=== PATIENT | female | born 1995 | race Caucasian/White ===

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

== ENCOUNTER 2017-04-01 21:24 | Emergency (ER) | payer BC, OTHER ==
[~2017-04-01] VITALS: Ht 162.6 cm; Wt 79.3 kg
[~2017-04-01 21:24] MED LIST changes: +ATR25 PO; +CYM60 PO; +PROP10TA54 PO; -VILA1TAB2 PO
[2017-04-01 21:32] VITALS: TEMP 37.1; Ht 162.6 cm; Wt 79.3 kg
--- NOTE | 2017-04-01 22:01 | EMERGENCY ROOM VISIT NOTE ---
History Report prepared by Chetan: Axel Snell Under the Supervision of: Dr. Iglesia Andersen M.D. First contact with patient: 21:43 Chief Complaint: MENTAL HEALTH EVALUATION Stated Complaint: DEPRESSION History of Present Illness The patient is a 21 year old female who presents to the Emergency Room with complaints of constant depression beginning a few months ago. The patient states that for the past couple months, she has been sleeping more often and not leaving the house. She notes that she intentionally cut herself two days ago and called the suicide hotline following the incident. She reports that she has had suicidal ideations for the past month but does not have a current suicidal plan. The patient states that she was hospitalized in June for suicidal thoughts. She notes that she has been taking testosterone since November. Her tetanus is UTD. Source of History: patient Onset: a few months ago Position: other (global) Quality: other (depression) Timing: constant Note: She notes that she has been sleeping more often and has not been leaving the house. She also notes cutting herself and suicidal ideations without a plan. Review of Systems See HPI for pertinent positives & negatives. A total of 10 systems reviewed and were otherwise negative. Past Medical & Surgical Medical Problems: (1) ADHD, predominantly inattentive type (2) Anxiety (3) ADAMA (generalized anxiety disorder) (4) Migraine (5) Suicidal ideation Family History Patient reports no known family medical history. Social History Smoking Status: Never Smoker Alcohol Use: none Drug Use: none Marital Status: single Occupation Status: student Current/Historical Medications Scheduled Duloxetine Hcl (Cymbalta), 60 MG PO DAILY Lamotrigine (Lamictal), 200 MG PO HS Levothyroxine Sodium (Synthroid), 75 MCG PO DAILY Liothyronine Sodium (Cytomel), 5 MCG PO DAILY Testosterone Cypionate (Testosterone Cypionate), 0.45 ML INJ WK Scheduled PRN Hydroxyzine HCl (Hydroxyzine HCl), 25 MG PO HSZ PRN for Insomnia Propranolol (Inderal), 10 MG PO BID PRN for . Allergies Coded Allergies: Penicillins (Unverified Allergy, Mild, 04/01/17) Amoxicillin (Unverified Allergy, Unknown, HIVES, 04/01/17) Physical Exam Vital Signs Date Time Temp Pulse Resp B/P (MAP) Pulse Ox O2 Delivery O2 Flow Rate FiO2 04/01/17 21:32 37.1 84 16 150/99 98 Room Air Physical Exam GENERAL: Patient is in no acute distress. HEENT: No acute trauma, normocephalic atraumatic, mucous membranes moist, no nasal congestion, no scleral icterus. NECK: No stridor, no adenopathy, no meningismus, trachea is midline. LUNGS: Clear to auscultation bilaterally, no wheeze, no rhonchi, breath sounds equal. HEART: Without murmurs gallops or rubs, regular rate and rhythm. ABDOMEN: Soft, nontender, bowel sounds positive, no hernias, no peritonitis. EXTREMITIES: No cyanosis or edema, full range of motion of all the joints without pain or difficulty. Superficial lacerations to left medial distal leg, no infection, no laceration repair required. NEUROLOGIC: Oriented x 3, no acute motor or sensory deficits, no focal weakness. SKIN: No rash, no jaundice, no diaphoresis. PSYCH: Cooperative, voluntary, admits to suicidal ideations with no plan. Medical Decision & Procedures Laboratory Results 04/01/17 22:17 04/01/17 22:17 Test 04/01/17 21:50 04/01/17 22:17 Urine Color YELLOW Urine Appearance CLEAR (CLEAR) Urine pH 7.0 (4.5-7.5) Urine Specific Wallace 1.015 (1.000-1.030) Urine Protein NEG (NEG) Urine Glucose (UA) NEG (NEG) Urine Ketones NEG (NEG) Urine Occult Blood NEG (NEG) Urine Nitrite NEG (NEG) Urine Bilirubin NEG (NEG) Urine Urobilinogen NEG (NEG) Urine Leukocyte Esterase SMALL (NEG) Urine WBC (Auto) 5-10 /hpf (0-5) Urine RBC (Auto) 5-10 /hpf (0-4) Urine Hyaline Casts (Auto) 1-5 /lpf (0-5) Urine Epithelial Cells (Auto) 20-30 /lpf (0-5) Urine Bacteria (Auto) NEG (NEG) Urine Opiates Screen NEG (NEG) Urine Methadone, Qualitative NEG (NEG) Urine Barbiturates NEG (NEG) Urine Phencyclidine (PCP) Level NEG (NEG) Ur Amphetamine/Methamphetamine NEG (NEG) MDMA (Ecstasy) Screen NEG (NEG) Urine Benzodiazepines Screen NEG (NEG) Urine Cocaine Metabolite NEG (NEG) Urine Marijuana (THC) NEG (NEG) Red Blood Count 5.30 M/uL (4.2-5.4) Mean Corpuscular Volume 88.3 fL (80-100) Mean Corpuscular Hemoglobin 29.8 pg (25-34) Mean Corpuscular Hemoglobin Concent 33.8 g/dl (32-36) RDW Standard Deviation 44.3 fL (36.4-46.3) RDW Coefficient of Variation 13.6 % (11.5-14.5) Mean Platelet Volume 10.5 fL (7.4-10.4) Anion Gap 9.0 mmol/L (3-11) Est Creatinine Clear Calc Drug Dose 81.6 ml/min Estimated GFR () 81.6 Estimated GFR (Non- 70.4 BUN/Creatinine Ratio 5.9 (10-20) Calcium Level 9.2 mg/dl (8.5-10.1) Total Bilirubin 0.2 mg/dl (0.2-1) Aspartate Amino Transf (AST/SGOT) 23 U/L (15-37) Alanine Aminotransferase (ALT/SGPT) 35 U/L (12-78) Alkaline Phosphatase 155 U/L (45-117) Total Protein 7.3 gm/dl (6.4-8.2) Albumin 3.9 gm/dl (3.4-5.0) Globulin 3.4 gm/dl (2.5-4.0) Albumin/Globulin Ratio 1.2 (0.9-2) Thyroid Stimulating Hormone (TSH) 2.090 uIu/ml (0.300-4.500) Free Thyroxine 0.78 ng/dl (0.80-1.60) Human Chorionic Gonadotropin, Qual NEG (NEG) Salicylates Level < 1.7 mg/dl (2.8-20) Acetaminophen Level < 2 ug/ml (10-30) Ethyl Alcohol mg/dL < 3.0 mg/dl (0-3) Laboratory results reviewed by me. ED Course 2148: The patient was evaluated in room A6. A complete history and physical exam was performed. 6668: The patient was signed out to Dr. Pond at change of shift. She will evaluate the patient. Medical Decision Differential diagnoses include: drug and alcohol abuse, situation anxiety and depression, thyroid disfunction, suicidal ideation, and medication noncompliance. There is no leukocytosis or concerning anemia. No significant electrolyte abnormality, kidney failure or hepatitis. Thyroid testing is consistent with someone who takes thyroid medication. testing was negative. Urinalysis does not show infection. Urine tox was negative. Alcohol, Tylenol and aspirin levels were undetectable. The patient presents voluntarily. She admits to being suicidal. She has cut her leg over the last few days, suturing is not required. The patient was felt medically clear for a psychiatric evaluation. A bed search is currently underway. The care has been assumed by Dr. Pond at the change of shift. Blood Pressure Screening Patient's blood pressure: Elevated blood pressure Referred to family doctor Impression Primary Impression: Suicidal ideation Scribe Attestation The scribe's documentation has been prepared under my direction and personally reviewed by me in its entirety. I confirm that the note above accurately reflects all work, treatment, procedures, and medical decision making performed by me. Departure Information Dispostion Still a Patient Referrals Harika Gray M.D. (PCP) Patient Instructions My [facility]
[2017-04-01] MEDS ORDERED: PROP10TA7 PO (22:06)
[2017-04-01] MEDS ORDERED: DULO60CA44 PO (22:06)
[2017-04-01] MEDS ORDERED: TEST1INJ2 INJ (22:07)
[2017-04-01 22:30] LABS: HEMATOCRIT 46.8 % (37-47); MEAN CELL VOLUME 88.3 fL (80-100); MEAN CORPUSCULAR HEMOGLOBIN 29.8 pg (25-34); MEAN CORPUSCULAR HGB CONC 33.8 g/dl (32-36); MEAN PLATELET VOLUME 10.5 fL (7.4-10.4); PLATELET COUNT 323 K/uL (130-400); WHITE BLOOD COUNT 7.86 K/uL (4.8-10.8)
[2017-04-01 22:40] LABS: URINE APPEARANCE CLEAR (CLEAR); URINE BILIRUBIN NEG (NEG); URINE COLOR YELLOW; URINE EPITHELIAL CELL AUTO 20-30 /lpf (0-5); URINE NITRITE NEG (NEG); URINE SPECIFIC GRAVITY 1.015 (1.000-1.030); UROBILINOGEN NEG (NEG); ZZUR CULT IF INDIC CLEAN CATCH NO
[2017-04-01 22:48] LABS: MANUAL MICROSCOPIC REQUIRED? NO; REVIEW REQ? NO
[2017-04-01 22:52] LABS: BUN/CREATININE RATIO 5.9 (10-20); CALCIUM 9.2 mg/dl (8.5-10.1); CREATININE 1.13 mg/dl (0.60-1.20)
[2017-04-01 23:01] LABS: BENZODIAZEPINE, URINE NEG (NEG); COCAINE,URINE NEG (NEG); PHENCYCLIDINE, URINE NEG (NEG)
[2017-04-01 23:02] LABS: ACETAMINOPHEN < 2 ug/ml (10-30); PREG INTERNAL NEGATIVE QC NEG CLEAR BACKGROUND; PREG INTERNAL POSITIVE QC POS CONTROL LINE
[2017-04-01 23:03] LABS: ALB/GLOB RATIO 1.2 (0.9-2); THYROID STIMULATING HORMONE 2.09 uIu/ml (0.300-4.500)
[2017-04-01] MEDS ORDERED: DULOXETINE HCL 60 MG CAP PO STA (23:57)
[2017-04-02] MEDS ORDERED: LIOTHYRONINE SODIUM 5 MCG TAB PO STA (05:10)
[2017-04-02] MEDS ORDERED: LEVOTHYROXINE 75 MCG TAB PO STA (05:10)
--- NOTE | 2017-04-02 05:33 | EMERGENCY ROOM VISIT NOTE ---
ED Visit Note First contact with patient: 00:13 This case was signed out to me at change of shift awaiting bed placement. The patient is currently resting. He is willing to admit himself voluntarily. 0230: Staff from [facility]. explained that they are waiting to hear back from [facility] for possible bed placement. 0420: [facility] has no beds available. The mother is willing to put a referral into [facility]. 0530: Morning medications were ordered. Patient will be signed out to Dr. Browning change of shift awaiting bed placement.
[2017-04-02 11:40] VITALS: BP 153/98; PULSE 112; O2SAT 98
== END 2017-04-02 11:48 ==
LOC: C.EDB 21:24 → C.EDA 04-02 11:48
DX: R45.851 Suicidal ideations (principal); F41.9 Anxiety disorder, unspecified; F90.0 Attention-deficit hyperactivity disorder, predominantly inattentive type; Z79.899 Other long term (current) drug therapy; Z88.0 Allergy status to penicillin; Z88.1 Allergy status to other antibiotic agents

== ENCOUNTER 2018-06-27 19:41 | Inpatient (IN) ==
[2018-06-27 20:28] LABS: Appearance Urine Turbid (Clear); Bacteria Urine Automated Negative (Negative); Bilirubin Urine Negative (Negative); Color Urine Yellow; Epithelial Cell Urine Auto 20-30 /lpf (0-5); Glucose Urine UA Negative (Negative); Ketones Urine Negative (Negative); Leukocyte Esterase Urine 3+ (Negative); Nitrite Urine Negative (Negative); Protein Urine Trace (Negative); Specific Gravity Urine 1.015 (1.000-1.030); Urobilinogen Urine Negative (Negative); WBC Urine Automated >30 /hpf (0-5); pH Urine 6.5 (4.5-7.5)
[2018-06-27 20:47] LABS: Cast Urine Automated 0 /lpf (0-5)
[2018-06-27 20:47] LABS: Basophils # (auto) 0.02 K/uL (0-0.2); Basophils % (auto) 0.2 %; Eosinophils # (auto) 0.08 K/uL (0-0.5); Eosinophils % (auto) 0.7 %; Hematocrit (blood only) 53.3 % (42-52); Hemoglobin 18.7 g/dL (14.0-18.0); Immature Granulocytes # (auto) 0.03 K/uL (0.00-0.02); Immature Granulocytes % (auto) 0.3 %; Lymphocytes # (auto) 2.33 K/uL (1.2-3.4); Lymphocytes % (auto) 20.3 %; Mean Corpuscular Hgb Conc 35.1 g/dL (32-36); Mean Corpuscular Volume 91.6 fL (80-100); Mean Platelet Volume 10.9 fL (7.4-10.4); Monocytes # (auto) 0.54 K/uL (0.11-0.59); Monocytes % (auto) 4.7 %; Neutrophils # (auto) 8.49 K/uL (1.4-6.5); Neutrophils % (auto) 73.8 %; Platelet Count 236 K/uL (130-400); RDW Coefficient of Variation 13.1 % (11.5-14.5); RDW Standard Deviation 43.8 fL (36.4-46.3); Red Blood Count 5.82 M/uL (4.7-6.1); White Blood Count 11.49 K/uL (4.8-10.8)
[2018-06-27 21:07] LABS: Amphetamines+Metham, Urine Neg (Neg); Barbiturates, Urine Neg (Neg); Benzodiazepine, Urine Neg (Neg); Cocaine, Urine Neg (Neg); MDMA (Ecstacy), Urine Neg (Neg); Methadone, Urine Neg (Neg); Opiate, Urine Neg (Neg); Phencyclidine, Urine Neg (Neg)
[2018-06-27 21:08] LABS: BUN Creatinine Ratio 12.5 (10-20); Calcium 8.6 mg/dl (8.5-10.1); Creatinine Clr Calc Pharmacy 91.3 ml/min; Est GFR (African American) 119.2; Est GFR (Non-African American) 102.9
[2018-06-27 21:29] LABS: Albumin Globulin Ratio 1.1 (0.9-2); Bilirubin,Total 0.4 mg/dl (0.2-1); Globulin 3.6 gm/dl (2.5-4.0); Total Protein 7.6 gm/dl (6.4-8.2)
[2018-06-27 21:30] LABS: Acetaminophen < 2 ug/ml (10-30); Salicylate < 1.7 mg/dl (2.8-20)
[2018-06-27] MEDS: NITROFURANTOIN MONOHYDRATE 100 MG CAP PO SCH (21:50)
[2018-06-27] MEDS ORDERED: carBAMazepine 200 MG TABLET PO SCH (23:20)
[2018-06-27] MEDS ORDERED: ALUMINUM/MAGNESIUM SUSP 30 ML UDC PO PRN (23:54)
[2018-06-27] MEDS ORDERED: SODIUM CHLORIDE 0.65% NA SOLN 45 ML (OCEAN) PRN (23:54)
[2018-06-27] MEDS ORDERED: BISMUTH SUBSALICYLATE PER ML OMNICELL CHARGE PO PRN (23:54)
[2018-06-27] MEDS ORDERED: ACETAMINOPHEN 325 MG TAB PO PRN (23:54)
[2018-06-27] MEDS ORDERED: MAGNESIUM HYDROXIDE SUSP 30 ML UDC PO PRN (23:54)
[2018-06-28 00:13] LABS: T4 Free Thyroxine 0.8 ng/dl (0.8-1.6)
--- NOTE | 2018-06-28 00:57 | Emergency Department Note ---
Entered by Iglesia Francois acting as a scribe for Chase Cabrales M.D. History of Present Illness General Chief complaint: Mental Health Evaluation Stated complaint: MHID Time Seen by Provider: 06/27/18 19:48 Source: patient and family (mother) History of Present Illness Provider complaint: Mental health evaluation Onset (ago): hour(s) Location: left and right Relieved By: + none Associated symptoms: + denies other symptoms (suicidal and homicidal thoughts, and hallucinations) Treatments prior to arrival: none The patient is a 22 year old male who presents to the Emergency Room with in need of a mental health evaluation. Per the patient's mother, the patient has a history of suicidal ideations saying that he states that when he turns 23, he is buying a gun. She adds that he also has a history of suicide attempts. The patient states that he posted an ad on [employer] recently looking to purchase a gun prior to arrival. The patient currently denies any suicidal or homicidal ideations and hallucinations. The patient adds that he has a history of bipolar disorder/depression and has been seeing the same therapist since he was 16. The patient notes that the only recent change to his current daily medications is Propranolol as needed. The patient denies any other problems and states that he feels physically ok. Home Medications Home Medications Medication Instructions Recorded Confirmed Type aripiprazole [Abilify] 15 mg PO DAILY 06/27/18 06/27/18 History carbamazepine [Tegretol] 200 mg PO QAM 06/27/18 06/27/18 History carbamazepine [Tegretol] 400 mg PO QPM 06/27/18 06/27/18 History dexmethylphenidate [Focalin] 15 mg PO DAILY 06/27/18 06/27/18 History propranolol 200 mg PO DAILY PRN 06/27/18 06/27/18 History Allergies Allergy/AdvReac Type Severity Reaction Status Date / Time Penicillins Allergy Mild Unknown Unverified 04/08/18 02:14 amoxicillin Allergy Unknown HIVES Unverified 04/08/18 02:14 Past Med/Surg History Medical History Suicidal ideation (Resolved) ADHD, predominantly inattentive type Anxiety ADAMA (generalized anxiety disorder) Migraine (Resolved) Surgical History H/O mastectomy testosterone treatment Family History Other Family history of high blood pressure Social History Current Living Situation: Parent and Family Feels Safe at Home: Yes Smoking Status: Current every day smoker Hx Alcohol Use: Yes (hard lemonade, fireball whiskey) Alcohol Intake Frequency : other Beliefs That Will Affect Care: None Preferred Language: Honduran Review of Systems See HPI for pertinent positives & negatives. and A total of 10 systems reviewed and were otherwise negative Physical Exam Vital Signs Vital Signs - 24 hr 06/27/18 19:48 06/27/18 21:49 06/28/18 00:19 Temperature 36.9 C Temperature Source Oral Sepsis Recent Fever Within 48 Hours No Sepsis New/Unexplained Change in Mental Status No Sepsis Action Taken by Nursing No Action Required Pulse Rate 112 H 77 Pulse Rate [Left Finger] 81 Pulse Rhythm [Left Finger] Regular Pulse Strength [Left Finger] Normal Respiratory Rate 18 18 18 Respiratory Effort / Characteristics Non-Labored Respiratory Depth Normal Respiratory Pattern Regular Blood Pressure 168/88 H 131/65 Blood Pressure [Left Arm] 151/70 H Blood Pressure Mean 114 Blood Pressure Mean [Left Arm] 97 Blood Pressure Position [Left Arm] Lying Pulse Oximetry 98 98 95 Oxygen Delivery Method Room Air Room Air GENERAL: Awake, alert, well-appearing, in no distress PSYCH: Denies SI/HI and hallucinations. HENT: Normocephalic, atraumatic. EYES: Normal conjunctiva. Sclera non-icteric. NECK: Supple. No nuchal rigidity. RESPIRATORY: Clear to auscultation. No wheezes. Normal respiratory effort. CARDIAC: Normal rate. Normal rhythm. Extremities warm and well perfused. GI: Soft, non-distended. No tenderness to palpation. RECTAL: Deferred. MUSCULOSKELETAL: Atraumatic. Chest examination reveals no tenderness. LOWER EXTREMITIES: Calves are equal size bilaterally and non-tender. NEURO: Normal sensorium. No sensory or motor deficits noted. No facial droop. SKIN: Warm and dry. No rash or jaundice noted. Course 1950: Past medical records reviewed. The patient was evaluated in room A07, and a complete history and physical examination were performed. 2353: Patient previously reevaluated by myself and adult protective caseworker. Referrals for inpatient psych made and the patient was admitted to [address] [place] [address]. Administered Medications Carbamazepine (Tegretol) 400 mg PO QPM [facility] Stop: 07/27/18 23:19 Last Admin: 06/27/18 23:48 Dose: 400 mg Hydroxyzine HCl (Vistaril) 50 mg PO HSZ PRN PRN Reason: Insomnia Stop: 07/27/18 23:53 Last Admin: 06/28/18 00:40 Dose: 50 mg Nitrofurantoin Macrocrystals (Macrobid) 100 mg PO BID JILLIAN Stop: 07/02/18 21:44 Last Admin: 06/27/18 21:50 Dose: 100 mg Medical Decision Making Differential Diagnosis differential includes toxic ingestions, self-mutilation, suicidal ideation, suicide attempt, depression. Medical Records Attestation: I reviewed the patient's medical records. Home Medications Current Medication List: was personally reviewed by me Laboratory Data Attestation: I reviewed the patient's lab results. Result diagrams: 06/27/18 20:27 06/27/18 20:27 Lab Results 06/27/18 06/27/18 06/27/18 Range/Units 20:05 20:05 20:27 WBC 11.49 H (4.8-10.8) K/uL RBC 5.82 (4.7-6.1) M/uL Hgb 18.7 H (14.0-18.0) g/dL Hct 53.3 H (42-52) % MCV 91.6 (80-100) fL MCH 32.1 (25-34) pg MCHC 35.1 (32-36) g/dL RDW Std Deviation 43.8 (36.4-46.3) fL RDW Coeff of Vee 13.1 (11.5-14.5) % Plt Count 236 (130-400) K/uL MPV 10.9 H (7.4-10.4) fL Immature Gran % (Auto) 0.3 % Neut % (Auto) 73.8 % Lymph % (Auto) 20.3 % Snyder % (Auto) 4.7 % Eos % (Auto) 0.7 % Baso % (Auto) 0.2 % Immature Gran # (Auto) 0.03 H (0.00-0.02) K/uL Neut # (Auto) 8.49 H (1.4-6.5) K/uL Lymph # (Auto) 2.33 (1.2-3.4) K/uL Snyder # (Auto) 0.54 (0.11-0.59) K/uL Eos # (Auto) 0.08 (0-0.5) K/uL Baso # (Auto) 0.02 (0-0.2) K/uL Sodium (136-145) mmol/L Potassium (3.5-5.1) mmol/L Chloride (98-107) mmol/L Carbon Dioxide (21-32) mmol/L Anion Gap (3-11) BUN (7-18) mg/dl Creatinine (0.6-1.4) mg/dl Est Cr Clr Drug Dosing ml/min Est GFR ( Amer) Est GFR (Non-Af Amer) BUN/Creatinine Ratio (10-20) Glucose (70-99) mg/dl Calcium (8.5-10.1) mg/dl Total Bilirubin (0.2-1) mg/dl AST (15-37) U/L ALT (12-78) U/L Alkaline Phosphatase (45-117) U/L Total Protein (6.4-8.2) gm/dl Albumin (3.4-5.0) gm/dl Globulin (2.5-4.0) gm/dl Albumin/Globulin Ratio (0.9-2) TSH (0.300-4.500) uIu/ml Free T4 (0.8-1.6) ng/dl HCG, Qual Specimen Hemolysis Urine Color Yellow Urine Appearance Turbid H (Clear) Urine pH 6.5 (4.5-7.5) Ur Specific Boone 1.015 (1.000-1.030) Urine Protein Trace H (Negative) Urine Glucose (UA) Negative (Negative) Urine Ketones Negative (Negative) Urine Blood 2+ H (Negative) Urine Nitrite Negative (Negative) Urine Bilirubin Negative (Negative) Urine Urobilinogen Negative (Negative) Ur Leukocyte Esterase 3+ H (Negative) Urine WBC (Auto) >30 H (0-5) /hpf Urine RBC (Auto) 10-30 H (0-4) /hpf U Hyaline Cast (Auto) 0 (0-5) /lpf U Epithel Cells (Auto) 20-30 H (0-5) /lpf Urine Bacteria (Auto) Negative (Negative) Urine Yeast Present H (None Prsent) Salicylates (2.8-20) mg/dl Urine Opiates Screen Neg (Neg) Ur Methadone, Qual Neg (Neg) Acetaminophen (10-30) ug/ml Urine Barbiturates Neg (Neg) Ur Phencyclidine (PCP) Neg (Neg) U Amphetamin/Meth Scrn Neg (Neg) MDMA (Ecstasy) Screen Neg (Neg) U Benzodiazepines Scrn Neg (Neg) Ur Cocaine Metabolite Neg (Neg) U Marijuana (THC) Screen Pos H (Neg) Ethyl Alcohol mg/dL (0-3) mg/dl 06/27/18 06/27/18 06/27/18 Range/Units 20:27 20:27 20:27 WBC (4.8-10.8) K/uL RBC (4.7-6.1) M/uL Hgb (14.0-18.0) g/dL Hct (42-52) % MCV (80-100) fL MCH (25-34) pg MCHC (32-36) g/dL RDW Std Deviation (36.4-46.3) fL RDW Coeff of Vee (11.5-14.5) % Plt Count (130-400) K/uL MPV (7.4-10.4) fL Immature Gran % (Auto) % Neut % (Auto) % Lymph % (Auto) % Snyder % (Auto) % Eos % (Auto) % Baso % (Auto) % Immature Gran # (Auto) (0.00-0.02) K/uL Neut # (Auto) (1.4-6.5) K/uL Lymph # (Auto) (1.2-3.4) K/uL Snyder # (Auto) (0.11-0.59) K/uL Eos # (Auto) (0-0.5) K/uL Baso # (Auto) (0-0.2) K/uL Sodium 138 (136-145) mmol/L Potassium 4.0 (3.5-5.1) mmol/L Chloride 105 (98-107) mmol/L Carbon Dioxide 24 (21-32) mmol/L Anion Gap 10.0 (3-11) BUN 13 (7-18) mg/dl Creatinine 1.04 (0.6-1.4) mg/dl Est Cr Clr Drug Dosing 91.3 ml/min Est GFR ( Amer) 119.2 Est GFR (Non-Af Amer) 102.9 BUN/Creatinine Ratio 12.5 (10-20) Glucose 117 H (70-99) mg/dl Calcium 8.6 (8.5-10.1) mg/dl Total Bilirubin 0.4 (0.2-1) mg/dl AST 20 (15-37) U/L ALT 43 (12-78) U/L Alkaline Phosphatase 100 (45-117) U/L Total Protein 7.6 (6.4-8.2) gm/dl Albumin 4.0 (3.4-5.0) gm/dl Globulin 3.6 (2.5-4.0) gm/dl Albumin/Globulin Ratio 1.1 (0.9-2) TSH 5.270 H (0.300-4.500) uIu/ml Free T4 0.80 (0.8-1.6) ng/dl HCG, Qual Specimen Hemolysis Urine Color Urine Appearance (Clear) Urine pH (4.5-7.5) Ur Specific Boone (1.000-1.030) Urine Protein (Negative) Urine Glucose (UA) (Negative) Urine Ketones (Negative) Urine Blood (Negative) Urine Nitrite (Negative) Urine Bilirubin (Negative) Urine Urobilinogen (Negative) Ur Leukocyte Esterase (Negative) Urine WBC (Auto) (0-5) /hpf Urine RBC (Auto) (0-4) /hpf U Hyaline Cast (Auto) (0-5) /lpf U Epithel Cells (Auto) (0-5) /lpf Urine Bacteria (Auto) (Negative) Urine Yeast (None Prsent) Salicylates < 1.7 L (2.8-20) mg/dl Urine Opiates Screen (Neg) Ur Methadone, Qual (Neg) Acetaminophen < 2 L (10-30) ug/ml Urine Barbiturates (Neg) Ur Phencyclidine (PCP) (Neg) U Amphetamin/Meth Scrn (Neg) MDMA (Ecstasy) Screen (Neg) U Benzodiazepines Scrn (Neg) Ur Cocaine Metabolite (Neg) U Marijuana (THC) Screen (Neg) Ethyl Alcohol mg/dL < 3.0 (0-3) mg/dl 06/27/18 Range/Units 20:27 WBC (4.8-10.8) K/uL RBC (4.7-6.1) M/uL Hgb (14.0-18.0) g/dL Hct (42-52) % MCV (80-100) fL MCH (25-34) pg MCHC (32-36) g/dL RDW Std Deviation (36.4-46.3) fL RDW Coeff of Vee (11.5-14.5) % Plt Count (130-400) K/uL MPV (7.4-10.4) fL Immature Gran % (Auto) % Neut % (Auto) % Lymph % (Auto) % Snyder % (Auto) % Eos % (Auto) % Baso % (Auto) % Immature Gran # (Auto) (0.00-0.02) K/uL Neut # (Auto) (1.4-6.5) K/uL Lymph # (Auto) (1.2-3.4) K/uL Snyder # (Auto) (0.11-0.59) K/uL Eos # (Auto) (0-0.5) K/uL Baso # (Auto) (0-0.2) K/uL Sodium (136-145) mmol/L Potassium (3.5-5.1) mmol/L Chloride (98-107) mmol/L Carbon Dioxide (21-32) mmol/L Anion Gap (3-11) BUN (7-18) mg/dl Creatinine (0.6-1.4) mg/dl Est Cr Clr Drug Dosing ml/min Est GFR ( Amer) Est GFR (Non-Af Amer) BUN/Creatinine Ratio (10-20) Glucose (70-99) mg/dl Calcium (8.5-10.1) mg/dl Total Bilirubin (0.2-1) mg/dl AST (15-37) U/L ALT (12-78) U/L Alkaline Phosphatase (45-117) U/L Total Protein (6.4-8.2) gm/dl Albumin (3.4-5.0) gm/dl Globulin (2.5-4.0) gm/dl Albumin/Globulin Ratio (0.9-2) TSH (0.300-4.500) uIu/ml Free T4 (0.8-1.6) ng/dl HCG, Qual Cancelled Specimen Hemolysis Urine Color Urine Appearance (Clear) Urine pH (4.5-7.5) Ur Specific Boone (1.000-1.030) Urine Protein (Negative) Urine Glucose (UA) (Negative) Urine Ketones (Negative) Urine Blood (Negative) Urine Nitrite (Negative) Urine Bilirubin (Negative) Urine Urobilinogen (Negative) Ur Leukocyte Esterase (Negative) Urine WBC (Auto) (0-5) /hpf Urine RBC (Auto) (0-4) /hpf U Hyaline Cast (Auto) (0-5) /lpf U Epithel Cells (Auto) (0-5) /lpf Urine Bacteria (Auto) (Negative) Urine Yeast (None Prsent) Salicylates (2.8-20) mg/dl Urine Opiates Screen (Neg) Ur Methadone, Qual (Neg) Acetaminophen (10-30) ug/ml Urine Barbiturates (Neg) Ur Phencyclidine (PCP) (Neg) U Amphetamin/Meth Scrn (Neg) MDMA (Ecstasy) Screen (Neg) U Benzodiazepines Scrn (Neg) Ur Cocaine Metabolite (Neg) U Marijuana (THC) Screen (Neg) Ethyl Alcohol mg/dL (0-3) mg/dl Blood Pressure Blood Pressure Findings: Elevated blood pressure Blood Pressure Disposition: elevated BP felt to be situational MDM Narrative 22-year-old female to male transgender gentleman with a history of bipolar presenting today after posting messages on the Internet asking for gone into/ throat. Denies current SI or HI or hallucinations. Does have prior significant attempts at self-harm last in March. Currently in outpatient therapy on medication. Denies any injury or medical complaint. Medical clearance was completed without acute findings other than UTI which will receive 5 days of Macrobid; the patient is medically cleared. Please did petition a 302. Psychiatric adult protective caseworker assisted with evaluation of the patient. Believe inpatient treatment would probably benefit the patient given his significant history and the statements available for review. Patient signed a voluntary form and was admitted by the inpatient psychiatric unit on 3 S. Impression & Plan Suicidal ideation, Mood disorder Discharge Plan Visit Data *Final* Discharge Date/Time: 06/28/18 00:19 Chief Complaint: Mental Health Evaluation Stated Complaint: MHID ED Provider: Chase Cabrales Discharge Problem: Suicidal ideation, Mood disorder Patient Disposition: Admitted As Inpatient Condition: Fair Discharge Instructions Interventions: ED Discharge Assessment Last Done: 06/28/18 00:19 The vernaibe's documentation has been prepared under my direction and personally reviewed by me in its entirety. I confirm that the note above accurately reflects all work, treatment, procedures, and medical decision making performed by me.
--- NOTE | 2018-06-28 09:32 | History & Physical ---
Date of Service June 28, 2018 Impression / Recommendations Impression 22-year-old single female to male transgender patient with a history of bipolar disorder, ADHD, polysubstance abuse and multiple hospitalizations and suicide attempts who presented on a 302 warrant with police after posting ads on [employer] list to trying to buy a gun. He then signed in voluntarily, but clearly states today that he does not feel he needs to be here and is angry about hospitalization. He states that the ads were "a joke" and that he just wanted to see how people would respond, and denies that he was intending to buy a gun or to end his life. He gives some conflicting reports about his mood and recent suicidal thoughts, and we will need to get collateral information from his family regarding his mood and behavior over the past couple of months. For now we will continue his home medications, as his aripiprazole was just increased several weeks ago to target mood. Inpatient treatment is medically necessary due to his numerous risk factors and high risk for suicide if discharged prematurely. (1) Personality disorder: 06/28 - Patient has demonstrated antisocial and borderline traits ( impulsivity in potentially self damaging areas, recurrent suicidal behavior/ gestures/threats, affect of instability, anger outbursts, deceitfulness, lack of empathy for others, reckless disregard for safety, and irritability). If his explanation of the events that led to admission is to be believed, his behavior is more likely due to a personality disorder than to a primary mood disorder. However, in the past, he has clearly stated chronic suicidal thoughts with a plan to purchase a weapon when he turns 23 and use it to commit suicide. His 23st birthday is coming up next month. Present on Admission?: Yes (2) Bipolar disorder current episode depressed: 06/28 - Patient denies recent depression or hypomania. Continue home medications: Tegretol XR 200mg qam and 400mg HS and arpiprazole 10mg daily. -Suicide checks for safety/ -Attend groups and therapy, work on healthy coping skills and discharge safety plan. -Care coordinated with outpatient psychiatrist, Dr. Benavidez. -Family meeting with parents. Current episode severity: severe Psychotic features: without psychotic features Qualified Code(s): F31.4 - Bipolar disorder, current episode depressed, severe, without psychotic features Present on Admission?: Yes (3) Cannabis abuse: 06/28 -patient has not been willing to work towards sobriety, but will continue to provide psychoeducation about the risks of cannabis and other substance abuse, and engage him in motivational interviewing. He has made provocative statements about wanting to start using heroin, and was hospitalized several months ago due to a Coricidin overdose while attempting to get high. -Recovery protocol. -Has outpatient psychiatrist and therapist, but can explore the need for a higher level of substance abuse treatment if the patient is willing. -Avoid controlled substances given the high risk of abuse/misuse/negative outcomes Present on Admission?: Yes (4) ADHD, predominantly inattentive type: 06/28 -may continue home dose of Focalin XR 10mg daily, but nonformulary so will need home supply. Present on Admission?: Yes Inventory Assets Strengths: Supportive family, has housing and outpatient providers Needs: Sobriety from substances, safety plan Risk Factors Assessment : Yes Do You Have Access To A Gun?: No (But has attempted to buy one online) Health Problems: No Mental Health Diagnoses: Yes Substance Use Disorders: Yes Previous Attempt: Yes Previous Attempt; Planned: Yes Family History of Suicide: No Previous Psychiatric Hospitalization: Yes Smoker: Yes Protective Factors Assessment Taoist Beliefs: No : No Responsible for Young Children: No Employed: No Stable Relationships: No Supportive Family: Yes Psychiatric History Identifying Data MANUEL MARS is a 22-year-old transgendered female to male who currently lives in [place] with his mother and sister, has a history of polysubstance abuse, bipolar disorder, and was admitted on 06/27/18 23:55 on a 201 voluntary commitment after he attempted to buy a gun on [employer] list in order to end his life. Chief Complaint "It was stupid, I was just fucking with people". History of Present Illness Patient is well-known to us from multiple recent hospitalizations on our unit, most recently in March 2018 under similar circumstances. He was initially hospitalized 04/01/18 - 04/07/18, then re-presented to the emergency room 12 hours later after overdosing on Coricidin, which he said he was abusing in order to get high. He was admitted medically for several days for treatment of the overdose, and was then transferred to the behavioral health unit 04/10/18 - 04/14/2018. During his most recent hospitalization, he was continued on aripiprazole 5 mg daily, Focalin XR 10mg daily, and carbamazepine 200 mg every morning and 400 mg nightly. Family meetings were held with his mother and father, as his mother had concerns about him returning to live with her given his ongoing substance abuse and suicidality. She set boundaries with him regarding ability to oversee his finances, securing his medications and filling a weekly medication box, and searching his room. The patient was irritable and said he would only agree in order to be discharged from the hospital. His parents also discussed their concerns with his repeatedly expressed desire to buy a handgun, which the patient was dismissive of. He was discharged to outpatient care with case management through eri richard, Dr. Benavidez, weekly transgender groups, and therapy at the psych clinic. Per outpatient records, he last saw his psychiatrist Dr. Benavidez on 06/06/2018, at which time he reported mood was mildly depressed but improved from previous, denied any suicidal thoughts, and reported good med compliance; aripiprazole was increased to 20 mg daily. He said he had called various ketamine clinics to see if he could get treatment for depression, and was planning to go to a place in [place]. On my assessment, the patient states he "didn't mean any of it, I wasn't serious , was just making ads on [employer] List to fuck with people, it was just a joke, but it got me here." He says it was "just an experiment, to see what people say, " "I do it all the time, about aliens, I just fucked up, I'm not suicidal at all." He says he wanted to see "if anyone would agree to it, if someone actually would, I would be out, nevermind, I just thought it would be interesting." He says he started posting these ads in because he was "bored ," and someone saw it and called the police. He minimizes other people's concerns about his ads, saying "people say things they don't mean all the time. " He denies that he has had suicidal thoughts since , then says he has brief passing SI, but no plan or intent. He reports mood has been good, although he still has ups and downs, "but not serious." He has been taking propanolol as needed for anxiety, but reports rare use. He denies manic symptoms now or in the past, and says he is not sure if he really has bipolar disorder. He has started taking college classes again, 3 classes since May., and says he is doing well. Mood has been "good lately," reports adherence to medication and says things at home with his mother and sister have been going well. In attempting to clarify the discrepancies between his reports today that mood is stable and reports in the ER that he wanted to pursue ECT, he says that his therapist and doctor had suggested ECT and he was willing to consider it, but is aware it is not offered here and is not really sure if he needs it. Past Psychiatric History Previous Psych History: Diagnosed with bipolar disorder, ADHD, general identity disorder, transgender female to male, and substance abuse. Current Psychiatric Diagnosis: Bipolar disorder Outpatient Services: Psychiatrist: Dr. Benavidez at [facility] Therapist: Lillie Serna at the [facility] psych clinic cage manager: Matt Richard Previous Psych Admissions: First hospitalization at age 15 at [facility] after an overdose on Prozac. [facility] 2016 after overdose. [facility] Multiple hospitalizations at [facility], including 2 in 2016 and 2 in 03/2018, and medical admission for Coricidin overdose in 03/2018. Do You Have Access To A Gun?: No (But has attempted to buy one online) History of Previous Suicide Attempt: Yes Describe Attempts in the Past: Multiple ODs age 15, 03/2017,04/2017, 03/2018 and 05/2018 electrocution Past Medication Trials: extensive and include but are not limited to: Topamax, Viibryd, Latuda, Pristiq- taekn off inpatient Seroquel too sedated Vyvanse, Adderall, -reported to Dr. Benavidez in his July intake that Vyvanse and Adderall helped his focus but caused anxiety Focalin abilify - unclear dose or duration or reason for stopping clonazepam, Lamictal Cymbalta - discontinuation several times off that med Wellbutrin - self discontinued, not fully helpful for ADHD unclear for mood lithium - weight gain vraylar - involuntary movements Allergies Allergy/AdvReac Type Severity Reaction Status Date / Time Penicillins Allergy Mild Unknown Unverified 04/08/18 02:14 amoxicillin Allergy Unknown HIVES Unverified 04/08/18 02:14 Home Medications Home Medications Medication Instructions Recorded Confirmed Type propranolol 10 mg PO DAILY PRN 06/27/18 History aripiprazole 20 mg PO DAILY 06/28/18 06/28/18 History carbamazepine 200 mg PO DAILY 06/28/18 06/28/18 History carbamazepine 400 mg PO HS 06/28/18 06/28/18 History dexmethylphenidate 10 mg PO DAILY 06/28/18 06/28/18 History Family History Family History of: Depression and Bipolar (Sister and father's side of family) Family Mental Health History Comment: Mother and father - depression. Sibling and mother with a history of suicide attempts. Alcohol History Hx of Alcohol Use Over the Past 12 Months: Yes (1X/week) AUDIT Total Score: 5 Smoking Use Have You Smoked or Used Tobacco Products in the Last 30 Days: Yes tobacco type: cigarettes Smoking Status: Current some day smoker Substance History Hx of Prescription Med Misuse Over the Past 12 Months: No Hx of Over the Counter Med Misuse Over the Past 12 Months: Yes (bought multiple boxes of coricidin) Hx of Inhalent Misuse Over the Past 12 Months: No Hx of Organic Substance Use Over the Past 12 Months: Yes (Marijuana 1X/week) Hx of Illegal Substances/Street Drug Use Over Past 12 Months: No Problems as a Result of Past Substance Use: Other Problems as a Result of Past Substance Use Comments: Hospitalized medically for several days after Coricidin overdose in an attempt to get high Personal History Living Arrangements: Home Living Arrangements Comments: With mother and sister in [place] Highest Grade Completed: G.E.D. Highest Grade Completed Comment: Dropped out of high school in his senior year. Took classes at [employer] in the summer 2017. Marital Status: Single Beliefs That Will Affect Care: None Hx Legal Problems: No Hx Traumatic Life Events: No Psychological Trauma History Comment: No history of abuse. Patient History Medical History Suicidal ideation (Resolved) ADHD, predominantly inattentive type Anxiety ADAMA (generalized anxiety disorder) Migraine (Resolved) Surgical History H/O mastectomy testosterone treatment Family History Other Family history of high blood pressure Social History (Reviewed 06/27/18 @ 21:01 by Iglesia Albarran Current Living Situation: Parent and Family Feels Safe at Home: Yes Smoking Status: Current some day smoker Tobacco Type: cigarettes Hx Alcohol Use: Yes (hard lemonade, fireball whiskey) Alcohol Intake Frequency : other Beliefs That Will Affect Care: None Preferred Language: Irish Communication Ability: Effective Truck 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 Required: No Physical Exam Psychiatric Orientation: alert, oriented x 3 and cooperative Apperance: appropriately dressed and + disheveled hair wildly disheveled, nose pierced, facial acne Eye Contact: + poor eye contact Motor Behavior: steady gait and station and no abnormal motor movements Loud Affect: + irritable affect Thought Process: goal directed thought process Vital Signs (Past 24 Hours) Last Vital Signs Temp 36.5 C 06/28/18 06:48 Pulse 75 06/28/18 06:49 Resp 16 06/28/18 06:48 BP 118/72 06/28/18 06:49 Pulse Ox 95 06/28/18 00:19 A physical exam was performed in the ER prior to admission to the unit by Dr. Cabrales. I accept that physical as correct/medical clearance for the inpatient physical exam. Results & Data Laboratory Results Laboratory Results - last 24 hr 06/27/18 06/27/18 06/27/18 20:05 20:05 20:27 WBC 11.49 H RBC 5.82 Hgb 18.7 H Hct 53.3 H MCV 91.6 MCH 32.1 MCHC 35.1 RDW Std Deviation 43.8 RDW Coeff of Vee 13.1 Plt Count 236 MPV 10.9 H Immature Gran % (Auto) 0.3 Neut % (Auto) 73.8 Lymph % (Auto) 20.3 [place] % (Auto) 4.7 Eos % (Auto) 0.7 Baso % (Auto) 0.2 Immature Gran # (Auto) 0.03 H Neut # (Auto) 8.49 H Lymph # (Auto) 2.33 [place] # (Auto) 0.54 Eos # (Auto) 0.08 Baso # (Auto) 0.02 Sodium Potassium Chloride Carbon Dioxide Anion Gap BUN Creatinine Est Cr Clr Drug Dosing Est GFR ( Amer) Est GFR (Non-Af Amer) BUN/Creatinine Ratio Glucose Calcium Total Bilirubin AST ALT Alkaline Phosphatase Total Protein Albumin Globulin Albumin/Globulin Ratio TSH Free T4 HCG, Qual Specimen Hemolysis Urine Color Yellow Urine Appearance Turbid H Urine pH 6.5 Ur Specific [place] 1.015 Urine Protein Trace H Urine Glucose (UA) Negative Urine Ketones Negative Urine Blood 2+ H Urine Nitrite Negative Urine Bilirubin Negative Urine Urobilinogen Negative Ur Leukocyte Esterase 3+ H Urine WBC (Auto) >30 H Urine RBC (Auto) 10-30 H U Hyaline Cast (Auto) 0 U Epithel Cells (Auto) 20-30 H Urine Bacteria (Auto) Negative Urine Yeast Present H Salicylates Urine Opiates Screen Neg Ur Methadone, Qual Neg Acetaminophen Urine Barbiturates Neg Ur Phencyclidine (PCP) Neg U Amphetamin/Meth Scrn Neg MDMA (Ecstasy) Screen Neg U Benzodiazepines Scrn Neg Ur Cocaine Metabolite Neg U Marijuana (THC) Screen Pos H Ethyl Alcohol mg/dL 06/27/18 06/27/18 06/27/18 20:27 20:27 20:27 WBC RBC Hgb Hct MCV MCH MCHC RDW Std Deviation RDW Coeff of Vee Plt Count MPV Immature Gran % (Auto) Neut % (Auto) Lymph % (Auto) [place] % (Auto) Eos % (Auto) Baso % (Auto) Immature Gran # (Auto) Neut # (Auto) Lymph # (Auto) [place] # (Auto) Eos # (Auto) Baso # (Auto) Sodium 138 Potassium 4.0 Chloride 105 Carbon Dioxide 24 Anion Gap 10.0 BUN 13 Creatinine 1.04 Est Cr Clr Drug Dosing 91.3 Est GFR ( Amer) 119.2 Est GFR (Non-Af Amer) 102.9 BUN/Creatinine Ratio 12.5 Glucose 117 H Calcium 8.6 Total Bilirubin 0.4 AST 20 ALT 43 Alkaline Phosphatase 100 Total Protein 7.6 Albumin 4.0 Globulin 3.6 Albumin/Globulin Ratio 1.1 TSH 5.270 H Free T4 0.80 HCG, Qual Specimen Hemolysis Urine Color Urine Appearance Urine pH Ur Specific [place] Urine Protein Urine Glucose (UA) Urine Ketones Urine Blood Urine Nitrite Urine Bilirubin Urine Urobilinogen Ur Leukocyte Esterase Urine WBC (Auto) Urine RBC (Auto) U Hyaline Cast (Auto) U Epithel Cells (Auto) Urine Bacteria (Auto) Urine Yeast Salicylates < 1.7 L Urine Opiates Screen Ur Methadone, Qual Acetaminophen < 2 L Urine Barbiturates Ur Phencyclidine (PCP) U Amphetamin/Meth Scrn MDMA (Ecstasy) Screen U Benzodiazepines Scrn Ur Cocaine Metabolite U Marijuana (THC) Screen Ethyl Alcohol mg/dL < 3.0 06/27/18 20:27 WBC RBC Hgb Hct MCV MCH MCHC RDW Std Deviation RDW Coeff of Vee Plt Count MPV Immature Gran % (Auto) Neut % (Auto) Lymph % (Auto) [place] % (Auto) Eos % (Auto) Baso % (Auto) Immature Gran # (Auto) Neut # (Auto) Lymph # (Auto) [place] # (Auto) Eos # (Auto) Baso # (Auto) Sodium Potassium Chloride Carbon Dioxide Anion Gap BUN Creatinine Est Cr Clr Drug Dosing Est GFR ( Amer) Est GFR (Non-Af Amer) BUN/Creatinine Ratio Glucose Calcium Total Bilirubin AST ALT Alkaline Phosphatase Total Protein Albumin Globulin Albumin/Globulin Ratio TSH Free T4 HCG, Qual Cancelled Specimen Hemolysis Urine Color Urine Appearance Urine pH Ur Specific [place] Urine Protein Urine Glucose (UA) Urine Ketones Urine Blood Urine Nitrite Urine Bilirubin Urine Urobilinogen Ur Leukocyte Esterase Urine WBC (Auto) Urine RBC (Auto) U Hyaline Cast (Auto) U Epithel Cells (Auto) Urine Bacteria (Auto) Urine Yeast Salicylates Urine Opiates Screen Ur Methadone, Qual Acetaminophen Urine Barbiturates Ur Phencyclidine (PCP) U Amphetamin/Meth Scrn MDMA (Ecstasy) Screen U Benzodiazepines Scrn Ur Cocaine Metabolite U Marijuana (THC) Screen Ethyl Alcohol mg/dL Current Inpatient Medications Current Inpatient Medications: Current Inpatient Medications Acetaminophen (Tylenol) 650 mg PO Q4H PRN PRN Reason: Headache or Minor Fever Stop: 07/27/18 23:53 Al Hydrox/Mg Hydrox/Simethicone (Maalox) 30 ml PO Q4H PRN PRN Reason: GI Upset Stop: 07/27/18 23:53 Bismuth Subsalicylate (Kaopectate) 15 ml PO PRN PRN PRN Reason: Loose Stool Stop: 07/27/18 23:53 Carbamazepine (Tegretol) 400 mg PO QPM JILLIAN Stop: 07/27/18 23:19 Last Admin: 06/27/18 23:48 Dose: 400 mg Hydroxyzine HCl (Vistaril) 50 mg PO HSZ PRN PRN Reason: Insomnia Stop: 07/27/18 23:53 Last Admin: 06/28/18 00:40 Dose: 50 mg Hydroxyzine HCl (Vistaril) 25 mg PO Q4H PRN PRN Reason: Anxiety Stop: 07/27/18 23:53 Magnesium Hydroxide (Milk Of Magnesia) 30 ml PO DAILY PRN PRN Reason: Heartburn Stop: 07/27/18 23:53 Nitrofurantoin Macrocrystals (Macrobid) 100 mg PO BID JILLIAN Stop: 07/02/18 21:44 Last Admin: 06/27/18 21:50 Dose: 100 mg Sodium Chloride ([place] Nasal) 1 - 2 sprays NA PRN PRN PRN Reason: Nasal Dryness/Congestion Stop: 07/27/18 23:53 CPT Code CPT Code Initial Hospital Care: 31450
[2018-06-28] MEDS ORDERED: PROPRANOLOL HCL 10 MG TAB PO PRN (10:25)
[2018-06-28] MEDS: NITROFURANTOIN MONOHYDRATE 100 MG CAP PO SCH ×2 (10:45→21:04)
[2018-06-28] MEDS: ARIPiprazole 10 MG TAB PO SCH (12:31)
[2018-06-28] MEDS: CARBAMAZEPINE 200 MG TABCR PO SCH ×2 (12:31→21:04)
--- NOTE | 2018-06-28 15:23 | Medical Student H&P ---
Date of Service June 28, 2018 Impression / Recommendations Impression Shalom is a 22-year-old transgender male (F to M) with a history of bipolar disorder, multiple suicide attempts, generalized anxiety disorder, and ADHD who was brought to [facility] by police after making ads on [employer] looking for someone to buy a gun in order for him to kill himself. He is admitted 201 voluntary. Given his history of suicide, well defined plan, and psychiatric co- morbidities, Shalom is at high risk of suicide, despite his reassurances that this was all to "fuck with people." Even if this was truly an "experiment," this suggests serious personality pathology. He has shared elements of borderline and antisocial personality disorders including: impulsiveness, suicidal behavior, attention seeking, mood swings, history of anger outbursts, deceitfulness, reckless disregard for self, lack of remorse, and irresponsibility. In either case, he needs to establish healthy coping behaviors when he feels "bored" or when he feels truly suicidal. 1. Suicidal ideation - Q15 checks for safety - Create safety plan 2. Personality disorder NOS - His actions and attempted manipulations to have a stranger help him kill himself are disturbing. He sees that this was wrong but does not show a sense of empathy in imagining how someone would react to hearing what he says. It is all an "experiment" to him. He might benefit from counseling to foster a sense of empathy in order to decrease this type of behavior. 3. Bipolar disorder - He does appear irritable but he does not display manic symptoms. He does admit to some symptoms of depression but again insists his suicidal behaviors are not genuine. At this point it is unclear what the truth is on his suicidality. In the meantime, we should develop a safety plan for him as well as healthy activities to do when "bored." - Continue aripiprazole 20 mg - Continue carbamazepine 200 mg qAM, 400 mg qHS 4. Generalized anxiety disorder - Continue to offer propranolol 10 mg PRN 5. ADHD - Continue to offer dexmethylphenidate 10 mg Plan: This is... History & Physical Identifying Data SHALOM MARS is a 22-year-old M admitted on June 27, 2018 23:55 who currently lives in with his mother and sister. SHALOM MARS was admitted on a 201 voluntary commitment. Patient is admitted from [home] [transfer from the medical floor]. The patient was brought to the ED by the police. Chief Complaint "It's really stupid. I've been doing this thing where I make ads on [employer] to fuck with people." History of Present Illness Shalom is a 22-year-old transgender male (F to M) with a history of bipolar disorder, multiple suicide attempts, generalized anxiety disorder, and ADHD who was brought to [facility] by police after making ads on [employer] looking for someone to buy a gun in order for him to kill himself. He says, "It's really stupid... I make ads... to fuck with people." He denies that he was seriously suicidal despite his clearly stated intention and defined plan. He says that he' s made a variety of ads in the past such as "looking for aliens" or "asking for a fist fight." He says that "it's an experiment to see how people react to things." When asked about what would happen if someone would have agreed to give him the gun, he says that he would "back out of it." His motivation for creating these ads is because he's "bored" and he wants to "get attention." He says that when someone called the police about his behavior, he thought, "I understand why but it sucks." He repeatedly denies that this was based on real suicidality and that his last SI was back in March. He insists that since then he's had "passive suicidal thoughts, but no plan." He denies homicidal thoughts and hallucinations. When asked about bakari, he says he doubts he even has bipolar disorder. Shalom was hospitalized in March of 2018 after a suicide attempt where he tried putting a radio in the bathtub to electrocute himself. After being discharged, he was readmitted to the medical floor for having overdosed on Coricidin to get high, not commit suicide. After being cleared medically he was readmitted to the [facility]. He was discharged and was seen by Dr. Benavidez as an outpatient. He has been taking aripiprazole 20 mg, carbamazepine 200 mg qAM and 400 mg qHS, and dexmethylphenidate 10 mg. He was also prescribed 20 mg tablets of propranol for "anxiety and shakes" but says he doesn't take it because it's too sedating. He didn't know he could halve the tablet. Since his last hospitalization, he has felt "sort of depressed" in that he's had decreased energy, decreased ability to focus, and slowing of his thoughts, but overall has been "doing alright." Allergies Allergy/AdvReac Type Severity Reaction Status Date / Time Penicillins Allergy Mild Unknown Unverified 04/08/18 02:14 amoxicillin Allergy Unknown HIVES Unverified 04/08/18 02:14 Home Medications Home Medications Medication Instructions Recorded Confirmed Type propranolol 10 mg PO DAILY PRN 06/27/18 History aripiprazole 20 mg PO DAILY 06/28/18 06/28/18 History carbamazepine 200 mg PO DAILY 06/28/18 06/28/18 History carbamazepine 400 mg PO HS 06/28/18 06/28/18 History dexmethylphenidate 10 mg PO DAILY 06/28/18 06/28/18 History Patient History Medical History Suicidal ideation (Resolved) ADHD, predominantly inattentive type Anxiety ADAMA (generalized anxiety disorder) Migraine (Resolved) Surgical History H/O mastectomy testosterone treatment Family History Other Family history of high blood pressure Social History Current Living Situation: Parent and Family Feels Safe at Home: Yes Smoking Status: Current some day smoker Tobacco Type: cigarettes Hx Alcohol Use: Yes (hard lemonade, fireball whiskey) Alcohol Intake Frequency : other Beliefs That Will Affect Care: None Preferred Language: Italian Communication Ability: Effective Lint Cleaner Required: No Physical Exam Vital Signs (Past 24 Hours) Last Vital Signs Temp 36.5 C 06/28/18 06:48 Pulse 75 06/28/18 06:49 Resp 16 06/28/18 06:48 BP 118/72 06/28/18 06:49 Pulse Ox 95 06/28/18 00:19 Mental Examination Appearance: Unkempt Eye Contact: Avoids Eye Contact Motor Behavior: Restless Speech: Soft and Circumstantial Mood: Anxious and Irritable Affect: Anxious, Blunted and Nervous Hallucinations: None Insight: Poor Judgement: Poor Psychiatric Orientation: alert and oriented x 3 Apperance: + disheveled Eye Contact: + fair eye contact Motor Behavior: no abnormal motor movements (moving around frequently, frequently transitioning from squatting in his seat, sitting janeen-crossed, and sitting normally) Speech: normal rate/rhythm/volume of speech Affect: + irritable affect Mood: + dysphoric mood Thought Process: goal directed thought process Suicidal Thoughts: denies suicidal thoughts Homicidal Thoughts: denies homicidal thoughts Hallucinations: no auditory hallucinations and no visual hallucinations Cognition: recent memory grossly intact and remote memory grossly intact Estimated Intelligence: average estimated intelligence Insight: + limited insight Judgement: + poor judgement Results & Data Medications Administered Aripiprazole (Abilify) 20 mg PO DAILY [facility] Stop: 07/28/18 10:59 Last Admin: 06/28/18 12:31 Dose: 20 mg Carbamazepine (Tegretol Xr) 200 mg PO DAILY [facility] Stop: 07/28/18 10:59 Last Admin: 06/28/18 12:31 Dose: 200 mg Hydroxyzine HCl (Vistaril) 50 mg PO HSZ PRN PRN Reason: Insomnia Stop: 07/27/18 23:53 Last Admin: 06/28/18 00:40 Dose: 50 mg Nitrofurantoin Macrocrystals (Macrobid) 100 mg PO BID [facility] Stop: 07/02/18 21:44 Last Admin: 06/28/18 10:45 Dose: 100 mg Admin: 06/27/18 21:50 Dose: 100 mg
--- NOTE | 2018-06-29 08:30 | Psychiatric Progress Note ---
Date of Service June 29, 2018 Impression / Recommendations Impression 22-year-old single female to male transgender patient with a history of bipolar disorder, ADHD, polysubstance abuse and multiple hospitalizations and suicide attempts who presented on a 302 warrant with police after posting ads on [employer] to trying to buy a gun and sending numerous text messages that he was suicidal, wanted to shoot himself or slit his throat, and was severely depressed and unable to function. He signed in voluntarily in the ER, but is not engaged in treatment, is refusing a family meeting, and has requested to be discharged prematurely. He states that the ads were "a joke" and that he just wanted to see how people would respond, but family states he has made numerous suicidal statements over the past month and talked about buying a gun and using it to commit suicide. He gives conflicting reports about his mood and recent suicidal thoughts, and his outpatient psychiatrist is in agreement that he is very high risk and in support of involuntary commitment. We have continued his home medications, as his aripiprazole was just increased several weeks ago to target mood. Inpatient treatment is medically necessary due to his numerous risk factors and high risk for suicide if discharged prematurely, and he may require an involuntary 302 commitment. (1) Personality disorder: 06/28 - Patient has demonstrated antisocial and borderline traits ( impulsivity in potentially self damaging areas, recurrent suicidal behavior/ gestures/threats, affect of instability, anger outbursts, deceitfulness, lack of empathy for others, reckless disregard for safety, and irritability). If his explanation of the events that led to admission is to be believed, his behavior is more likely due to a personality disorder than to a primary mood disorder. However, in the past, he has clearly stated chronic suicidal thoughts with a plan to purchase a weapon when he turns 23 and use it to commit suicide. His 23st birthday is coming up next month. (2) Bipolar disorder current episode depressed: 06/28 - Patient denies recent depression or hypomania. Continue home medications: Tegretol XR 200mg qam and 400mg HS and arpiprazole 10mg daily. -Monitoring on an atypical antipsychotic: Fasting lipid profile performed 2017 and notable for elevated triglycerides of 252. Fasting glucose normal at 93. -Suicide checks for safety. -Attend groups and therapy, work on healthy coping skills and discharge safety plan. -Care coordinated with outpatient psychiatrist, Dr. Benavidez. -Family meeting with parents. 06/29 -patient has submitted a 72-hour notice requesting to leave. He remains at high risk for suicide, and recommend involuntary 302 commitment. -Patient is refusing a family meeting with his mother, whom he lives with. - (3) Cannabis abuse: 06/28 -patient has not been willing to work towards sobriety, but will continue to provide psychoeducation about the risks of cannabis and other substance abuse, and engage him in motivational interviewing. He has made provocative statements about wanting to start using heroin, and was hospitalized several months ago due to a Coricidin overdose while attempting to get high. -Recovery protocol. -Has outpatient psychiatrist and therapist, but can explore the need for a higher level of substance abuse treatment if the patient is willing. -Avoid controlled substances given the high risk of abuse/misuse/negative outcomes (4) ADHD, predominantly inattentive type: 06/28 -may continue home dose of Focalin XR 10mg daily, but nonformulary so will need home supply. (5) Xnsopy-zy-ldbd transgender person: 06/29 -staff confirmed with patient's pharmacy that he receives testosterone injections weekly on . Will order for today and continue while here. -Continue medically necessary private room due to transgender status. Present on Admission?: Yes Inventory Assets Strengths: Supportive family, has housing and outpatient providers Needs: Sobriety from substances, safety plan Risk Factors Assessment : Yes Do You Have Access To A Gun?: No (But has attempted to buy one online) Health Problems: No Mental Health Diagnoses: Yes Substance Use Disorders: Yes Previous Attempt: Yes Previous Attempt; Planned: Yes Family History of Suicide: No Previous Psychiatric Hospitalization: Yes Smoker: Yes Protective Factors Assessment Advent Beliefs: No : No Responsible for Young Children: No Employed: No Stable Relationships: No Supportive Family: Yes Interval History Identifying Information MANUEL MARS is a 22-year-old transgendered female to male who currently lives in [place] with his mother and sister, has a history of polysubstance abuse, bipolar disorder, and was admitted on 06/27/18 23:55 on a 201 voluntary commitment after he attempted to buy a gun on [employer] list in order to end his life. He submitted a 72 hour notice which expires 07/01/18. Chief Complaint "Okay". Review of Systems Sleep Information Total Hours of Sleep: 8 Sleep Comments: Patient appeared to be very restless through the night. Position changes were noted at least every half hour. Meal Information Percent Meal Consumed - Lunch: 100 Percent Meal Consumed - Dinner: 100 Subjective Subjective Patient was seen & assessed and interval progress reviewed with nursing and social work. Staff report he goes to groups but does not participate or contribute verbally, has been irritable and saying he does not need to be here, and submitted a 72 hour notice requesting to withdraw from treatment. He is refusing a family meeting, but his mother and sister visited last night. He was visibly irritated during the visit and asked them to leave early. He requested hydroxyzine for sleep. His mother told staff that the patient had requested to be discharged and was refusing a family meeting, and said she did not feel he was safe to come home, as he has continuously talked about wanting to get a gun to end his life since his last hospitalization 3 months ago, and that he has not been functioning, has not been attending his classes, and believed that he would try to harm himself if he were discharged. On my assessment, the patient continues to state he does not want to be here and it is "a waste of my time." He continues to refuse a family meeting with his mother, stating "I just don't wanna." He denies suicidal thoughts and says he was lying when he texted the individual asking to buy a gun, stating he was suicidal, hopeless, unable to function or concentrate, and did not feel he would ever get better. When reflected back to him that it is difficult for people to know when he is telling the truth, as he clearly made a very serious suicidal statements but is dismissing them as lies, he says "I can't answer that." We again reviewed treatment recommendations, including honesty in treatment, active participation in groups and therapy, involvement of his family as he lives with them and they are concerned about his safety, and working on his discharge plan. He maintains that he does not need to be here, does not want to be here, and that it will not help. Physical Exam Psychiatric Orientation: alert Partially cooperative Overweight, disheveled, dressed in the same closest yesterday, hair unkempt and sticking up from his head. Eye Contact: + poor eye contact Motor Behavior: steady gait and station and no abnormal motor movements Minimal, monotone. Affect: + depressed affect and + constricted affect; + mood not congruent with affect "Okay." Thought Process: goal directed thought process Thought Content: + preoccupation (On not wanting to be in the hospital) Suicidal Thoughts: denies suicidal thoughts (But admits that he made multiple suicidal statements and tried to buy a gun prior to admission) Homicidal Thoughts: denies homicidal thoughts Hallucinations: no auditory hallucinations Cognition: recent memory grossly intact, attention grossly intact and language grossly intact Estimated Intelligence: average estimated intelligence Insight: + impaired insight Judgement: + impaired judgement Vital Signs (Past 24 Hours) Last Vital Signs Temp 36.5 C 06/29/18 06:50 Pulse 79 06/29/18 06:51 Resp 16 06/29/18 06:50 BP 122/73 06/29/18 06:51 Pulse Ox 95 06/28/18 00:19 Results & Data Current Inpatient Medications Current Inpatient Medications: Current Inpatient Medications Acetaminophen (Tylenol) 650 mg PO Q4H PRN PRN Reason: Headache or Minor Fever Stop: 07/27/18 23:53 Al Hydrox/Mg Hydrox/Simethicone (Maalox) 30 ml PO Q4H PRN PRN Reason: GI Upset Stop: 07/27/18 23:53 Aripiprazole (Abilify) 20 mg PO DAILY JILLIAN Stop: 07/28/18 10:59 Last Admin: 06/28/18 12:31 Dose: 20 mg Bismuth Subsalicylate (Kaopectate) 15 ml PO PRN PRN PRN Reason: Loose Stool Stop: 07/27/18 23:53 Carbamazepine (Tegretol Xr) 200 mg PO DAILY JILLIAN Stop: 07/28/18 10:59 Last Admin: 06/28/18 12:31 Dose: 200 mg Carbamazepine (Tegretol Xr) 400 mg PO HS JILLIAN Stop: 07/28/18 21:59 Last Admin: 06/28/18 21:04 Dose: 400 mg Hydroxyzine HCl (Vistaril) 50 mg PO HSZ PRN PRN Reason: Insomnia Stop: 07/27/18 23:53 Last Admin: 06/28/18 21:05 Dose: 50 mg Hydroxyzine HCl (Vistaril) 25 mg PO Q4H PRN PRN Reason: Anxiety Stop: 07/27/18 23:53 Magnesium Hydroxide (Milk Of Magnesia) 30 ml PO DAILY PRN PRN Reason: Heartburn Stop: 07/27/18 23:53 Nitrofurantoin Macrocrystals (Macrobid) 100 mg PO BID J[facility]IAN Stop: 07/02/18 21:44 Last Admin: 06/28/18 21:04 Dose: 100 mg Dexmethylphenidate Er 10mg ~ Non- Formulary Patient's Own Med 1 ea PO DAILY [facility]IAN Stop: 07/29/18 08:59 Non-Formulary Medication (Patient's Own Controlled Med) 1 ea PO QAM J[facility]IAN Stop: 07/13/18 08:59 Propranolol HCl (Inderal) 10 mg PO BID PRN PRN Reason: Anxiety Stop: 07/28/18 20:59 Sodium Chloride ([place] Nasal) 1 - 2 sprays NA PRN PRN PRN Reason: Nasal Dryness/Congestion Stop: 07/27/18 23:53 Post Discharge Appointments Primary Care Physician Name Of Family Doctor: Dr. Harika Gray Psychiatrist Name of Psychiatrist: [facility] - Dr. Benavidez Psychiatrist's Date of Appointment with Psychiatrist: 07/19/18 Time of Appointment with Psychiatrist: 2:25 p.m. Psychiatric Appointment Comment: [address] [place] [address], [place] [address] Therapist Name of Therapist: [facility] - Lillie Serna (needs to be in the aftn) Therapist's Therapy Appointment Comment: [address] [address], [address], [place] [address] Director Personal Name of Director Personal: None Contact Information Discharge Discharge Address: [address] [place] [address], [place] [address] CPT Code CPT Code 04712 _ (1) Bipolar disorder current episode depressed Current episode severity: severe Psychotic features: without psychotic features Qualified Code(s): F31.4 - Bipolar disorder, current episode depressed , severe, without psychotic features
[2018-06-29] MEDS: NITROFURANTOIN MONOHYDRATE 100 MG CAP PO SCH ×2 (09:10→21:25)
[2018-06-29] MEDS: CARBAMAZEPINE 200 MG TABCR PO SCH ×2 (09:10→21:25)
[2018-06-29] MEDS: ARIPiprazole 10 MG TAB PO SCH (09:10)
[2018-06-29] MEDS: DEXMETHYLPHENIDATE 10 MG PO SCH (09:11)
[2018-06-29] MEDS: PATIENT'S OWN CONTROLLED MED PO SCH (09:11)
[2018-06-29] MEDS ORDERED: TESTOSTERONE CYPIONATE IM 200 MG/ML VIAL IM SCH (14:00)
[2018-06-30] MEDS: CARBAMAZEPINE 200 MG TABCR PO SCH ×2 (09:48→21:03)
[2018-06-30] MEDS: ARIPiprazole 10 MG TAB PO SCH (09:48)
[2018-06-30] MEDS: PATIENT'S OWN CONTROLLED MED PO SCH (09:49)
[2018-06-30] MEDS: DEXMETHYLPHENIDATE 10 MG PO SCH (09:49)
[2018-06-30] MEDS: NITROFURANTOIN MONOHYDRATE 100 MG CAP PO SCH ×2 (09:49→21:03)
[2018-06-30] MEDS ORDERED: HALOPERIDOL LACTATE 5 MG/ML 1 ML VIAL ONE (13:03)
[2018-06-30] MEDS ORDERED: LORazepam 2 MG/4 ML VIAL ONE (13:03)
--- NOTE | 2018-06-30 13:15 | Communication Note ---
Date of Service: June 30, 2018 While meeting with the patient this afternoon I advised him that given his persistent threats of purchasing a gun with which to kill himself, combined with his recent attempt to purchase a gun online with the expressed intent of killing himself with it, given the fact that he his self-reports have not been reliable, and given his unwillingness to voluntarily cooperate with treatment, we do not plan to discharge him today as he had hoped. He immediately jumped up , shouting, "You're ruining my life, and I'm going to fucking kill myself!" The patient then stormed from the office, began kicking various solid objects about the unit, began screaming at the top of his lungs, and in my professional opinion posed an immediate risk of serious harm to his own person and to other persons. I have ordered haloperidol 5 mg together with lorazepam 2 mg IM on an emergency basis to treat acute agitation and dangerous behaviors.
--- NOTE | 2018-06-30 13:31 | Psychiatric Progress Note ---
Date of Service June 30, 2018 Impression / Recommendations Impression This 22-year-old male has a well established history of making direct, credible threats of suicide, voluntarily agreeing to inpatient treatment, and then promptly submitting a notice of intent to leave, regardless of whether he is advised that leaving would be AGAINST MEDICAL ADVICE. This pattern has been consistently repeated over numerous admission and in such a manner as to demonstrate that the patient is not actually willing, and does not actually intend to cooperate with treatment. Instead, he uses voluntary agreements as a mechanism for allowing himself to feign cooperation, while acting in such as manner to demonstrate refusal to meaningfully cooperate with treatment. This is accomplished by his promptly retracting his voluntary agreements and then demanding discharge from the hospital. While it may be that there are times during which the patient does not harbor genuine suicide intent, I believe he is at imminent risk for self-harm and, in fact, during today's encounter the patient shouted several times, "I am going to fucking kill myself! I want to . I'll get a gun and do it!" While the hospital will be unable to mitigate against what I would consider to be a substantial long-term risk of serious morbidity or mortality in this case, I believe that psychiatric hospitalization is medically necessary at this time. The patient describes himself as depressed depressed, with symptoms that include anhedonia, anergia, apathy, hypersomnia, and depressed mood. He is also exhibiting extreme emotional lability and my finding is that pending further stabilization and inpatient treatment he is at present risk for causing serious harm to himself. Accordingly, I have completed the paperwork is the second physician on a 302 involuntary commitment. (1) Personality disorder: 06/28 - Patient has demonstrated antisocial and borderline traits ( impulsivity in potentially self damaging areas, recurrent suicidal behavior/ gestures/threats, affect of instability, anger outbursts, deceitfulness, lack of empathy for others, reckless disregard for safety, and irritability). If his explanation of the events that led to admission is to be believed, his behavior is more likely due to a personality disorder than to a primary mood disorder. However, in the past, he has clearly stated chronic suicidal thoughts with a plan to purchase a weapon when he turns 23 and use it to commit suicide. His 23st birthday is coming up next month. 06/30 -clearly, the patient has marked difficulty regulating his mood. The patient's level of impulsivity, which is linked to his emotional lability, combined with his tendency to equivocate or prevaricate renders him highly unreliable and at high risk. He uses primitive defense mechanisms such as projection and externalization. For example, when try to help him understand that his actions have consequences and his repeated threats to buy a gun and shoot himself, combined with his unwillingness to truly cooperate with treatment recommendations (e.g., refusing to have a meeting with his mother, with whom he lives) is the reason that we cannot allow him to remain as a voluntary patient and cannot allow him to leave the hospital, he immediately began screaming things such as "This is not fair! You are ruining my life! Why are you doing this to me?" (2) Bipolar disorder current episode depressed: 06/28 - Patient denies recent depression or hypomania. Continue home medications: Tegretol XR 200mg qam and 400mg HS and arpiprazole 10mg daily. -Monitoring on an atypical antipsychotic: Fasting lipid profile performed 2017 and notable for elevated triglycerides of 252. Fasting glucose normal at 93. -Suicide checks for safety. -Attend groups and therapy, work on healthy coping skills and discharge safety plan. -Care coordinated with outpatient psychiatrist, Dr. Benavidez. -Family meeting with parents. 06/29 -patient has submitted a 72-hour notice requesting to leave. He remains at high risk for suicide, and recommend involuntary 302 commitment. -Patient is refusing a family meeting with his mother, whom he lives with. 06/30 -the patient insisted on being discharged today, and when I advised the patient that I would not except a voluntary agreement from him because of his pattern of voluntarily agreeing to psychiatric treatment, and then retracting the agreement and seeking to leave AGAINST MEDICAL ADVICE is part of an established pattern of not actually voluntarily committing to treatment. -I have provided a second physician opinion for a 302 commitment - (3) Cannabis abuse: 06/28 -patient has not been willing to work towards sobriety, but will continue to provide psychoeducation about the risks of cannabis and other substance abuse, and engage him in motivational interviewing. He has made provocative statements about wanting to start using heroin, and was hospitalized several months ago due to a Coricidin overdose while attempting to get high. -Recovery protocol. -Has outpatient psychiatrist and therapist, but can explore the need for a higher level of substance abuse treatment if the patient is willing. -Avoid controlled substances given the high risk of abuse/misuse/negative outcomes (4) ADHD, predominantly inattentive type: 06/28 -may continue home dose of Focalin XR 10mg daily, but nonformulary so will need home supply. (5) [id number] transgender person: 06/29 -staff confirmed with patient's pharmacy that he receives testosterone injections weekly on . Will order for today and continue while here. -Continue medically necessary private room due to transgender status. Inventory Assets Strengths: Supportive family, has housing and outpatient providers Needs: Sobriety from substances, safety plan Risk Factors Assessment : Yes Do You Have Access To A Gun?: No (But has attempted to buy one online) Health Problems: No Mental Health Diagnoses: Yes Substance Use Disorders: Yes Previous Attempt: Yes Previous Attempt; Planned: Yes Family History of Suicide: No Previous Psychiatric Hospitalization: Yes Smoker: Yes Protective Factors Assessment L[employer]-Day Beliefs: No : No Responsible for Young Children: No Employed: No Stable Relationships: No Supportive Family: Yes Interval History Identifying Information MANUEL MARS is a 22-year-old transgendered female to male who currently lives in [place] with his mother and sister, has a history of polysubstance abuse, bipolar disorder, and was admitted on 06/27/18 23:55 on a 201 voluntary commitment after he attempted to buy a gun on [employer] list in order to end his life. He submitted a 72 hour notice which expires 07/01/18. Chief Complaint "I'm depressed". Review of Systems Sleep Information Total Hours of Sleep: 7.75 Sleep Comments: marilytaril at 2138. Meal Information Percent Meal Consumed - Breakfast: 110 Percent Meal Consumed - Lunch: 100 Percent Meal Consumed - Dinner: 100 Subjective Subjective Patient was seen & assessed and interval progress reviewed with Treatment Team. I met with the patient individually in order to assess his current mental status and response to treatment, and to coordinate any necessary changes in the patient's treatment regimen, and address issues that may arise. The patient tells me that his mother had secured his money because she was afraid that the patient would use the money to purchase a firearm. When I asked the patient why his mother might be afraid of that, he equivocated and said, "because I said I was going by a gun and kill myself." Subsequent to that, the patient went on the Internet and advertised on [employer] list to purchase a gun. The patient's report is that an individual responded to her advertisement, and she confirmed that she was both underage and plan to use a gun to kill himself. The patient's understanding is that the individual with whom he was communicating regarding the gun called the police. The police responded, and the patient was brought to the hospital. Although she had initially confirmed that she was buying a gun to kill herself, she has more recently offered various alternative explanations. Today, she told me that she wanted to "just see what would happen," but that she was not suicidal. Later, however, she revealed that she has tried to find a way to purchase a gun, illegally, and has not been successful in that regard. I advised the patient at this point we are not able to rely upon that which she tells us and, instead, or forced to pay attention to to her actions, such as advertising for a gun with which to commit suicide, and that the team does not feel comfortable discharging her at this time, and given the fact that she is at this point unable to reliably participate voluntarily in treatment, The patient jumped to her feet, began shouting "You are ruining my life!" and "I'm going to fucking kill myself! I want to !" She then ran from the room. Subsequently, she began kicking and punching various solid objects about the units in such a manner as to indicate imminent risk of serious physical harm to herself, and, possibly, to others. Physical Exam Psychiatric Orientation: oriented x 3 Apperance: appropriately dressed Eye Contact: + poor eye contact Motor Behavior: + psychomotor agitation Speech: + loud speech During the encounter the patient began screaming at the top of his voice and then started wailing loudly. Affect: + labile affect This patient's emotions are very poorly regulated and his affect can range from jocular to highly despondent and a matter of seconds Mood: + depressed mood Thought Process: goal directed thought process The patient's thought content is marked by projection, externalization, and rationalization. The patient reports, during the visit, that he intends to kill herself by shooting himself with a gun "as soon as [he] can get one." The patient was not available to respond to questions regarding homicidality. The patient was not available to respond to questions regarding perceptual disturbances It is difficult to assess the patient's short and long-term memory because of her tendency to prevaricate and contradict herself. Estimated Intelligence: average estimated intelligence Insight: + severely impaired insight Judgement: + severely impaired judgement Vital Signs (Past 24 Hours) Last Vital Signs Temp 36.6 C 06/30/18 06:00 Pulse 80 06/30/18 07:07 Resp 16 06/30/18 06:00 BP 118/71 06/30/18 07:07 Pulse Ox 95 06/28/18 00:19 Results & Data Current Inpatient Medications Current Inpatient Medications: Current Inpatient Medications Acetaminophen (Tylenol) 650 mg PO Q4H PRN PRN Reason: Headache or Minor Fever Stop: 07/27/18 23:53 Al Hydrox/Mg Hydrox/Simethicone (Maalox) 30 ml PO Q4H PRN PRN Reason: GI Upset Stop: 07/27/18 23:53 Aripiprazole (Abilify) 20 mg PO DAILY JILLIAN Stop: 07/28/18 10:59 Last Admin: 06/30/18 09:48 Dose: 20 mg Bismuth Subsalicylate (Kaopectate) 15 ml PO PRN PRN PRN Reason: Loose Stool Stop: 07/27/18 23:53 Carbamazepine (Tegretol Xr) 200 mg PO DAILY JILLAIN Stop: 07/28/18 10:59 Last Admin: 06/30/18 09:48 Dose: 200 mg Carbamazepine (Tegretol Xr) 400 mg PO HS JILLIAN Stop: 07/28/18 21:59 Last Admin: 06/29/18 21:25 Dose: 400 mg Hydroxyzine HCl (Vistaril) 50 mg PO HSZ PRN PRN Reason: Insomnia Stop: 07/27/18 23:53 Last Admin: 06/29/18 21:38 Dose: 50 mg Hydroxyzine HCl (Vistaril) 25 mg PO Q4H PRN PRN Reason: Anxiety Stop: 07/27/18 23:53 Magnesium Hydroxide (Milk Of Magnesia) 30 ml PO DAILY PRN PRN Reason: Heartburn Stop: 07/27/18 23:53 Nitrofurantoin Macrocrystals (Macrobid) 100 mg PO BID JILLIAN Stop: 07/02/18 21:44 Last Admin: 06/30/18 09:49 Dose: 100 mg Dexmethylphenidate Er 10mg ~ Non- Formulary Patient's Own Med 1 ea PO DAILY JILLIAN Stop: 07/29/18 08:59 Last Admin: 06/30/18 09:49 Dose: 1 tab Non-Formulary Medication (Patient's Own Controlled Med) 1 ea PO QAM JILLIAN Stop: 07/13/18 08:59 Last Admin: 06/30/18 09:49 Dose: Not Given Propranolol HCl (Inderal) 10 mg PO BID PRN PRN Reason: Anxiety Stop: 07/28/18 20:59 Sodium Chloride (Bosque Nasal) 1 - 2 sprays NA PRN PRN PRN Reason: Nasal Dryness/Congestion Stop: 07/27/18 23:53 Testosterone Cypionate (Depo-Testosterone) 200 mg IM Th@0900 JILLIAN Stop: 07/29/18 13:59 Last Admin: 06/29/18 14:37 Dose: 200 mg Post Discharge Appointments Primary Care Physician Name Of Family Doctor: Stan Gray Primary Care Provider Appointment Comment: [address], [place] [id number] Psychiatrist Name of Psychiatrist: [facility] - Dr. Benavidez Psychiatrist's Date of Appointment with Psychiatrist: 07/19/18 Time of Appointment with Psychiatrist: 2:25 p.m. Psychiatric Appointment Comment: [address] [facility], [place] [address] Therapist Name of Therapist: [facility] - Lillie Serna (needs to be in the aftn) Therapist's Therapy Appointment Comment: [address] [facility], [address], [place] [address] Timber Management Assistant Name of Timber Management Assistant: None Contact Information Discharge Discharge Address: [address] [place] [address], [place] [address] CPT Code CPT Code 18283 _ (1) Bipolar disorder current episode depressed Current episode severity: severe Psychotic features: without psychotic features Qualified Code(s): F31.4 - Bipolar disorder, current episode depressed , severe, without psychotic features
[2018-06-30] MEDS ORDERED: HALOPERIDOL LACTATE 5 MG/ML 1 ML VIAL IM STA (14:48)
[2018-06-30] MEDS ORDERED: LORazepam 2 MG/ML VIAL (IM USE) IM STA (14:50)
--- NOTE | 2018-06-30 17:32 | Communication Note ---
Date of Service: June 30, 2018 Met with patient to complete 2 physician 302. Reviewed his behavior over the course of the day with nursing staff and Dr. Swan, including his agitation and violent behavior, kicking the wall and bed, and telling repeatedly that he was going to kill himself, resulting in open seclusion and IM medication. He had a family meeting with his father today, who reported the patient attempted suicide by electrocution last month (the second time he attempted in that manner , as he had another attempt in 03/2018). Patient remains angry and poorly engaged in treatment. He says he was "tricked and lied to" by staff, because he was placed on a 302 involuntary commitment, and says he can't trust anyone here and being here won't help him. He is unable/unwilling to engage in discussion of how we can work towards stabilization and a safe discharge for him, instead repeatedly stating he doesn't need to be here and his life is ruined, and blaming hospital staff for this.
[2018-07-01] MEDS: ARIPiprazole 10 MG TAB PO SCH (10:37)
[2018-07-01] MEDS: NITROFURANTOIN MONOHYDRATE 100 MG CAP PO SCH ×2 (10:37→21:53)
[2018-07-01] MEDS: DEXMETHYLPHENIDATE 10 MG PO SCH (10:38)
[2018-07-01] MEDS: CARBAMAZEPINE 200 MG TABCR PO SCH ×2 (10:38→21:53)
[2018-07-01] MEDS: PATIENT'S OWN CONTROLLED MED PO SCH (10:38)
--- NOTE | 2018-07-01 16:04 | Psychiatric Progress Note ---
Date of Service July 01, 2018 Impression / Recommendations Impression Patient is a little more accepting of involuntary commitment status this morning however externalizes responsibility. Certainly he remains at elevated risk for self-harm if discharged making specific suicidal threats to shoot himself and expressing a desire to as recently as yesterday evening. (1) Personality disorder: 06/28 - Patient has demonstrated antisocial and borderline traits ( impulsivity in potentially self damaging areas, recurrent suicidal behavior/ gestures/threats, affect of instability, anger outbursts, deceitfulness, lack of empathy for others, reckless disregard for safety, and irritability). If his explanation of the events that led to admission is to be believed, his behavior is more likely due to a personality disorder than to a primary mood disorder. However, in the past, he has clearly stated chronic suicidal thoughts with a plan to purchase a weapon when he turns 23 and use it to commit suicide. His 23st birthday is coming up next month. 06/30 -clearly, the patient has marked difficulty regulating his mood. The patient's level of impulsivity, which is linked to his emotional lability, combined with his tendency to equivocate or prevaricate renders him highly unreliable and at high risk. He uses primitive defense mechanisms such as projection and externalization. For example, when try to help him understand that his actions have consequences and his repeated threats to buy a gun and shoot himself, combined with his unwillingness to truly cooperate with treatment recommendations (e.g., refusing to have a meeting with his mother, with whom he lives) is the reason that we cannot allow him to remain as a voluntary patient and cannot allow him to leave the hospital, he immediately began screaming things such as "This is not fair! You are ruining my life! Why are you doing this to me?" (2) Bipolar disorder current episode depressed: 06/28 - Patient denies recent depression or hypomania. Continue home medications: Tegretol XR 200mg qam and 400mg HS and arpiprazole 10mg daily. -Monitoring on an atypical antipsychotic: Fasting lipid profile performed 2017 and notable for elevated triglycerides of 252. Fasting glucose normal at 93. -Suicide checks for safety. -Attend groups and therapy, work on healthy coping skills and discharge safety plan. -Care coordinated with outpatient psychiatrist, Dr. Benavidez. -Family meeting with parents. 06/29 -patient has submitted a 72-hour notice requesting to leave. He remains at high risk for suicide, and recommend involuntary 302 commitment. -Patient is refusing a family meeting with his mother, whom he lives with. 06/30 -the patient insisted on being discharged today, and when I advised the patient that I would not except a voluntary agreement from him because of his pattern of voluntarily agreeing to psychiatric treatment, and then retracting the agreement and seeking to leave AGAINST MEDICAL ADVICE is part of an established pattern of not actually voluntarily committing to treatment. -I have provided a second physician opinion for a 302 commitment - (3) Cannabis abuse: 06/28 -patient has not been willing to work towards sobriety, but will continue to provide psychoeducation about the risks of cannabis and other substance abuse, and engage him in motivational interviewing. He has made provocative statements about wanting to start using heroin, and was hospitalized several months ago due to a Coricidin overdose while attempting to get high. -Recovery protocol. -Has outpatient psychiatrist and therapist, but can explore the need for a higher level of substance abuse treatment if the patient is willing. -Avoid controlled substances given the high risk of abuse/misuse/negative outcomes (4) ADHD, predominantly inattentive type: 06/28 -may continue home dose of Focalin XR 10mg daily, but nonformulary so will need home supply. (5) [id number] transgender person: 06/29 -staff confirmed with patient's pharmacy that he receives testosterone injections weekly on . Will order for today and continue while here. -Continue medically necessary private room due to transgender status. (6) Hypothyroidism: 07/01 - pt appears to have possible subclinical hypothyroidism reporting a history of borderline thyroid values and brief supplementation in the past. Will explore history as able. Considering restarting Synthroid as hypothyroidism may negatively impact mood. He will require repeat thyroid testing in 6 weeks (7) UTI (urinary tract infection): 07/01 - complete 5 day course of nitrofurantoin Inventory Assets Strengths: Supportive family, has housing and outpatient providers Needs: Sobriety from substances, safety plan Risk Factors Assessment : Yes Do You Have Access To A Gun?: No (But has attempted to buy one online) Health Problems: No Mental Health Diagnoses: Yes Substance Use Disorders: Yes Previous Attempt: Yes Previous Attempt; Planned: Yes Family History of Suicide: No Previous Psychiatric Hospitalization: Yes Smoker: Yes Protective Factors Assessment Adventist Beliefs: No : No Responsible for Young Children: No Employed: No Stable Relationships: No Supportive Family: Yes Interval History Identifying Information MANUEL MARS is a 22-year-old transgendered female to male who currently lives in [place] with his mother and sister, has a history of polysubstance abuse, bipolar disorder, and was admitted on 06/27/18 23:55 on a 201 voluntary commitment after he attempted to buy a gun on [employer]'s list in order to end his life. He submitted a 72 hour notice which expires 07/01/18. Chief Complaint "How am I supposed to work with my providers if people feel like they cannot believe anything that I say?" Review of Systems Sleep Information Total Hours of Sleep: 8 Sleep Comments: pt given vistaril per rn. pt on q-15 minute checks Meal Information Percent Meal Consumed - Breakfast: 0 Percent Meal Consumed - Lunch: 100 Percent Meal Consumed - Dinner: 100 Nutrition Comment: Hasn't eaten yet Subjective Subjective Patient was seen & assessed and interval progress reviewed with treatment team. Patient committed on 2 physician 302 yesterday precipitating significant agitation but was accepting of prn and open door seclusion room. He reports feeling a little less angry about this today as he believes that he will be able to have the commitment expunged. He describes feeling like his future prospects for employment or over associated with a 302 yesterday. I attempted to process this with him and requested that he consider the rationale behind the involuntary commitment. He turns this around and states that, from his perspective, there is no point in talking to mental health providers if they are not going to believe him. He acknowledges his behavioral history and chronic suicidality as problems requiring ongoing intervention and treatment. I reviewed his admission information which indicated 5-day treatment on nitrofurantoin for UTI. He denies symptoms of bladder infection presently. Tolerating antibiotic without difficulty. Additionally reviewed elevated TSH and low normal free T4 and he reports a history of borderline thyroid and believes he was supplemented with low-dose Synthroid for a period of time within the past few years but it was discontinued when his results normalized. Physical Exam Psychiatric Orientation: alert, oriented x 3 and cooperative Apperance: + disheveled Eye Contact: good eye contact Motor Behavior: no abnormal motor movements Speech: normal rate/rhythm/volume of speech Affect: mood congruent with affect; no labile affect Mood: + depressed mood and + irritable mood Thought Process: goal directed thought process Thought Content: + cognitive distortions Suicidal Thoughts: + reports suicidal thoughts Cognition: recent memory grossly intact Insight: + impaired insight Judgement: + impaired judgement Vital Signs (Past 24 Hours) Last Vital Signs Temp 36.6 C 06/30/18 06:00 Pulse 80 06/30/18 07:07 Resp 16 06/30/18 06:00 BP 118/71 06/30/18 07:07 Pulse Ox 95 06/28/18 00:19 Results & Data Current Inpatient Medications Current Inpatient Medications: Current Inpatient Medications Acetaminophen (Tylenol) 650 mg PO Q4H PRN PRN Reason: Headache or Minor Fever Stop: 07/27/18 23:53 Last Admin: 06/30/18 13:53 Dose: 650 mg Al Hydrox/Mg Hydrox/Simethicone (Maalox) 30 ml PO Q4H PRN PRN Reason: GI Upset Stop: 07/27/18 23:53 Aripiprazole (Abilify) 20 mg PO DAILY JILLIAN Stop: 07/28/18 10:59 Last Admin: 07/01/18 10:37 Dose: 20 mg Bismuth Subsalicylate (Kaopectate) 15 ml PO PRN PRN PRN Reason: Loose Stool Stop: 07/27/18 23:53 Carbamazepine (Tegretol Xr) 200 mg PO DAILY JILLIAN Stop: 07/28/18 10:59 Last Admin: 07/01/18 10:38 Dose: 200 mg Carbamazepine (Tegretol Xr) 400 mg PO HS JILLIAN Stop: 07/28/18 21:59 Last Admin: 06/30/18 21:03 Dose: 400 mg Hydroxyzine HCl (Vistaril) 50 mg PO HSZ PRN PRN Reason: Insomnia Stop: 07/27/18 23:53 Last Admin: 06/30/18 21:04 Dose: 50 mg Hydroxyzine HCl (Vistaril) 25 mg PO Q4H PRN PRN Reason: Anxiety Stop: 07/27/18 23:53 Magnesium Hydroxide (Milk Of Magnesia) 30 ml PO DAILY PRN PRN Reason: Heartburn Stop: 07/27/18 23:53 Nitrofurantoin Macrocrystals (Macrobid) 100 mg PO BID JILLIAN Stop: 07/02/18 21:44 Last Admin: 07/01/18 10:37 Dose: 100 mg Dexmethylphenidate Er 10mg ~ Non- Formulary Patient's Own Med 1 ea PO DAILY JILLIAN Stop: 07/29/18 08:59 Last Admin: 07/01/18 10:38 Dose: 1 tab Non-Formulary Medication (Patient's Own Controlled Med) 1 ea PO QAM JILLIAN Stop: 07/13/18 08:59 Last Admin: 07/01/18 10:38 Dose: Not Given Propranolol HCl (Inderal) 10 mg PO BID PRN PRN Reason: Anxiety Stop: 07/28/18 20:59 Sodium Chloride ([place] Nasal) 1 - 2 sprays NA PRN PRN PRN Reason: Nasal Dryness/Congestion Stop: 07/27/18 23:53 Testosterone Cypionate (Depo-Testosterone) 200 mg IM Th@0900 JILLIAN Stop: 07/29/18 13:59 Last Admin: 06/29/18 14:37 Dose: 200 mg Post Discharge Appointments Primary Care Physician Name Of Family Doctor: Stan Gray Primary Care Provider Appointment Comment: [address], [place] [id number] Psychiat[facility] Curt Benavidez Psychiatrist's Date of Appointment with Psychiatrist: 07/19/18 Time of Appointment with Psychiatrist: 2:25 p.m. Psychiatric Appointment Comment: [address] [facility], [place] [address] Therapist Name of Therapist: [facility] - Lillie Serna (needs to be in the aftn) Therapist's Time of Therapist Appointment: *call closer to d/c Therapy Appointment Comment: [address] [facility], [address], [place] [address] Joss House Keeper Name of Joss House Keeper: None Contact Information Discharge Discharge Address: [address] [place] [address], [place] [address] CPT Code CPT Code 02367 _ (1) Bipolar disorder current episode depressed Current episode severity: severe Psychotic features: without psychotic features Qualified Code(s): F31.4 - Bipolar disorder, current episode depressed , severe, without psychotic features
[2018-07-02] MEDS: CARBAMAZEPINE 200 MG TABCR PO SCH ×2 (10:42→21:28)
[2018-07-02] MEDS: DEXMETHYLPHENIDATE 10 MG PO SCH (10:42)
[2018-07-02] MEDS: NITROFURANTOIN MONOHYDRATE 100 MG CAP PO SCH ×2 (10:42→21:28)
[2018-07-02] MEDS: ARIPiprazole 10 MG TAB PO SCH (10:42)
[2018-07-02] MEDS: PATIENT'S OWN CONTROLLED MED PO SCH (10:43)
--- NOTE | 2018-07-02 11:03 | Psychiatric Progress Note ---
Date of Service July 02, 2018 Impression / Recommendations Impression Behaviorally stable and re-engaging somewhat in unit programming. (1) Personality disorder: 06/28 - Patient has demonstrated antisocial and borderline traits ( impulsivity in potentially self damaging areas, recurrent suicidal behavior/ gestures/threats, affect of instability, anger outbursts, deceitfulness, lack of empathy for others, reckless disregard for safety, and irritability). If his explanation of the events that led to admission is to be believed, his behavior is more likely due to a personality disorder than to a primary mood disorder. However, in the past, he has clearly stated chronic suicidal thoughts with a plan to purchase a weapon when he turns 23 and use it to commit suicide. His 23st birthday is coming up next month. 06/30 -clearly, the patient has marked difficulty regulating his mood. The patient's level of impulsivity, which is linked to his emotional lability, combined with his tendency to equivocate or prevaricate renders him highly unreliable and at high risk. He uses primitive defense mechanisms such as projection and externalization. For example, when try to help him understand that his actions have consequences and his repeated threats to buy a gun and shoot himself, combined with his unwillingness to truly cooperate with treatment recommendations (e.g., refusing to have a meeting with his mother, with whom he lives) is the reason that we cannot allow him to remain as a voluntary patient and cannot allow him to leave the hospital, he immediately began screaming things such as "This is not fair! You are ruining my life! Why are you doing this to me?" 07/02 -patient appears to be re-engaging and less acutely catastrophic in thinking -For complaint of right great toe pain injured during time of agitation and behavioral dyscontrol associated with 302, we will provide cold pack prn for swelling. He is able to ambulate with only mild discomfort and suspicion for fracture low. (2) Bipolar disorder current episode depressed: 06/28 - Patient denies recent depression or hypomania. Continue home medications: Tegretol XR 200mg qam and 400mg HS and arpiprazole 10mg daily. -Monitoring on an atypical antipsychotic: Fasting lipid profile performed 2017 and notable for elevated triglycerides of 252. Fasting glucose normal at 93. -Suicide checks for safety. -Attend groups and therapy, work on healthy coping skills and discharge safety plan. -Care coordinated with outpatient psychiatrist, Dr. Benavidez. -Family meeting with parents. 06/29 -patient has submitted a 72-hour notice requesting to leave. He remains at high risk for suicide, and recommend involuntary 302 commitment. -Patient is refusing a family meeting with his mother, whom he lives with. 06/30 -the patient insisted on being discharged today, and when I advised the patient that I would not except a voluntary agreement from him because of his pattern of voluntarily agreeing to psychiatric treatment, and then retracting the agreement and seeking to leave AGAINST MEDICAL ADVICE is part of an established pattern of not actually voluntarily committing to treatment. -I have provided a second physician opinion for a 302 commitment - (3) Cannabis abuse: 06/28 -patient has not been willing to work towards sobriety, but will continue to provide psychoeducation about the risks of cannabis and other substance abuse, and engage him in motivational interviewing. He has made provocative statements about wanting to start using heroin, and was hospitalized several months ago due to a Coricidin overdose while attempting to get high. -Recovery protocol. -Has outpatient psychiatrist and therapist, but can explore the need for a higher level of substance abuse treatment if the patient is willing. -Avoid controlled substances given the high risk of abuse/misuse/negative outcomes (4) ADHD, predominantly inattentive type: 06/28 -may continue home dose of Focalin XR 10mg daily, but nonformulary so will need home supply. (5) Nbyvel-eo-[id number] transgender person: 06/29 -staff confirmed with patient's pharmacy that he receives testosterone injections weekly on . Will order for today and continue while here. -Continue medically necessary private room due to transgender status. (6) Hypothyroidism: 07/01 - pt appears to have possible subclinical hypothyroidism reporting a history of borderline thyroid values and brief supplementation in the past. Will explore history as able. Considering restarting Synthroid as hypothyroidism may negatively impact mood. He will require repeat thyroid testing in 6 weeks (7) UTI (urinary tract infection): 07/01 - complete 5 day course of nitrofurantoin Inventory Assets Strengths: Supportive family, has housing and outpatient providers Needs: Sobriety from substances, safety plan Risk Factors Assessment : Yes Do You Have Access To A Gun?: No (But has attempted to buy one online) Health Problems: No Mental Health Diagnoses: Yes Substance Use Disorders: Yes Previous Attempt: Yes Previous Attempt; Planned: Yes Family History of Suicide: No Previous Psychiatric Hospitalization: Yes Smoker: Yes Protective Factors Assessment Anglican Beliefs: No : No Responsible for Young Children: No Employed: No Stable Relationships: No Supportive Family: Yes Interval History Identifying Information MANUEL MARS is a 22-year-old transgendered female to male who currently lives in [place] with his mother and sister, has a history of polysubstance abuse, bipolar disorder, and was admitted on 06/27/18 23:55 on a 201 voluntary commitment after he attempted to buy a gun on [employer] list in order to end his life. He submitted a 72 hour notice which expires 07/01/18. Chief Complaint "Pretty neutral". Review of Systems Notes Right great toe pain. Denies other musculoskeletal pain Sleep Information Total Hours of Sleep: 7.5 Meal Information Percent Meal Consumed - Breakfast: 0 Percent Meal Consumed - Lunch: 100 Percent Meal Consumed - Dinner: 100 Subjective Subjective Patient was seen & assessed and interval progress reviewed with treatment team. Patient remained in good behavioral control yesterday. Did not attend groups in the daytime but participated in the evening. Compliant with medications. He describes feeling "pretty steady, pretty neutral" today. Acknowledges some feelings of sadness yesterday as he had anticipated potential discharge. "I had plans and I do not want to be here." He denies active suicidal ideation this morning. Complains of right great toe pain and there is some bruising and edema likely associated with his agitation when he was kicking the wall around time of 302. He is able to flex and extend the toe however painful to palpation. No gross deformity. Denies other physical complaints. Physical Exam Psychiatric Orientation: cooperative Drowsy Apperance: + disheveled Eye Contact: + fair eye contact Motor Behavior: no psychomotor agitation Speech: normal rate/rhythm/volume of speech Affect: + blunted affect "Neutral" Thought Process: goal directed thought process Thought Content: + cognitive distortions Suicidal Thoughts: denies suicidal thoughts Cognition: recent memory grossly intact Insight: + limited insight Judgement: + impaired judgement Vital Signs (Past 24 Hours) Last Vital Signs Temp 36.6 C 06/30/18 06:00 Pulse 80 06/30/18 07:07 Resp 16 06/30/18 06:00 BP 118/71 06/30/18 07:07 Pulse Ox 95 06/28/18 00:19 Skin + ecchymosis (R great toe proximal interphalangeal and metatarsophalangeal joints) Results & Data Current Inpatient Medications Current Inpatient Medications: Current Inpatient Medications Acetaminophen (Tylenol) 650 mg PO Q4H PRN PRN Reason: Headache or Minor Fever Stop: 07/27/18 23:53 Last Admin: 06/30/18 13:53 Dose: 650 mg Al Hydrox/Mg Hydrox/Simethicone (Maalox) 30 ml PO Q4H PRN PRN Reason: GI Upset Stop: 07/27/18 23:53 Aripiprazole (Abilify) 20 mg PO DAILY JILLIAN Stop: 07/28/18 10:59 Last Admin: 07/02/18 10:42 Dose: 20 mg Bismuth Subsalicylate (Kaopectate) 15 ml PO PRN PRN PRN Reason: Loose Stool Stop: 07/27/18 23:53 Carbamazepine (Tegretol Xr) 200 mg PO DAILY JILLIAN Stop: 07/28/18 10:59 Last Admin: 07/02/18 10:42 Dose: 200 mg Carbamazepine (Tegretol Xr) 400 mg PO HS JILLIAN Stop: 07/28/18 21:59 Last Admin: 07/01/18 21:53 Dose: 400 mg Hydroxyzine HCl (Vistaril) 50 mg PO HSZ PRN PRN Reason: Insomnia Stop: 07/27/18 23:53 Last Admin: 07/01/18 21:54 Dose: 50 mg Hydroxyzine HCl (Vistaril) 25 mg PO Q4H PRN PRN Reason: Anxiety Stop: 07/27/18 23:53 Magnesium Hydroxide (Milk Of Magnesia) 30 ml PO DAILY PRN PRN Reason: Heartburn Stop: 07/27/18 23:53 Nitrofurantoin Macrocrystals (Macrobid) 100 mg PO BID JILLIAN Stop: 07/02/18 21:44 Last Admin: 07/02/18 10:42 Dose: 100 mg Dexmethylphenidate Er 10mg ~ Non- Formulary Patient's Own Med 1 ea PO DAILY JILLIAN Stop: 07/29/18 08:59 Last Admin: 07/02/18 10:42 Dose: 1 tab Non-Formulary Medication (Patient's Own Controlled Med) 1 ea PO QAM JILLIAN Stop: 07/13/18 08:59 Last Admin: 07/02/18 10:43 Dose: Not Given Propranolol HCl (Inderal) 10 mg PO BID PRN PRN Reason: Anxiety Stop: 07/28/18 20:59 Sodium Chloride ([place] Nasal) 1 - 2 sprays NA PRN PRN PRN Reason: Nasal Dryness/Congestion Stop: 07/27/18 23:53 Testosterone Cypionate (Depo-Testosterone) 200 mg IM Th@0900 JILLIAN Stop: 07/29/18 13:59 Last Admin: 06/29/18 14:37 Dose: 200 mg Post Discharge Appointments Primary Care Physician Name Of Family Doctor: Stan Gray Primary Care Provider Appointment Comment: [address], [place] [id number] Psychiatrist Name of Psychiatrist: [facility] - Dr. Benavidez Psychiatrist's Date of Appointment with Psychiatrist: 07/19/18 Time of Appointment with Psychiatrist: 2:25 p.m. Psychiatric Appointment Comment: [address] [facility], [place] [address] Therapist Name of Therapist: [facility] - Lillie Serna (needs to be in the aftn) Therapist's Time of Therapist Appointment: *call closer to d/c Therapy Appointment Comment: [address] [facility], [address], [place] [address] Carbon Grinder Name of Carbon Grinder: None Contact Information Discharge Discharge Address: [address] [place] [address], [place] [address] CPT Code CPT Code 68458 _ (1) Bipolar disorder current episode depressed Current episode severity: severe Psychotic features: without psychotic features Qualified Code(s): F31.4 - Bipolar disorder, current episode depressed , severe, without psychotic features
[2018-07-03] MEDS: LEVOTHYROXINE SODIUM 25 MCG TABLET PO SCH (08:38)
[2018-07-03] MEDS: ARIPiprazole 10 MG TAB PO SCH (08:58)
[2018-07-03] MEDS: DEXMETHYLPHENIDATE 10 MG PO SCH (09:01)
[2018-07-03] MEDS: CARBAMAZEPINE 200 MG TABCR PO SCH ×2 (09:02→21:01)
[2018-07-03] MEDS: PATIENT'S OWN CONTROLLED MED PO SCH (09:06)
--- NOTE | 2018-07-03 10:15 | Psychiatric Progress Note ---
Date of Service July 03, 2018 Impression / Recommendations Impression Remains on a 302 which will on 07/05. Despite the patient saying that he feels he is ready to go, his affect remains flat/depressed, and he has not engaged in any significant treatment that would help to mitigate his risk factors. We will recommend a meeting with his parents since he will be returning to their home, even if the patient does not chose to attend as there is value in understanding all that they have done to reduce the risk for suicide moving forward. We do have an NIMISHA for parents. Continue current meds. (1) Personality disorder: 06/28 - Patient has demonstrated antisocial and borderline traits ( impulsivity in potentially self damaging areas, recurrent suicidal behavior/ gestures/threats, affect of instability, anger outbursts, deceitfulness, lack of empathy for others, reckless disregard for safety, and irritability). If his explanation of the events that led to admission is to be believed, his behavior is more likely due to a personality disorder than to a primary mood disorder. However, in the past, he has clearly stated chronic suicidal thoughts with a plan to purchase a weapon when he turns 23 and use it to commit suicide. His 23st birthday is coming up next month. 06/30 -clearly, the patient has marked difficulty regulating his mood. The patient's level of impulsivity, which is linked to his emotional lability, combined with his tendency to equivocate or prevaricate renders him highly unreliable and at high risk. He uses primitive defense mechanisms such as projection and externalization. For example, when try to help him understand that his actions have consequences and his repeated threats to buy a gun and shoot himself, combined with his unwillingness to truly cooperate with treatment recommendations (e.g., refusing to have a meeting with his mother, with whom he lives) is the reason that we cannot allow him to remain as a voluntary patient and cannot allow him to leave the hospital, he immediately began screaming things such as "This is not fair! You are ruining my life! Why are you doing this to me?" 07/02 -patient appears to be re-engaging and less acutely catastrophic in thinking -For complaint of right great toe pain injured during time of agitation and behavioral dyscontrol associated with 302, we will provide cold pack prn for swelling. He is able to ambulate with only mild discomfort and suspicion for fracture low. 07/03 - Continue current meds - Continue inpatient on a 302 - Arrange meeting with parents (2) Bipolar disorder current episode depressed: 06/28 - Patient denies recent depression or hypomania. Continue home medications: Tegretol XR 200mg qam and 400mg HS and arpiprazole 10mg daily. -Monitoring on an atypical antipsychotic: Fasting lipid profile performed 2017 and notable for elevated triglycerides of 252. Fasting glucose normal at 93. -Suicide checks for safety. -Attend groups and therapy, work on healthy coping skills and discharge safety plan. -Care coordinated with outpatient psychiatrist, Dr. Benavidez. -Family meeting with parents. 06/29 -patient has submitted a 72-hour notice requesting to leave. He remains at high risk for suicide, and recommend involuntary 302 commitment. -Patient is refusing a family meeting with his mother, whom he lives with. 06/30 -the patient insisted on being discharged today, and when I advised the patient that I would not except a voluntary agreement from him because of his pattern of voluntarily agreeing to psychiatric treatment, and then retracting the agreement and seeking to leave AGAINST MEDICAL ADVICE is part of an established pattern of not actually voluntarily committing to treatment. -I have provided a second physician opinion for a 302 commitment - (3) Cannabis abuse: 06/28 -patient has not been willing to work towards sobriety, but will continue to provide psychoeducation about the risks of cannabis and other substance abuse, and engage him in motivational interviewing. He has made provocative statements about wanting to start using heroin, and was hospitalized several months ago due to a Coricidin overdose while attempting to get high. -Recovery protocol. -Has outpatient psychiatrist and therapist, but can explore the need for a higher level of substance abuse treatment if the patient is willing. -Avoid controlled substances given the high risk of abuse/misuse/negative outcomes (4) ADHD, predominantly inattentive type: 06/28 -may continue home dose of Focalin XR 10mg daily, but nonformulary so will need home supply. (5) [id number]-[id number] transgender person: 06/29 -staff confirmed with patient's pharmacy that he receives testosterone injections weekly on . Will order for today and continue while here. -Continue medically necessary private room due to transgender status. (6) Hypothyroidism: 07/01 - pt appears to have possible subclinical hypothyroidism reporting a history of borderline thyroid values and brief supplementation in the past. Will explore history as able. Considering restarting Synthroid as hypothyroidism may negatively impact mood. He will require repeat thyroid testing in 6 weeks 07/03 - Continue meds - Follow up with PCP, Dr. Gray (7) UTI (urinary tract infection): 07/01 - complete 5 day course of nitrofurantoin Inventory Assets Strengths: Supportive family, has housing and outpatient providers Needs: Sobriety from substances, safety plan Risk Factors Assessment : Yes Do You Have Access To A Gun?: No (But has attempted to buy one online) Health Problems: No Mental Health Diagnoses: Yes Substance Use Disorders: Yes Previous Attempt: Yes Previous Attempt; Planned: Yes Family History of Suicide: No Previous Psychiatric Hospitalization: Yes Smoker: Yes Protective Factors Assessment Restoration Beliefs: No : No Responsible for Young Children: No Employed: No Stable Relationships: No Supportive Family: Yes Interval History Identifying Information MANUEL MARS is a 22-year-old transgendered female to male who currently lives in [place] with his mother and sister, has a history of polysubstance abuse, bipolar disorder, and was admitted on 06/27/18 23:55 on a 201 voluntary commitment after he attempted to buy a gun on [employer]'s list in order to end his life. He submitted a 72 hour notice which expires 07/01/18. Chief Complaint "OK". Review of Systems Sleep Information Total Hours of Sleep: 6.5 Sleep Comments: pt given vistaril per rn. pt on q-15 minute checks Meal Information Percent Meal Consumed - Breakfast: 100 Percent Meal Consumed - Lunch: 80 Percent Meal Consumed - Dinner: 100 Nutrition Comment: Hasn't eaten yet Subjective Subjective Patient was seen & assessed and interval progress reviewed with Treatment Team. The patient says that he feels like he is ready to go and asks why we are keeping him until Wed. I explain our concerns that he is at high risk for self harm given that he has continued in his attempts to obtain a gun to commit suicide. When asked what he thinks is behind his chronic suicidality, he says that he thinks he is just a person who is genetically predisposed to depression , denying any acute reasons to be depressed. He says that his relationship with his parents is OK, that he is in a great relationship right now, but admits that school has been stressful and he plans to withdraw from this semester with plans to return in the fall. He reiterates several times that he thinks he should be allowed to go home today. Staff report that he had been staying in bed until noon since admission, but yesterday agreed to get out of bed earlier, which he was able to accomplish today. Physical Exam Psychiatric Orientation: alert Apperance: appropriately dressed and appropriately groomed Eye Contact: + fair eye contact Motor Behavior: steady gait and station and no abnormal motor movements Speech: normal rate/rhythm/volume of speech Affect: + depressed affect and + flat affect Mood: + depressed mood Thought Process: goal directed thought process Thought Content: reality based without delusions Suicidal Thoughts: denies suicidal thoughts Homicidal Thoughts: denies homicidal thoughts Hallucinations: no auditory hallucinations and no visual hallucinations Cognition: recent memory grossly intact, remote memory grossly intact, attention grossly intact and language grossly intact Estimated Intelligence: consistent with education level Insight: + impaired insight Judgement: + impaired judgement Vital Signs (Past 24 Hours) Last Vital Signs Temp 36.6 C 06/30/18 06:00 Pulse 80 06/30/18 07:07 Resp 16 06/30/18 06:00 BP 118/71 06/30/18 07:07 Pulse Ox 95 06/28/18 00:19 Results & Data Current Inpatient Medications Current Inpatient Medications: Current Inpatient Medications Acetaminophen (Tylenol) 650 mg PO Q4H PRN PRN Reason: Headache or Minor Fever Stop: 07/27/18 23:53 Last Admin: 06/30/18 13:53 Dose: 650 mg Al Hydrox/Mg Hydrox/Simethicone (Maalox) 30 ml PO Q4H PRN PRN Reason: GI Upset Stop: 07/27/18 23:53 Aripiprazole (Abilify) 20 mg PO DAILY JILLIAN Stop: 07/28/18 10:59 Last Admin: 07/03/18 08:58 Dose: 20 mg Bismuth Subsalicylate (Kaopectate) 15 ml PO PRN PRN PRN Reason: Loose Stool Stop: 07/27/18 23:53 Carbamazepine (Tegretol Xr) 200 mg PO DAILY JILLIAN Stop: 07/28/18 10:59 Last Admin: 07/03/18 09:02 Dose: 200 mg Carbamazepine (Tegretol Xr) 400 mg PO HS JILLIAN Stop: 07/28/18 21:59 Last Admin: 07/02/18 21:28 Dose: 400 mg Hydroxyzine HCl (Vistaril) 50 mg PO HSZ PRN PRN Reason: Insomnia Stop: 07/27/18 23:53 Last Admin: 07/02/18 21:37 Dose: 50 mg Hydroxyzine HCl (Vistaril) 25 mg PO Q4H PRN PRN Reason: Anxiety Stop: 07/27/18 23:53 Levothyroxine Sodium (Synthroid) 25 mcg PO DAILYBB JILLIAN Stop: 08/02/18 07:59 Last Admin: 07/03/18 08:38 Dose: 25 mcg Magnesium Hydroxide (Milk Of Magnesia) 30 ml PO DAILY PRN PRN Reason: Heartburn Stop: 07/27/18 23:53 Dexmethylphenidate Er 10mg ~ Non- Formulary Patient's Own Med 1 ea PO DAILY JILLIAN Stop: 07/29/18 08:59 Last Admin: 07/03/18 09:01 Dose: 1 tab Non-Formulary Medication (Patient's Own Controlled Med) 1 ea PO QAM JILLIAN Stop: 07/13/18 08:59 Last Admin: 07/03/18 09:06 Dose: Not Given Propranolol HCl (Inderal) 10 mg PO BID PRN PRN Reason: Anxiety Stop: 07/28/18 20:59 Sodium Chloride (Hailey Nasal) 1 - 2 sprays NA PRN PRN PRN Reason: Nasal Dryness/Congestion Stop: 07/27/18 23:53 Testosterone Cypionate (Depo-Testosterone) 200 mg IM Th@0900 JILLIAN Stop: 07/29/18 13:59 Last Admin: 06/29/18 14:37 Dose: 200 mg Post Discharge Appointments Primary Care Physician Name Of Family Doctor: Stan Gray Primary Care Provider Appointment Comment: [address] [place] [address] Psychiatrist Name of Psychiatrist: Olga Benavidez Psychiatrist's Date of Appointment with Psychiatrist: 07/19/18 Time of Appointment with Psychiatrist: 2:25 p.m. Psychiatric Appointment Comment: [address] [place] [address] Therapist Name of Therapist: [facility] - Lillie Serna (needs to be in the aftn) Therapist's Time of Therapist Appointment: *call closer to d/c Therapy Appointment Comment: [address] [facility], [address], [place] [address] Food Demonstrator Name of Food Demonstrator: [employer]ena Phone Number for Food Demonstrator: [phone] Date of Appointment with Food Demonstrator: 07/06/18 Time of Appointment with Food Demonstrator: 1:00 p.m. Case Management Appointment Comment: [address] [facility] Contact Information Discharge Discharge Address: [address] [place] [address], [place] [address] CPT Code CPT Code 69005 _ (1) Bipolar disorder current episode depressed Current episode severity: severe Psychotic features: without psychotic features Qualified Code(s): F31.4 - Bipolar disorder, current episode depressed , severe, without psychotic features
--- NOTE | 2018-07-03 12:21 | Medical Student Progress Note ---
Date of Service July 03, 2018 Assessment & Plan (1) Personality disorder: 06/28 - Patient has demonstrated antisocial and borderline traits ( impulsivity in potentially self damaging areas, recurrent suicidal behavior/ gestures/threats, affect of instability, anger outbursts, deceitfulness, lack of empathy for others, reckless disregard for safety, and irritability). If his explanation of the events that led to admission is to be believed, his behavior is more likely due to a personality disorder than to a primary mood disorder. However, in the past, he has clearly stated chronic suicidal thoughts with a plan to purchase a weapon when he turns 23 and use it to commit suicide. His 23st birthday is coming up next month. 06/30 -clearly, the patient has marked difficulty regulating his mood. The patient's level of impulsivity, which is linked to his emotional lability, combined with his tendency to equivocate or prevaricate renders him highly unreliable and at high risk. He uses primitive defense mechanisms such as projection and externalization. For example, when try to help him understand that his actions have consequences and his repeated threats to buy a gun and shoot himself, combined with his unwillingness to truly cooperate with treatment recommendations (e.g., refusing to have a meeting with his mother, with whom he lives) is the reason that we cannot allow him to remain as a voluntary patient and cannot allow him to leave the hospital, he immediately began screaming things such as "This is not fair! You are ruining my life! Why are you doing this to me?" 07/02 -patient appears to be re-engaging and less acutely catastrophic in thinking -For complaint of right great toe pain injured during time of agitation and behavioral dyscontrol associated with 302, we will provide cold pack prn for swelling. He is able to ambulate with only mild discomfort and suspicion for fracture low. 07/03 - Continue current meds - Continue inpatient on a 302 - Arrange meeting with parents (2) Bipolar disorder current episode depressed: 06/28 - Patient denies recent depression or hypomania. Continue home medications: Tegretol XR 200mg qam and 400mg HS and arpiprazole 10mg daily. -Monitoring on an atypical antipsychotic: Fasting lipid profile performed 2017 and notable for elevated triglycerides of 252. Fasting glucose normal at 93. -Suicide checks for safety. -Attend groups and therapy, work on healthy coping skills and discharge safety plan. -Care coordinated with outpatient psychiatrist, Dr. Benavidez. -Family meeting with parents. 06/29 -patient has submitted a 72-hour notice requesting to leave. He remains at high risk for suicide, and recommend involuntary 302 commitment. -Patient is refusing a family meeting with his mother, whom he lives with. 06/30 -the patient insisted on being discharged today, and when I advised the patient that I would not except a voluntary agreement from him because of his pattern of voluntarily agreeing to psychiatric treatment, and then retracting the agreement and seeking to leave AGAINST MEDICAL ADVICE is part of an established pattern of not actually voluntarily committing to treatment. -I have provided a second physician opinion for a 302 commitment - Current episode severity: severe Psychotic features: without psychotic features Qualified Code(s): F31.4 - Bipolar disorder, current episode depressed, severe, without psychotic features (3) Cannabis abuse: 06/28 -patient has not been willing to work towards sobriety, but will continue to provide psychoeducation about the risks of cannabis and other substance abuse, and engage him in motivational interviewing. He has made provocative statements about wanting to start using heroin, and was hospitalized several months ago due to a Coricidin overdose while attempting to get high. -Recovery protocol. -Has outpatient psychiatrist and therapist, but can explore the need for a higher level of substance abuse treatment if the patient is willing. -Avoid controlled substances given the high risk of abuse/misuse/negative outcomes (4) ADHD, predominantly inattentive type: 06/28 -may continue home dose of Focalin XR 10mg daily, but nonformulary so will need home supply. (5) Qcqguq-wq-zstc transgender person: 06/29 -staff confirmed with patient's pharmacy that he receives testosterone injections weekly on . Will order for today and continue while here. -Continue medically necessary private room due to transgender status. (6) Hypothyroidism: 07/01 - pt appears to have possible subclinical hypothyroidism reporting a history of borderline thyroid values and brief supplementation in the past. Will explore history as able. Considering restarting Synthroid as hypothyroidism may negatively impact mood. He will require repeat thyroid testing in 6 weeks 07/03 - Continue meds - Follow up with PCP, Dr. Gray (7) UTI (urinary tract infection): 07/01 - complete 5 day course of nitrofurantoin Physical Exam 2 Vital Signs (Past 24 Hours): Last Vital Signs Temp 36.6 C 06/30/18 06:00 Pulse 80 06/30/18 07:07 Resp 16 06/30/18 06:00 BP 118/71 06/30/18 07:07 Pulse Ox 95 06/28/18 00:19 Results & Data Medications Administered Acetaminophen (Tylenol) 650 mg PO Q4H PRN PRN Reason: Headache or Minor Fever Stop: 07/27/18 23:53 Last Admin: 06/30/18 13:53 Dose: 650 mg Aripiprazole (Abilify) 20 mg PO DAILY JILLIAN Stop: 07/28/18 10:59 Last Admin: 07/03/18 08:58 Dose: 20 mg Admin: 07/02/18 10:42 Dose: 20 mg Admin: 07/01/18 10:37 Dose: 20 mg Admin: 06/30/18 09:48 Dose: 20 mg Admin: 06/29/18 09:10 Dose: 20 mg Admin: 06/28/18 12:31 Dose: 20 mg Carbamazepine (Tegretol Xr) 200 mg PO DAILY JILLIAN Stop: 07/28/18 10:59 Last Admin: 07/03/18 09:02 Dose: 200 mg Admin: 07/02/18 10:42 Dose: 200 mg Admin: 07/01/18 10:38 Dose: 200 mg Admin: 06/30/18 09:48 Dose: 200 mg Admin: 06/29/18 09:10 Dose: 200 mg Admin: 06/28/18 12:31 Dose: 200 mg Carbamazepine (Tegretol Xr) 400 mg PO HS JILLIAN Stop: 07/28/18 21:59 Last Admin: 07/02/18 21:28 Dose: 400 mg Admin: 07/01/18 21:53 Dose: 400 mg Admin: 06/30/18 21:03 Dose: 400 mg Admin: 06/29/18 21:25 Dose: 400 mg Admin: 06/28/18 21:04 Dose: 400 mg Hydroxyzine HCl (Vistaril) 50 mg PO HSZ PRN PRN Reason: Insomnia Stop: 07/27/18 23:53 Last Admin: 07/02/18 21:37 Dose: 50 mg Admin: 07/01/18 21:54 Dose: 50 mg Admin: 06/30/18 21:04 Dose: 50 mg Admin: 06/29/18 21:38 Dose: 50 mg Admin: 06/28/18 21:05 Dose: 50 mg Admin: 06/28/18 00:40 Dose: 50 mg Levothyroxine Sodium (Synthroid) 25 mcg PO DAILYBB [facility] Stop: 08/02/18 07:59 Last Admin: 07/03/18 08:38 Dose: 25 mcg Dexmethylphenidate Er 10mg ~ Non- Formulary Patient's Own Med 1 ea PO DAILY [facility] Stop: 07/29/18 08:59 Last Admin: 07/03/18 09:01 Dose: 1 tab Admin: 07/02/18 10:42 Dose: 1 tab Admin: 07/01/18 10:38 Dose: 1 tab Admin: 06/30/18 09:49 Dose: 1 tab Admin: 06/29/18 09:11 Dose: 1 tab Non-Formulary Medication (Patient's Own Controlled Med) 1 ea PO QAM [facility] Stop: 07/13/18 08:59 Last Admin: 07/03/18 09:06 Dose: Not Given Admin: 07/02/18 10:43 Dose: Not Given Admin: 07/01/18 10:38 Dose: Not Given Admin: 06/30/18 09:49 Dose: Not Given Admin: 06/29/18 09:11 Dose: Not Given Testosterone Cypionate (Depo-Testosterone) 200 mg IM Th@0900 [facility] Stop: 07/29/18 13:59 Last Admin: 06/29/18 14:37 Dose: 200 mg
--- NOTE | 2018-07-03 12:29 | Medical Student Progress Note ---
Date of Service July 03, 2018 Assessment & Plan (1) Personality disorder: Shalom is a 22-year-old transgender male (F to M) with a history of bipolar disorder, multiple suicide attempts, generalized anxiety disorder, and ADHD who was brought to [facility] by police after making ads on [employer] looking for someone to buy a gun in order for him to kill himself. He is admitted 201 voluntary. Given his history of suicide, well defined plan, and psychiatric co- morbidities, Shalom is at high risk of suicide, despite his reassurances that this was all to "fuck with people." Even if this was truly an "experiment," this suggests serious personality pathology. He has shared elements of borderline and antisocial personality disorders including: impulsiveness, suicidal behavior, attention seeking, mood swings, history of anger outbursts, deceitfulness, reckless disregard for self, lack of remorse, and irresponsibility. In either case, he needs to establish healthy coping behaviors when he feels "bored" or when he feels truly suicidal. 1. Suicidal ideation - Continues to deny true SI, yet has long history of real SI with outlined plan - Q15 checks for safety - Create safety plan 2. Personality disorder NOS - His actions and attempted manipulations to have a stranger help him kill himself are disturbing. He sees that this was wrong but does not show a sense of empathy in imagining how someone would react to hearing what he says. It is all an "experiment" to him. He might benefit from counseling to foster a sense of empathy in order to decrease this type of behavior. 3. Bipolar disorder - He is less irritable. - Continue aripiprazole 20 mg. Investigate if insurance will cover DALEY form. - Continue carbamazepine 200 mg qAM, 400 mg qHS 4. Generalized anxiety disorder - Continue to offer propranolol 10 mg PRN 5. 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 7. Hypothyroidism - TSH 5.270 on 06/27/18. - Continue 25 mcg of levothyroxine 8. Disposition - Patient is admitted under 302. - Continue hospitalization for safety planning and therapy. - Coordinate outpatient care and plan with family/support system. Subjective Shalom is a 22-year-old transgender male (F to M) with a history of bipolar disorder, multiple suicide attempts, generalized anxiety disorder, and ADHD who was brought to [facility] by police after making ads on [employer] looking for someone to buy a gun in order for him to kill himself. Today he says he's doing "alright" with a more "balanced" mood. He says that he's been more social by going and participating in group activities and is becoming more patient with others. His sleep and appetite are good. He denies SI, HI, and hallucinations. He is happy that his partner came to visit him in the hospital. Upon discharge, he says he plans to live with a friend named Ashli. He inquires about the possibility of switching to DALEY form of Abilify. Physical Exam 2 Vital Signs (Past 24 Hours): Last Vital Signs Temp 36.6 C 06/30/18 06:00 Pulse 80 06/30/18 07:07 Resp 16 06/30/18 06:00 BP 118/71 06/30/18 07:07 Pulse Ox 95 06/28/18 00:19 Psychiatric: A+Ox3, euthymic affect Apperance: + disheveled Eye Contact : good eye contact Motor Behavior: no abnormal motor movements Speech: normal rate/rhythm/volume of speech Affect: + blunted affect Thought Process: linear/logical thought process Thought Content: no delusions Suicidal Thoughts: denies suicidal thoughts Homicidal Thoughts: denies homicidal thoughts Hallucinations: no auditory hallucinations and no visual hallucinations Cognition: recent memory grossly intact and remote memory grossly intact Estimated Intelligence: average estimated intelligence Insight: + limited insight Judgement: + limited judgement Results & Data Medications Administered Acetaminophen (Tylenol) 650 mg PO Q4H PRN PRN Reason: Headache or Minor Fever Stop: 07/27/18 23:53 Last Admin: 06/30/18 13:53 Dose: 650 mg Aripiprazole (Abilify) 20 mg PO DAILY JILLIAN Stop: 07/28/18 10:59 Last Admin: 07/03/18 08:58 Dose: 20 mg Admin: 07/02/18 10:42 Dose: 20 mg Admin: 07/01/18 10:37 Dose: 20 mg Admin: 06/30/18 09:48 Dose: 20 mg Admin: 06/29/18 09:10 Dose: 20 mg Admin: 06/28/18 12:31 Dose: 20 mg Carbamazepine (Tegretol Xr) 200 mg PO DAILY JILLIAN Stop: 07/28/18 10:59 Last Admin: 07/03/18 09:02 Dose: 200 mg Admin: 07/02/18 10:42 Dose: 200 mg Admin: 07/01/18 10:38 Dose: 200 mg Admin: 06/30/18 09:48 Dose: 200 mg Admin: 06/29/18 09:10 Dose: 200 mg Admin: 06/28/18 12:31 Dose: 200 mg Carbamazepine (Tegretol Xr) 400 mg PO HS JILLIAN Stop: 07/28/18 21:59 Last Admin: 07/02/18 21:28 Dose: 400 mg Admin: 07/01/18 21:53 Dose: 400 mg Admin: 06/30/18 21:03 Dose: 400 mg Admin: 06/29/18 21:25 Dose: 400 mg Admin: 06/28/18 21:04 Dose: 400 mg Hydroxyzine HCl (Vistaril) 50 mg PO HSZ PRN PRN Reason: Insomnia Stop: 07/27/18 23:53 Last Admin: 07/02/18 21:37 Dose: 50 mg Admin: 07/01/18 21:54 Dose: 50 mg Admin: 06/30/18 21:04 Dose: 50 mg Admin: 06/29/18 21:38 Dose: 50 mg Admin: 06/28/18 21:05 Dose: 50 mg Admin: 06/28/18 00:40 Dose: 50 mg Levothyroxine Sodium (Synthroid) 25 mcg PO DAILYBB JILLIAN Stop: 08/02/18 07:59 Last Admin: 07/03/18 08:38 Dose: 25 mcg Dexmethylphenidate Er 10mg ~ Non- Formulary Patient's Own Med 1 ea PO DAILY JILLIAN Stop: 07/29/18 08:59 Last Admin: 07/03/18 09:01 Dose: 1 tab Admin: 07/02/18 10:42 Dose: 1 tab Admin: 07/01/18 10:38 Dose: 1 tab Admin: 06/30/18 09:49 Dose: 1 tab Admin: 06/29/18 09:11 Dose: 1 tab Non-Formulary Medication (Patient's Own Controlled Med) 1 ea PO QAM JILLIAN Stop: 07/13/18 08:59 Last Admin: 07/03/18 09:06 Dose: Not Given Admin: 07/02/18 10:43 Dose: Not Given Admin: 07/01/18 10:38 Dose: Not Given Admin: 06/30/18 09:49 Dose: Not Given Admin: 06/29/18 09:11 Dose: Not Given Testosterone Cypionate (Depo-Testosterone) 200 mg IM Th@0900 [facility] Stop: 07/29/18 13:59 Last Admin: 06/29/18 14:37 Dose: 200 mg
[2018-07-04] MEDS: LEVOTHYROXINE SODIUM 25 MCG TABLET PO SCH (09:36)
[2018-07-04] MEDS: ARIPiprazole 10 MG TAB PO SCH (10:24)
[2018-07-04] MEDS: DEXMETHYLPHENIDATE 10 MG PO SCH (10:25)
[2018-07-04] MEDS: PATIENT'S OWN CONTROLLED MED PO SCH (10:25)
[2018-07-04] MEDS: CARBAMAZEPINE 200 MG TABCR PO SCH ×2 (10:26→21:19)
--- NOTE | 2018-07-04 12:29 | Psychiatric Progress Note ---
Date of Service July 04, 2018 Impression / Recommendations Impression Meeting with the person with whom he will live went well, and so will proceed to firm up aftercare plans for anticipated discharge tomorrow. He has expressed interest in proceeding to [facility], but nursing explored the cost and 3 months worth would be more than $1000, which is likely not affordable. (1) Personality disorder: 1. Suicidal ideation - Continues to deny true SI, yet has long history of real SI with outlined plan - Q15 checks for safety - Create safety plan 2. Personality disorder NOS - His actions and attempted manipulations to have a stranger help him kill himself are disturbing. He sees that this was wrong but does not show a sense of empathy in imagining how someone would react to hearing what he says. It is all an "experiment" to him. He might benefit from counseling to foster a sense of empathy in order to decrease this type of behavior. 3. Bipolar disorder - He is less irritable. - Continue aripiprazole 20 mg. Investigate if insurance will cover DALEY form. - Continue carbamazepine 200 mg qAM, 400 mg qHS 07/04 - Continue current meds as [facility] not affordable - Complete aftercare plans in anticipation of discharge tomorrow 4. Generalized anxiety disorder - Continue to offer propranolol 10 mg PRN 5. 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 7. Hypothyroidism - TSH 5.270 on 06/27/18. - Continue 25 mcg of levothyroxine 8. Disposition - Patient is admitted under 302. - Continue hospitalization for safety planning and therapy. - Coordinate outpatient care and plan with family/support system. Inventory Assets Strengths: Supportive family, has housing and outpatient providers Needs: Sobriety from substances, safety plan Risk Factors Assessment : Yes Do You Have Access To A Gun?: No (But has attempted to buy one online) Health Problems: No Mental Health Diagnoses: Yes Substance Use Disorders: Yes Previous Attempt: Yes Previous Attempt; Planned: Yes Family History of Suicide: No Previous Psychiatric Hospitalization: Yes Smoker: Yes Protective Factors Assessment Worship Beliefs: No : No Responsible for Young Children: No Employed: No Stable Relationships: No Supportive Family: Yes Interval History Identifying Information MANUEL MARS is a 22-year-old transgendered female to male who currently lives in [place] with his mother and sister, has a history of polysubstance abuse, bipolar disorder, and was admitted on 06/27/18 23:55 on a 201 voluntary commitment after he attempted to buy a gun on [employer] list in order to end his life. He submitted a 72 hour notice, and was placed on a 302 commitment on . Chief Complaint "I went OK (family meeting).". Review of Systems Sleep Information Total Hours of Sleep: 7.75 Sleep Comments: pt given vistaril per rn. pt on q-15 minute checks Meal Information Percent Meal Consumed - Breakfast: 100 Percent Meal Consumed - Lunch: 100 Percent Meal Consumed - Dinner: 100 Nutrition Comment: Hasn't eaten yet Subjective Subjective Patient was seen & assessed and interval progress reviewed with Treatment Team. The patient had a meeting with his friend Ashli, with whom he plans to live after discharge. He believes it went "pretty well", having talked about attending therapy, safety plans and communication. he says that his parents know he will be living there. He denies any further SI and denies HI, aud/vis hallucinations. He believes that he is doing everything he can to overcome his depression. Nursing reports that he has been attending groups. He also maintains that he plans to drop out of school and possibly consider trade school , rather than [employer]. Physical Exam Psychiatric Orientation: alert and cooperative Apperance: appropriately dressed and + disheveled Eye Contact: good eye contact Motor Behavior: steady gait and station and no abnormal motor movements Speech: normal rate/rhythm/volume of speech Affect: + flat affect Mood: + depressed mood Thought Process: goal directed thought process Thought Content: reality based without delusions Suicidal Thoughts: denies suicidal thoughts Homicidal Thoughts: denies homicidal thoughts Hallucinations: no auditory hallucinations and no visual hallucinations Cognition: recent memory grossly intact, remote memory grossly intact and attention grossly intact Estimated Intelligence: average estimated intelligence Insight: + limited insight Judgement: + limited judgement Vital Signs (Past 24 Hours) Last Vital Signs Temp 36.6 C 06/30/18 06:00 Pulse 80 06/30/18 07:07 Resp 16 06/30/18 06:00 BP 118/71 06/30/18 07:07 Pulse Ox 95 06/28/18 00:19 Results & Data Current Inpatient Medications Current Inpatient Medications: Current Inpatient Medications Acetaminophen (Tylenol) 650 mg PO Q4H PRN PRN Reason: Headache or Minor Fever Stop: 07/27/18 23:53 Last Admin: 06/30/18 13:53 Dose: 650 mg Al Hydrox/Mg Hydrox/Simethicone (Maalox) 30 ml PO Q4H PRN PRN Reason: GI Upset Stop: 07/27/18 23:53 Aripiprazole (Abilify) 20 mg PO DAILY JILLIAN Stop: 07/28/18 10:59 Last Admin: 07/04/18 10:24 Dose: 20 mg Bismuth Subsalicylate (Kaopectate) 15 ml PO PRN PRN PRN Reason: Loose Stool Stop: 07/27/18 23:53 Carbamazepine (Tegretol Xr) 200 mg PO DAILY JILLIAN Stop: 07/28/18 10:59 Last Admin: 07/04/18 10:26 Dose: 200 mg Carbamazepine (Tegretol Xr) 400 mg PO HS JILLIAN Stop: 07/28/18 21:59 Last Admin: 07/03/18 21:01 Dose: 400 mg Hydroxyzine HCl (Vistaril) 50 mg PO HSZ PRN PRN Reason: Insomnia Stop: 07/27/18 23:53 Last Admin: 07/03/18 21:02 Dose: 50 mg Hydroxyzine HCl (Vistaril) 25 mg PO Q4H PRN PRN Reason: Anxiety Stop: 07/27/18 23:53 Levothyroxine Sodium (Synthroid) 25 mcg PO DAILYBB JILLIAN Stop: 08/02/18 07:59 Last Admin: 07/04/18 09:36 Dose: 25 mcg Magnesium Hydroxide (Milk Of Magnesia) 30 ml PO DAILY PRN PRN Reason: Heartburn Stop: 07/27/18 23:53 Dexmethylphenidate Er 10mg ~ Non- Formulary Patient's Own Med 1 ea PO DAILY JILLIAN Stop: 07/29/18 08:59 Last Admin: 07/04/18 10:25 Dose: 1 tab Non-Formulary Medication (Patient's Own Controlled Med) 1 ea PO QAM JILLIAN Stop: 07/13/18 08:59 Last Admin: 07/04/18 10:25 Dose: Not Given Propranolol HCl (Inderal) 10 mg PO BID PRN PRN Reason: Anxiety Stop: 07/28/18 20:59 Sodium Chloride (Trego Nasal) 1 - 2 sprays NA PRN PRN PRN Reason: Nasal Dryness/Congestion Stop: 07/27/18 23:53 Testosterone Cypionate (Depo-Testosterone) 200 mg IM Th@0900 JILLIAN Stop: 07/29/18 13:59 Last Admin: 06/29/18 14:37 Dose: 200 mg Post Discharge Appointments Primary Care Physician Name Of Family Doctor: [facility] - Dr. Chacorta Sena MD Primary Care Date of Appointment with PCP: 07/10/18 Time of Appointment with PCP: 9:45 a.m. Provider Appointment Comment: [address], [place] [address] Psychiatrist Name of Psychiatrist: [facility] - Dr. Benavidez Psychiatrist's Date of Appointment with Psychiatrist: 07/19/18 Time of Appointment with Psychiatrist: 2:25 p.m. Psychiatric Appointment Comment: [address] [place] [address] Therapist Name of Therapist: [facility] - Lillie Weinberg Therapist's Time of Therapist Appointment: *call closer to d/c Therapy Appointment Comment: [address], [place] [address] Diesel Locomotive Firer Name of Diesel Locomotive Firer: [facility] Curt Walters Phone Number for Diesel Locomotive Firer: [phone] Date of Appointment with Diesel Locomotive Firer: 07/06/18 Time of Appointment with Diesel Locomotive Firer: 1:00 p.m. Case Management Appointment Comment: [address] [facility] Building Contact Information Discharge Discharge Address: [address] [place] [address], [place] [address] CPT Code CPT Code 22670
[2018-07-05] MEDS: LEVOTHYROXINE SODIUM 25 MCG TABLET PO SCH (08:08)
[2018-07-05] MEDS: PATIENT'S OWN CONTROLLED MED PO SCH (09:00)
[2018-07-05] MEDS: DEXMETHYLPHENIDATE 10 MG PO SCH (09:01)
[2018-07-05] MEDS: ARIPiprazole 10 MG TAB PO SCH (09:01)
[2018-07-05] MEDS: CARBAMAZEPINE 200 MG TABCR PO SCH (09:01)
--- NOTE | 2018-07-05 09:09 | Discharge Summary ---
Date of Service July 05, 2018 History of Present Illness Patient is well-known to us from multiple recent hospitalizations on our unit, most recently in March 2018 under similar circumstances. He was initially hospitalized 04/01/18 - 04/07/18, then re-presented to the emergency room 12 hours later after overdosing on Coricidin, which he said he was abusing in order to get high. He was admitted medically for several days for treatment of the overdose, and was then transferred to the behavioral health unit 04/10/18 - 04/14/2018. During his most recent hospitalization, he was continued on aripiprazole 5 mg daily, Focalin XR 10mg daily, and carbamazepine 200 mg every morning and 400 mg nightly. Family meetings were held with his mother and father, as his mother had concerns about him returning to live with her given his ongoing substance abuse and suicidality. She set boundaries with him regarding ability to oversee his finances, securing his medications and filling a weekly medication box, and searching his room. The patient was irritable and said he would only agree in order to be discharged from the hospital. His parents also discussed their concerns with his repeatedly expressed desire to buy a handgun, which the patient was dismissive of. He was discharged to outpatient care with case management through Dr. Pramod orozco, weekly transgender groups, and therapy at the psych clinic. Per outpatient records, he last saw his psychiatrist Dr. Benavidez on 06/06/2018, at which time he reported mood was mildly depressed but improved from previous, denied any suicidal thoughts, and reported good med compliance; aripiprazole was increased to 20 mg daily. He said he had called various ketamine clinics to see if he could get treatment for depression, and was planning to go to a place in [place]. On my assessment, the patient states he "didn't mean any of it, I wasn't serious , was just making ads on [employer] to fuck with people, it was just a joke, but it got me here." He says it was "just an experiment, to see what people say, " "I do it all the time, about aliens, I just fucked up, I'm not suicidal at all." He says he wanted to see "if anyone would agree to it, if someone actually would, I would be out, nevermind, I just thought it would be interesting." He says he started posting these ads in because he was "bored ," and someone saw it and called the police. He minimizes other people's concerns about his ads, saying "people say things they don't mean all the time. " He denies that he has had suicidal thoughts since Mar., then says he has brief passing SI, but no plan or intent. He reports mood has been good, although he still has ups and downs, "but not serious." He has been taking propanolol as needed for anxiety, but reports rare use. He denies manic symptoms now or in the past, and says he is not sure if he really has bipolar disorder. He has started taking college classes again, 3 classes since , and says he is doing well. Mood has been "good lately," reports adherence to medication and says things at home with his mother and sister have been going well. In attempting to clarify the discrepancies between his reports today that mood is stable and reports in the ER that he wanted to pursue ECT, he says that his therapist and doctor had suggested ECT and he was willing to consider it, but is aware it is not offered here and is not really sure if he needs it. Physical Exam Vital Signs (Past 24 Hours) Last Vital Signs Temp 36.6 C 06/30/18 06:00 Pulse 80 06/30/18 07:07 Resp 16 06/30/18 06:00 BP 118/71 06/30/18 07:07 Pulse Ox 95 06/28/18 00:19 Psychiatric Data Advance Directives Advance Directives Information Provided: Yes Advance Directives: No Mental Health Advance Directive: No Advance Directives on File: No Living Will: No Power of [place] Hand: No Advance Directives Reason:: Declines as Mental Health Visit. Risk Factors Assessment : Yes Do You Have Access To A Gun?: No (But has attempted to buy one online) Health Problems: No Mental Health Diagnoses: Yes Substance Use Disorders: Yes Previous Attempt: Yes Previous Attempt; Planned: Yes Family History of Suicide: No Previous Psychiatric Hospitalization: Yes Smoker: Yes Protective Factors Assessment Rastafari Beliefs: No : No Responsible for Young Children: No Employed: No Stable Relationships: No Supportive Family: Yes Discharge Data Consultations 06/27/18 23:52 ED Decision to Admit Stat Lab Results 06/27/18 06/27/18 06/27/18 20:05 20:05 20:05 WBC RBC Hgb Hct MCV MCH MCHC RDW Std Deviation RDW Coeff of Vee Plt Count MPV Immature Gran % (Auto) Neut % (Auto) Lymph % (Auto) [place] % (Auto) Eos % (Auto) Baso % (Auto) Immature Gran # (Auto) Neut # (Auto) Lymph # (Auto) [place] # (Auto) Eos # (Auto) Baso # (Auto) Sodium Potassium Chloride Carbon Dioxide Anion Gap BUN Creatinine Est Cr Clr Drug Dosing Est GFR ( Amer) Est GFR (Non-Af Amer) BUN/Creatinine Ratio Glucose Calcium Total Bilirubin AST ALT Alkaline Phosphatase Total Protein Albumin Globulin Albumin/Globulin Ratio TSH Free T4 HCG, Qual Specimen Hemolysis Urine Color Yellow Urine Appearance Turbid H Urine pH 6.5 Ur Specific [place] 1.015 Urine Protein Trace H Urine Glucose (UA) Negative Urine Ketones Negative Urine Blood 2+ H Urine Nitrite Negative Urine Bilirubin Negative Urine Urobilinogen Negative Ur Leukocyte Esterase 3+ H Urine WBC (Auto) >30 H Urine RBC (Auto) 10-30 H U Hyaline Cast (Auto) 0 U Epithel Cells (Auto) 20-30 H Urine Bacteria (Auto) Negative Urine Yeast Present H Salicylates Urine Opiates Screen Neg Ur Methadone, Qual Neg Acetaminophen Urine Barbiturates Neg Ur Phencyclidine (PCP) Neg U Amphetamin/Meth Scrn Neg MDMA (Ecstasy) Screen Neg U Benzodiazepines Scrn Neg Ur Cocaine Metabolite Neg U Marijuana (THC) Screen Pos H U Marijuana THC Carboxy 68 A Ethyl Alcohol mg/dL 06/27/18 06/27/18 06/27/18 20:27 20:27 20:27 WBC 11.49 H RBC 5.82 Hgb 18.7 H Hct 53.3 H MCV 91.6 MCH 32.1 MCHC 35.1 RDW Std Deviation 43.8 RDW Coeff of Vee 13.1 Plt Count 236 MPV 10.9 H Immature Gran % (Auto) 0.3 Neut % (Auto) 73.8 Lymph % (Auto) 20.3 [place] % (Auto) 4.7 Eos % (Auto) 0.7 Baso % (Auto) 0.2 Immature Gran # (Auto) 0.03 H Neut # (Auto) 8.49 H Lymph # (Auto) 2.33 [place] # (Auto) 0.54 Eos # (Auto) 0.08 Baso # (Auto) 0.02 Sodium 138 Potassium 4.0 Chloride 105 Carbon Dioxide 24 Anion Gap 10.0 BUN 13 Creatinine 1.04 Est Cr Clr Drug Dosing 91.3 Est GFR ( Amer) 119.2 Est GFR (Non-Af Amer) 102.9 BUN/Creatinine Ratio 12.5 Glucose 117 H Calcium 8.6 Total Bilirubin 0.4 AST 20 ALT 43 Alkaline Phosphatase 100 Total Protein 7.6 Albumin 4.0 Globulin 3.6 Albumin/Globulin Ratio 1.1 TSH 5.270 H Free T4 0.80 HCG, Qual Specimen Hemolysis Urine Color Urine Appearance Urine pH Ur Specific [place] Urine Protein Urine Glucose (UA) Urine Ketones Urine Blood Urine Nitrite Urine Bilirubin Urine Urobilinogen Ur Leukocyte Esterase Urine WBC (Auto) Urine RBC (Auto) U Hyaline Cast (Auto) U Epithel Cells (Auto) Urine Bacteria (Auto) Urine Yeast Salicylates < 1.7 L Urine Opiates Screen Ur Methadone, Qual Acetaminophen < 2 L Urine Barbiturates Ur Phencyclidine (PCP) U Amphetamin/Meth Scrn MDMA (Ecstasy) Screen U Benzodiazepines Scrn Ur Cocaine Metabolite U Marijuana (THC) Screen U Marijuana THC Carboxy Ethyl Alcohol mg/dL 06/27/18 06/27/18 20:27 20:27 WBC RBC Hgb Hct MCV MCH MCHC RDW Std Deviation RDW Coeff of Vee Plt Count MPV Immature Gran % (Auto) Neut % (Auto) Lymph % (Auto) [place] % (Auto) Eos % (Auto) Baso % (Auto) Immature Gran # (Auto) Neut # (Auto) Lymph # (Auto) [place] # (Auto) Eos # (Auto) Baso # (Auto) Sodium Potassium Chloride Carbon Dioxide Anion Gap BUN Creatinine Est Cr Clr Drug Dosing Est GFR ( Amer) Est GFR (Non-Af Amer) BUN/Creatinine Ratio Glucose Calcium Total Bilirubin AST ALT Alkaline Phosphatase Total Protein Albumin Globulin Albumin/Globulin Ratio TSH Free T4 HCG, Qual Cancelled Specimen Hemolysis Urine Color Urine Appearance Urine pH Ur Specific [place] Urine Protein Urine Glucose (UA) Urine Ketones Urine Blood Urine Nitrite Urine Bilirubin Urine Urobilinogen Ur Leukocyte Esterase Urine WBC (Auto) Urine RBC (Auto) U Hyaline Cast (Auto) U Epithel Cells (Auto) Urine Bacteria (Auto) Urine Yeast Salicylates Urine Opiates Screen Ur Methadone, Qual Acetaminophen Urine Barbiturates Ur Phencyclidine (PCP) U Amphetamin/Meth Scrn MDMA (Ecstasy) Screen U Benzodiazepines Scrn Ur Cocaine Metabolite U Marijuana (THC) Screen U Marijuana THC Carboxy Ethyl Alcohol mg/dL < 3.0 Hospital Course (1) Personality disorder: 1. Suicidal ideation - Continues to deny true SI, yet has long history of real SI with outlined plan - Q15 checks for safety - Create safety plan 2. Personality disorder NOS - His actions and attempted manipulations to have a stranger help him kill himself are disturbing. He sees that this was wrong but does not show a sense of empathy in imagining how someone would react to hearing what he says. It is all an "experiment" to him. He might benefit from counseling to foster a sense of empathy in order to decrease this type of behavior. 3. Bipolar disorder - He is less irritable. - Continue aripiprazole 20 mg. Investigate if insurance will cover DALEY form. - Continue carbamazepine 200 mg qAM, 400 mg qHS 07/04 - Continue current meds as Maintenna not affordable - Complete aftercare plans in anticipation of discharge tomorrow 4. Generalized anxiety disorder - Continue to offer propranolol 10 mg PRN 5. 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 7. Hypothyroidism - TSH 5.270 on 06/27/18. - Continue 25 mcg of levothyroxine 8. Disposition - Patient is admitted under 302. - Continue hospitalization for safety planning and therapy. - Coordinate outpatient care and plan with family/support system. Post Discharge Appointments Primary Care Physician Name Of Family Doctor: [facility] - Dr. Chacorta Sena MD Primary Care Date of Appointment with PCP: 07/10/18 Time of Appointment with PCP: 9:45 a.m. Provider Appointment Comment: [address], [place] [address] Psychiatrist Name of Psychiatrist: [facility] - Dr. Benavidez Psychiatrist's Date of Appointment with Psychiatrist: 07/19/18 Time of Appointment with Psychiatrist: 2:25 p.m. Psychiatric Appointment Comment: [address] [place] [address] Therapist Name of Therapist: [facility] - Lillie RawlsMargot Therapist's Time of Therapist Appointment: *call closer to d/c Therapy Appointment Comment: [address] [facility], [address], [place] [address] Die Maker Electronic Name of Die Maker Electronic: [facility] - Selena Phone Number for Die Maker Electronic: [phone] Date of Appointment with Die Maker Electronic: 07/06/18 Time of Appointment with Die Maker Electronic: 1:00 p.m. Case Management Appointment Comment: [address] [facility] Contact Information Discharge Discharge Address: [address] [place] [address], [place] [address] Discharge Plan Discharge Items Reason For Visit: BIPOLAR DEPRESSION Condition: Fair Prescriptions: No Action propranolol 10 mg Tablet 10 mg PO DAILY PRN (Reason: Anxiety) RF: 0 aripiprazole 20 mg tablet 20 mg PO DAILY RF: 0 dexmethylphenidate 10 mg capsule,ER biphasic 50-50 10 mg PO DAILY RF: 0 carbamazepine 200 mg tablet extended release 12 hr 200 mg PO DAILY RF: 0 carbamazepine 200 mg tablet extended release 12 hr 400 mg PO HS RF: 0 testosterone cypionate 200 mg/mL Oil 200 mg IM WK RF: 0 Admission Data Admit Date/Time: 06/27/18 23:55 Attending Provider: Andressa Sanders Admit Provider: Gemma Pearce Primary Care Provider: Harika Gray Other Providers: Gemma Pearce Service: Psychiatry Other Interventions: PSY Interdisciplinary Discharge Planning Last Done: 07/04/18 13:47
--- NOTE | 2018-07-05 09:28 | Discharge Summary ---
Date of Service July 05, 2018 History of Present Illness Patient is well-known to us from multiple recent hospitalizations on our unit, most recently in March 2018 under similar circumstances. He was initially hospitalized 04/01/18 - 04/07/18, then re-presented to the emergency room 12 hours later after overdosing on Coricidin, which he said he was abusing in order to get high. He was admitted medically for several days for treatment of the overdose, and was then transferred to the behavioral health unit 04/10/18 - 04/14/2018. During his most recent hospitalization, he was continued on aripiprazole 5 mg daily, Focalin XR 10mg daily, and carbamazepine 200 mg every morning and 400 mg nightly. Family meetings were held with his mother and father, as his mother had concerns about him returning to live with her given his ongoing substance abuse and suicidality. She set boundaries with him regarding ability to oversee his finances, securing his medications and filling a weekly medication box, and searching his room. The patient was irritable and said he would only agree in order to be discharged from the hospital. His parents also discussed their concerns with his repeatedly expressed desire to buy a handgun, which the patient was dismissive of. He was discharged to outpatient care with case management through Dr. Pramod orozco, weekly transgender groups, and therapy at the psych clinic. Per outpatient records, he last saw his psychiatrist Dr. Benavidez on 06/06/2018, at which time he reported mood was mildly depressed but improved from previous, denied any suicidal thoughts, and reported good med compliance; aripiprazole was increased to 20 mg daily. He said he had called various ketamine clinics to see if he could get treatment for depression, and was planning to go to a place in [place]. On my assessment, the patient states he "didn't mean any of it, I wasn't serious , was just making ads on [employer] to fuck with people, it was just a joke, but it got me here." He says it was "just an experiment, to see what people say, " "I do it all the time, about aliens, I just fucked up, I'm not suicidal at all." He says he wanted to see "if anyone would agree to it, if someone actually would, I would be out, nevermind, I just thought it would be interesting." He says he started posting these ads in Apr. because he was "bored ," and someone saw it and called the police. He minimizes other people's concerns about his ads, saying "people say things they don't mean all the time. " He denies that he has had suicidal thoughts since Mar., then says he has brief passing SI, but no plan or intent. He reports mood has been good, although he still has ups and downs, "but not serious." He has been taking propanolol as needed for anxiety, but reports rare use. He denies manic symptoms now or in the past, and says he is not sure if he really has bipolar disorder. He has started taking college classes again, 3 classes since , and says he is doing well. Mood has been "good lately," reports adherence to medication and says things at home with his mother and sister have been going well. In attempting to clarify the discrepancies between his reports today that mood is stable and reports in the ER that he wanted to pursue ECT, he says that his therapist and doctor had suggested ECT and he was willing to consider it, but is aware it is not offered here and is not really sure if he needs it. Physical Exam Psychiatric Orientation: alert and cooperative Apperance: appropriately dressed and + disheveled Eye Contact: good eye contact Motor Behavior: steady gait and station and no abnormal motor movements Speech: normal rate/rhythm/volume of speech Affect: + blunted affect Mood: no depressed mood and no anxious mood Thought Process: goal directed thought process Thought Content: reality based without delusions Suicidal Thoughts: denies suicidal thoughts Homicidal Thoughts: denies homicidal thoughts Hallucinations: no auditory hallucinations and no visual hallucinations Cognition: recent memory grossly intact, remote memory grossly intact, attention grossly intact and language grossly intact Estimated Intelligence: average estimated intelligence Insight: + limited insight Judgement: + fair judgement Vital Signs (Past 24 Hours) Last Vital Signs Temp 36.6 C 06/30/18 06:00 Pulse 80 06/30/18 07:07 Resp 16 06/30/18 06:00 BP 118/71 06/30/18 07:07 Pulse Ox 95 06/28/18 00:19 Principal Diagnosis Bipolar disorder, depressed Personality disorder Psychiatric Data The patient has been on our unit for 8 days. He was initially admitted voluntarily after posting messages on line about wanting to buy a gun to commit suicide. He then submitted a 72 hr notice and so a 302 was completed due to concerns for his ongoing safety. For complete admission information I refer you to the attached H&P. During his stay he decided to withdraw from [facility] , saying that it was too much for him at this time, and gave consideration to going to a trade school in the fall. Contact was made with the Office of Student Care and ADvocacy. He declined to have a meeting with his parents, and decided that at discharge he would live with a friend, Ashli, rather than return home. A meeting was held with Ashli to discuss safety concerns, communication, and ongoing treatment. He denies SI for most of his stay, saying that he was forward thinking and trying to do the best he could to get better. he was maintained on a MNPR due his transgendered status. Mother informed us that she plans to continue to control his money post discharge in an effort not to allow him access to funds to buy firearms. Risk factors were further mitigated through the use of group and individual counseling, safety planning, aftercare planning, meetings and communications with family and friends, collaboration with OP providers. the patient's 302 expires today and he is improved enough to be discharged. Day of Discharge Assessment Today the patient is requesting discharge. He is forward thinking, and will be living with his freind Ashli. He continues to deny SI/HI, aud/vis hallucinations. today he is casually dressed, and somewhat disheveled with hair in complete disarray. Gait and station are WNL. Eye contact is good. Affect is restricted. Speech is of normal rate volume and tone. Thoughts are organized and goal directed and without evidence of thought disorder, Recent/ remote memory is intact per conversation. Intelligence is estimated to be average. Insight and judgment are improved over admission. Transition of Care Transition Of Care Record: was reviewed with the patient Advance Directives Advance Directives Information Provided: Yes Advance Directives: No Mental Health Advance Directive: No Advance Directives on File: No Living Will: No Power of Coupon Collection Clerk: No Advance Directives Reason:: Declines as Mental Health Visit. Risk Factors Assessment : Yes Do You Have Access To A Gun?: No (But has attempted to buy one online) Health Problems: No Mental Health Diagnoses: Yes Substance Use Disorders: Yes Previous Attempt: Yes Previous Attempt; Planned: Yes Family History of Suicide: No Previous Psychiatric Hospitalization: Yes Smoker: Yes Protective Factors Assessment Zoroastrian Beliefs: No : No Responsible for Young Children: No Employed: No Stable Relationships: No Supportive Family: Yes Tobacco Cessation at Discharge Tobacco Cessation Medication Prescribed at Discharge: Not Applicable/Non-Smoker Total Time Total Time Spent: Greater Than 30 Minutes Total Time Includes: Examination of the patient, Discharge Planning, Medication Reconciliation and Communication with other providers Discharge Data Consultations 06/27/18 23:52 ED Decision to Admit Stat Lab Results 06/27/18 06/27/18 06/27/18 20:05 20:05 20:05 WBC RBC Hgb Hct MCV MCH MCHC RDW Std Deviation RDW Coeff of Vee Plt Count MPV Immature Gran % (Auto) Neut % (Auto) Lymph % (Auto) [place] % (Auto) Eos % (Auto) Baso % (Auto) Immature Gran # (Auto) Neut # (Auto) Lymph # (Auto) [place] # (Auto) Eos # (Auto) Baso # (Auto) Sodium Potassium Chloride Carbon Dioxide Anion Gap BUN Creatinine Est Cr Clr Drug Dosing Est GFR ( Amer) Est GFR (Non-Af Amer) BUN/Creatinine Ratio Glucose Calcium Total Bilirubin AST ALT Alkaline Phosphatase Total Protein Albumin Globulin Albumin/Globulin Ratio TSH Free T4 HCG, Qual Specimen Hemolysis Urine Color Yellow Urine Appearance Turbid H Urine pH 6.5 Ur Specific [place] 1.015 Urine Protein Trace H Urine Glucose (UA) Negative Urine Ketones Negative Urine Blood 2+ H Urine Nitrite Negative Urine Bilirubin Negative Urine Urobilinogen Negative Ur Leukocyte Esterase 3+ H Urine WBC (Auto) >30 H Urine RBC (Auto) 10-30 H U Hyaline Cast (Auto) 0 U Epithel Cells (Auto) 20-30 H Urine Bacteria (Auto) Negative Urine Yeast Present H Salicylates Urine Opiates Screen Neg Ur Methadone, Qual Neg Acetaminophen Urine Barbiturates Neg Ur Phencyclidine (PCP) Neg U Amphetamin/Meth Scrn Neg MDMA (Ecstasy) Screen Neg U Benzodiazepines Scrn Neg Ur Cocaine Metabolite Neg U Marijuana (THC) Screen Pos H U Marijuana THC Carboxy 68 A Ethyl Alcohol mg/dL 06/27/18 06/27/18 06/27/18 20:27 20:27 20:27 WBC 11.49 H RBC 5.82 Hgb 18.7 H Hct 53.3 H MCV 91.6 MCH 32.1 MCHC 35.1 RDW Std Deviation 43.8 RDW Coeff of Vee 13.1 Plt Count 236 MPV 10.9 H Immature Gran % (Auto) 0.3 Neut % (Auto) 73.8 Lymph % (Auto) 20.3 [place] % (Auto) 4.7 Eos % (Auto) 0.7 Baso % (Auto) 0.2 Immature Gran # (Auto) 0.03 H Neut # (Auto) 8.49 H Lymph # (Auto) 2.33 [place] # (Auto) 0.54 Eos # (Auto) 0.08 Baso # (Auto) 0.02 Sodium 138 Potassium 4.0 Chloride 105 Carbon Dioxide 24 Anion Gap 10.0 BUN 13 Creatinine 1.04 Est Cr Clr Drug Dosing 91.3 Est GFR ( Amer) 119.2 Est GFR (Non-Af Amer) 102.9 BUN/Creatinine Ratio 12.5 Glucose 117 H Calcium 8.6 Total Bilirubin 0.4 AST 20 ALT 43 Alkaline Phosphatase 100 Total Protein 7.6 Albumin 4.0 Globulin 3.6 Albumin/Globulin Ratio 1.1 TSH 5.270 H Free T4 0.80 HCG, Qual Specimen Hemolysis Urine Color Urine Appearance Urine pH Ur Specific [place] Urine Protein Urine Glucose (UA) Urine Ketones Urine Blood Urine Nitrite Urine Bilirubin Urine Urobilinogen Ur Leukocyte Esterase Urine WBC (Auto) Urine RBC (Auto) U Hyaline Cast (Auto) U Epithel Cells (Auto) Urine Bacteria (Auto) Urine Yeast Salicylates < 1.7 L Urine Opiates Screen Ur Methadone, Qual Acetaminophen < 2 L Urine Barbiturates Ur Phencyclidine (PCP) U Amphetamin/Meth Scrn MDMA (Ecstasy) Screen U Benzodiazepines Scrn Ur Cocaine Metabolite U Marijuana (THC) Screen U Marijuana THC Carboxy Ethyl Alcohol mg/dL 06/27/18 06/27/18 20:27 20:27 WBC RBC Hgb Hct MCV MCH MCHC RDW Std Deviation RDW Coeff of Vee Plt Count MPV Immature Gran % (Auto) Neut % (Auto) Lymph % (Auto) [place] % (Auto) Eos % (Auto) Baso % (Auto) Immature Gran # (Auto) Neut # (Auto) Lymph # (Auto) [place] # (Auto) Eos # (Auto) Baso # (Auto) Sodium Potassium Chloride Carbon Dioxide Anion Gap BUN Creatinine Est Cr Clr Drug Dosing Est GFR ( Amer) Est GFR (Non-Af Amer) BUN/Creatinine Ratio Glucose Calcium Total Bilirubin AST ALT Alkaline Phosphatase Total Protein Albumin Globulin Albumin/Globulin Ratio TSH Free T4 HCG, Qual Cancelled Specimen Hemolysis Urine Color Urine Appearance Urine pH Ur Specific [place] Urine Protein Urine Glucose (UA) Urine Ketones Urine Blood Urine Nitrite Urine Bilirubin Urine Urobilinogen Ur Leukocyte Esterase Urine WBC (Auto) Urine RBC (Auto) U Hyaline Cast (Auto) U Epithel Cells (Auto) Urine Bacteria (Auto) Urine Yeast Salicylates Urine Opiates Screen Ur Methadone, Qual Acetaminophen Urine Barbiturates Ur Phencyclidine (PCP) U Amphetamin/Meth Scrn MDMA (Ecstasy) Screen U Benzodiazepines Scrn Ur Cocaine Metabolite U Marijuana (THC) Screen U Marijuana THC Carboxy Ethyl Alcohol mg/dL < 3.0 Post Discharge Appointments Primary Care Physician Name Of Family Doctor: Stan Sena MD Primary Care Date of Appointment with PCP: 07/10/18 Time of Appointment with PCP: 9:45 a.m. Provider Appointment Comment: [address] [place] [address] Psychiatrist Name of Psychiatrist: [facility] - Dr. Benavidez Psychiatrist's Date of Appointment with Psychiatrist: 07/19/18 Time of Appointment with Psychiatrist: 2:25 p.m. Psychiatric Appointment Comment: [address] [place] [address] Therapist Name of Therapist: [facility] - Lillie Stanley Therapist's Time of Therapist Appointment: *call closer to d/c Therapy Appointment Comment: [address] [facility], [place] [address] Relations Liaison Name of Relations Liaison: [facility] Curt Walters Phone Number for Relations Liaison: [phone] Date of Appointment with Relations Liaison: 07/06/18 Time of Appointment with Relations Liaison: 1:00 p.m. Case Management Appointment Comment: [address] [facility] Smoking Cessation Counseling Tobacco Cessation Medication Prescribed at Discharge: Not Applicable/Non-Smoker Contact Information Discharge Discharge Address: [address] [place] [id number] Discharge Plan Discharge Items Reason For Visit: BIPOLAR DEPRESSION Discharge Diagnosis: Bipolar disorder Condition: Fair Discharge Goals: Decrease discomfort, Improve disease control and Improve function Activity: Resume your previous activity Non-emergency contact: Primary Care Provider, Psychiatrist and Therapist Call non-emergency contact if: you have any medication questions and your symptoms worsen Diet: Regular Addtl Provider Instructions: SPECIAL CARE INSTRUCTIONS: 1. Follow through with your scheduled aftercare appointments. If unable to keep an appointment, please call to reschedule. 2. Take your medication only as prescribed. Medication should not be changed or stopped without the approval of your doctor. In the event of worsening symptoms or concerns about side effects, contact your doctor immediately. 3. Utilize new healthy coping skills, anger management skills, and stress management skills learned during your hospitalization. Journal feelings and process them with a support person. Identify stressors or situations that may result in relapse, deterioration or inappropriate behaviors and develop a plan to deal with those issues. 4. If your coping skills are ineffective and you are in crisis, contact your outpatient providers for direction. If unable to reach your providers, please call the CAN HELP LINE AT or go to the closest Emergency Room. 5. Avoid alcohol and un-prescribed drugs. 6. You have been provided with the Mental Health Advance Directives Pamphlet for your review. AFTERCARE APPOINTMENTS: * Please call your insurance company prior to your scheduled appointment to confirm your aftercare providers are covered. Take your insurance information to your appointments. WHO TO CALL AND WHEN: � Medical Emergencies:� For questions or emergencies related to your hospital stay, please contact the Inpatient Behavioral Health Unit at [phone]. � A alley cleaner is on-call 06/12 for the Behavioral Health Unit for emergencies � At any time you feel your situation is an emergency, you may also call [phone] immediately. Your Doctors Instructions noted above were prepared by provider STEPHANIE Cartagena. Prescriptions: New levothyroxine [Synthroid] 25 mcg Tablet 25 mcg PO DAILYBB Qty: 30 RF: 0 Continue propranolol 10 mg Tablet 10 mg PO DAILY PRN (Reason: Anxiety) RF: 0 aripiprazole 20 mg tablet 20 mg PO DAILY RF: 0 dexmethylphenidate 10 mg capsule,ER biphasic 50-50 10 mg PO DAILY RF: 0 carbamazepine 200 mg tablet extended release 12 hr 200 mg PO DAILY RF: 0 carbamazepine 200 mg tablet extended release 12 hr 400 mg PO HS RF: 0 testosterone cypionate 200 mg/mL Oil 200 mg IM WK RF: 0 Stand-Alone Forms: My [facility] Admission Data Admit Date/Time: 06/27/18 23:55 Attending Provider: Andressa Sanders Admit Provider: Gemma Pearce Primary Care Provider: Harika Gray Other Providers: Gemma Pearce Service: Psychiatry Other Interventions: PSY Interdisciplinary Discharge Planning Last Done: 07/04/18 13:47 Pending Studies at Discharge: No
== END 2018-07-05 11:05 | disposition home or self-care (01) | DRG 885 ==
LOC: EDSEX → ED 19:41 → 3S 23:55

== ENCOUNTER 2018-08-14 14:15 | Inpatient (IN) ==
[2018-08-14 14:59] LABS: Appearance Urine Clear (Clear); Bacteria Urine Automated Negative (Negative); Bilirubin Urine Negative (Negative); Blood Urine Negative (Negative); Cast Urine Automated 0 /lpf (0-5); Color Urine Yellow; Glucose Urine UA Negative (Negative); Ketones Urine Negative (Negative); Leukocyte Esterase Urine 1+ (Negative); Nitrite Urine Negative (Negative); Protein Urine Negative (Negative); RBC Urine Automated 0-4 /hpf (0-4); Specific Gravity Urine 1.017 (1.000-1.030); Urobilinogen Urine Negative (Negative)
[2018-08-14 15:20] LABS: Amphetamines+Metham, Urine Neg (Neg); Barbiturates, Urine Neg (Neg); Benzodiazepine, Urine Neg (Neg); Cocaine, Urine Neg (Neg); MDMA (Ecstacy), Urine Neg (Neg); Methadone, Urine Neg (Neg); Opiate, Urine Neg (Neg); Phencyclidine, Urine Neg (Neg)
[2018-08-14 15:32] LABS: Basophils # (auto) 0.01 K/uL (0-0.2); Basophils % (auto) 0.1 %; Eosinophils # (auto) 0.12 K/uL (0-0.5); Eosinophils % (auto) 1.6 %; Hematocrit (blood only) 53.3 % (42-52); Hemoglobin 18.6 g/dL (14.0-18.0); Immature Granulocytes # (auto) 0.01 K/uL (0.00-0.02); Immature Granulocytes % (auto) 0.1 %; Lymphocytes # (auto) 1.84 K/uL (1.2-3.4); Mean Corpuscular Hgb Conc 34.9 g/dL (32-36); Mean Corpuscular Volume 91.4 fL (80-100); Mean Platelet Volume 10.5 fL (7.4-10.4); Monocytes # (auto) 0.38 K/uL (0.11-0.59); Neutrophils # (auto) 5.31 K/uL (1.4-6.5); Neutrophils % (auto) 69.2 %; Platelet Count 224 K/uL (130-400); RDW Standard Deviation 43.8 fL (36.4-46.3); Red Blood Count 5.83 M/uL (4.7-6.1); White Blood Count 7.67 K/uL (4.8-10.8)
[2018-08-14 15:45] LABS: BUN Creatinine Ratio 11.8 (10-20); Calcium 8.7 mg/dl (8.5-10.1); Creatinine Clr Calc Pharmacy 94.7 ml/min; Est GFR (African American) 107.1; Est GFR (Non-African American) 92.4; Potassium 4.3 mmol/L (3.5-5.1)
[2018-08-14 15:53] LABS: Acetaminophen < 2 ug/ml (10-30); Carbamazepine Tegretol 9.7 mcg/ml (4-12); Salicylate < 1.7 mg/dl (2.8-20)
[2018-08-14 15:55] LABS: Albumin Globulin Ratio 1.2 (0.9-2); Bilirubin,Total 0.3 mg/dl (0.2-1); Globulin 3.3 gm/dl (2.5-4.0); Total Protein 7.3 gm/dl (6.4-8.2)
[2018-08-14 16:10] LABS: Pregnancy Test, Urine Negative
--- NOTE | 2018-08-14 19:21 | Emergency Department Note ---
Entered by Jhonny Dsouza acting as a scribe for Chase Cabrales M.D. History of Present Illness General Chief complaint: Mental Health Evaluation Source: patient and other (patient's director case management) History of Present Illness Onset (ago): hour(s) (today) Location: neck and lower extremity Quality: + other (cut himself with razor blade) Exacerbated By: + other (recent stress) Associated symptoms: + other (denies SI, HI, any current pain, trouble speaking, or difficulty swallowing) The patient is a 23 year old male who presents to the Emergency Room after intentionally cutting his own neck and leg today with a razor blade. The patient reports that he has felt stressed over the past couple of days, and he states that he was not trying to injure himself that bad. He was found today by his director case management after forgetting his weekly appointment with her, and she called the police. He states that he has been dog-sitting alone over the past couple of days, and the director case management states that the dogs appeared well after seeing them today. The patient denies any current pain, trouble speaking, or difficulty swallowing. He is unsure when he had his last tetanus shot. He reports that he missed his regular medications over the past few days, but he believes he took his medicine today. He denies trying to overdose or taking any non-prescribed pills. The patient denies suicidal ideation, homicidal ideation, or hallucinations. Home Medications Home Medications Medication Instructions Recorded Confirmed Type aripiprazole 20 mg PO DAILY 06/28/18 08/14/18 History carbamazepine 200 mg PO DAILY 06/28/18 08/14/18 History carbamazepine 400 mg PO HS 06/28/18 08/14/18 History dexmethylphenidate 10 mg PO DAILY 06/28/18 08/14/18 History testosterone cypionate 200 mg IM WK 06/29/18 08/14/18 History atenolol 25 mg PO DAILY 08/14/18 08/14/18 History cariprazine [Vraylar] 1.5 cap DAILY 08/14/18 08/14/18 History Allergies Allergy/AdvReac Type Severity Reaction Status Date / Time Penicillins Allergy Mild Unknown Unverified 04/08/18 02:14 amoxicillin Allergy Unknown HIVES Unverified 11/24/18 02:14 Past Med/Surg History Medical History Suicidal ideation (Resolved) ADHD, predominantly inattentive type Anxiety ADAMA (generalized anxiety disorder) Migraine (Resolved) Surgical History H/O mastectomy testosterone treatment Family History Other Family history of high blood pressure Social History Preferred Language: Kazakh Beliefs That Will Affect Care: None Current Living Situation: Parent and Family Feels Safe at Home: Yes Smoking Status: Current some day smoker Hx Alcohol Use: Yes (hard lemonade, fireball whiskey) Review of Systems See HPI for pertinent positives & negatives. and A total of 10 systems reviewed and were otherwise negative Physical Exam Vital Signs Vital Signs - 24 hr 08/14/18 14:28 08/14/18 16:28 Temperature 37.0 C Temperature Source Oral Sepsis Recent Fever Within 48 Hours No Sepsis Action Taken by Nursing No Action Required Pulse Rate 92 H Pulse Rate [Left Finger] 77 Respiratory Rate 20 16 Respiratory Effort / Characteristics Non-Labored Respiratory Depth Normal Blood Pressure 128/69 Blood Pressure [Left Arm] 112/77 Blood Pressure Mean 88 Blood Pressure Mean [Left Arm] 88 Blood Pressure Position Sitting Pulse Oximetry 98 99 Oxygen Delivery Method Room Air GENERAL: Awake, alert, in no distress HENT: Multiple superficial lacerations on the neck without current bleeding. EYES: Normal conjunctiva. Sclera non-icteric. NECK: Supple. No nuchal rigidity. RESPIRATORY: Normal respiratory effort. CTAB CARDIAC: Normal rate. Normal rhythm. Extremities warm and well perfused. MUSCULOSKELETAL: Atraumatic. Chest examination reveals no tenderness. There is no CVA tenderness to palpation. LOWER EXTREMITIES: 2 small lacerations on the left inner thigh. NEURO: Normal sensorium. No sensory or motor deficits noted. No facial droop. SKIN: Warm and dry. No jaundice noted. PSYCH: Denies SI, HI, or hallucinations. States he is under a lot of stress and "knows he messed up." Course 1435: The patient was evaluated in room A7, and a complete history and physical examination were performed. 1914: A 302 was filed for the patient. 2026: The patient has been accepted to [address] [place] [address]. Medical Decision Making Differential Diagnosis Differential diagnosis: Etiologies such as mood disorder, infection, hypoglycemia, electrolyte abnormalities, cardiac sources, intracerebral event, toxicologic, neurologic, as well as others were entertained. Medical Records Attestation: I reviewed the patient's medical records. Home Medications Current Medication List: was personally reviewed by me Laboratory Data Attestation: I reviewed the patient's lab results. Result diagrams: 08/14/18 15:11 08/14/18 15:11 Lab Results 08/14/18 08/14/18 08/14/18 Range/Units 14:15 14:15 14:15 WBC (4.8-10.8) K/uL RBC (4.7-6.1) M/uL Hgb (14.0-18.0) g/dL Hct (42-52) % MCV (80-100) fL MCH (25-34) pg MCHC (32-36) g/dL RDW Std Deviation (36.4-46.3) fL RDW Coeff of Vee (11.5-14.5) % Plt Count (130-400) K/uL MPV (7.4-10.4) fL Immature Gran % (Auto) % Neut % (Auto) % Lymph % (Auto) % [place] % (Auto) % Eos % (Auto) % Baso % (Auto) % Immature Gran # (Auto) (0.00-0.02) K/uL Neut # (Auto) (1.4-6.5) K/uL Lymph # (Auto) (1.2-3.4) K/uL [place] # (Auto) (0.11-0.59) K/uL Eos # (Auto) (0-0.5) K/uL Baso # (Auto) (0-0.2) K/uL Sodium (136-145) mmol/L Potassium (3.5-5.1) mmol/L Chloride (98-107) mmol/L Carbon Dioxide (21-32) mmol/L Anion Gap (3-11) BUN (7-18) mg/dl Creatinine (0.6-1.4) mg/dl Est Cr Clr Drug Dosing ml/min Est GFR ( Amer) Est GFR (Non-Af Amer) BUN/Creatinine Ratio (10-20) Glucose (70-99) mg/dl Calcium (8.5-10.1) mg/dl Total Bilirubin (0.2-1) mg/dl AST (15-37) U/L ALT (12-78) U/L Alkaline Phosphatase (45-117) U/L Total Protein (6.4-8.2) gm/dl Albumin (3.4-5.0) gm/dl Globulin (2.5-4.0) gm/dl Albumin/Globulin Ratio (0.9-2) TSH (0.300-4.500) uIu/ml Urine Color Yellow Urine Appearance Clear (Clear) Urine pH 7.0 (4.5-7.5) Ur Specific [place] 1.017 (1.000-1.030) Urine Protein Negative (Negative) Urine Glucose (UA) Negative (Negative) Urine Ketones Negative (Negative) Urine Blood Negative (Negative) Urine Nitrite Negative (Negative) Urine Bilirubin Negative (Negative) Urine Urobilinogen Negative (Negative) Ur Leukocyte Esterase 1+ H (Negative) Urine WBC (Auto) 1-5 (0-5) /hpf Urine RBC (Auto) 0-4 (0-4) /hpf U Hyaline Cast (Auto) 0 (0-5) /lpf U Epithel Cells (Auto) 5-10 H (0-5) /lpf Urine Bacteria (Auto) Negative (Negative) Urine Test Negative Salicylates (2.8-20) mg/dl Urine Opiates Screen Neg (Neg) Ur Methadone, Qual Neg (Neg) Acetaminophen (10-30) ug/ml Urine Barbiturates Neg (Neg) Carbamazepine (4-12) mcg/ml Ur Phencyclidine (PCP) Neg (Neg) U Amphetamin/Meth Scrn Neg (Neg) MDMA (Ecstasy) Screen Neg (Neg) U Benzodiazepines Scrn Neg (Neg) Ur Cocaine Metabolite Neg (Neg) U Marijuana (THC) Screen Neg (Neg) Ethyl Alcohol mg/dL (0-3) mg/dl 08/14/18 08/14/18 08/14/18 Range/Units 15:11 15:11 15:11 WBC 7.67 (4.8-10.8) K/uL RBC 5.83 (4.7-6.1) M/uL Hgb 18.6 H (14.0-18.0) g/dL Hct 53.3 H (42-52) % MCV 91.4 (80-100) fL MCH 31.9 (25-34) pg MCHC 34.9 (32-36) g/dL RDW Std Deviation 43.8 (36.4-46.3) fL RDW Coeff of Vee 13.0 (11.5-14.5) % Plt Count 224 (130-400) K/uL MPV 10.5 H (7.4-10.4) fL Immature Gran % (Auto) 0.1 % Neut % (Auto) 69.2 % Lymph % (Auto) 24.0 % [place] % (Auto) 5.0 % Eos % (Auto) 1.6 % Baso % (Auto) 0.1 % Immature Gran # (Auto) 0.01 (0.00-0.02) K/uL Neut # (Auto) 5.31 (1.4-6.5) K/uL Lymph # (Auto) 1.84 (1.2-3.4) K/uL [place] # (Auto) 0.38 (0.11-0.59) K/uL Eos # (Auto) 0.12 (0-0.5) K/uL Baso # (Auto) 0.01 (0-0.2) K/uL Sodium 142 (136-145) mmol/L Potassium 4.3 (3.5-5.1) mmol/L Chloride 107 (98-107) mmol/L Carbon Dioxide 33 H (21-32) mmol/L Anion Gap 2.0 L (3-11) BUN 13 (7-18) mg/dl Creatinine 1.13 (0.6-1.4) mg/dl Est Cr Clr Drug Dosing 94.7 ml/min Est GFR ( Amer) 107.1 Est GFR (Non-Af Amer) 92.4 BUN/Creatinine Ratio 11.8 (10-20) Glucose 82 (70-99) mg/dl Calcium 8.7 (8.5-10.1) mg/dl Total Bilirubin 0.3 (0.2-1) mg/dl AST 16 (15-37) U/L ALT 34 (12-78) U/L Alkaline Phosphatase 85 (45-117) U/L Total Protein 7.3 (6.4-8.2) gm/dl Albumin 4.0 (3.4-5.0) gm/dl Globulin 3.3 (2.5-4.0) gm/dl Albumin/Globulin Ratio 1.2 (0.9-2) TSH 1.590 (0.300-4.500) uIu/ml Urine Color Urine Appearance (Clear) Urine pH (4.5-7.5) Ur Specific [place] (1.000-1.030) Urine Protein (Negative) Urine Glucose (UA) (Negative) Urine Ketones (Negative) Urine Blood (Negative) Urine Nitrite (Negative) Urine Bilirubin (Negative) Urine Urobilinogen (Negative) Ur Leukocyte Esterase (Negative) Urine WBC (Auto) (0-5) /hpf Urine RBC (Auto) (0-4) /hpf U Hyaline Cast (Auto) (0-5) /lpf U Epithel Cells (Auto) (0-5) /lpf Urine Bacteria (Auto) (Negative) Urine Test Salicylates < 1.7 L (2.8-20) mg/dl Urine Opiates Screen (Neg) Ur Methadone, Qual (Neg) Acetaminophen < 2 L (10-30) ug/ml Urine Barbiturates (Neg) Carbamazepine 9.7 (4-12) mcg/ml Ur Phencyclidine (PCP) (Neg) U Amphetamin/Meth Scrn (Neg) MDMA (Ecstasy) Screen (Neg) U Benzodiazepines Scrn (Neg) Ur Cocaine Metabolite (Neg) U Marijuana (THC) Screen (Neg) Ethyl Alcohol mg/dL (0-3) mg/dl 08/14/18 Range/Units 15:11 WBC (4.8-10.8) K/uL RBC (4.7-6.1) M/uL Hgb (14.0-18.0) g/dL Hct (42-52) % MCV (80-100) fL MCH (25-34) pg MCHC (32-36) g/dL RDW Std Deviation (36.4-46.3) fL RDW Coeff of Vee (11.5-14.5) % Plt Count (130-400) K/uL MPV (7.4-10.4) fL Immature Gran % (Auto) % Neut % (Auto) % Lymph % (Auto) % [place] % (Auto) % Eos % (Auto) % Baso % (Auto) % Immature Gran # (Auto) (0.00-0.02) K/uL Neut # (Auto) (1.4-6.5) K/uL Lymph # (Auto) (1.2-3.4) K/uL [place] # (Auto) (0.11-0.59) K/uL Eos # (Auto) (0-0.5) K/uL Baso # (Auto) (0-0.2) K/uL Sodium (136-145) mmol/L Potassium (3.5-5.1) mmol/L Chloride (98-107) mmol/L Carbon Dioxide (21-32) mmol/L Anion Gap (3-11) BUN (7-18) mg/dl Creatinine (0.6-1.4) mg/dl Est Cr Clr Drug Dosing ml/min Est GFR ( Amer) Est GFR (Non-Af Amer) BUN/Creatinine Ratio (10-20) Glucose (70-99) mg/dl Calcium (8.5-10.1) mg/dl Total Bilirubin (0.2-1) mg/dl AST (15-37) U/L ALT (12-78) U/L Alkaline Phosphatase (45-117) U/L Total Protein (6.4-8.2) gm/dl Albumin (3.4-5.0) gm/dl Globulin (2.5-4.0) gm/dl Albumin/Globulin Ratio (0.9-2) TSH (0.300-4.500) uIu/ml Urine Color Urine Appearance (Clear) Urine pH (4.5-7.5) Ur Specific [place] (1.000-1.030) Urine Protein (Negative) Urine Glucose (UA) (Negative) Urine Ketones (Negative) Urine Blood (Negative) Urine Nitrite (Negative) Urine Bilirubin (Negative) Urine Urobilinogen (Negative) Ur Leukocyte Esterase (Negative) Urine WBC (Auto) (0-5) /hpf Urine RBC (Auto) (0-4) /hpf U Hyaline Cast (Auto) (0-5) /lpf U Epithel Cells (Auto) (0-5) /lpf Urine Bacteria (Auto) (Negative) Urine Test Salicylates (2.8-20) mg/dl Urine Opiates Screen (Neg) Ur Methadone, Qual (Neg) Acetaminophen (10-30) ug/ml Urine Barbiturates (Neg) Carbamazepine (4-12) mcg/ml Ur Phencyclidine (PCP) (Neg) U Amphetamin/Meth Scrn (Neg) MDMA (Ecstasy) Screen (Neg) U Benzodiazepines Scrn (Neg) Ur Cocaine Metabolite (Neg) U Marijuana (THC) Screen (Neg) Ethyl Alcohol mg/dL < 3.0 (0-3) mg/dl Blood Pressure Blood Pressure Findings: Normal blood pressure Blood Pressure Disposition: did not require urgent referral MDM Narrative 23-year-old male presenting to for mental health evaluation brought in by his director case management. She checked on days he missed an appointment and he used a razor for superficial lacerations to the neck and his left thigh. Bleeding controlled at this time. States he believes his tetanus update denies wanting one at this point. Denies any other ingestion or attempt to harm himself. States he is dog sitting right now and under a lot of stress right now. States he may have missed several days of his medications but think he took it today. His director case management presents with petition statement. Medical clearance was completed in director case management assisted with evaluation. Do have concerns given the impulsiveness and the multiple superficial wounds of the neck the patient could try to harm himself again. While you are doing well and present only history we did have can help come and evaluate the patient for 302. He does not want a voluntary admission. Can help arrived and are up holding the involuntary commitment. I believe this is very reasonable and signed the 302. Bed search initiated. Accepted by [facility] and admitted to that unit for further inpatient psychiatric care. Impression & Plan Mood disorder, Self-inflicted injury Discharge Plan Visit Data Chief Complaint: Mental Health Evaluation ED Provider: Chase Cabrales Discharge Problem: Mood disorder, Self-inflicted injury Patient Disposition: Transfer Behavioral Health Fac The vernaibe's documentation has been prepared under my direction and personally reviewed by me in its entirety. I confirm that the note above accurately reflects all work, treatment, procedures, and medical decision making performed by me.
[2018-08-14] MEDS ORDERED: ACETAMINOPHEN 325 MG TAB PO PRN (20:15)
[2018-08-14] MEDS ORDERED: ALUMINUM/MAGNESIUM SUSP 30 ML UDC PO PRN (20:15)
[2018-08-14] MEDS ORDERED: SODIUM CHLORIDE 0.65% NA SOLN 45 ML (OCEAN) PRN (20:15)
[2018-08-14] MEDS ORDERED: BISMUTH SUBSALICYLATE PER ML OMNICELL CHARGE PO PRN (20:15)
[2018-08-14] MEDS ORDERED: MAGNESIUM HYDROXIDE SUSP 30 ML UDC PO PRN (20:15)
[2018-08-14] MEDS: CARBAMAZEPINE 200 MG TABCR PO SCH (21:23)
--- NOTE | 2018-08-15 08:54 | History & Physical ---
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 mg PO DAILY [facility] Stop: 09/14/18 08:59 Atenolol (Tenormin) 25 mg PO DAILY [facility] Stop: 09/14/18 08:59 Bismuth Subsalicylate (Kaopectate) 15 ml PO PRN PRN PRN Reason: Loose Stool Stop: 09/13/18 20:14 Carbamazepine (Tegretol Xr) 200 mg PO DAILY [facility] Stop: 09/14/18 08:59 Carbamazepine (Tegretol Xr) 400 mg PO HS [facility] Stop: 09/13/18 20:59 Last Admin: 08/14/18 21:23 Dose: 400 mg Documented by: Hydroxyzine HCl (Vistaril) 25 mg PO Q4H PRN PRN Reason: Anxiety Stop: 09/13/18 20:14 Hydroxyzine HCl (Vistaril) 50 mg PO HSZ PRN PRN Reason: Insomnia Stop: 09/13/18 20:14 Last Admin: 08/14/18 21:25 Dose: 50 mg Documented by: Magnesium Hydroxide (Milk Of Magnesia) 30 ml PO DAILY PRN PRN Reason: Heartburn Stop: 09/13/18 20:14 Vraylar (Cariprazine ) 1.5 Mg~Non- Formulary Patient's Own Med 1 ea PO QAM [facility] Stop: 09/14/18 08:59 Sodium Chloride (Amo Nasal) 1 - 2 sprays NA PRN PRN PRN Reason: Nasal Dryness/Congestion Stop: 09/13/18 20:14 Testosterone Cypionate (Depo-Testosterone) 200 mg IM Q7D [facility] Stop: 09/16/18 08:59 CPT Code CPT Code Initial Hospital Care: [id number]
[2018-08-15] MEDS ORDERED: ATENOLOL 25 MG TABLET PO SCH (09:00)
[2018-08-15] MEDS ORDERED: ARIPiprazole 10 MG TAB PO SCH (09:00)
[2018-08-15] MEDS ORDERED: ATENOLOL 25 MG TABLET PO PRN (09:06)
[2018-08-15] MEDS: VRAYLAR 1.5 MG PO SCH (10:17)
[2018-08-15] MEDS: CARBAMAZEPINE 200 MG TABCR PO SCH ×2 (10:18→21:21)
[2018-08-16] MEDS ORDERED: BACITRACIN OINT 0.9 GM PKT EXT PRN (08:34)
--- NOTE | 2018-08-16 08:56 | Psychiatric Progress Note ---
Date of Service August 16, 2018 Impression / Recommendations Impression Pt has a tendency to isolate early in his stay, then become gradually more interactive, but not necessarily more cooperative with treatment. Pt will remain on a 302 involuntary commitment which is due to 08/19/18. Given history of noncomplaince and difficulty expressing needs, it is difficult to believe that medication changes would be more beneficial. Stability has been documented with Vraylar, and will therefore recommend he continue current medications for the time being. Pt would benefit from a focus on development of healthy and effective coping strategies. He remains only minimally invested in treatment, both inpatient and outpatient. Prognosis remains poor, and he is high risk for suicide. Inpatient treatment is medically necessary and the least restrictive option at this time. (1) Bipolar disorder current episode depressed: 08/15 -continue inpatient treatment on an involuntary 302 commitment. Suicide checks for safety. -patient has a history of bipolar disorder, but has been difficult to tease apart primary mood disorder from personality disorder symptoms. For now, we will continue his home doses of Tegretol-XR 200 mg every morning and 400 mg at bedtime, aripiprazole 20 mg daily, and Vraylar 1.5 mg daily. He reports recent noncompliance with medications, which likely contributed to worsening of mood, as well as psychosocial stress. -Fasting labs for monitoring on an atypical antipsychotic reviewed from 04/04/2018: Triglycerides elevated 252, remainder of lipid panel within normal limits, glucose 93. -Coordinate care with his outpatient psychiatrist, Dr. Benavidez, therapist, and manager case. Explore need for higher level of care given his frequent hospitalizations, inability to function, self injury, and suicidality. -Family meeting with parents is recommended. -Encourage the patient to be out of his bed, attending and participating in groups and therapy, and working on healthy coping skills and safety plan. 4/3 - Continue current medication regimen - unclear if patient will be willing to increase Vraylar beyond current dosage as recommended by outpatient prescriber - Due to uncertainty of primary mood disorder vs. personality disorder it is not clear that medication adjustments will provide profound benefit to his presentation at this time, can continue to explore options. - Will encouraged family meeting with manager case, as patient is unwilling to involve parents in his care at this time (2) Personality disorder: /2 -antisocial and borderline traits noted during recent hospitalizations. Coordinate care with outpatient therapist. Provide appropriate boundaries, reviewed expectations for respectful behavior towards staff and peers. 4/3 - Pt is more open and forthcoming today about discussing needs; however, continues to put up barriers to effective treatment and place blame on others for his condition - Continue to encourage patient to express needs while enforcing boundaries and expectations above (3) Self-inflicted injury: 4/2 -monitor neck lacerations, keep clean and dry, use of bacitracin as needed. -Work on healthy coping skills to use in place of self-injurious behavior. 4/3 - Neck lacerations inspected today, pt to shower and then is agreeable to utilize bacitracin ordered (4) Drug abuse, hallucinogens: 4/2 -patient continues to abuse various psychoactive substances, including alcohol, cannabis at the time of his last hospitalization, Coricidin during hospitalization several months ago, and LSD. We will continue to provide psychoeducation regarding the risks of substance abuse, including worsening of mood and anxiety symptoms, disinhibition, increased risk of harming himself, psychotic symptoms, and negative impact to functioning and psychosocial stressors. -Recommend outpatient substance abuse treatment. 08/16 - We were informed that patient's outpatient psychiatrist is no longer willing to prescribe Focalin given patient's chronic substance abuse. We discussed this pattern of behavior, and patient is aware that his continued use of the prescription has been threatened in the past by substance abuse - did NOT inform patient at this time that refills will no longer be provided, he has already been off the medication for a period of time. (5) [id number] transgender person: 08/15 - Medically necessary private room. Coordinate care with PCP, Dr. Restrepo, who is prescribing hormones. Per outpatient records, patient had requested clearance for gender reassignment surgery, but clearly is not psychiatrically stable at this time, given his repeated hospitalizations (at least 5 in the past 6 months), multiple suicide attempts and self-injurious behavior, and ongoing substance abuse. (6) Hypothyroidism: 4/3 - TSH elevated on previous admission 06/27/18, with Free T4 wnl - TSH on this admission wnl (7) ADHD, predominantly inattentive type: 08/16 - Informed by patient's outpatient prescriber that Focalin will no longer be provided due to patient not being forthcoming about substance use and this risks associated these behaviors - Can explore if other non-controlled treatment options are appropriate on an outpatient basis (8) ADAMA (generalized anxiety disorder): Inventory Assets Strengths: Has outpatient providers Needs: Compliance with medications and appointments, abstinence from substances, engagement in treatment Risk Factors Assessment Male: Yes (Female to male transgender) : Yes Do You Have Access To A Gun?: No (Has attempted to buy a gun online) Health Problems: No Mental Health Diagnoses: Yes Substance Use Disorders: Yes Previous Attempt: Yes Previous Attempt; Highly Lethal: Yes Previous Attempt; Planned: Yes Family History of Suicide: No Previous Psychiatric Hospitalization: Yes Hopelessness: Yes Smoker: No Protective Factors Assessment [facility] Beliefs: No : No Responsible for Young Children: No Employed: Yes Stable Relationships: No Supportive Family: Yes Interval History Identifying Information MANUEL MARS is a 23-year-old transgendered female to male who currently lives in [place] with his mother and sister, has a history of bipolar disorder, polysubstance abuse, ADHD, and personality disorder, and was admitted on 08/14/18 20:16 on a 302 involuntary commitment for suicidality and self- inflicted lacerations to his neck. Pronouns in this progress note will reflect patient's preferred male gender identity. Chief Complaint "Just fin tired. I'm so done with this, it doesn't help. Guess I'll just wait it out." Review of Systems Notes Constitutional: reports fatigue and difficulty concentrating Cardiovascular: denied Respiratory: denied Gastrointestinal: denied Neurological: denied Psychiatric: denies symptoms other than stated above Total of at least 10 systems reviewed, pertinent positives as above and in HPI. Sleep Information Total Hours of Sleep: 10 Sleep Comments: sleep hours total between 07/24 and 03/22 shifts. Meal Information Percent Meal Consumed - Breakfast: 0 Percent Meal Consumed - Lunch: 100 Percent Meal Consumed - Dinner: 100 Subjective Subjective Patient was seen & assessed and interval progress reviewed with Treatment Team. Staff reports the patient has been isolative in his room since admission, which is not unusual during his stays. Pt was seen today to assess progress since admission. Pt states he is frustrated, as he does not feel his inpatient admissions offer his benefit. When asked what circumstances have offered improvement in the past, he states "staying on my medicine." Pt states he is rather consistent with medications, but voices disagreement with his specific regimen. Pt states, "I'm not going up on the Vraylar, it makes me shake." He does admit; however, that he has responded decently to the medication. When asked of previous medications generating a positive response, pt states, "I did really good on Lamictal, but then it stopped working." Pt was asked what the biggest concern is that leads to his frequent admissions - he reports "I'm depressed, and I can't focus." Pt states he previously gain toy from his ability to watch movies and read books - knowing a lot of information about the subject. He states he has trouble concentrating when doing these activities, and can't illicit the same toy from the activities, further precipitating depression. He shares openly with this provider that "I asked if my Focalin could be increased, and I know they've threatened to take it away because I abuse drugs, but never amphetamines." We discussed that this pattern of drug abuse behavior is the larger concern, not his history with particular substances. Pt reports a goal to shower today, and continue to read his book. He verbalizes that he is not invested in furthering his treatment, stating - "I guess I'll just run my time out." He denies suicidality today, but not conv incingly. Physical Exam Psychiatric Orientation: alert, oriented x 3 and + guarded (superficially cooperative) Apperance: appropriately dressed (female to male transgender individual, dressed in t-shirt and pajama pants) and + disheveled (unruly, long curly hair); + inappropriately groomed Eye Contact: + poor eye contact (staring at the ground for duration of conversation) Motor Behavior: steady gait and station and + tremor (mild, ~2 beats per second, observed in hands while eating/writing) Speech: normal rate/rhythm/volume of speech (monotone) Affect: + depressed affect and + flat affect Mood: + depressed mood ("I'm deprssed" and "tired") and + irritable mood Thought Process: goal directed thought process and clear/coherent thought process Thought Content: + preoccupation (with medication regimen (side effects, dose changes, etc)) and reality based without delusions Suicidal Thoughts: denies suicidal thoughts; + reports suicidal plan (had superficially cut neck prior to admission) Homicidal Thoughts: denies homicidal thoughts Hallucinations: no auditory hallucinations and no visual hallucinations Cognition: recent memory grossly intact, remote memory grossly intact, attention grossly intact and language grossly intact Insight: + impaired insight Judgement: + impaired judgement Vital Signs (Past 24 Hours) Last Vital Signs Temp 36.6 C 08/15/18 06:47 Pulse 84 08/15/18 06:48 Resp 16 08/15/18 06:47 BP 106/54 L 08/15/18 06:48 Pulse Ox 99 08/14/18 21:48 Skin about 4-5 superficial lateral lacerations to neck, ranging from ~6cm to ~15cm, erythema observed, no sign of hemorrhage or drainage Trauma: + laceration Results & Data Current Inpatient Medications Current Inpatient Medications: Current Inpatient Medications Acetaminophen (Tylenol) 650 mg PO Q4H PRN PRN Reason: Headache or Minor Fever Stop: 09/13/18 20:14 Al Hydrox/Mg Hydrox/Simethicone (Maalox) 30 ml PO Q4H PRN PRN Reason: GI Upset Stop: 09/13/18 20:14 Atenolol (Tenormin) 25 mg PO DAILY PRN PRN Reason: Anxiety Stop: 09/14/18 08:59 Bacitracin (Bacitracin) 1 appln EXT BID PRN PRN Reason: lacerations Stop: 09/15/18 08:33 Bismuth Subsalicylate (Kaopectate) 15 ml PO PRN PRN PRN Reason: Loose Stool Stop: 09/13/18 20:14 Carbamazepine (Tegretol Xr) 200 mg PO DAILY [facility] Stop: 09/14/18 08:59 Last Admin: 08/15/18 10:18 Dose: 200 mg Documented by: Carbamazepine (Tegretol Xr) 400 mg PO HS [facility] Stop: 09/13/18 20:59 Last Admin: 08/15/18 21:21 Dose: 400 mg Documented by: Hydroxyzine HCl (Vistaril) 25 mg PO Q4H PRN PRN Reason: Anxiety Stop: 09/13/18 20:14 Last Admin: 08/15/18 21:22 Dose: 25 mg Documented by: Hydroxyzine HCl (Vistaril) 50 mg PO HSZ PRN PRN Reason: Insomnia Stop: 09/13/18 20:14 Last Admin: 08/14/18 21:25 Dose: 50 mg Documented by: Magnesium Hydroxide (Milk Of Magnesia) 30 ml PO DAILY PRN PRN Reason: Heartburn Stop: 09/13/18 20:14 Vraylar (Cariprazine ) 1.5 Mg~Non- Formulary Patient's Own Med 1 ea PO QAM [facility] Stop: 09/14/18 08:59 Last Admin: 08/15/18 10:17 Dose: 1 ea Documented by: Sodium Chloride (Oblong Nasal) 1 - 2 sprays NA PRN PRN PRN Reason: Nasal Dryness/Congestion Stop: 09/13/18 20:14 Testosterone Cypionate (Depo-Testosterone) 200 mg IM Q7D [facility] Stop: 09/16/18 08:59 Post Discharge Appointments Primary Care Physician Name Of Family Doctor: Dr. Tavarez Psychiatrist [facility] Psychiatrist's Psychiatric Appointment Comment: [address] [facility] [address] [place] [id number], [place] [address] Therapist Name of Therapist: [facility] - Lillie Stanley Therapist's Therapy Appointment Comment: [address] [place] [address] Customer Account Representative Name of Customer Account Representative: Chidi Agosto Phone Number for Customer Account Representative: [phone] Case Management Appointment Comment: [id number], [place] [address] Contact Information Discharge Discharge Address: [address] [place] [id number] CPT Code CPT Code 36006 (1) Bipolar disorder current episode depressed Current episode severity: severe Psychotic features: without psychotic features Qualified Code(s): F31.4 - Bipolar disorder, current episode depressed, severe, without psychotic features
[2018-08-16] MEDS: CARBAMAZEPINE 200 MG TABCR PO SCH ×2 (08:57→21:11)
[2018-08-16] MEDS: VRAYLAR 1.5 MG PO SCH (08:57)
[2018-08-17] MEDS ORDERED: TESTOSTERONE CYPIONATE IM 200 MG/ML VIAL IM SCH (09:00)
[2018-08-17] MEDS: VRAYLAR 1.5 MG PO SCH (09:05)
[2018-08-17] MEDS: CARBAMAZEPINE 200 MG TABCR PO SCH ×2 (09:05→21:27)
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
[2018-08-18] MEDS: VRAYLAR 1.5 MG PO SCH (09:33)
[2018-08-18] MEDS: CARBAMAZEPINE 200 MG TABCR PO SCH ×2 (09:33→21:07)
--- NOTE | 2018-08-18 12:11 | Psychiatric Progress Note ---
Date of Service August 18, 2018 Impression / Recommendations Impression This patient's presentation continues to be consistent with market immaturity, primitive defense mechanisms, ongoing difficulty regulating his mood, impulsivity, and a tendency to immediately externalize responsibility for his own behaviors and the consequences of those behaviors. Unfortunately, the patient's severely maladaptive characterologic features are unlikely to be mitigated through further long-term psychiatric hospitalization. He will remain at chronic risk for intentional self-injurious behaviors and other acting out behaviors, depending on various uncontrollable circumstances that may arise. Currently, the patient is reporting that his mood is "neutral." He denies that he is having any further thoughts of suicide or other thoughts of intentional self injury. Efforts to help the patient become serious about looking at his own role in his difficulties and in his recovery have been consistently resisted, and, today, he went so far as to tell me that the problem of his frequent psychiatric hospitalizationssomething that he says that he hatesis our problem, and not his. Currently, the patient is future oriented. We have been looking at the possibility of a residential treatment placement, and his showcase maker is reportedly exploring those options at this time. The plan will be to discharge the patient tomorrow, assuming continued absence of suicidality or the emergence of other indications for continued hospitalization. (1) Bipolar disorder current episode depressed: 4/2 -continue inpatient treatment on an involuntary 302 commitment. Suicide checks for safety. -patient has a history of bipolar disorder, but has been difficult to tease apart primary mood disorder from personality disorder symptoms. For now, we will continue his home doses of Tegretol-XR 200 mg every morning and 400 mg at bedtime, aripiprazole 20 mg daily, and Vraylar 1.5 mg daily. He reports recent noncompliance with medications, which likely contributed to worsening of mood, as well as psychosocial stress. -Fasting labs for monitoring on an atypical antipsychotic reviewed from 04/04/2018: Triglycerides elevated 252, remainder of lipid panel within normal limits, glucose 93. -Coordinate care with his outpatient psychiatrist, Dr. Benavidez, therapist, and showcase maker. Explore need for higher level of care given his frequent hospitalizations, inability to function, self injury, and suicidality. -Family meeting with parents is recommended. -Encourage the patient to be out of his bed, attending and participating in groups and therapy, and working on healthy coping skills and safety plan. 4/3 - Continue current medication regimen - unclear if patient will be willing to increase Vraylar beyond current dosage as recommended by outpatient prescriber - Due to uncertainty of primary mood disorder vs. personality disorder it is not clear that medication adjustments will provide profound benefit to his presentation at this time, can continue to explore options. - Will encouraged family meeting with showcase maker, as patient is unwilling to involve parents in his care at this time /4 - Continue current medication regimen - Meeting scheduled with showcase maker tomorrow 45 -The meeting with the patient's showcase maker went well. She is aware of the current plan to discharge the patient tomorrow, assuming continued stability. -It appears that most of the patient's mood alterations are reactive and a function of difficulty regulating mood, rather than independent mood cycling such as is most commonly seen in bipolar disorder. Present on Admission?: Yes (2) Personality disorder: 4/2 -antisocial and borderline traits noted during recent hospitalizations. Coordinate care with outpatient therapist. Provide appropriate boundaries, reviewed expectations for respectful behavior towards staff and peers. 4/3 - Pt is more open and forthcoming today about discussing needs; however, continues to put up barriers to effective treatment and place blame on others for his condition - Continue to encourage patient to express needs while enforcing boundaries and expectations above. 4/5 -The patient clearly meets criteria for borderline personality disorder, and also demonstrates certain antisocial traits. -I attempted to engage the patient to examine his own role in the negative outcomes that he complains of, such as psychiatric hospitalization. As has consistently been the case in the past, the patient quickly externalizes responsibility to others and steadfastly refuses to engage in an alliance that would cooperatively help the patient develop improved coping strategies. I am told that the patient's family is encouraging the patient to consider residential treatment, and the patient does say that he is willing to consider this. However, given his demonstrated history of refusing to cooperate with rules and limits, this may only be a short lived intervention. Present on Admission?: Yes (3) Self-inflicted injury: 4/2 -monitor neck lacerations, keep clean and dry, use of bacitracin as needed. -Work on healthy coping skills to use in place of self-injurious behavior. 4/3 - Neck lacerations inspected today, pt to shower and then is agreeable to utilize bacitracin ordered 4/5 -Healing superficial wounds. Present on Admission?: Yes (4) Drug abuse, hallucinogens: /2 -patient continues to abuse various psychoactive substances, including alcohol, cannabis at the time of his last hospitalization, Coricidin during hospitalization several months ago, and LSD. We will continue to provide psychoeducation regarding the risks of substance abuse, including worsening of mood and anxiety symptoms, disinhibition, increased risk of harming himself, psychotic symptoms, and negative impact to functioning and psychosocial stressors. -Recommend outpatient substance abuse treatment. 08/16 - We were informed that patient's outpatient psychiatrist is no longer willing to prescribe Focalin given patient's chronic substance abuse. We discussed this pattern of behavior, and patient is aware that his continued use of the prescription has been threatened in the past by substance abuse - did NOT inform patient at this time that refills will no longer be provided, he has already been off the medication for a period of time. 08/17 - Pt continues to minimize substance abuse, unwilling/unable to process how his substance abuse behaviors have an effect on providers' willingness to offer medications with abuse potential - Pt requesting start of stimulants while on the unit - was informed this would not be happening 5 -As with other problems and issues, the patient tends to attribute responsibility to other people. In this case, her assertion is that healthcare providers have in someway overreacted or exaggerated her substance use behaviors. -A problem with treating the patient's drug abuse is combination of denial and a lack of accurate self reporting. Present on Admission?: Yes (5) [id number] transgender person: 08/15 - Medically necessary private room. Coordinate care with PCP, Dr. Restrepo, who is prescribing hormones. Per outpatient records, patient had requested clearance for gender reassignment surgery, but clearly is not psychiatrically stable at this time, given his repeated hospitalizations (at least 5 in the past 6 months), multiple suicide attempts and self-injurious behavior, and ongoing substance abuse. Present on Admission?: Yes (6) Hypothyroidism: /3 - TSH elevated on previous admission 06/27/18, with Free T4 wnl - TSH on this admission wnl (7) ADHD, predominantly inattentive type: 08/16 - Informed by patient's outpatient prescriber that Focalin will no longer be provided due to patient not being forthcoming about substance use and this risks associated these behaviors - Can explore if other non-controlled treatment options are appropriate on an outpatient basis /5 -The patient continues to report ADHD symptoms and she reportedly was treated for ADHD with stimulant medications (Focalin) on an outpatient basis. My concern in this case would be the patient's impulsivity, as well as her history of chemical substance misuse. Present on Admission?: Yes (8) ADAMA (generalized anxiety disorder): Inventory Assets Strengths: Has outpatient providers. Concerned and supportive family. Willing to help a friend who was having suicidal thoughts. Needs: Compliance with medications and appointments, abstinence from substances, engagement in treatment Risk Factors Assessment Male: Yes (Female to male transgender) : Yes Do You Have Access To A Gun?: No (Has attempted to buy a gun online) Health Problems: No Mental Health Diagnoses: Yes Substance Use Disorders: Yes Previous Attempt: Yes Previous Attempt; Highly Lethal: Yes Previous Attempt; Planned: Yes Family History of Suicide: No Previous Psychiatric Hospitalization: Yes Hopelessness: Yes Smoker: No Protective Factors Assessment Restorationist Beliefs: No : No Responsible for Young Children: No Employed: Yes Stable Relationships: No Supportive Family: Yes Good Rapport with Provider: No Absence of Any Risk Factors Above: No Interval History Identifying Information MANUEL MARS is a 23-year-old transgendered female to male who currently lives in [place] with his mother and sister, has a history of bipolar disorder, polysubstance abuse, ADHD, and personality disorder, and was admitted on 08/14/18 20:16 on a 302 involuntary commitment for suicidality and self- inflicted lacerations to his neck. Pronouns in this progress note will reflect patient's preferred male gender identity. Chief Complaint "I just want to go home." Review of Systems Sleep Information Total Hours of Sleep: 7.75 Sleep Comments: pt on q-15 minute checks Meal Information Percent Meal Consumed - Breakfast: 100 Percent Meal Consumed - Lunch: 100 Percent Meal Consumed - Dinner: 100 Subjective Subjective Patient was seen & assessed and interval progress reviewed with Treatment Team. I met with the patient individually in order to assess her current mental status, evaluate her response to treatment, coordinate any necessary changes in her treatment plan with the patient, and address issues and concerns that may arise. The patient was only marginally cooperative with today's evaluation. He turned his head to 90 degree angle and stared intently at the wall, largely without looking at me, for the entire encounter. I asked the patient if he was feeling angry towards me because I had participated in an involuntary commitment that has occurred during his most recent previous psychiatric hospitalization, and he told me that he was not, but that it had not been necessary. The patient was willing to review the circumstances that had led to the admission. 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 He tells me that his sister had previously attempted to provide services to the same household, and had been overwhelmed and unable to do it. Similarly, the patient found the task of caring for 2 dogs, 2 cats, and a rat to be overwhelming. He also reports that he felt isolated in the home, and felt strange to him, and he describes feeling lonely and somewhat depersonalized. Within this context, he deliberately cut his neck and thigh with a razor blade. The patient notes that he had thought about "cutting deeper," but decided not to. I also advised the patient that his HIV test, acquired during his most recent previous psychiatric hospitalization had been negative for HIV, and the patient thanked me and said, "I figured." The patient reiterated his safety plan, including an agreement that he has made with a non-binary friend to call each other to intervene if actively suicidal. He indicates that he did not call the friend because "it was not to that point." Patient talked about his plan to change psychiatrists in about a month. He explains that he has not been s atisfied with his current psychiatrist because he experiences the psychiatrist to be "condescending." When I pointed out to the patient that this is his fourth hospitalization at [facility] in a relatively brief period of time and that while he strongly protests that he hates being in the hospital, he keeps repeating the very behaviors that lead to hospitalization, and when I invited him to think of ways of breaking this cycle, he replied, apparently without any sense of irony, "That's not MY problem." Physical Exam Psychiatric Orientation: oriented x 3 Apperance: + disheveled Eye Contact: + poor eye contact Motor Behavior: steady gait and station Speech: normal rate/rhythm/volume of speech Affect: + blunted affect "Neutral. Not depressed. Just ready to go home." Thought Process: goal directed thought process Thought Content: reality based without delusions Suicidal Thoughts: + reports suicidal thoughts Homicidal Thoughts: + reports homicidal thoughts Hallucinations: no auditory hallucinations Cognition: recent memory grossly intact, remote memory grossly intact, attention grossly intact and language grossly intact Estimated Intelligence: + below average estimated intelligence Insight: + poor insight Judgement: + limited judgement Vital Signs (Past 24 Hours) Last Vital Signs Temp 36.6 C 08/17/18 06:59 Pulse 79 08/17/18 06:59 Resp 16 08/17/18 06:59 BP 122/75 08/17/18 06:59 Pulse Ox 99 08/14/18 21:48 Results & Data Current Inpatient Medications Current Inpatient Medications: Current Inpatient Medications Acetaminophen (Tylenol) 650 mg PO Q4H PRN PRN Reason: Headache or Minor Fever Stop: 09/13/18 20:14 Al Hydrox/Mg Hydrox/Simethicone (Maalox) 30 ml PO Q4H PRN PRN Reason: GI Upset Stop: 09/13/18 20:14 Atenolol (Tenormin) 25 mg PO DAILY PRN PRN Reason: Anxiety Stop: 09/14/18 08:59 Bacitracin (Bacitracin) 1 appln EXT BID PRN PRN Reason: lacerations Stop: 09/15/18 08:33 Bismuth Subsalicylate (Kaopectate) 15 ml PO PRN PRN PRN Reason: Loose Stool Stop: 09/13/18 20:14 Carbamazepine (Tegretol Xr) 200 mg PO DAILY JILLIAN Stop: 09/14/18 08:59 Last Admin: 08/18/18 09:33 Dose: 200 mg Documented by: Carbamazepine (Tegretol Xr) 400 mg PO HS JILLIAN Stop: 09/13/18 20:59 Last Admin: 08/17/18 21:27 Dose: 400 mg Documented by: Hydroxyzine HCl (Vistaril) 25 mg PO Q4H PRN PRN Reason: Anxiety Stop: 09/13/18 20:14 Last Admin: 08/17/18 21:26 Dose: 25 mg Documented by: Hydroxyzine HCl (Vistaril) 50 mg PO HSZ PRN PRN Reason: Insomnia Stop: 09/13/18 20:14 Last Admin: 08/16/18 21:11 Dose: 50 mg Documented by: Magnesium Hydroxide (Milk Of Magnesia) 30 ml PO DAILY PRN PRN Reason: Heartburn Stop: 09/13/18 20:14 Vraylar (Cariprazine ) 1.5 Mg~Non- Formulary Patient's Own Med 1 ea PO QAM JILLIAN Stop: 09/14/18 08:59 Last Admin: 08/18/18 09:33 Dose: 1 ea Documented by: Sodium Chloride ([place] Nasal) 1 - 2 sprays NA PRN PRN PRN Reason: Nasal Dryness/Congestion Stop: 09/13/18 20:14 Testosterone Cypionate (Depo-Testosterone) 200 mg IM Q7D JILLIAN Stop: 09/16/18 08:59 Last Admin: 08/17/18 12:51 Dose: 200 mg Documented by: Post Discharge Appointments Primary Care Physician Name Of Family Doctor: Dr. Gray - follow up as needed Primary Care Provider Appointment Comment: [facility] [place] [address] [place] [address] Psychiatrist Name of Psychiatrist: [facility][note 3] - Dr. Benavidez Psychiatrist's Date of Appointment with Psychiatrist: 08/23/18 Time of Appointment with Psychiatrist: 4:05 p.m. Psychiatric Appointment Comment: Psych Clinic notified of pt's request for psychiatry there Therapist Name of Therapist: [facility] Psych Clinic - Dr. Lillie Stanley Therapist's Date of Therapist Appointment: 08/22/18 Time of Therapist Appointment: 11:30 a.m. Therapy Appointment Comment: [address] [place] [address] Tray Line Supervisor Name of Tray Line Supervisor: Chidi Agosto Phone Number for Tray Line Supervisor: [phone] Case Management Appointment Comment: [id number], [place] [address] Contact Information Discharge Discharge [address]: [address] [place] [id number] CPT Code CPT Code 60562 (1) Bipolar disorder current episode depressed Current episode severity: severe Psychotic features: without psychotic features Qualified Code(s): F31.4 - Bipolar disorder, current episode depressed, severe, without psychotic features
[2018-08-19] MEDS: VRAYLAR 1.5 MG PO SCH (08:54)
[2018-08-19] MEDS: CARBAMAZEPINE 200 MG TABCR PO SCH (08:55)
--- NOTE | 2018-08-19 09:26 | Discharge Summary ---
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 Directives Pamphlet for your review. AFTERCARE APPOINTMENTS: * Please call your insurance company prior to your scheduled appointment to confirm your aftercare providers are covered. Take your insurance information to your appointments. WHO TO CALL AND WHEN: Medical Emergencies: For questions or emergencies related to your hospital stay, please contact the Inpatient Behavioral Health Unit at [phone]. A personal lines sales executive is on-call 06/12 for the Behavioral Health Unit for emergencies At any time you feel your situation is an emergency, you may also call 911 immediately. Your Doctors Instructions noted above were prepared by provider Jazlyn Middleton MD. Prescriptions: New Vraylar 1.5 mg capsule 1.5 mg PO DAILY Qty: 30 RF: 0 Continued carbamazepine 200 mg tablet extended release 12 hr 200 mg PO DAILY RF: 0 carbamazepine 200 mg tablet extended release 12 hr 400 mg PO HS RF: 0 testosterone cypionate 200 mg/mL Oil 200 mg IM WK RF: 0 atenolol 25 mg Tablet 25 mg PO DAILY PRN (Reason: Anxiety) RF: 0 Discontinued dexmethylphenidate 10 mg capsule,ER biphasic 50-50 10 mg PO DAILY RF: 0 Vraylar 1.5 mg Capsule 1.5 cap DAILY RF: 0 Stand-Alone Forms: [facility] Discharge Orders: Discharge Order (Routine); Ordered 08/19/18 Ordered By: Jazlyn Middleton Admission Data Admit Date/Time: 08/14/18 20:16 Attending Provider: Andressa Sanders Admit Provider: Andressa Sanders Primary Care Provider: PCP,NO Other Providers: Andressa Sanders Service: Psychiatry Other Interventions: PSY Interdisciplinary Discharge Planning Last Done: 08/18/18 12:59 Pending Studies at Discharge: No
== END 2018-08-19 11:30 | disposition home or self-care (01) | DRG 885 ==
LOC: ED 14:15 → 3S 20:16

== ENCOUNTER 2018-10-06 13:54 | Inpatient (IN) ==
--- OUTSIDE RECORDS SUMMARY | 2018-10-06 13:57 | External Medical Summary | Continuity of Care Document ---
:1995 Author Name Anthony Matthews, Provider Address Unavailable Unavailable , Care Team Providers Name Role Phone Deniz Matthews, Yoni Unavailable [email or web address] SABI TELLEZ Unavailable Unavailable Problems Active medical history not documented Allergies and Adverse Reactions Allergy history not documented Medications Medications not documented Procedures Procedures not documented Immunizations Immunizations not documented Plan of Treatment Planned Observations Planned Goals not documented Results No Known Results Results not documented
[2018-10-06] MEDS ORDERED: ALBUT/IPRATROP 3MG/0.5MG NEB 3 ML VIAL NEB STA (14:18)
--- NOTE | 2018-10-06 14:49 | XRay Report ---
XR chest 1V portable CLINICAL HISTORY: 23 years-old Male presenting with Dyspnea. TECHNIQUE: Portable upright AP view of the chest was obtained. COMPARISON: 07/12/2011. FINDINGS: Cardiomediastinal silhouette normal. Right mid to lower lung opacity. No pleural effusion. Left lung and pleural space clear. Osseous structures normal. Upper abdomen normal. IMPRESSION: 1. Right mid to lower lung pneumonia. Electronically signed by: Chacorta Up M.D. 10/06/2018 2:48 PM
[2018-10-06 14:55] LABS: Basophils # (auto) 0.01 K/uL (0-0.2); Basophils % (auto) 0.1 %; Eosinophils # (auto) 0.02 K/uL (0-0.5); Eosinophils % (auto) 0.1 %; Hematocrit (blood only) 49.1 % (42-52); Hemoglobin 17.8 g/dL (14.0-18.0); Immature Granulocytes # (auto) 0.04 K/uL (0.00-0.02); Immature Granulocytes % (auto) 0.2 %; Lymphocytes # (auto) 1.04 K/uL (1.2-3.4); Lymphocytes % (auto) 5.3 %; Mean Corpuscular Hgb Conc 36.3 g/dL (32-36); Mean Platelet Volume 10.5 fL (7.4-10.4); Monocytes # (auto) 0.67 K/uL (0.11-0.59); Monocytes % (auto) 3.4 %; Neutrophils # (auto) 17.81 K/uL (1.4-6.5); Neutrophils % (auto) 90.9 %; Platelet Count 295 K/uL (130-400); RDW Coefficient of Variation 12.7 % (11.5-14.5); RDW Standard Deviation 40.9 fL (36.4-46.3); Red Blood Count 5.58 M/uL (4.7-6.1); White Blood Count 19.59 K/uL (4.8-10.8)
[2018-10-06] MEDS ORDERED: ACETAMINOPHEN 500 MG TAB PO STA (14:57)
[2018-10-06] MEDS ORDERED: SODIUM CHLORIDE 0.9% 1000ML 1,000 ML IV ONE ×2 (14:57→16:36)
[2018-10-06 15:14] LABS: INR 1.1 (0.9-1.1); Partial Thromboplastin Time 27.5 Seconds (21.0-31.0); Prothrombin Time 11.2 Seconds (9.0-12.0)
[2018-10-06 15:15] LABS: BUN Creatinine Ratio 11.1 (10-20); Calcium 9.9 mg/dl (8.5-10.1); Creatinine Clr Calc Pharmacy 88.9 ml/min; Est GFR (African American) 110.6; Est GFR (Non-African American) 95.5; Magnesium 1.9 mg/dl (1.8-2.4); Potassium 4.3 mmol/L (3.5-5.1)
[2018-10-06 15:18] LABS: D Dimer 990 ug/L FEU (0-500)
[2018-10-06 15:30] LABS: Albumin Globulin Ratio 1.2 (0.9-2); Bilirubin,Total 0.6 mg/dl (0.2-1); Creatine Kinase MB 1.6 ng/ml (0.5-3.6); Globulin 3.4 gm/dl (2.5-4.0); Total Protein 7.4 gm/dl (6.4-8.2); Troponin I 0.032 ng/ml (0-0.045)
[2018-10-06] MEDS ORDERED: cefTRIAXone SODIUM 1,000 MG/50 ML BAG IV STA (16:13)
[2018-10-06] MEDS ORDERED: OPTIRAY 320 125ml IV PRN (16:14)
--- NOTE | 2018-10-06 16:23 | CT Scan Report ---
CT angio chest PE protocol CT DOSE: 217.03 mGy.cm HISTORY: Chest pain. Dyspnea. PE TECHNIQUE: Multiaxial CT images of the chest were performed following the intravenous administration of contrast to evaluate the pulmonary arteries. Maximal intensity projection images were also obtaine d. A dose lowering technique was utilized adhering to the principles of ALARA. COMPARISON STUDY: None. FINDINGS: The thoracic aorta is normal in course and caliber. Left lung demonstrates a small pancreatic infiltrates. Segment left lower lobe and to a lesser extent left upper lobe. There is diffuse parenchymal infiltrative the right mid and lower lung. Evaluation of pulmonary arterial structures show a small filling defects of the cervical vessels of t he right as well as left lower lobe. There is no evidence for a central or main pulmonary embolus. Th e pulmonary apices demonstrate minimal biapical infiltrative change. IMPRESSION: 1. Diffuse parenchymal infiltrate of the right and to a lesser extent left hemithorax. 2. Small filling defects of the third or vessels and lung bases consistent with small peripheral pulm onary emboli. 4. No evidence for major or central pulmonary embolus. 5. Mild hepatosplenomegaly. The above report was generated using voice recognition software. It may contain grammatical, syntax or spelling errors. Electronically signed by: Yoni Berkowitz M.D. 10/06/2018 4:22 PM
--- NOTE | 2018-10-06 16:51 | Emergency Department Note ---
Entered by Milly Kebede acting as a scribe for Anselmo Langford DO History of Present Illness General Chief complaint: Cough Stated complaint: HAD ECT COUGHING UP BLOOD SINCE Time Seen by Provider: 10/06/18 14:09 Source: patient History of Present Illness Onset (ago): hour(s) (a few hours ago) Location: chest Pain Consistency: + other (sudden) Maximum Pain Intensity: 6 Quality: + other (cough) Associated symptoms: + denies other symptoms (leg swelling) and + other (leg pain); no fever/chills (fever) The patient is a 23 year old male who presents to the ED with complaints of a sudden cough starting a few hours ago. The patient states that he has been receiving ECT treatments in [place] for Depression for the last month. He states that it has been working. He states that this morning he had his 7th round. He reports that after he got home, he started coughing up blood. He states that each time he coughs, he coughs up a quarter size amount. The patient complains of leg pain starting at the same time as the hemoptysis. The patient notes that he did have a double mastectomy since he is transgender and is on 0.5 of Testosterone. He notes that he also did travel to [place] over last weekend. The patient denies this ever happening before, a history of blood clots, leg swelling, fever, recent illness, and the chance of TB. Home Medications Home Medications Medication Instructions Recorded Confirmed Type carbamazepine 200 mg PO DAILY 06/28/18 10/06/18 History carbamazepine 400 mg PO HS 06/28/18 10/06/18 History testosterone cypionate 200 mg IM WK 06/29/18 10/06/18 History atenolol 25 mg PO DAILY PRN 08/14/18 10/06/18 History cariprazine [Vraylar] 1.5 mg PO DAILY #30 cap 08/19/18 10/06/18 Rx atomoxetine 80 mg PO DAILY 10/06/18 10/06/18 History Allergies Allergy/AdvReac Type Severity Reaction Status Date / Time Penicillins Allergy Mild Unknown Unverified 10/06/18 15:26 amoxicillin Allergy Unknown HIVES Unverified 10/06/18 15:26 Past Med/Surg History Medical History Suicidal ideation (Resolved) ADHD, predominantly inattentive type Anxiety ADAMA (generalized anxiety disorder) Migraine (Resolved) Status post gender reassignment surgery Alcohol abuse Cannabis abuse Lysergic acid diethylamide (LSD) abuse Surgical History H/O mastectomy testosterone treatment Family History Other Family history of high blood pressure Social History Preferred Language: Nepali Communication Ability: Effective Visual Impairment: Partially Limited Hearing Ability: Normal Ic Designer Standard Cells Required: No Beliefs That Will Affect Care: None marital status: Single Current Living Situation: Parent current occupational status: unemployed Other Information That Helps Us Care for You: No Feels Safe at Home: Yes Safety Concerns: Feels Safe At This Time Smoking Status: Never smoker Tobacco Type: cigarettes Do You Dip or Chew Tobacco: No Second Hand Exposure: No Tobacco Cessation Education Requested by Patient: No Hx Alcohol Use: Yes Alcohol type: beer Hx Substance Use: No Review of Systems See HPI for pertinent positives & negatives. and A total of 10 systems reviewed and were otherwise negative Physical Exam Vital Signs Vital Signs - 24 hr 10/06/18 14:05 10/06/18 14:26 10/06/18 17:05 Temperature 36.8 C Temperature Source Oral Sepsis Recent Fever Within 48 Hours No Sepsis New/Unexplained Change in Mental Status No Sepsis Action Taken by Nursing No Action Required Pulse Rate 96 H 135 H Pulse Rate [Left Finger] 127 H Pulse Rate from SpO2 Sensor 135 H Respiratory Rate 16 22 27 H Respiratory Effort / Characteristics Spontaneous Blood Pressure 108/71 124/77 Blood Pressure Mean 83 92 Pulse Oximetry 100 91 Oxygen Delivery Method Room Air Room Air 10/06/18 17:08 10/06/18 17:30 10/06/18 18:00 Temperature Temperature Source Sepsis Recent Fever Within 48 Hours Sepsis New/Unexplained Change in Mental Status Sepsis Action Taken by Nursing Pulse Rate 130 H 130 H 107 H Pulse Rate [Left Finger] Pulse Rate from SpO2 Sensor 131 H 131 H 107 H Respiratory Rate 28 H 29 H 21 Respiratory Effort / Characteristics Blood Pressure Blood Pressure Mean Pulse Oximetry 92 94 Oxygen Delivery Method 10/06/18 18:30 Temperature Temperature Source Sepsis Recent Fever Within 48 Hours Sepsis New/Unexplained Change in Mental Status Sepsis Action Taken by Nursing Pulse Rate 100 H Pulse Rate [Left Finger] Pulse Rate from SpO2 Sensor 100 H Respiratory Rate 10 L Respiratory Effort / Characteristics Blood Pressure Blood Pressure Mean Pulse Oximetry 95 Oxygen Delivery Method GENERAL: Patient is awake, alert, and mildly anxious. EYES: The conjunctivae are clear. The pupils are round and reactive. EARS, NOSE, MOUTH AND THROAT: The nose is without any evidence of any deformity. Mucous membranes are moist.Tongue is midline NECK: The neck is nontender and supple. RESPIRATORY: Diminished breath sounds in the right lung field. Rales noted at the right base. CARDIOVASCULAR: Tachycardic rate and regular rhythm noted. There no murmurs rubs or gallops normal S1 normal S2 GASTROINTESTINAL: The abdomen is soft. Bowel sounds are present in all quadrants. Abdomen is nontender. MUSCULOSKELETAL/EXTREMITIES: There is no evidence of gross deformity. Full range of motion is noted in the hips and shoulders. SKIN: There is no obvious evidence of any rash. There are no petechiae, pallor or cyanosis noted. NEUROLOGIC: Patient is awake alert and oriented x3. Strength is symmetric. Patellar reflexes are 2+ bilaterally. Course 1416: The patient was evaluated in room B3B. A complete history and physical exam was performed. 1638: I reevaluated the patient and updated him on his test results. I discussed the treatment plan with him. He verbally agrees and understands. 1644: I discussed the patient's case with EFRAIN Bradshaw. She will evaluate the patient for further management. Consultations Consultation #1: I discussed the patient's case with EFRAIN Bradshaw. She will evaluate the patient for further management. Time: 16:44 Administered Medications Ioversol (Optiray 320 125ml) 77 ml IV ONCE PRN PRN Reason: Interaction Checking Stop: 10/10/18 16:13 Last Admin: 10/06/18 16:14 Dose: 77 ml Documented by: [id number] Levalbuterol HCl (Xopenex 0.63 Mg/3 Ml Neb) 0.63 mg NEB Q6R JILLIAN Stop: 11/05/18 19:07 Last Admin: 10/06/18 19:43 Dose: Not Given Documented by: [id number] Admin: 10/06/18 19:43 Dose: 0.63 mg Documented by: [id number] Discontinued Medications Acetaminophen (Tylenol) 1,000 mg PO NOW STA Stop: 10/06/18 14:58 Last Admin: 10/06/18 15:50 Dose: 1,000 mg Documented by: [id number] Albuterol (Duoneb) 3 ml NEB NOW STA Stop: 10/06/18 14:19 Last Admin: 10/06/18 14:26 Dose: 3 ml Documented by: [id number] Heparin Sodium (Porcine) (Heparin Iv Bolus) Confirm Administered Dose 10,000 units .ROUTE .STK-MED ONE Stop: 10/06/18 17:10 Last Admin: 10/06/18 17:16 Dose: 5,000 units Documented by: [id number] Cosigned by: [id number] Heparin Sodium/Dextrose () 1 ea IV NOW ; Protocol Stop: 10/06/18 16:36 Last Admin: 10/06/18 17:16 Dose: 1 ea Documented by: [id number] Heparin Sodium/Dextrose (Heparin Sodium/Dextrose) Confirm Administered Dose 25,000 units IV .STK-MED ONE Stop: 10/06/18 17:10 Last Admin: 10/06/18 17:12 Dose: 23 ml Documented by: [id number] Cosigned by: [id number] Sodium Chloride (Nss 1000ml) 1,000 mls @ 999 mls/hr IV .Q1H1M ONE Stop: 10/06/18 15:57 Last Infusion: 10/06/18 17:34 Dose: 0 mls/hr Documented by: [id number] Admin: 10/06/18 15:50 Dose: 999 mls/hr Documented by: [id number] Ceftriaxone Sodium (Rocephin) 1,000 mg in 50 mls @ 100 mls/hr IV NOW STA Stop: 10/06/18 16:42 Last Infusion: 10/06/18 17:34 Dose: 0 mls/hr Documented by: [id number] Admin: 10/06/18 16:22 Dose: 100 mls/hr Documented by: [id number] Sodium Chloride (Nss 1000ml) 1,000 mls @ 999 mls/hr IV .Q1H1M ONE Stop: 10/06/18 17:36 Last Admin: 10/06/18 18:25 Dose: 999 mls/hr Documented by: [id number] Medical Decision Making Differential Diagnosis Differential diagnosis: Etiologies such as infections, reactive airway disease, COPD, pneumonia, pleural effusion, pulmonary edema, ARDS, pneumothorax, CHF, cardiac ischemia, cardiac tamponade, dysrhythmia, anemia, pulmonary embolism, musculoskeletal, gastrointestinal process, as well as others were entertained. Medical Records Attestation: I reviewed the patient's medical records. Home Medications Current Medication List: was personally reviewed by me Laboratory Data Attestation: I reviewed the patient's lab results. Result diagrams: 10/06/18 14:42 10/06/18 14:42 Lab Results 10/06/18 10/06/18 10/06/18 Range/Units 14:42 14:42 14:42 WBC 19.59 H (4.8-10.8) K/uL RBC 5.58 (4.7-6.1) M/uL Hgb 17.8 (14.0-18.0) g/dL Hct 49.1 (42-52) % MCV 88.0 (80-100) fL MCH 31.9 (25-34) pg MCHC 36.3 H (32-36) g/dL RDW Std Deviation 40.9 (36.4-46.3) fL RDW Coeff of Vee 12.7 (11.5-14.5) % Plt Count 295 (130-400) K/uL MPV 10.5 H (7.4-10.4) fL Immature Gran % (Auto) 0.2 % Neut % (Auto) 90.9 % Lymph % (Auto) 5.3 % Trinity % (Auto) 3.4 % Eos % (Auto) 0.1 % Baso % (Auto) 0.1 % Immature Gran # (Auto) 0.04 H (0.00-0.02) K/uL Neut # (Auto) 17.81 H (1.4-6.5) K/uL Lymph # (Auto) 1.04 L (1.2-3.4) K/uL Trinity # (Auto) 0.67 H (0.11-0.59) K/uL Eos # (Auto) 0.02 (0-0.5) K/uL Baso # (Auto) 0.01 (0-0.2) K/uL PT 11.2 (9.0-12.0) Seconds INR 1.1 (0.9-1.1) APTT 27.5 (21.0-31.0) Seconds PTT Ratio 1.0 D-Dimer 990 H* (0-500) ug/L FEU Sodium 140 (136-145) mmol/L Potassium 4.3 (3.5-5.1) mmol/L Chloride 109 H (98-107) mmol/L Carbon Dioxide 25 (21-32) mmol/L Anion Gap 7.0 (3-11) BUN 12 (7-18) mg/dl Creatinine 1.10 (0.6-1.4) mg/dl Est Cr Clr Drug Dosing 88.9 ml/min Est GFR ( Amer) 110.6 Est GFR (Non-Af Amer) 95.5 BUN/Creatinine Ratio 11.1 (10-20) Glucose 119 H (70-99) mg/dl Calcium 9.9 (8.5-10.1) mg/dl Magnesium 1.9 (1.8-2.4) mg/dl Total Bilirubin 0.6 (0.2-1) mg/dl AST 125 H (15-37) U/L ALT 87 H (12-78) U/L Alkaline Phosphatase 98 (45-117) U/L Total Creatine Kinase 3266 H (39-308) U/L CK-MB (CK-2) 1.6 (0.5-3.6) ng/ml CK/CKMB % Calc 0.0 (0-3.0) Troponin I 0.032 (0-0.045) ng/ml Total Protein 7.4 (6.4-8.2) gm/dl Albumin 4.0 (3.4-5.0) gm/dl Globulin 3.4 (2.5-4.0) gm/dl Albumin/Globulin Ratio 1.2 (0.9-2) Imaging Data Radiologist's Impression: Radiology results as stated below per my review and the radiologist's interpretation: XR chest 1V portable CLINICAL HISTORY: 23 years-old Male presenting with Dyspnea. TECHNIQUE: Portable upright AP view of the chest was obtained. COMPARISON: 07/12/2011. FINDINGS: Cardiomediastinal silhouette normal. Right mid to lower lung opacity. No pleural effusion. Left lung and pleural space clear. Osseous structures normal. Upper abdomen normal. IMPRESSION: 1. Right mid to lower lung pneumonia. Electronically signed by: Chacorta Up M.D. 10/06/2018 2:[address] angio chest PE protocol CT DOSE: 217.03 mGy.cm HISTORY: Chest pain. Dyspnea. PE TECHNIQUE: Multiaxial CT images of the chest were performed following the intravenous administration of contrast to evaluate the pulmonary arteries. Maximal intensity projection images were also obtained. A dose lowering technique was utilized adhering to the principles of ALARA. COMPARISON STUDY: None. FINDINGS: The thoracic aorta is normal in course and caliber. Left lung demonstrates a small pancreatic infiltrates. Segment left lower lobe and to a lesser extent left upper lobe. There is diffuse parenchymal infiltrative the right mid and lower lung. Evaluation of pulmonary arterial structures show a small filling defects of the cervical vessels of the right as well as left lower lobe. There is no evidence for a central or main pulmonary embolus. The pulmonary apices demonstrate minimal biapical infiltrative change. IMPRESSION: 1. Diffuse parenchymal infiltrate of the right and to a lesser extent left hemithorax. 2. Small filling defects of the third or vessels and lung bases consistent with small peripheral pulmonary emboli. 4. No evidence for major or central pulmonary embolus. 5. Mild hepatosplenomegaly. The above report was generated using voice recognition software. It may contain grammatical, syntax or spelling errors. Electronically signed by: Yoni Berkowitz M.D. 10/06/2018 4:22 PM ECG Data Attestation: I personally reviewed and interpreted this ECG as follows: Indication: other (hemoptysis) Rate (beats per minute): 135 Rhythm: sinus tachycardia Findings: + RBBB (incomplete); no PAC, no PVC and no ectopy Comparison ECG Date: from (04/08/2018) Change: no significant change Blood Pressure Blood Pressure Findings: Normal blood pressure Blood Pressure Disposition: did not require urgent referral MDM Narrative The patient is a 23-year-old male who presented to the emergency department for an evaluation of cough and shortness of breath. The patient was experience hemoptysis. The patient had abnormal lung sounds as well as tachycardia. The patient recently had ECT therapy. The patient also experienced lower extremity muscle pain. The patient was found to have signs of pneumonia on chest x-ray. Blood cultures were obtained and the patient was treated with IV fluids as well as IV antibiotics. The patient was also noted to have pulmonary emboli on chest CT. IV heparin was started. I discussed the patient's laboratory and radiographic studies with him and his family members. I also discussed his case with the on-call [facility] hospitalist group. They have agreed to evaluate the patient in the emergency department for further management and disposition. Impression & Plan Bilateral pneumonia, Rhabdomyolysis, Bilateral pulmonary embolism, Sinus tachycardia Critical Care Time I have personally spent 45 minutes of critical care time in the direct management of this patient. This includes bedside care, interpretation of diagnostic studies, and testing, discussion with consultants, patient, and family members, and other required patient management activities. This 45 minutes is in excess of all separately billable procedures. Critical Care Time: Yes Total Critical Care Time: 45 Discharge Plan Visit Data *Final* Discharge Date/Time: 10/06/18 18:31 Chief Complaint: Cough Stated Complaint: HAD ECT COUGHING UP BLOOD SINCE ED Provider: Anselmo Langford Discharge Problem: Bilateral pneumonia, Rhabdomyolysis, Bilateral pulmonary embolism, Sinus tachycardia Patient Disposition: Home - Self-Care Discharge Instructions Interventions: ED Discharge Assessment Last Done: 10/06/18 18:31 Discharge Problem: Bilateral pneumonia Qualifiers: Pneumonia type: due to unspecified organism Lung location: unspecified part of lung Qualified Code(s): J18.9 - Pneumonia, unspecified organism Rhabdomyolysis Qualifiers: Rhabdomyolysis type: traumatic Encounter type: initial encounter Qualified Code (s): T79.6XXA - Traumatic ischemia of muscle, initial encounter The scribe's documentation has been prepared under my direction and personally reviewed by me in its entirety. I confirm that the note above accurately reflects all work, treatment, procedures, and medical decision making performed by me.
[2018-10-06] MEDS ORDERED: HEPARIN 25000 UNIT/500 ML D5W IV ONE (17:09)
[2018-10-06] MEDS: HEPARIN SOD (PORCINE) 1000 UNIT/ML 10 ML VIAL ONE ×2 (17:12→17:16)
--- NOTE | 2018-10-06 18:26 | History & Physical Report ---
Date of Service October 06, 2018 Assessment & Plan (1) Bilateral pneumonia: possible Health Care Associated, vs Aspiration component has been admitted to recently for depression, undergoing ECT weekly ff up blood, sputum cultures check nasal MRSA swab cover with Zosyn + Levaquin Nebs q6h HEMOPTYSIS consulted Dr. Pineda, discussed case with him BILATERAL PULMONARY EMBOLISM unprovoked CT chest: Small filling defects of the third or vessels and lung bases consistent with small peripheral pulmonary emboli. discussed case with Dr. Pineda, recommend to check Doppler US of the Legs, if negative, hold off on anticoagulation at this time in light of hemoptysis + significant pneumonia partial hypercoag work up ordered ELEVATED CPK from ECT? CPK 3000 IV fluids ordered HISTORY OF DEPRESSION, BIPOLAR DISORDER stable at this time undergoes ECT weekly Disposition pending case discussed with patient and his mother October at bedside they are agreeable, comforatble with plan of care History of Present Illness 23 year old male with history of depression, bipolar disorder, transitioning transgender presenting with hemoptysis, shortness of breath. Seen with DEXTER Perea at the bedside Patient at his usual state of health until 1pm when he started to have hemoptysis- 2-3 episodes of half a tspn, afterwards the blood in the sputum lightened to blood tinged. This was associated with SOB, chest congestion. Denies fever/chills, nausea. Has been having bilateral thigh pain. At the ER, CT chest showed BL pneumonia, small distal segment PEs. On exam, patient seen resting in bed, not in distress. States cough is improving, still has some chest congestion Denies other symptoms. Primary Care Provider: Harika Gray MD Allergies Allergy/AdvReac Type Severity Reaction Status Date / Time Penicillins Allergy Mild Unknown Unverified 10/06/18 15:26 amoxicillin Allergy Unknown HIVES Unverified 10/06/18 15:26 Home Medications Home Medications Medication Instructions Recorded Confirmed Type carbamazepine 200 mg PO DAILY 06/28/18 10/06/18 History carbamazepine 400 mg PO HS 06/28/18 10/06/18 History testosterone cypionate 200 mg IM WK 06/29/18 10/06/18 History atenolol 25 mg PO DAILY PRN 08/14/18 10/06/18 History cariprazine [Vraylar] 1.5 mg PO DAILY #30 cap 08/19/18 10/06/18 Rx atomoxetine 80 mg PO DAILY 10/06/18 10/06/18 History Past Med/Surg History Medical History Suicidal ideation (Resolved) ADHD, predominantly inattentive type Anxiety ADAMA (generalized anxiety disorder) Migraine (Resolved) Status post gender reassignment surgery Alcohol abuse Cannabis abuse Lysergic acid diethylamide (LSD) abuse Surgical History H/O mastectomy testosterone treatment Family History Other Family history of high blood pressure Social History Preferred Language: [place] Communication Ability: Effective Visual Impairment: Partially Limited Hearing Ability: Normal Beliefs That Will Affect Care: None marital status: Single Current Living Situation: Parent and Family current occupational status: unemployed Feels Safe at Home: Yes Smoking Status: Never smoker Tobacco Type: cigarettes Hx Alcohol Use: Yes (hard lemonade, fireball whiskey) Review of Systems Review of Systems: All systems reviewed & are unremarkable except as noted in HPI & below Physical Exam Physical Exam: General- oriented x 3, not in distress, speaks in sentences with no effort or accessory muscle use Head- atraumatic Eyes- PERRL, EOMI, anicteric ENT- oropharynx clear Neck- supple, no JVD, no adenopathy, no thyromegaly; carotids +2/2, no bruits appreciated Lungs- (+) rhonchi R side no wheezing Heart- tachycardic rate, regular rhythm; no murmur, no gallop, no rub appreciated Abdomen- normal bowel sounds, nondistended, soft, nontender, no masses or hepatosplenomegaly Extremities- no pretibial edema, no calf tenderness; peripheral pulses intact Neuro- alert, oriented x 3; CN 2-12 grossly intact; motor 5/5 bilaterally;se nsation 100% on all extremities; no other gross focal neurologic deficits Skin- warm & dry Results & Data Vital Signs (Past 12 Hours) Vital Signs Temp Pulse Pulse Resp BP Pulse Ox 10/06/18 14:26 127 H 22 91 10/06/18 14:05 36.8 C 96 H 16 108/71 100 Laboratory Results Laboratory Results - last 24 hr 10/06/18 10/06/18 10/06/18 14:42 14:42 14:42 WBC 19.59 H RBC 5.58 Hgb 17.8 Hct 49.1 MCV 88.0 MCH 31.9 MCHC 36.3 H RDW Std Deviation 40.9 RDW Coeff of Vee 12.7 Plt Count 295 MPV 10.5 H Immature Gran % (Auto) 0.2 Neut % (Auto) 90.9 Lymph % (Auto) 5.3 [place] % (Auto) 3.4 Eos % (Auto) 0.1 Baso % (Auto) 0.1 Immature Gran # (Auto) 0.04 H Neut # (Auto) 17.81 H Lymph # (Auto) 1.04 L [place] # (Auto) 0.67 H Eos # (Auto) 0.02 Baso # (Auto) 0.01 PT 11.2 INR 1.1 APTT 27.5 PTT Ratio 1.0 D-Dimer 990 H* Sodium 140 Potassium 4.3 Chloride 109 H Carbon Dioxide 25 Anion Gap 7.0 BUN 12 Creatinine 1.10 Est Cr Clr Drug Dosing 88.9 Est GFR ( Amer) 110.6 Est GFR (Non-Af Amer) 95.5 BUN/Creatinine Ratio 11.1 Glucose 119 H Calcium 9.9 Magnesium 1.9 Total Bilirubin 0.6 AST 125 H ALT 87 H Alkaline Phosphatase 98 Total Creatine Kinase 3266 H CK-MB (CK-2) 1.6 CK/CKMB % Calc 0.0 Troponin I 0.032 Total Protein 7.4 Albumin 4.0 Globulin 3.4 Albumin/Globulin Ratio 1.2 Code Status & VTE Plan Code Status FULL CODE (1) Bilateral pneumonia Lung location: unspecified part of lung Pneumonia type: due to unspecified organism Qualified Code(s): J18.9 - Pneumonia, unspecified organism
[2018-10-06] MEDS ORDERED: ACETAMINOPHEN 325 MG TAB PO PRN (19:08)
[2018-10-06] MEDS ORDERED: CONSULT PHARMACY STA (19:08)
[2018-10-06] MEDS ORDERED: PIPERACILL/TAZOBAC CONSULT ACTIVE PRN (19:39)
[2018-10-06] MEDS ORDERED: LEVOFLOXACIN CONSULT ACTIVE PRN (19:39)
[2018-10-06] MEDS: LEVALBUTEROL HCL 0.63 MG/3 ML NEB NEB SCH ×2 (19:43)
[2018-10-06] MEDS ORDERED: AZTREONAM CONSULT ACTIVE PRN (19:56)
[2018-10-06] MEDS: LEVOFLOXACIN/D5W 750 MG/150 ML BAG IV SCH (20:36)
[2018-10-06] MEDS: AZTREONAM 2,000 MG in DEXTROSE 5% 100 ML IV SCH (20:49)
[2018-10-06] MEDS: CLINDAMYCIN 600 MG in DEXTROSE 5% 50 ML IV SCH (20:57)
--- NOTE | 2018-10-06 21:25 | Ultrasound Report ---
BILATERAL LOWER EXTREMITY VENOUS DOPPLER HISTORY: Shortness of breath. Assess for DVT. r.o dvt COMPARISON STUDY: None. FINDINGS: There is normal compressibility, flow, and augmentation within the bilateral lower extremit y deep venous systems. IMPRESSION: No DVT within the right or left lower extremity. Electronically signed by: Ben Alberto M.D. 10/06/2018 9:23 PM
[2018-10-06 22:03] LABS: Appearance Urine Clear (Clear); Bilirubin Urine Negative (Negative); Blood Urine Negative (Negative); Color Urine Yellow; Glucose Urine UA Negative (Negative); Ketones Urine Negative (Negative); Leukocyte Esterase Urine Negative (Negative); Nitrite Urine Negative (Negative); Protein Urine Negative (Negative); Specific Gravity Urine 1.022 (1.000-1.030); Urobilinogen Urine Negative (Negative)
[2018-10-07] MEDS: LEVALBUTEROL HCL 0.63 MG/3 ML NEB NEB SCH ×4 (01:49→19:20)
[2018-10-07] MEDS: SODIUM CHLORIDE 0.9% 1000ML 1,000 ML IV SCH ×4 (02:09→16:28)
[2018-10-07] MEDS: AZTREONAM 2,000 MG in DEXTROSE 5% 100 ML IV SCH ×3 (03:31→19:24)
[2018-10-07] MEDS: CLINDAMYCIN 600 MG in DEXTROSE 5% 50 ML IV SCH ×3 (04:51→21:58)
[2018-10-07 06:15] LABS: Basophils # (auto) 0.01 K/uL (0-0.2); Basophils % (auto) 0.1 %; Eosinophils % (auto) 0.8 %; Hematocrit (blood only) 43.1 % (42-52); Hemoglobin 14.7 g/dL (14.0-18.0); Immature Granulocytes # (auto) 0.02 K/uL (0.00-0.02); Immature Granulocytes % (auto) 0.2 %; Lymphocytes # (auto) 1.95 K/uL (1.2-3.4); Lymphocytes % (auto) 16.1 %; Mean Corpuscular Hgb Conc 34.1 g/dL (32-36); Mean Corpuscular Volume 88.7 fL (80-100); Mean Platelet Volume 10.7 fL (7.4-10.4); Monocytes # (auto) 0.62 K/uL (0.11-0.59); Monocytes % (auto) 5.1 %; Neutrophils # (auto) 9.44 K/uL (1.4-6.5); Neutrophils % (auto) 77.7 %; Platelet Count 234 K/uL (130-400); RDW Coefficient of Variation 12.7 % (11.5-14.5); RDW Standard Deviation 40.6 fL (36.4-46.3); Red Blood Count 4.86 M/uL (4.7-6.1); White Blood Count 12.14 K/uL (4.8-10.8)
[2018-10-07 06:33] LABS: BUN Creatinine Ratio 12.1 (10-20); Calcium 8.9 mg/dl (8.5-10.1); Creatinine Clr Calc Pharmacy 117.9 ml/min; Est GFR (African American) 145.8; Est GFR (Non-African American) 125.8; Potassium 3.9 mmol/L (3.5-5.1)
--- NOTE | 2018-10-07 08:59 | Hospitalist Progress Note ---
Date of Service October 07, 2018 Assessment & Plan (1) Bilateral pneumonia: possible Health Care Associated, vs Aspiration component has been admitted to recently for depression, undergoing ECT weekly afebrile, leukocytosis improving ff up blood, sputum cultures check nasal MRSA swab cover with Levaquin + Aztreonam+ Clinda (allergic to Penicillin) Nebs q6h NPO for now, may need Bronch as per Dr. Pineda HEMOPTYSIS consulted Dr. Pineda, discussed case with him BILATERAL PULMONARY EMBOLISM unprovoked CT chest: Small filling defects of the third or vessels and lung bases consistent with small peripheral pulmonary emboli. discussed case with Dr. Pineda, recommend to check Doppler US of the Legs, if negative, hold off on anticoagulation at this time in light of hemoptysis + significant pneumonia Doppler US of the legs: negative HOLD off on heparin partial hypercoag work up ordered ELEVATED CPK from ECT? CPK 3000 IV fluids ordered improving to 1970 continue IV fluids HISTORY OF DEPRESSION, BIPOLAR DISORDER stable at this time undergoes ECT weekly Disposition pending case discussed with patient he is agreeable, comfortable with plan of care Subjective ff up for pneumonia seen with DEXTER Marquis at bedside through whole encounter seen resting in bed, not in distress states he feels improved today compared to yesterday coughing less- no sputum, no hemoptysis chest congestion resolved still has some muscle pain on the legs no other symptoms Review of Systems Review of Systems: All systems reviewed & are unremarkable except as noted in HPI & below Physical Exam Physical Exam: General- oriented x 3, not in distress, speaks in sentences with no effort or accessory muscle use Eyes- anicteric Neck- no JVD Lungs- mild rhonchi b/l no wheezes Heart- normal rate, regular rhythm; no murmurs Abdomen- normal bowel sounds, nondistended, soft, nontender Extremities- no pretibial edema, no calf tenderness Neuro- alert, oriented x 3; no gross focal neurologic deficits Skin- warm & dry Results & Data Vital Signs (Past 12 Hours) Vital Signs Temp Pulse Pulse Resp BP Pulse Ox 10/07/18 06:58 37.1 C 81 18 103/70 99 10/07/18 06:53 100 H 18 95 10/07/18 03:42 37.0 C 103 H 16 113/73 95 10/07/18 01:49 80 18 97 10/07/18 00:36 108 H 10/06/18 23:36 36.9 C 105 H 16 126/78 91 Laboratory Results Laboratory Results - last 24 hr 10/06/18 10/06/18 10/06/18 14:42 14:42 14:42 WBC 19.59 H RBC 5.58 Hgb 17.8 Hct 49.1 MCV 88.0 MCH 31.9 MCHC 36.3 H RDW Std Deviation 40.9 RDW Coeff of Vee 12.7 Plt Count 295 MPV 10.5 H Immature Gran % (Auto) 0.2 Neut % (Auto) 90.9 Lymph % (Auto) 5.3 [place] % (Auto) 3.4 Eos % (Auto) 0.1 Baso % (Auto) 0.1 Immature Gran # (Auto) 0.04 H Neut # (Auto) 17.81 H Lymph # (Auto) 1.04 L [place] # (Auto) 0.67 H Eos # (Auto) 0.02 Baso # (Auto) 0.01 PT 11.2 INR 1.1 APTT 27.5 PTT Ratio 1.0 D-Dimer 990 H* Factor V Leiden Mutat Factor V Leiden Interp Sodium 140 Potassium 4.3 Chloride 109 H Carbon Dioxide 25 Anion Gap 7.0 BUN 12 Creatinine 1.10 Est Cr Clr Drug Dosing 88.9 Est GFR ( Amer) 110.6 Est GFR (Non-Af Amer) 95.5 BUN/Creatinine Ratio 11.1 Glucose 119 H Lactate Calcium 9.9 Magnesium 1.9 Total Bilirubin 0.6 AST 125 H ALT 87 H Alkaline Phosphatase 98 Total Creatine Kinase 3266 H CK-MB (CK-2) 1.6 CK/CKMB % Calc 0.0 Troponin I 0.032 Total Protein 7.4 Albumin 4.0 Globulin 3.4 Albumin/Globulin Ratio 1.2 Homocysteine Urine Color Urine Appearance Urine pH Ur Specific [place] Urine Protein Urine Glucose (UA) Urine Ketones Urine Blood Urine Nitrite Urine Bilirubin Urine Urobilinogen Ur Leukocyte Esterase Beta-2-GPI IgG Ab Beta-2-GPI IgA Ab Beta-2-GPI IgM Ab Anti-Cardiolipin IgG Ab Anti-Cardiolipin IgA Ab Anti-Cardiolipin IgM Ab Prothrombin Gene Mutate Prothromb Gene Comment 10/06/18 10/06/18 10/06/18 19:27 19:27 19:58 WBC RBC Hgb Hct MCV MCH MCHC RDW Std Deviation RDW Coeff of Vee Plt Count MPV Immature Gran % (Auto) Neut % (Auto) Lymph % (Auto) [place] % (Auto) Eos % (Auto) Baso % (Auto) Immature Gran # (Auto) Neut # (Auto) Lymph # (Auto) [place] # (Auto) Eos # (Auto) Baso # (Auto) PT INR APTT PTT Ratio D-Dimer Factor V Leiden Mutat Pending Factor V Leiden Interp Pending Sodium Potassium Chloride Carbon Dioxide Anion Gap BUN Creatinine Est Cr Clr Drug Dosing Est GFR ( Amer) Est GFR (Non-Af Amer) BUN/Creatinine Ratio Glucose Lactate 1.1 Calcium Magnesium Total Bilirubin AST ALT Alkaline Phosphatase Total Creatine Kinase CK-MB (CK-2) CK/CKMB % Calc Troponin I Total Protein Albumin Globulin Albumin/Globulin Ratio Homocysteine Pending Urine Color Urine Appearance Urine pH Ur Specific [place] Urine Protein Urine Glucose (UA) Urine Ketones Urine Blood Urine Nitrite Urine Bilirubin Urine Urobilinogen Ur Leukocyte Esterase Beta-2-GPI IgG Ab Pending Beta-2-GPI IgA Ab Pending Beta-2-GPI IgM Ab Pending Anti-Cardiolipin IgG Ab Pending Anti-Cardiolipin IgA Ab Pending Anti-Cardiolipin IgM Ab Pending Prothrombin Gene Mutate Pending Prothromb Gene Comment Pending 10/06/18 10/07/18 10/07/18 21:42 04:08 05:29 WBC 12.14 H RBC 4.86 Hgb 14.7 D Hct 43.1 MCV 88.7 MCH 30.2 MCHC 34.1 RDW Std Deviation 40.6 RDW Coeff of Vee 12.7 Plt Count 234 MPV 10.7 H Immature Gran % (Auto) 0.2 Neut % (Auto) 77.7 Lymph % (Auto) 16.1 [place] % (Auto) 5.1 Eos % (Auto) 0.8 Baso % (Auto) 0.1 Immature Gran # (Auto) 0.02 Neut # (Auto) 9.44 H Lymph # (Auto) 1.95 [place] # (Auto) 0.62 H Eos # (Auto) 0.10 Baso # (Auto) 0.01 PT INR APTT PTT Ratio D-Dimer Factor V Leiden Mutat Factor V Leiden Interp Sodium Potassium Chloride Carbon Dioxide Anion Gap BUN Creatinine Est Cr Clr Drug Dosing Est GFR ( Amer) Est GFR (Non-Af Amer) BUN/Creatinine Ratio Glucose Lactate Calcium Magnesium Total Bilirubin AST ALT Alkaline Phosphatase Total Creatine Kinase 1970 H CK-MB (CK-2) CK/CKMB % Calc Troponin I Total Protein Albumin Globulin Albumin/Globulin Ratio Homocysteine Urine Color Yellow Urine Appearance Clear Urine pH 7.0 Ur Specific [place] 1.022 Urine Protein Negative Urine Glucose (UA) Negative Urine Ketones Negative Urine Blood Negative Urine Nitrite Negative Urine Bilirubin Negative Urine Urobilinogen Negative Ur Leukocyte Esterase Negative Beta-2-GPI IgG Ab Beta-2-GPI IgA Ab Beta-2-GPI IgM Ab Anti-Cardiolipin IgG Ab Anti-Cardiolipin IgA Ab Anti-Cardiolipin IgM Ab Prothrombin Gene Mutate Prothromb Gene Comment 10/07/18 05:29 WBC RBC Hgb Hct MCV MCH MCHC RDW Std Deviation RDW Coeff of Vee Plt Count MPV Immature Gran % (Auto) Neut % (Auto) Lymph % (Auto) [place] % (Auto) Eos % (Auto) Baso % (Auto) Immature Gran # (Auto) Neut # (Auto) Lymph # (Auto) [place] # (Auto) Eos # (Auto) Baso # (Auto) PT INR APTT PTT Ratio D-Dimer Factor V Leiden Mutat Factor V Leiden Interp Sodium 139 Potassium 3.9 Chloride 109 H Carbon Dioxide 23 Anion Gap 7.0 BUN 10 Creatinine 0.83 Est Cr Clr Drug Dosing 117.9 Est GFR ( Amer) 145.8 Est GFR (Non-Af Amer) 125.8 BUN/Creatinine Ratio 12.1 Glucose 98 Lactate Calcium 8.9 Magnesium Total Bilirubin AST ALT Alkaline Phosphatase Total Creatine Kinase CK-MB (CK-2) CK/CKMB % Calc Troponin I Total Protein Albumin Globulin Albumin/Globulin Ratio Homocysteine Urine Color Urine Appearance Urine pH Ur Specific [place] Urine Protein Urine Glucose (UA) Urine Ketones Urine Blood Urine Nitrite Urine Bilirubin Urine Urobilinogen Ur Leukocyte Esterase Beta-2-GPI IgG Ab Beta-2-GPI IgA Ab Beta-2-GPI IgM Ab Anti-Cardiolipin IgG Ab Anti-Cardiolipin IgA Ab Anti-Cardiolipin IgM Ab Prothrombin Gene Mutate Prothromb Gene Comment (1) Bilateral pneumonia Lung location: unspecified part of lung Pneumonia type: due to unspecified organism Qualified Code(s): J18.9 - Pneumonia, unspecified organism
--- NOTE | 2018-10-07 12:00 | Consultation Report ---
DATE OF CONSULTATION: 10/07/2018 PULMONARY MEDICINE CONSULTATION REASON FOR CONSULTATION: Bronchopneumonia/pulmonary emboli/hemoptysis. HISTORY OF PRESENT ILLNESS: A 23-year-old white male who resides in [place], who was seen in the Emergency Room yesterday at 1409. The patient gets weekly electroconvulsive therapy at [facility] for severe depression and apparently the morning of his admission, he received ECT therapy. He was n.p.o. midnight the night before as he is usually accustomed. He was not aware of any acute aspiration event or anything concerning the ECT treatment that was unusual. He did not go into the procedure coughing, febrile, or exhibiting any hemoptysis. He came home and promptly had severe paroxysms of coughing with bleeding that amounted to several teaspoons of bright red blood. He had some midsternal chest discomfort with the coughing and became alarmed. He was somewhat dyspneic as well and he came into the Emergency Room. He is transgender and underwent double mastectomy in the remote past uneventfully and has been on weekly injections of testosterone, although that was changed to every 10 days when his hemoglobin and hematocrit became elevated. He did go to [place] over the past weekend, but has not had any significant travel history. He denies any significant smoking history, either cigarettes or marijuana. He has had some smoking in the past that he states never exceeded a half a pack of cigarettes a week. Denies illicit drug use. He has had severe depression associated and suicidal ideation in the past as well as ADHD, predominantly inattentive type as well as anxiety disorder and migraine headaches. He has also a history of alcohol and cannabis abuse, but he denied that to me, as well as LSD utilization. He has undergone bilateral mastectomy and received IM testosterone injection under the care of Dr. Tripp and his primary care physician is Dr. Harika Gray. After several bouts of hemoptysis, he has not had any recurrence since his admission. He did undergo a CTA of the chest yesterday at [address] Kaden Thomas spoke to me about the findings. Clearly evident was a diffuse parenchymal infiltrate involving the right mid and lower lung field as well as a segment of left lower lobe and left upper lobe. There was some small filling defects involving the right as well as left lower lobe by CTA consistent with small peripheral pulmonary emboli, but certainly no saddle embolus and nothing that obviously resembled a pulmonary infarction. Venous Doppler study was negative involving the deep venous system of both the right and left lower extremities and patient has not complained of any joint pain or calf or leg swelling in the remote past. He has had no previous bout of pneumonia. He was admitted on to Dr. Thomas's service. The question of a healthcare associated pneumonia versus aspiration, nasal MRSA swab was negative. He was started on IV Zosyn and Levaquin with nebulizer treatments every 6 hours. We discussed the possibility of anticoagulant therapy but with the level of hemoptysis noted and overwhelming appearance of pneumonitis/multifocal and multilobar that I thought that he was not fully anticoagulated. For details of past medical history, medications, family and social history, I refer you to current and past record. ALLERGIES: PENICILLIN. PHYSICAL EXAMINATION: GENERAL: This is a well-developed, well-nourished white female transitioning/transgender who has facial hirsutism. NECK: Neck veins are not distended at 45 degrees. No adenopathy in the supra or infraclavicular areas. LUNGS: Coarse rhonchi with some wheezes involving the right posterior and left base. CARDIAC: Regular rate and rhythm. I do not appreciate a gallop. ABDOMEN: Soft, scaphoid. No evidence of hepatosplenomegaly. BREASTS: Bilateral mastectomy noted. EXTREMITIES: No pedal edema, clubbing or cyanosis. Negative Homans sign. NEUROLOGICAL: Intact. No lateralizing signs. DIAGNOSTIC DATA: CT scan as noted. Other laboratory data, sputum culture pending. Blood cultures have been negative. White count 19,000 on admission, H and H 17.8 and 49. His H and H reached zenith on 06/27/2018 of 18.7 and 53.3 before the testosterone injections were made every 10 days instead of every 7 day treatments. A preponderance of polymorphonuclear leukocytes had been noted in the differential with a leftward shift. Total CPK 1970. Hypercoagulable workup pending. ASSESSMENT AND PLAN: A 23-year-old transgender individual status post bilateral mastectomy on weekly and every 10 day IM testosterone injections and history of severe depression with weekly ECT therapy, may very well have aspirated and was seeing multilobar evidence of this. The hemoptysis is no doubt secondary to the former, but there were small peripheral filling defects seen on CTA compatible w pulmonary thromboembolic disease. There is no sign or suggestion of pulmonary infarction. In the absence of DVT that is readily discernible involving the deep venous system of either lower extremity, I do not believe there is an imperative to anticoagulate patient or use a vena cava filter at this point in time. I would hold off on full anticoagulation and continue current therapy. Patient has tolerated the Zosyn initially but switched with a penicillin allergy to Clindamycin/Aztreonam (good coverage for probable aspiration especially in a Healthcare setting) along with aerosolized bronchodilator and pulmonary toilet. We will follow along with you and would also like to obtain a transthoracic echocardiogram for the outside possibility we are dealing with septic emboli from endocarditis and I am not certain about the patient's past drug history. It would be much less likely that we are dealing with the latter and we would continue to treat for either healthcare-associated pneumonia or aspiration pneumonia.Will hold off on bronchoscopy at this point.Would consider anticoagulation in 24-48 hrs w clinical improvement and no further hemoptysis. MTDD
[2018-10-07] MEDS: LEVOFLOXACIN/D5W 750 MG/150 ML BAG IV SCH (20:27)
[2018-10-08] MEDS: SODIUM CHLORIDE 0.9% 1000ML 1,000 ML IV SCH ×4 (02:09→23:15)
[2018-10-08] MEDS: LEVALBUTEROL HCL 0.63 MG/3 ML NEB NEB SCH (02:38)
[2018-10-08] MEDS: AZTREONAM 2,000 MG in DEXTROSE 5% 100 ML IV SCH (04:04)
[2018-10-08] MEDS: CLINDAMYCIN 600 MG in DEXTROSE 5% 50 ML IV SCH ×3 (05:06→22:35)
[2018-10-08 05:49] LABS: Basophils # (auto) 0.01 K/uL (0-0.2); Basophils % (auto) 0.1 %; Eosinophils # (auto) 0.24 K/uL (0-0.5); Eosinophils % (auto) 2.6 %; Hematocrit (blood only) 42.8 % (42-52); Hemoglobin 14.9 g/dL (14.0-18.0); Immature Granulocytes # (auto) 0.02 K/uL (0.00-0.02); Immature Granulocytes % (auto) 0.2 %; Lymphocytes # (auto) 2.57 K/uL (1.2-3.4); Lymphocytes % (auto) 28.1 %; Mean Corpuscular Hgb Conc 34.8 g/dL (32-36); Mean Corpuscular Volume 88.6 fL (80-100); Mean Platelet Volume 10.4 fL (7.4-10.4); Monocytes # (auto) 0.53 K/uL (0.11-0.59); Monocytes % (auto) 5.8 %; Neutrophils # (auto) 5.76 K/uL (1.4-6.5); Neutrophils % (auto) 63.2 %; Platelet Count 229 K/uL (130-400); RDW Coefficient of Variation 12.7 % (11.5-14.5); RDW Standard Deviation 40.8 fL (36.4-46.3); Red Blood Count 4.83 M/uL (4.7-6.1); White Blood Count 9.13 K/uL (4.8-10.8)
[2018-10-08 06:27] LABS: BUN Creatinine Ratio 16.8 (10-20); Calcium 8.5 mg/dl (8.5-10.1); Creatinine Clr Calc Pharmacy 115.1 ml/min; Est GFR (African American) 144.4; Est GFR (Non-African American) 124.6; Potassium 4.1 mmol/L (3.5-5.1)
[2018-10-08] MEDS: LEVALBUTEROL TARTRATE 15 GM HFA.AER.AD INH SCH ×4 (08:33→20:11)
--- NOTE | 2018-10-08 08:53 | XRay Report ---
XR chest 2V routine HISTORY: asp pneumonia COMPARISON: Chest 10/06/2018. FINDINGS: The right lower lobe airspace opacity has significantly improved. No new focal lung consoli dations. No pneumothorax. No pleural effusions. The heart is normal in size. IMPRESSION: Significant improvement in the right lower lobe airspace opacity consistent with a resolving pneumoni a. Electronically signed by: Ben Alberto M.D. 10/08/2018 8:51 AM
--- NOTE | 2018-10-08 09:22 | Progress Note ---
DATE: 10/08/2018 PULMONARY MEDICINE PROGRESS NOTE Chart reviewed and the patient examined. SUBJECTIVE: The patient was sleeping when I walked into the room. He is resting comfortably and denies feeling dyspneic, occasionally bringing up phlegm, but no further hemoptysis, no pleuritic pain. OBJECTIVE: VITAL SIGNS: Blood pressure 108/68, pulse 94 and regular, respiratory rate 20, temperature 36.7, O2 sat 96% on room air. SKIN: Without lesion. HEENT: Atraumatic, normocephalic. PERRLA. LUNGS: Scattered wheeze and rales at the right base, but clear. CARDIAC: Regular rate and rhythm. I do not appreciate a gallop. ABDOMEN: Soft, scaphoid. No evidence of hepatosplenomegaly. EXTREMITIES: No pedal edema, clubbing or cyanosis. NEUROLOGIC: Intact. LABORATORY DATA: White count has come down to 9100, H and H 14.9 and 42.8. Sputum grew out normal tessie. Blood cultures were negative. Venous Doppler study showed no evidence for DVT. CTA already commented and EKG on admission showed a sinus tachycardia. The patient is much less tachycardic now. Hypercoagulable workup pending. HIV serology negative. The patient is currently receiving pulmonary toilet as well as was placed on IV aztreonam and clindamycin which he is tolerating. He is continued on IV levofloxacin. OVERALL ASSESSMENT: A 23-year-old transgender individual recently underwent ECT with a probable resultant significant aspiration pneumonia and a degree of rhabdomyolysis, no doubt from the ECT therapy with also small peripheral subsegmental emboli (involving 3rd order interlobar pulmonary arteries), who has also been on testosterone therapy as part of his transitioning. He is clinically improving with the absence of fever and white count along with clinical improvement as well as his clinical appearance. We will obtain a chest x-ray today. I believe we can safely start anticoagulant therapy and will discuss this with Dr. Kaden Thomas. [facility]
[2018-10-08] MEDS ORDERED: RIVAROXABAN 15 MG TAB PO SCH (13:55)
[2018-10-08] MEDS: RIVAROXABAN 15 MG TAB PO SCH ×2 (14:42→20:59)
--- NOTE | 2018-10-08 17:30 | Hospitalist Progress Note ---
Date of Service October 08, 2018 Assessment & Plan (1) Bilateral pneumonia: Likely Aspiration has been admitted to recently for depression, undergoing ECT weekly afebrile, leukocytosis resolved ff up blood, sputum cultures nasal MRSA swab: negative cover with Levaquin + Clinda (allergic to Penicillin) Nebs q6h CXR pneumonia improving -- continue IV Abx for now monitor HEMOPTYSIS consulted Dr. Pineda, discussed case with him -- likely from PNA Bronchoscopy not indicated at this time BILATERAL PULMONARY EMBOLISM unprovoked CT chest: Small filling defects of the third or vessels and lung bases consistent with small peripheral pulmonary emboli. discussed case with Dr. Pineda, recommend to check Doppler US of the Legs, if negative, hold off on anticoagulation at this time in light of hemoptysis + significant pneumonia Doppler US of the legs: negative -- discussed with Dr. Pineda recommend starting Xarelto 15mg BID today ELEVATED CPK from ECT? CPK 3000 IV fluids ordered trending down, now 1,100s continue IV fluids monitor CPK HISTORY OF DEPRESSION, BIPOLAR DISORDER undergoes ECT weekly denies depression, suicidal ideations at present 302 signed by patient's mother 10/03 as patient was expressing suicidal ideations, left the house, the next day, patient returned home and was denying suicidal ideations already 302 papers sent it by Police today Psych Liaison consulted, does not recommend 1:1, suicide precautions at this time recommend to consult Psych MD tomorrow for formal eval Disposition pending case discussed with patient he is agreeable, comfortable with plan of care Subjective ff up for pneumonia seen resting in bed, comfortable seen with DEXTER Domínguez at bedside throughout whole encounter states he feels improved again today no dyspnea, less cough no chest congestion denies leg pain now states his mood is ok, denies depression/suicidal ideations no other symptoms Review of Systems Review of Systems: All systems reviewed & are unremarkable except as noted in HPI & below Physical Exam Physical Exam: General- oriented x 3, not in distress, speaks in sentences with no effort or accessory muscle use Eyes- anicteric Neck- no JVD Lungs- mild rhonchi right base no wheezing Heart- normal rate, regular rhythm; no murmurs Abdomen- normal bowel sounds, nondistended, soft, nontender Extremities- no pretibial edema, no calf tenderness Neuro- alert, oriented x 3; no gross focal neurologic deficits Skin- warm & dry Results & Data Vital Signs (Past 12 Hours) Vital Signs Temp Pulse Pulse Pulse Resp BP Pulse Ox 10/08/18 15:37 36.7 C 79 20 112/77 98 10/08/18 15:16 88 10/08/18 10:54 36.8 C 93 H 14 107/70 98 10/08/18 08:00 54 L 10/08/18 06:40 36.7 C 94 H 20 108/68 96 (1) Bilateral pneumonia Lung location: unspecified part of lung Pneumonia type: due to unspecified organism Qualified Code(s): J18.9 - Pneumonia, unspecified organism
[2018-10-08] MEDS: LEVOFLOXACIN/D5W 750 MG/150 ML BAG IV SCH (20:10)
[2018-10-09] MEDS: CLINDAMYCIN 600 MG in DEXTROSE 5% 50 ML IV SCH ×3 (03:59→21:09)
[2018-10-09] MEDS: SODIUM CHLORIDE 0.9% 1000ML 1,000 ML IV SCH ×3 (05:58→13:04)
[2018-10-09 06:16] LABS: Basophils # (auto) 0.01 K/uL (0-0.2); Basophils % (auto) 0.1 %; Eosinophils # (auto) 0.26 K/uL (0-0.5); Eosinophils % (auto) 3.1 %; Hematocrit (blood only) 43.7 % (42-52); Hemoglobin 15.3 g/dL (14.0-18.0); Immature Granulocytes # (auto) 0.04 K/uL (0.00-0.02); Immature Granulocytes % (auto) 0.5 %; Lymphocytes # (auto) 2.89 K/uL (1.2-3.4); Lymphocytes % (auto) 34.7 %; Mean Corpuscular Volume 87.9 fL (80-100); Mean Platelet Volume 10.4 fL (7.4-10.4); Monocytes # (auto) 0.52 K/uL (0.11-0.59); Monocytes % (auto) 6.3 %; Neutrophils % (auto) 55.3 %; Platelet Count 245 K/uL (130-400); RDW Coefficient of Variation 12.7 % (11.5-14.5); RDW Standard Deviation 40.6 fL (36.4-46.3); Red Blood Count 4.97 M/uL (4.7-6.1); White Blood Count 8.32 K/uL (4.8-10.8)
[2018-10-09 07:04] LABS: BUN Creatinine Ratio 12.9 (10-20); Calcium 9.2 mg/dl (8.5-10.1); Creatinine Clr Calc Pharmacy 125.4 ml/min; Est GFR (African American) 149.6; Potassium 4.1 mmol/L (3.5-5.1)
[2018-10-09] MEDS: LEVALBUTEROL TARTRATE 15 GM HFA.AER.AD INH SCH ×4 (07:43→20:37)
[2018-10-09] MEDS: RIVAROXABAN 15 MG TAB PO SCH ×2 (08:14→20:37)
--- NOTE | 2018-10-09 17:35 | Hospitalist Progress Note ---
Date of Service October 09, 2018 Assessment & Plan (1) Bilateral pneumonia: Likely Aspiration has been admitted to recently for depression, undergoing ECT weekly afebrile, leukocytosis resolved ff up blood, sputum cultures nasal MRSA swab: negative cover with Levaquin + Clinda (allergic to Penicillin) Nebs q6h as needed CXR pneumonia improving -- continue IV Abx for now monitor --Improving overall HEMOPTYSIS consulted Dr. Pineda, discussed case with him -- likely from PNA Bronchoscopy not indicated at this time --No recurrence since admission BILATERAL PULMONARY EMBOLISM unprovoked CT chest: Small filling defects of the third or vessels and lung bases consistent with small peripheral pulmonary emboli. discussed case with Dr. Pineda, recommend to check Doppler US of the Legs, if negative, hold off on anticoagulation at this time in light of hemoptysis + significant pneumonia Doppler US of the legs: negative -- discussed with Dr. Pineda Started with Xarelto 15 mg p.o. twice daily for 21 days , then 20 mg p.o. daily ELEVATED CPK from ECT? CPK 3000 IV fluids ordered trending down, now 800 continue IV fluids monitor CPK HISTORY OF DEPRESSION, BIPOLAR DISORDER undergoes ECT weekly denies depression, suicidal ideations at present 302 signed by patient's mother 10/03 as patient was expressing suicidal ideations, left the house, the next day, patient returned home and was denying suicidal ideations already 302 papers sent it by Police today Psych Liaison consulted, does not recommend 1:1, suicide precautions at this time recommend to consult Psych MD tomorrow for formal eval --Awaiting psych evaluation and recommendations Disposition Anticipate discharge to home when medically stable tomorrow case discussed with patient he is agreeable, comfortable with plan of care Subjective ff up for pneumonia seen resting in bed, DEXTER Domínguez bedside throughout whole encounter States he continues to feels better overall No shortness of breath, no chest congestion, very little cough Denies bleeding No other symptoms Review of Systems Review of Systems: All systems reviewed & are unremarkable except as noted in HPI & below Physical Exam Physical Exam: General- oriented x 3, not in distress, speaks in sentences with no effort or accessory muscle use Eyes- anicteric Neck- no JVD Lungs-mild rhonchi right base, no wheezing, clear breath sounds left side Heart- normal rate, regular rhythm; no murmurs Abdomen- normal bowel sounds, nondistended, soft, nontender Extremities- no pretibial edema, no calf tenderness Neuro- alert, oriented x 3; no gross focal neurologic deficits Skin- warm & dry Results & Data Vital Signs (Past 12 Hours) Vital Signs Temp Pulse Pulse Pulse Resp BP Pulse Ox 10/09/18 15:28 88 10/09/18 15:03 36.8 C 62 18 108/70 99 10/09/18 11:32 36.9 C 91 H 16 113/74 96 10/09/18 08:00 89 10/09/18 07:11 36.7 C 76 16 119/80 97 (1) Bilateral pneumonia Lung location: unspecified part of lung Pneumonia type: due to unspecified organism Qualified Code(s): J18.9 - Pneumonia, unspecified organism
--- NOTE | 2018-10-09 17:36 | Pulmonology Progress Note ---
Date of Service October 09, 2018 Assessment & Plan (1) Bilateral pneumonia: Likely aspiration. Levofloxacin and clindamycin are adequate coverage and the patient is responding. Would complete a 5-7 day course Lung location: unspecified part of lung Pneumonia type: due to unspecified organism Qualified Code(s): J18.9 - Pneumonia, unspecified organism Present on Admission?: Yes (2) Bilateral pulmonary embolism: Testosterone is known to cause polycythemia which predisposes people to thrombi based on sluggish blood flow/ The patient did have Hb 17-18 in the past 2 months Testosterone supplements on their own are not associated with thrombotic disorders like estrogens with smoking Agree with anticoagulation FU hypercoagulable studies. Infections can precipitate acute antiphospholipid at times. Subjective Seen at the bedside and is on room air in no apparent distress. reports cough and sputum production that is clear at times. Asked whether vomiting on tuesday could have given him the pneumonia and I answered it is very likely given the location of the pneumonia. Hypercoagulable blood tests are sent. I added antiphospholipid WBC trended down from 15 to 8; afebrile Review of Systems Review of Systems: All systems reviewed & are unremarkable except as noted in HPI & below Results & Data Vital Signs (Past 12 Hours) Vital Signs Temp Pulse Pulse Pulse Resp BP Pulse Ox 10/09/18 15:28 88 10/09/18 15:03 36.8 C 62 18 108/70 99 10/09/18 11:32 36.9 C 91 H 16 113/74 96 10/09/18 08:00 89 10/09/18 07:11 36.7 C 76 16 119/80 97
--- NOTE | 2018-10-09 18:32 | Psychiatric Consultation ---
Date of Consultation October 09, 2018 Impression / Recommendations Impression 23-year-old female to male transgendered individual with a history of bipolar disorder, ADHD, antisocial and borderline personality disorder, generalized anxiety disorder, and polysubstance abuse (cannabis, alcohol, LSD, Coricidin, and diphenhydramine) who has chronic and intermittant suicidality whom were were asked to see during medical admission for outstanding warrant 302 issued 10/03/18 that was never dispositioned. Reveiwed record, status while medically admitted from staff reports of mental stsatus, and interviewed the patient. The patient remains at chronic high risk, but no elevated acute safety risk at this time given past suicidality and chronic intermittant SI, with SIB, and substance use. He is off medications at present but engaged with ECT treatment and continuing to see his therapist. He is future oriented and not showing s/sx of distress at this time. Will disposition the 302 as not needing acute psychiatric care at this time. Outpatient psychiatric f/u is most appropriate and least restrictive care at this time. Affirmed ongoing ECT, and my understanding is that his current medical concerns are not a contraindication for ongoing ECT. I agree with internal medicine staff having doc-to doc conversation with DR Schafer given his extensive clinical history delivering ECT as planned. Please call us if there are any other questions or concerns with this patient. Code 04261 Psych History Identifying Data 23-year-old female to male transgendered individual with a history of bipolar disorder, ADHD, antisocial and borderline personality disorder, generalized anxiety disorder, and polysubstance abuse (cannabis, alcohol, LSD, Coricidin, and diphenhydramine) who has chronic and intermittant suicidality. THis patient was admitted to the [facility] medical service on 10/06/18 for treatment of pneumonia found to have pulmonary embolism. Psychiatry was consulted due to police delivering a 302 Warrant that was issued on 10/03/18 Chief Complaint " I feel fine I was not suicidal then and I am not suicidal now". History of Present Illness The [facility] well [facility]. Please see most recnet admission from 08/15/18 to 08/19/18 for full history. Presently the patient is admitted medically for pneumonia on 10/06/18. ON 10/08/18 a 302 warrant from police was delivered, the warrant had been inssued on 10/03/18 and the aptient could not be located until this time by police. 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 When the package arrived they confiscated it and the pateint threatened to go to purchase a similar related OTC version and made suicidal threatening statements. (See 302 warrant with parents petitioning statement.) THe patient left the home and was not reachable, even later once he identified the friend he would stay with he remained unreachable. The parents filed a petition with police on 10/03/18 out of concern for Shalom's Safety. Per Shalom on interview today he states "I was never suicidal when arguing with my parents." He was told by his mother that she had completed a petition, the patient states that called [facility] [employer] and was told there was not a warrant. THe patient missed ECT on 10/04 because "[place] never called me with a time" (this was after missing his 09/29 and Monday 10/02 treatment [place]). He returned home on Tue evening and denies doing any drugs. His father took him to [facility] for ECT on Friday 10/06, and then he began having hemoptysis and was brought to the [facility] ER for medical care and ultimately admis sed. The patient denies current SI, planning or intent. He denies having SI on 10/03/18 and states "I don't remember saying those things" when referencing the petitioning statement. He reports he is off all his psychotropic medications "because I don't feel they help, I don't like my psychiatrist and don't think I will take any further medications until I see the psychiatrist at the [facility], I am on a waiting list since July." He is receiving ECT about [address] Schafer in [place], "I think it is helping" he has mild memory concerns but o/w feels he is tolerating the treatments well with benefit. THe patient is awaiting medical clearance and Dr Addison will speak with Dr Schafer to discuss any conflict with ECT and patient's treatment The patinet states his mood is 5/10 and anxiety is low. 'I feel decent" intact sleep at this time, minimal interest while ill inpatient but watching TV texting friends appreciating family visits. Denies safety concerns now. The patient feels the disupte with his parents is resolved and they have visited him in the hospital and there is no outstanding disagreement or tension at this time. Patient is future oriented at this time to [facility], [facility], and awaiting psychiatric appointment declining to see his prior psychiatrist Dr Benaviedz, and declining medications, states intention to continue ECT unless it is contraindicated. For remainder of history please see thorough report on 08/15/18 Psychiatric H&P and 08/19/18 discharge summary. Allergies Allergy/AdvReac Type Severity Reaction Status Date / Time Penicillins Allergy Mild Unknown Unverified 10/06/18 15:26 amoxicillin Allergy Unknown HIVES Unverified 10/06/18 15:26 Home Medications Home Medications Medication Instructions Recorded Confirmed Type carbamazepine 200 mg PO DAILY 06/28/18 10/06/18 History carbamazepine 400 mg PO HS 06/28/18 10/06/18 History testosterone cypionate 200 mg IM WK 06/29/18 10/06/18 History atenolol 25 mg PO DAILY PRN 08/14/18 10/06/18 History cariprazine [Vraylar] 1.5 mg PO DAILY #30 cap 08/19/18 10/06/18 Rx atomoxetine 80 mg PO DAILY 10/06/18 10/06/18 History Personal History Beliefs That Will Affect Care: None Patient History Medical History Suicidal ideation (Resolved) ADHD, predominantly inattentive type Anxiety ADAMA (generalized anxiety disorder) Migraine (Resolved) Status post gender reassignment surgery Alcohol abuse Cannabis abuse Lysergic acid diethylamide (LSD) abuse Surgical History H/O mastectomy testosterone treatment Family History Other Family history of high blood pressure Social History Preferred Language: Cymraes Communication Ability: Effective Visual Impairment: Partially Limited Hearing Ability: Normal Drier Required: No Beliefs That Will Affect Care: None marital status: Single Current Living Situation: Parent current occupational status: unemployed Other Information That Helps Us Care for You: No Feels Safe at Home: Yes Safety Concerns: Feels Safe At This Time Smoking Status: Never smoker Tobacco Type: cigarettes Do You Dip or Chew Tobacco: No Second Hand Exposure: No Tobacco Cessation Education Requested by Patient: No Hx Alcohol Use: Yes Alcohol type: beer Hx Substance Use: No Physical Exam Psychiatric: Orientation: alert and oriented x 3 Apperance: + disheveled (bushy curly hair, unshaven, acne, clean, in bed in shorts and t-shirt) Eye Contact: good eye contact Motor Behavior: no abnormal motor movements Speech: normal rate/rhythm/volume of speech Affect: euthymic affect Mood: no depressed mood (states "I feel okay") and no anxious mood Thought Process: goal directed thought process, linear/logical thought process and clear/coherent thought process minimizes statements noted in petition but current denial of suicidal thoughts and denial of distress or mood concerns is consistent with demeanor noted by this provider and the medical staff Suicidal Thoughts: denies suicidal thoughts, denies suicidal plan and denies suicidal intent Homicidal Thoughts: denies homicidal thoughts Hallucinations: no auditory hallucinations and no visual hallucinations Cognition: recent memory grossly intact Estimated Intelligence: average estimated intelligence Insight: + fair insight Judgement: + fair judgement Vital Signs (Past 24 Hours): Last Vital Signs Temp 36.8 C 10/09/18 15:03 Pulse 88 10/09/18 15:28 Resp 18 10/09/18 15:03 BP 108/70 10/09/18 15:03 Pulse Ox 99 10/09/18 15:03 Review of Systems All systems reviewed & are unremarkable except as noted in HPI & below (minimal cough at this time, no pain, denies other physical concerns at this time) Results & Data Medications Administered Sodium Chloride (Nss 1000ml) 1,000 mls @ 80 mls/hr IV .[id number] [facility] Stop: 11/05/18 19:07 Last Admin: 10/09/18 13:04 Dose: 150 mls/hr Documented by: [id number] Infusion: 10/09/18 13:04 Dose: 150 mls/hr Documented by: [id number] Admin: 10/09/18 07:42 Dose: 150 mls/hr Documented by: [id number] Infusion: 10/09/18 07:42 Dose: 150 mls/hr Documented by: [id number] Admin: 10/09/18 05:58 Dose: 150 mls/hr Documented by: [id number] Infusion: 10/09/18 05:56 Dose: 150 mls/hr Documented by: [id number] Admin: 10/08/18 23:15 Dose: 150 mls/hr Documented by: [id number] Infusion: 10/08/18 20:27 Dose: 150 mls/hr Documented by: [id number] Admin: 10/08/18 13:46 Dose: 150 mls/hr Documented by: [id number] Infusion: 10/08/18 13:46 Dose: 150 mls/hr Documented by: [id number] Admin: 10/08/18 08:32 Dose: 150 mls/hr Documented by: [id number] Infusion: 10/08/18 08:32 Dose: 150 mls/hr Documented by: [id number] Admin: 10/08/18 02:09 Dose: 150 mls/hr Documented by: [id number] Infusion: 10/07/18 23:09 Dose: 150 mls/hr Documented by: [id number] Admin: 10/07/18 16:28 Dose: 150 mls/hr Documented by: [id number] Infusion: 10/07/18 16:25 Dose: 150 mls/hr Documented by: [id number] Admin: 10/07/18 10:02 Dose: Not Given Documented by: [id number] Admin: 10/07/18 09:44 Dose: 150 mls/hr Documented by: [id number] Infusion: 10/07/18 08:50 Dose: 150 mls/hr Documented by: [id number] Admin: 10/07/18 02:09 Dose: 150 mls/hr Documented by: [id number] Levofloxacin/Dextrose (Levaquin/D5w) 750 mg in 150 mls @ 100 mls/hr IV Q24H [facility] Stop: 10/13/18 19:59 Last Infusion: 10/08/18 21:51 Dose: 0 mls/hr Documented by: [id number] Admin: 10/08/18 20:10 Dose: 100 mls/hr Documented by: [id number] Infusion: 10/07/18 21:57 Dose: 0 mls/hr Documented by: [id number] Admin: 10/07/18 20:27 Dose: 100 mls/hr Documented by: [id number] Infusion: 10/06/18 23:30 Dose: 0 mls/hr Documented by: [id number] Admin: 10/06/18 20:36 Dose: 100 mls/hr Documented by: [id number] Clindamycin Phosphate 600 mg/ (Dextrose) 54 mls @ 108 mls/hr IV Q8H [facility] Stop: 10/13/18 20:59 Last Infusion: 10/09/18 12:49 Dose: 0 mls/hr Documented by: [id number] Admin: 10/09/18 12:08 Dose: 108 mls/hr Documented by: [id number] Infusion: 10/09/18 04:37 Dose: 0 mls/hr Documented by: [id number] Admin: 10/09/18 03:59 Dose: 108 mls/hr Documented by: [id number] Infusion: 10/08/18 23:15 Dose: 0 mls/hr Documented by: [id number] Admin: 10/08/18 22:35 Dose: 108 mls/hr Documented by: [id number] Infusion: 10/08/18 14:50 Dose: 0 mls/hr Documented by: [id number] Admin: 10/08/18 13:45 Dose: 108 mls/hr Documented by: [id number] Infusion: 10/08/18 05:41 Dose: 0 mls/hr Documented by: [id number] Admin: 10/08/18 05:06 Dose: 108 mls/hr Documented by: [id number] Infusion: 10/07/18 22:39 Dose: 0 mls/hr Documented by: [id number] Admin: 10/07/18 21:58 Dose: 108 mls/hr Documented by: [id number] Infusion: 10/07/18 13:19 Dose: 0 mls/hr Documented by: [id number] Admin: 10/07/18 12:49 Dose: 108 mls/hr Documented by: [id number] Infusion: 10/07/18 05:25 Dose: 0 mls/hr Documented by: [id number] Admin: 10/07/18 04:51 Dose: 108 mls/hr Documented by: [id number] Infusion: 10/06/18 23:30 Dose: 0 mls/hr Documented by: [id number] Admin: 10/06/18 20:57 Dose: 108 mls/hr Documented by: [id number] Ioversol (Optiray 320 125ml) 77 ml IV ONCE PRN PRN Reason: Interaction Checking Stop: 10/10/18 16:13 Last Admin: 10/06/18 16:14 Dose: 77 ml Documented by: [id number] Levalbuterol HCl (Xopenex Hfa) 2 puffs INH QID [facility] Stop: 11/07/18 08:59 Last Admin: 10/09/18 16:43 Dose: 2 puffs Documented by: [id number] Admin: 10/09/18 13:03 Dose: 2 puffs Documented by: [id number] Admin: 10/09/18 07:43 Dose: 2 puffs Documented by: [id number] Admin: 10/08/18 20:11 Dose: 2 puffs Documented by: [id number] Admin: 10/08/18 16:53 Dose: 2 puffs Documented by: [id number] Admin: 10/08/18 13:47 Dose: 2 puffs Documented by: [id number] Admin: 10/08/18 08:33 Dose: 2 puffs Documented by: [id number] Rivaroxaban (Xarelto) 15 mg PO BID@0900,2100 [facility] Stop: 10/28/18 21:01 Last Admin: 10/09/18 08:14 Dose: 15 mg Documented by: [id number] Admin: 10/08/18 20:59 Dose: 15 mg Documented by: [id number] Admin: 10/08/18 14:42 Dose: 15 mg Documented by: [id number]
[2018-10-09] MEDS: LEVOFLOXACIN/D5W 750 MG/150 ML BAG IV SCH (19:34)
[2018-10-10] MEDS: SODIUM CHLORIDE 0.9% 1000ML 1,000 ML IV SCH (01:35)
[2018-10-10] MEDS: CLINDAMYCIN 600 MG in DEXTROSE 5% 50 ML IV SCH (04:15)
[2018-10-10 07:09] LABS: Basophils # (auto) 0.02 K/uL (0-0.2); Basophils % (auto) 0.2 %; Eosinophils % (auto) 2.4 %; Hematocrit (blood only) 44.1 % (42-52); Hemoglobin 15.9 g/dL (14.0-18.0); Immature Granulocytes # (auto) 0.03 K/uL (0.00-0.02); Immature Granulocytes % (auto) 0.4 %; Lymphocytes # (auto) 2.65 K/uL (1.2-3.4); Mean Corpuscular Hgb Conc 36.1 g/dL (32-36); Mean Corpuscular Volume 86.8 fL (80-100); Mean Platelet Volume 10.3 fL (7.4-10.4); Monocytes # (auto) 0.35 K/uL (0.11-0.59); Monocytes % (auto) 4.2 %; Neutrophils # (auto) 5.02 K/uL (1.4-6.5); Neutrophils % (auto) 60.8 %; Platelet Count 266 K/uL (130-400); RDW Coefficient of Variation 12.7 % (11.5-14.5); RDW Standard Deviation 40.5 fL (36.4-46.3); Red Blood Count 5.08 M/uL (4.7-6.1); White Blood Count 8.27 K/uL (4.8-10.8)
[2018-10-10 07:47] LABS: BUN Creatinine Ratio 12.3 (10-20); Calcium 9.3 mg/dl (8.5-10.1); Creatinine Clr Calc Pharmacy 117.9 ml/min; Est GFR (African American) 145.8; Est GFR (Non-African American) 125.8; Potassium 4.1 mmol/L (3.5-5.1)
[2018-10-10] MEDS: LEVALBUTEROL TARTRATE 15 GM HFA.AER.AD INH SCH ×2 (10:41→13:18)
[2018-10-10] MEDS: RIVAROXABAN 15 MG TAB PO SCH (10:41)
--- NOTE | 2018-10-10 13:27 | Hospitalist Progress Note ---
Date of Service October 10, 2018 Assessment & Plan (1) Bilateral pneumonia: Likely Aspiration has been admitted to recently for depression, undergoing ECT weekly afebrile, leukocytosis resolved blood culture: gram negative bacilli seen on 1 out of 2 bottles nasal MRSA swab: negative covered with Levaquin + Clinda (allergic to Penicillin) Nebs q6h as needed repeat CXR pneumonia improving -- Pulmonary consulted- Dr. Pineda recommend to continue antibiotics, to complete 10 day course Levaquin 750 mg daily x 5 days Clindamycin 600mg TID x 5 days -- need to ff up final blood cultures to determine antibiotic regimen and duration HEMOPTYSIS consulted Dr. Pineda, discussed case with him -- likely from PNA Bronchoscopy not indicated at this time --No recurrence since admission BILATERAL PULMONARY EMBOLISM unprovoked CT chest: Small filling defects of the third or vessels and lung bases consistent with small peripheral pulmonary emboli. discussed case with Dr. Pineda, recommend to check Doppler US of the Legs, if negative, hold off on anticoagulation at this time in light of hemoptysis + significant pneumonia Doppler US of the legs: negative -- discussed with Dr. Pineda Started with Xarelto 15 mg p.o. twice daily for 21 days , then 20 mg p.o. daily -- partial work up for hypercoagulable state ordered- please follow up please refer to [facility] ELEVATED CPK from ECT? CPK 3000 IV fluids ordered trended down to 300s HISTORY OF DEPRESSION, BIPOLAR DISORDER undergoes ECT weekly denies depression, suicidal ideations at present 302 signed by patient's mother 10/03 as patient was expressing suicidal id eations, left the house, the next day, patient returned home and was denying suicidal ideations already Psych consulted- does not recommend inpatient Psych treatment continue to ff up with Psychiatrist will discuss with patient's Psychiatrist Dr. Castañeda Disposition d/c home today case discussed with patient he is agreeable, comfortable with plan of care Subjective ff up for pneumonia seen resting in bed, comfortable seen with DEXTER Domínguez at bedside states he feels better overall no dyspnea, cough almost resolved- non productive, no hemoptysis denies chest pain, congestion denies bleeding states his mood is fine, denies depression/suicidal ideations states he is ready and would like to be discharged today Review of Systems Review of Systems: All systems reviewed & are unremarkable except as noted in HPI & below Physical Exam Physical Exam: General- oriented x 3, not in distress, speaks in sentences with no effort or accessory muscle use Eyes- anicteric Neck- no JVD Lungs- clear breath sounds bilaterally, no rhonchi, no wheezing Heart- normal rate, regular rhythm; no murmurs Abdomen- normal bowel sounds, nondistended, soft, nontender Extremities- no pretibial edema, no calf tenderness Neuro- alert, oriented x 3; no gross focal neurologic deficits Skin- warm & dry Results & Data Vital Signs (Past 12 Hours) Vital Signs Temp Pulse Pulse Resp BP Pulse Ox 10/10/18 12:22 138/94 10/10/18 11:42 36.8 C 85 20 164/97 H 98 10/10/18 08:00 65 10/10/18 07:37 36.3 C L 90 16 95/63 L 96 10/10/18 03:59 37.1 C 70 16 107/71 96 (1) Bilateral pneumonia Lung location: unspecified part of lung Pneumonia type: due to unspecified organism Qualified Code(s): J18.9 - Pneumonia, unspecified organism
[2018-10-12 17:55] LABS: Anti Cardiolipin Ab IgG <14 GPL (< = 14); Anti Cardiolipin Ab IgM <12 MPL (< = 12); B2 Glycoprotein IgA <9 SAU (<=20); B2 Glycoprotein IgG <9 SGU (<=20); B2 Glycoprotein IgM <9 SMU (<=20)
[2018-10-13 05:25] LABS: B2 Glycoprotein IgA <9 SAU (<=20); B2 Glycoprotein IgG <9 SGU (<=20); B2 Glycoprotein IgM <9 SMU (<=20); Phosphatidylserine IgG <10 U/mL (<10); Phosphatidylserine IgM <25 U/mL (<25)
--- NOTE | 2018-10-13 09:27 | Discharge Summary ---
Date of Service October 13, 2018 Admission HPI Per Admitting Provider The patient is well known to the [facility]. Please see most recnet admission from 08/15/18 to 08/19/18 for full history. Presently the patient is admitted medically for pneumonia on 10/06/18. ON 10/08/18 a 302 warrant from police was delivered, the warrant had been inssued on 10/03/18 and the aptient could not be located until this time by police. 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 When the package arrived they confiscated it and the pateint threatened to go to purchase a similar related OTC version and made suicidal threatening statements. (See 302 warrant with parents petitioning statement.) THe patient left the home and was not reachable, even later once he identified the friend he would stay with he remained unreachable. The parents filed a petition with police on 10/03/18 out of concern for Ramona's Safety. Per Shalom on interview today he states "I was never suicidal when arguing with my parents." He was told by his mother that she had completed a petition, the patient states that called [employer] and was told there was not a warrant. THe patient missed ECT on 10/04 because "Barb never called me with a time" (this was after missing his 09/29 and Monday 10/02 treatment [place] He returned home on Tue evening and denies doing any drugs. His father took him to [facility] for ECT on Friday 10/06, and then he began having hemoptysis and was brought to the [facility] ER for medical care and ultimately admissed. The patient denies current SI, planning or intent. He denies having SI on 10/03/18 and states "I don't remember saying those things" when referencing the petitioning statement. He reports he is off all his psychotropic medications "because I don't feel they help, I don't like my psychiatrist and don't think I will take any further medications until I see the psychiatrist at the [facility], I am on a waiting list since July." He is receiving ECT about [address] Schafer in [place], "I think it is helping" he has mild memory concerns but o/w feels he is tolerating the treatments well with benefit. THe patient is awaiting medical clearance and Dr Addison will speak with Dr Schafer to discuss any conflict with ECT and patient's treatment The patinet states his mood is 5/10 and anxiety is low. 'I feel decent" intact sleep at this time, minimal interest while ill inpatient but watching TV texting friends appreciating family visits. Denies safety concerns now. The patient feels the disupte with his parents is resolved and they have visited him in the hospital and there is no outstanding disagreement or tension at this time. Patient is future oriented at this time to see his therapist every Thursd ay at the [facility], Citlaly Stanley, and awaiting psychiatric appointment declining to see his prior psychiatrist Dr Benavidez, and declining medications, states intention to continue ECT unless it is contraindicated. For remainder of history please see thorough report on 08/15/18 Psychiatric H&P and 08/19/18 discharge summary. Admission Exam Per Admitting Provider General- oriented x 3, not in distress, speaks in sentences with no effort or accessory muscle use Head- atraumatic Eyes- PERRL, EOMI, anicteric ENT- oropharynx clear Neck- supple, no JVD, no adenopathy, no thyromegaly; carotids +2/2, no bruits appreciated Lungs- (+) rhonchi R side no wheezing Heart- tachycardic rate, regular rhythm; no murmur, no gallop, no rub appreciated Abdomen- normal bowel sounds, nondistended, soft, nontender, no masses or hepatosplenomegaly Extremities- no pretibial edema, no calf tenderness; peripheral pulses intact Neuro- alert, oriented x 3; CN 2-12 grossly intact; motor 5/5 bilaterally;sensation 100% on all extremities; no other gross focal neurologic deficits Skin- warm & dry Principal Diagnosis BILATERAL PNEUMONIA, PULMONARY EMBOLISM Discharge Exam General- oriented x 3, not in distress, speaks in sentences with no effort or accessory muscle use Eyes- anicteric Neck- no JVD Lungs- clear breath sounds bilaterally, no rhonchi, no wheezing Heart- normal rate, regular rhythm; no murmurs Abdomen- normal bowel sounds, nondistended, soft, nontender Extremities- no pretibial edema, no calf tenderness Neuro- alert, oriented x 3; no gross focal neurologic deficits Skin- warm & dry Discharge Data Allergies Allergy/AdvReac Type Severity Reaction Status Date / Time Penicillins Allergy Mild Unknown Unverified 10/06/18 15:26 amoxicillin Allergy Unknown HIVES Unverified 10/06/18 15:26 Consultations 10/06/18 16:45 ED Decision to Admit Stat 10/06/18 19:08 Consult Pulmonology Routine 10/09/18 08:00 Consult Psychiatry Routine Ordered Studies 10/06/18 15:20 CT angio chest PE protocol Stat CT angio chest PE protocol CT DOSE: 217.03 mGy.cm HISTORY: Chest pain. Dyspnea. PE TECHNIQUE: Multiaxial CT images of the chest were performed following the intravenous administration of contrast to evaluate the pulmonary arteries. Maximal intensity projection images were also obtained. A dose lowering technique was utilized adhering to the principles of ALARA. COMPARISON STUDY: None. FINDINGS: The thoracic aorta is normal in course and caliber. Left lung demonstrates a small pancreatic infiltrates. Segment left lower lobe and to a lesser extent left upper lobe. There is diffuse parenchymal infiltrative the right mid and lower lung. Evaluation of pulmonary arterial structures show a small filling defects of the cervical vessels of the right as well as left lower lobe. There is no evidence for a central or main pulmonary embolus. The pulmonary apices demonstrate minimal biapical infiltrative change. IMPRESSION: 1. Diffuse parenchymal infiltrate of the right and to a lesser extent left hemithorax. 2. Small filling defects of the third or vessels and lung bases consistent with small peripheral pulmonary emboli. 4. No evidence for major or central pulmonary embolus. 5. Mild hepatosplenomegaly. 10/06/18 17:59 US venous doppler LE BI Stat BILATERAL LOWER EXTREMITY VENOUS DOPPLER HISTORY: Shortness of breath. Assess for DVT. r.o dvt COMPARISON STUDY: None. FINDINGS: There is normal compressibility, flow, and augmentation within the bilateral lower extremity deep venous systems. IMPRESSION: No DVT within the right or left lower extremity. Hospital Course (1) Bilateral pneumonia: Likely Aspiration has been admitted to recently for depression, undergoing ECT weekly blood culture: gram negative bacilli seen on 1 out of 2 bottles- no growth after 5 days nasal MRSA swab: negative covered with Levaquin + Clinda (allergic to Penicillin) Nebs q6h repeat CXR pneumonia improving afebrile, leukocytosis resolved patient clinically improved -- [facility] consulted- Dr. Pineda , bronchscopy not recommended recommend to continue antibiotics, to complete 10 day course Levaquin 750 mg daily x 5 days Clindamycin 600mg TID x 5 days -- need to ff up final blood cultures to determine antibiotic regimen and duration HEMOPTYSIS consulted Dr. Pineda, discussed case with him -- likely from PNA Bronchoscopy not indicated at this time --No recurrence since admission BILATERAL PULMONARY EMBOLISM unprovoked question on whether testosterone therapy can be a risk factor? CT chest: Small filling defects of the third or vessels and lung bases consistent with small peripheral pulmonary emboli. discussed case with Dr. Pineda, recommend to check Doppler US of the Legs, if negative, hold off on anticoagulation at this time in light of hemoptysis + significant pneumonia Doppler US of the legs: negative -- discussed with Dr. Pineda Started with Xarelto 15 mg p.o. twice daily for 21 days , then 20 mg p.o. daily -- partial work up for hypercoagulable state ordered- please follow up please refer to [employer] ELEVATED CPK from ECT? CPK 3000 IV fluids ordered trended down to 300s HISTORY OF DEPRESSION, BIPOLAR DISORDER undergoes ECT weekly denies depression, suicidal ideations at present 302 signed by patient's mother 10/03 as patient was expressing suicidal ideations, left the house, the next day, patient returned home and was denying suicidal ideations already Psych consulted- does not recommend inpatient Psych treatment continue to ff up with Psychiatrist discussed with patient's Psychiatrist Dr. Schafer-- recommend to hold off on ECT until ff up with him Disposition d/c home today case discussed with patient he is agreeable, comfortable with plan of care Total Time Total Time Spent Total Time Spent (In Minutes): > 30 mins Discharge Plan Discharge Items Patient Disposition: Home - Self-Care Reason For Visit: PNEUMONIA, PE Discharge Diagnosis: PNEUMONIA, PULMONARY EMBOLISM (BLOOD CLOT IN THE LUNGS) Discharge Goals: Diagnostic testing and Therapeutic intervention Activity: As commented below Activity Comment: NO HEAVY EXERTION UNTIL RE-EVALUATED BY PRIMARY CARE PHYSICIAN Lifting: Wait until after follow-up appointment Exercise/Sports: Wait until after follow-up appointment Driving/Machine Use Comment: NO DRIVING UNTIL RE-EVALUATED BY PRIMARY CARE PHYSICIAN Non-emergency contact: Primary Care Provider Call non-emergency contact if: you have any medication questions, your symptoms worsen and you have a fever Follow-up/Referrals: Harika Gray MD [Primary Care Provider] - Diet: Regular Addtl Provider Instructions: FOLLOW UP WITH DR. FERRARA ON Tuesday10/12/18 AT 10:45AM. FOLLOW UP WITH THERAPIST AND DR. SCHAFER SCHEDULED. PLEASE REVIEW YOUR NEW MEDICATION LIST AND FOLLOW INSTRUCTIONS CAREFULLY. TAKE XARELTO 15MG BY MOUTH TWICE A DAY UNTIL OCTOBER 28, 2018. STARTING OCTOBER 29, 2018, TAKE XARELTO 20MG BY MOUTH ONCE A DAY ONLY. CALL PRIMARY CARE PHYSICIAN OR RETURN TO THE ER IMMEDIATELY IF WITH RECURRENCE/WORSENING OF SYMPTOMS, SIGNS OF BLEEDING. IF YOU HAVE ANY HEAD TRAUMA, PROCEED TO THE ER IMMEDIATELY. STAY WELL HYDRATED. INCLUDE YOGURT AND PROBIOTIC IN YOUR DAILY DIET. Prescriptions: New levalbuterol tartrate [Xopenex HFA] 45 mcg/actuation Hfa Aerosol Inhaler 2 puff inhalation Q4H PRN (Reason: Shortness Of Breath Or Wheezing) 7 Days Qty: 1 RF: 1 Xarelto 15 mg Tablet 15 mg PO BID@0900,2100 19 Days Qty: 38 RF: 0 Xarelto 20 mg tablet 20 mg PO DAILY 30 Days Qty: 30 RF: 1 levofloxacin [Levaquin] 750 mg tablet 750 mg PO DAILY 5 Days Qty: 5 RF: 0 clindamycin HCl 300 mg capsule 600 mg PO TID 5 Days Qty: 30 RF: 0 Discontinued carbamazepine 200 mg tablet extended release 12 hr 200 mg PO DAILY RF: 0 carbamazepine 200 mg tablet extended release 12 hr 400 mg PO HS RF: 0 testosterone cypionate 200 mg/mL Oil 200 mg IM WK RF: 0 atomoxetine 80 mg capsule 80 mg PO DAILY RF: 0 atenolol 25 mg Tablet 25 mg PO DAILY PRN (Reason: Anxiety) RF: 0 Vraylar 1.5 mg capsule 1.5 mg PO DAILY Qty: 30 RF: 0 Stand-Alone Forms: My [employer]/Other Patient Handouts: Rivaroxaban Oral tablet Rivaroxaban Oral tablet, Clindamycin Hydrochloride Oral capsule, Levofloxacin Oral tablet, Levalbuterol Tartrate Pressurized inhalation suspension, Embolism Pulmonary Discharge Orders: Discharge Order (Routine); Ordered 10/10/18 Ordered By: Kaden Thomas Admission Data Admit Date/Time: 10/06/18 18:45 Attending Provider: Kaden Thomas Admit Provider: Kaden Thomas Primary Care Provider: Harika Gray Other Providers: Kaden Thomas ; Anselmo Pineda ; Jamey Rawls ; Halima Enrique ; Iglesia Alberts ; Alethea Black ; Miki Lopez ; Laura Ayon ; Kristy Hernandes ; Benjamin Bell ; Prabhu Luna ; Abdelrahman Hernandez ; Karson Sainz ; Isaak Bentley ; Gemma Pearce Service: Telemetry Other Interventions: Discharge Summary Assessment (RN) Last Done: 10/10/18 13:35 DC Date/Time DO NOT enter until pt leaves facility: 10/10/18 14:38
== END 2018-10-10 14:38 | disposition home or self-care (01) | DRG 177 ==
LOC: ED 13:54 → 2S 18:31
DX: M62.82 Rhabdomyolysis; I26.99 Other pulmonary embolism without acute cor pulmonale; J69.0 Pneumonitis due to inhalation of food and vomit; Z79.890 Hormone replacement therapy; F90.9 Attention-deficit hyperactivity disorder, unspecified type; F60.3 Borderline personality disorder; Z88.1 Allergy status to other antibiotic agents; Z88.0 Allergy status to penicillin; F12.90 Cannabis use, unspecified, uncomplicated; F41.1 Generalized anxiety disorder; F64.0 Transsexualism

== ENCOUNTER 2018-10-15 02:48 | Inpatient (IN) ==
[2018-10-15] MEDS ORDERED: MoRPHine SULFATE 4 MG/ML 1 ML CARP\\VIAL IV STA (03:14)
[2018-10-15] MEDS ORDERED: ONDANSETRON INJ 2 MG/ML 2 ML VIAL IV STA (03:14)
--- NOTE | 2018-10-15 03:51 | Emergency Department Note ---
History of Present Illness General Chief complaint: Leg Injury/Pain Stated complaint: LEG PAIN History of Present Illness Maximum Pain Intensity: 8 This 23-year-old presents to the ER complaining of left lower groin and hip pain Location: Left groin hip Quality: Aching Severity: Moderate Duration: Tonight Timing: Tonight Context: Pain persisted and patient came in Modifying factors: better with palpation; worse with activity Patient is a female transitioning to male. he still has female anatomy. he is on hormone replacement and is on Xarelto for history of PE. he is still on Levaquin for her pneumonia. Patient denies injury to the area, chest pain, dyspnea, back pain, pelvic pain, fever, chills. Home Medications Home Medications Medication Instructions Recorded Confirmed Type levalbuterol tartrate [Xopenex HFA] 2 puff INHALATION Q4H PRN 7 Days 10/10/18 10/15/18 Rx #1 inhaler rivaroxaban [Xarelto] 15 mg PO BID@0900,2100 19 Days #38 10/10/18 10/15/18 Rx tab rivaroxaban [Xarelto] 20 mg PO DAILY 30 Days #30 tab 10/10/18 10/15/18 Rx Allergies Allergy/AdvReac Type Severity Reaction Status Date / Time Penicillins Allergy Mild Unknown Unverified 10/15/18 03:02 amoxicillin Allergy Unknown HIVES Unverified 10/15/18 03:02 Past Med/Surg History Medical History ADHD, predominantly inattentive type Alcohol abuse Anxiety Cannabis abuse ADAMA (generalized anxiety disorder) Lysergic acid diethylamide (LSD) abuse Migraine Status post gender reassignment surgery Suicidal ideation Surgical History H/O mastectomy testosterone treatment Family History Other Family history of high blood pressure Social History Preferred Language: French Communication Ability: Effective Visual Impairment: Partially Limited Hearing Ability: Normal Beliefs That Will Affect Care: None marital status: Single Current Living Situation: Parent current occupational status: unemployed Feels Safe at Home: Yes Smoking Status: Never smoker Tobacco Type: cigarettes Second Hand Exposure: No Hx Alcohol Use: Yes Alcohol type: beer Hx Substance Use: No Review of Systems All systems reviewed & are unremarkable except as noted in HPI & below Physical Exam Vital Signs Vital Signs - 24 hr 10/15/18 02:51 10/15/18 03:32 10/15/18 05:06 Temperature 36.6 C Temperature Source Oral Sepsis Recent Fever Within 48 Hours No Sepsis Action Taken by Nursing No Action Required Pulse Rate 95 H Pulse Rate [Finger] 90 Respiratory Rate 18 18 Respiratory Effort / Characteristics Non-Labored Spontaneous Non-Labored Spontaneous Respiratory Depth Normal Normal Blood Pressure 107/73 Blood Pressure [Right Arm] 117/72 Blood Pressure Mean 84 Blood Pressure Mean [Right Arm] 87 Blood Pressure Position Sitting Pulse Oximetry 97 98 96 Oxygen Delivery Method Room Air Room Air Room Air VITALS: Vitals are noted on the nurse's note and reviewed by myself. Vital signs stable. GENERAL: Pleasant patient, in no acute distress, nondiaphoretic, well-developed well-nourished. SKIN: The skin was without rashes, erythema, edema, or bruising. There is no tenting of the skin. Capillary reflex less than 2 seconds. HEAD: Normocephalic atraumatic. EARS: External auditory canals clear, tympanic membranes pearly mary without erythema or effusion bilaterally. EYES: Pupils equal round and reactive to light and accommodation. Conjunctivae without injection, sclerae without icterus. Extraocular movements intact. NOSE: Patent, turbinates without inflammation or discharge. MOUTH: Mucous membranes moist. Pharynx without erythema or exudate. Uvula midline. Airway patent. Tongue does not deviate. NECK: Supple without nuchal rigidity. No lymphadenopathy. No thyromegaly. Cervical spine is nontender. No JVD. HEART: Regular rate and rhythm without murmurs gallops or rubs. LUNGS: Clear to auscultation bilaterally without wheezes, rales or rhonchi. No retractions or accessory muscle use. ABDOMEN: Positive bowel sounds x 4. Normal tympanic percussion. Soft, tender to palpation left lower groin area, without masses or organomegaly. Frazier sign negative. No guarding or rebound tenderness. No CVA tenderness MUSCULOSKELETAL: No muscle atrophy, erythema, or edema noted. Pelvis stable, tender to palpation left groin, increased pain with range of motion of the hip. No signs of infection to the hip. Left femur knee and bhandari nontender to palpation. NEURO: Patient was alert and oriented to person place and time. Normal sens ation to light and sharp touch. No focal neurological deficits. Course Administered Medications Ioversol (Optiray 320 100ml) 94 ml IV ONCE PRN PRN Reason: Interaction Checking Stop: 10/19/18 04:46 Last Admin: 10/15/18 04:48 Dose: 1 ml Documented by: [id number] Discontinued Medications Morphine Sulfate (Morphine Sulfate) 4 mg IV NOW STA Stop: 10/15/18 03:15 Last Admin: 10/15/18 03:33 Dose: 4 mg Documented by: [id number] Ondansetron HCl (Zofran) 4 mg IV NOW STA Stop: 10/15/18 03:15 Last Admin: 10/15/18 03:33 Dose: 4 mg Documented by: [id number] Medical Decision Making Medical Records Attestation: I reviewed the patient's medical records. Home Medications Current Medication List: was personally reviewed by me Laboratory Data Attestation: I reviewed the patient's lab results. Result diagrams: 10/15/18 03:27 10/15/18 03:27 Lab Results 10/15/18 10/15/18 10/15/18 Range/Units 03:27 03:27 05:00 WBC 14.50 H (4.8-10.8) K/uL RBC 4.92 (4.7-6.1) M/uL Hgb 15.0 (14.0-18.0) g/dL Hct 43.1 (42-52) % MCV 87.6 (80-100) fL MCH 30.5 (25-34) pg MCHC 34.8 (32-36) g/dL RDW Std Deviation 40.3 (36.4-46.3) fL RDW Coeff of Vee 12.5 (11.5-14.5) % Plt Count 319 (130-400) K/uL MPV 10.3 (7.4-10.4) fL Immature Gran % (Auto) 0.4 % Neut % (Auto) 77.4 % Lymph % (Auto) 16.8 % [place] % (Auto) 4.6 % Eos % (Auto) 0.7 % Baso % (Auto) 0.1 % Immature Gran # (Auto) 0.06 H (0.00-0.02) K/uL Neut # (Auto) 11.22 H (1.4-6.5) K/uL Lymph # (Auto) 2.44 (1.2-3.4) K/uL [place] # (Auto) 0.66 H (0.11-0.59) K/uL Eos # (Auto) 0.10 (0-0.5) K/uL Baso # (Auto) 0.02 (0-0.2) K/uL Sodium 136 (136-145) mmol/L Potassium 3.6 (3.5-5.1) mmol/L Chloride 102 (98-107) mmol/L Carbon Dioxide 28 (21-32) mmol/L Anion Gap 6.0 (3-11) BUN 17 (7-18) mg/dl Creatinine 1.16 (0.6-1.4) mg/dl Est Cr Clr Drug Dosing 84.3 ml/min Est GFR ( Amer) 103.8 Est GFR (Non-Af Amer) 89.5 BUN/Creatinine Ratio 15.0 (10-20) Glucose 88 (70-99) mg/dl Calcium 9.4 (8.5-10.1) mg/dl Total Bilirubin 0.7 (0.2-1) mg/dl AST 19 (15-37) U/L ALT 37 (12-78) U/L Alkaline Phosphatase 88 (45-117) U/L Total Protein 7.9 (6.4-8.2) gm/dl Albumin 4.2 (3.4-5.0) gm/dl Globulin 3.7 (2.5-4.0) gm/dl Albumin/Globulin Ratio 1.1 (0.9-2) Urine Color Yellow Urine Appearance Clear (Clear) Urine pH 6.0 (4.5-7.5) Ur Specific [place] 1.026 (1.000-1.030) Urine Protein Negative (Negative) Urine Glucose (UA) Negative (Negative) Urine Ketones Negative (Negative) Urine Blood Negative (Negative) Urine Nitrite Negative (Negative) Urine Bilirubin Negative (Negative) Urine Urobilinogen Negative (Negative) Ur Leukocyte Esterase Negative (Negative) Urine Opiates Screen (Neg) Ur Methadone, Qual (Neg) Urine Barbiturates (Neg) Ur Phencyclidine (PCP) (Neg) U Amphetamin/Meth Scrn (Neg) MDMA (Ecstasy) Screen (Neg) U Benzodiazepines Scrn (Neg) Ur Cocaine Metabolite (Neg) U Marijuana (THC) Screen (Neg) 10/15/18 Range/Units 05:00 WBC (4.8-10.8) K/uL RBC (4.7-6.1) M/uL Hgb (14.0-18.0) g/dL Hct (42-52) % MCV (80-100) fL MCH (25-34) pg MCHC (32-36) g/dL RDW Std Deviation (36.4-46.3) fL RDW Coeff of Vee (11.5-14.5) % Plt Count (130-400) K/uL MPV (7.4-10.4) fL Immature Gran % (Auto) % Neut % (Auto) % Lymph % (Auto) % [place] % (Auto) % Eos % (Auto) % Baso % (Auto) % Immature Gran # (Auto) (0.00-0.02) K/uL Neut # (Auto) (1.4-6.5) K/uL Lymph # (Auto) (1.2-3.4) K/uL [place] # (Auto) (0.11-0.59) K/uL Eos # (Auto) (0-0.5) K/uL Baso # (Auto) (0-0.2) K/uL Sodium (136-145) mmol/L Potassium (3.5-5.1) mmol/L Chloride (98-107) mmol/L Carbon Dioxide (21-32) mmol/L Anion Gap (3-11) BUN (7-18) mg/dl Creatinine (0.6-1.4) mg/dl Est Cr Clr Drug Dosing ml/min Est GFR ( Amer) Est GFR (Non-Af Amer) BUN/Creatinine Ratio (10-20) Glucose (70-99) mg/dl Calcium (8.5-10.1) mg/dl Total Bilirubin (0.2-1) mg/dl AST (15-37) U/L ALT (12-78) U/L Alkaline Phosphatase (45-117) U/L Total Protein (6.4-8.2) gm/dl Albumin (3.4-5.0) gm/dl Globulin (2.5-4.0) gm/dl Albumin/Globulin Ratio (0.9-2) Urine Color Urine Appearance (Clear) Urine pH (4.5-7.5) Ur Specific [place] (1.000-1.030) Urine Protein (Negative) Urine Glucose (UA) (Negative) Urine Ketones (Negative) Urine Blood (Negative) Urine Nitrite (Negative) Urine Bilirubin (Negative) Urine Urobilinogen (Negative) Ur Leukocyte Esterase (Negative) Urine Opiates Screen Pos H (Neg) Ur Methadone, Qual Neg (Neg) Urine Barbiturates Neg (Neg) Ur Phencyclidine (PCP) Neg (Neg) U Amphetamin/Meth Scrn Neg (Neg) MDMA (Ecstasy) Screen Neg (Neg) U Benzodiazepines Scrn Neg (Neg) Ur Cocaine Metabolite Neg (Neg) U Marijuana (THC) Screen Neg (Neg) Imaging Data Attestation: I personally reviewed and interpreted this imaging study as follows: MDM Narrative Prior records/ancillary studies reviewed. Triage Nursing notes reviewed. Additional history obtained from family. The patient's history was concerning for hip and abdominal pain. Differential diagnosis: Etiologies such as muscle skeletal, ovarian, appendicitis, diverticulitis, PUD, biliary pathology, UTI, pancreatitis, obstruction, mesenteric ischemia, aortic pathology, infections, inflammatory bowel disease, renal colic, as well as ot hers were entertained. Physical examination findings: As above. ER treatment provided: Morphine, Zofran IV On reassessment the patient felt better. Diagnostics interpreted by me: The labs revealed leukocytosis. Stable H&H. Blood cultures pending Imaging studies: CT ABDOMEN & PELVIS With Contrast: There is extraperitoneal/retroperitoneal fat stranding noted adjacent to and immediately superior to the left iliopsoas muscle. In addition, the left iliacus muscle is slightly more prominent in size and somewhat heterogeneous, compared to the contralateral muscle. Differential co nsideration includes intramuscular hematoma with minimal associated retroperitoneal hemorrhagic prod ucts versus developing inflammation/infection of the muscle. Please correlate clinically. No well-defined fluid collection to suggest an intramuscular abscess is clearly identified. The regional left colon demonstrates no evidence for mucosal thickening or diverticula. No bowel obstruction. No free intraperitoneal fluid or pneumoperitoneum. The kidneys demonstrate normal enhancement without calcifications or hydronephrosis. The liver, gallbladder, pancreas, spleen and adrenal glands are unremarkable. The uterus and adnexa demonstrate no significant abnormality. The bladder is distended without wall abnormalities or calcifications. No acute osseous or significant overlying soft tissue abnormality. Radiologist: Jhonny Peralta MD Consultation: A consultation was placed with the hospitalist, Dr. Kellogg. The case was discussed and diagnostics were reviewed. The patient was evaluated in the ER for further treatment. Exam and history seem consistent with left hip infection versus hematoma. Medicine was consulted. Patient started on antibiotics. He is currently on Levaquin and Xarelto for PEs. Inflammatory markers and lactic were added. Patient is agreeable to treatment plan of admission. Stable H&H. Leukocytosis. By the evaluation outlined above emergent etiologies such as appendicitis, diverticulitis, PUD, biliary pathology, UTI, pancreatitis, obstruction, mesente rosa ischemia, aortic pathology, inflammatory bowel disease, renal colic, as well as others were deemed relatively unlikely. The pt informed about the findings as listed above. All questions were answered and pleased with the treatment. Case reviewed with my attending The chart was completed utilizing [id number] Speech voice recognition software. Grammatical errors, random word insertions, pronoun errors, and incomplete sentences are an occassional consequence of this system due to software limitations, ambient noise, and hardware issues. Any formal questions or concerns about the content, text, or information contained within the body of this dictation should be directly addressed to the physician minister assistant for clarification. Impression & Plan Hematoma of left hip, Hip problem Discharge Plan Visit Data Chief Complaint: Leg Injury/Pain Stated Complaint: LEG PAIN ED Provider: Hugo Mueller ED Midlevel Provider: Erin Kee Discharge Problem: Hematoma of left hip, Hip problem Patient Disposition: Being Evaluated by Hospitalist Condition: Good Forms Stand Alone Forms: [facility] LoggedIn Prescriptions Prescriptions: No Action levalbuterol tartrate [Xopenex HFA] 45 mcg/actuation Hfa Aerosol Inhaler 2 puff inhalation Q4H PRN (Reason: Shortness Of Breath Or Wheezing) 7 Days Qty: 1 RF: 1 Xarelto 15 mg Tablet 15 mg PO BID@0900,2100 19 Days Qty: 38 RF: 0 Xarelto 20 mg tablet 20 mg PO DAILY 30 Days Qty: 30 RF: 1 Referrals Referrals: Harika Gray MD [Primary Care Provider] - Discharge Problem: Hematoma of left hip Qualifiers: Encounter type: initial encounter Qualified Code(s): S70.02XA - Contusion of left hip, initial encounter
[2018-10-15 04:07] LABS: Basophils # (auto) 0.02 K/uL (0-0.2); Basophils % (auto) 0.1 %; Eosinophils % (auto) 0.7 %; Hematocrit (blood only) 43.1 % (42-52); Immature Granulocytes # (auto) 0.06 K/uL (0.00-0.02); Immature Granulocytes % (auto) 0.4 %; Lymphocytes # (auto) 2.44 K/uL (1.2-3.4); Lymphocytes % (auto) 16.8 %; Mean Corpuscular Hgb Conc 34.8 g/dL (32-36); Mean Corpuscular Volume 87.6 fL (80-100); Mean Platelet Volume 10.3 fL (7.4-10.4); Monocytes # (auto) 0.66 K/uL (0.11-0.59); Monocytes % (auto) 4.6 %; Neutrophils # (auto) 11.22 K/uL (1.4-6.5); Neutrophils % (auto) 77.4 %; Platelet Count 319 K/uL (130-400); RDW Coefficient of Variation 12.5 % (11.5-14.5); RDW Standard Deviation 40.3 fL (36.4-46.3); Red Blood Count 4.92 M/uL (4.7-6.1)
[2018-10-15 04:25] LABS: Albumin Level 4.2 gm/dl (3.4-5.0); Calcium 9.4 mg/dl (8.5-10.1); Creatinine Clr Calc Pharmacy 84.3 ml/min; Est GFR (African American) 103.8; Est GFR (Non-African American) 89.5; Potassium 3.6 mmol/L (3.5-5.1)
[2018-10-15 04:28] LABS: Albumin Globulin Ratio 1.1 (0.9-2); Bilirubin,Total 0.7 mg/dl (0.2-1); Globulin 3.7 gm/dl (2.5-4.0); Total Protein 7.9 gm/dl (6.4-8.2)
[2018-10-15] MEDS ORDERED: IOVERSOL 100ml IV PRN (04:47)
[2018-10-15 05:15] LABS: Appearance Urine Clear (Clear); Bilirubin Urine Negative (Negative); Blood Urine Negative (Negative); Color Urine Yellow; Glucose Urine UA Negative (Negative); Ketones Urine Negative (Negative); Leukocyte Esterase Urine Negative (Negative); Nitrite Urine Negative (Negative); Protein Urine Negative (Negative); Specific Gravity Urine 1.026 (1.000-1.030); Urobilinogen Urine Negative (Negative)
[2018-10-15 05:34] LABS: Amphetamines+Metham, Urine Neg (Neg); Barbiturates, Urine Neg (Neg); Benzodiazepine, Urine Neg (Neg); Cocaine, Urine Neg (Neg); MDMA (Ecstacy), Urine Neg (Neg); Methadone, Urine Neg (Neg); Opiate, Urine Pos (Neg); Phencyclidine, Urine Neg (Neg)
[2018-10-15] MEDS ORDERED: VANCOMYCIN CONSULT ACTIVE PRN (05:34)
[2018-10-15] MEDS ORDERED: VANCOMYCIN HCL 1,500 MG in SODIUM CHLORIDE 0.9% 500 ML IV ONE (05:34)
[2018-10-15 05:58] LABS: C Reactive Protein 0.69 mg/dl (0-0.29)
--- NOTE | 2018-10-15 07:04 | CT Scan Report ---
CT SCAN OF THE ABDOMEN AND PELVIS WITH IV CONTRAST CLINICAL HISTORY: Left lower quadrant abdominal pain. COMPARISON STUDY: Pelvic ultrasound dated 04/26/2012. TECHNIQUE: Following the IV administration of 94 cc of Optiray 320, CT scan of the abdomen and pelvi s is performed from the lung bases to the proximal femora. Images are reviewed in the axial, sagittal , and coronal planes. IV contrast was administered without complication. A dose lowering technique wa s utilized adhering to the principles of ALARA. CT DOSE: 329.59 mGy.cm FINDINGS: Lung bases: The heart is normal in size and without pericardial effusion. There is a 6 mm right middl e lobe pulmonary nodule seen on axial image #46, which is of doubtful significance in this age group. There is patchy tree-in-bud nodularity identified at the right lung base. No pleural effusion is see n. There is dependent atelectasis. Liver: The contrast-enhanced liver is normal in size, contour, and attenuation. There is no intrahepa tic biliary ductal dilatation. The hepatic veins and portal veins are patent. Gallbladder: Unremarkable. Spleen: Normal in size and attenuation. Pancreas: Unremarkable. Adrenal glands: Unremarkable. Kidneys: The contrast enhanced kidneys are normal in size and without hydronephrosis. The kidneys enh ance symmetrically. There are numerous small bilateral nonobstructing renal calculi. Abdominal vasculature: The abdominal aorta is normal in course and caliber. Bowel: There is no bowel obstruction. The appendix is well-visualized and normal. Peritoneum: There is no intraperitoneal free air or abdominal ascites. Trace hemorrhage is seen withi n the left paracolic gutter. Lymphadenopathy: None. Pelvic viscera: The bladder, uterus, and adnexa are normal as imaged. There are small ovarian follicl es. There is mild expansion, heterogeneity, and increased density identified within the distal left i liopsoas muscle, iliacus, and quadratus muscles which extends into the left groin. There is surroundi ng stranding and trace hemorrhage, this is consistent with intramuscular hematoma. Skeletal structures: No lytic or blastic lesions are seen. IMPRESSION: 1. There is mild expansion, heterogeneity, and increased density identified involving the distal left iliopsoas, iliacus, and quadratus muscles.. The appearance is most consistent with a small intramusc ular hemorrhage. Infection is considered less likely and clinical correlation will be required. There is mild stranding and trace hemorrhage around the involved musculature. 2. Trace blood is seen in the left paracolic gutter. 3. There is mild patchy tree-in-bud nodularity identified right lung base. Correlate clinically for e vidence of a mild infectious/inflammatory pneumonitis. Electronically signed by: Iglesia Luis M.D. 10/15/2018 7:02 AM
[2018-10-15] MEDS ORDERED: MoRPHine SULFATE 4 MG/ML 1 ML CARP\\VIAL ONE (07:43)
[2018-10-15] MEDS ORDERED: MoRPHine SULFATE 4 MG/ML 1 ML CARP\\VIAL IV PRN (08:06)
[2018-10-15] MEDS ORDERED: ONDANSETRON INJ 2 MG/ML 2 ML VIAL IV PRN (08:06)
[2018-10-15] MEDS ORDERED: LEVALBUTEROL TARTRATE 15 GM HFA.AER.AD INH PRN (08:06)
[2018-10-15] MEDS: SODIUM CHLORIDE 0.9% 1000ML 1,000 ML IV SCH ×2 (09:19→22:03)
[2018-10-15] MEDS: CLINDAMYCIN HCL 150 MG CAP PO SCH ×3 (09:22→20:38)
--- NOTE | 2018-10-15 10:01 | Surgery Consultation ---
Date of Consultation October 15, 2018 Assessment & Plan (1) Hematoma of left hip: CT scan with likely hematoma although denies trauma On Xarelto for DVT Unlikely infectious but agree with Abx Would treat conservatively and pain should resolve If febrile, increasing WBC, or pain worsens then repeat CT scan; if abscess develops then recommend CT guided drainage History of Present Illness Attending Physician: Kezia Calixto MD History of Present Illness This is a 23-year-old presents to the ER complaining of left lower groin and hip pain since last evening. He was seen in ED with the left groin/hip pain which was described as constant and aching. The pain is better with palpation and worse with activity and movement. The patient is a female transitioning to male but still has some female anatomy but s/p mastecomies. He is on hormone replacement and is on Xarelto for history of PE. He is being treated for pneumonia with Levaquin. He denies any injury to the area, chest pain, dyspnea, back pain, pelvic pain, fever, chills. Allergies Allergy/AdvReac Type Severity Reaction Status Date / Time Penicillins Allergy Mild Unknown Verified 10/15/18 08:11 amoxicillin Allergy Unknown HIVES Verified 10/15/18 08:11 Home Medications Home Medications Medication Instructions Recorded Confirmed Type levalbuterol tartrate [Xopenex HFA] 2 puff INHALATION Q4H PRN 7 Days 10/10/18 10/15/18 Rx #1 inhaler rivaroxaban [Xarelto] 15 mg PO BID@0900,2100 19 Days #38 10/10/18 10/15/18 Rx tab rivaroxaban [Xarelto] 20 mg PO DAILY 30 Days #30 tab 10/10/18 10/15/18 Rx Patient History Medical History ADHD, predominantly inattentive type Alcohol abuse Anxiety Cannabis abuse ADAMA (generalized anxiety disorder) Lysergic acid diethylamide (LSD) abuse Migraine Status post gender reassignment surgery Suicidal ideation Surgical History H/O mastectomy testosterone treatment Family History Other Family history of high blood pressure Social History Preferred Language: Upper Sorbian Communication Ability: Effective Visual Impairment: Partially Limited Hearing Ability: Normal Beliefs That Will Affect Care: None marital status: Single Current Living Situation: Parent current occupational status: unemployed Other Information That Helps Us Care for You: No Feels Safe at Home: Yes Safety Concerns: Feels Safe At This Time Smoking Status: Never smoker Tobacco Type: cigarettes Second Hand Exposure: No Hx Alcohol Use: Yes Alcohol type: beer Hx Substance Use: No Review of Systems Constitutional: no fever and no chills Eyes: + tunnel vision; no problem reported Ear, Nose, Mouth, Throat: no problem reported Respiratory: + chest congestion; no cough and no dyspnea Cardiovascular: no chest pain, no chest pain at rest and no dyspnea Gastrointestinal: no abdominal pain, no nausea, no vomiting, no pain with swallowing, no change in bowel habits and no melena Genitourinary: no problem reported Musculoskeletal: + joint pain (left hip), + limited range of motion and + myalgia; no back pain, no neck pain and no swelling Integumentary: no problem reported Neurologic: no problem reported Psychiatric: + depression and + anxiety Endocrine: no problem reported Hematologic / Lymphatic: + easy bleeding and + coagulopathy Allergy / Immunological: no problem reported Physical Exam Constitutional: WD/WN, vitals as above Eyes: PERRL, conjunctivae normal, anicteric sclerae ENMT: external ear and nose normal, oropharynx normal Neck: trachea midline, no thyromegaly Respiratory: normal respiratory effort; no respiratory distress Cardiovascular: RRR, no murmur, no edema Gastrointestinal (Abdomen): normal bowel sounds, soft, nontender, no hepatosplenomegaly Musculoskeletal: Head/Neck/Chest: neck supple Extremities: extremities normal to inspection (tenderness in left groin area) Skin: no rashes, warm and dry Neurologic: no focal motor deficits Psychiatric: Orientation: alert and oriented x 3 Insight: good insight Lymphatic: no lymphadenopathy Results & Data Vital Signs (Past 12 Hours) Vital Signs Temp Pulse Pulse Resp BP BP Pulse Ox 10/15/18 06:18 94 H 18 111/67 96 10/15/18 05:06 90 18 117/72 96 10/15/18 03:32 98 10/15/18 02:51 36.6 C 95 H 18 107/[address] SCAN OF THE ABDOMEN AND PELVIS WITH IV CONTRAST CLINICAL HISTORY: Left lower quadrant abdominal pain. COMPARISON STUDY: Pelvic ultrasound dated 04/26/2012. TECHNIQUE: Following the IV administration of 94 cc of Optiray 320, CT scan of the abdomen and pelvis is performed from the lung bases to the proximal femora. Images are reviewed in the axial, sagittal, and coronal planes. IV contrast was administered without complication. A dose lowering technique was utilized adhering to the principles of ALARA. CT DOSE: 329.59 mGy.cm FINDINGS: Lung bases: The heart is normal in size and without pericardial effusion. There is a 6 mm right middle lobe pulmonary nodule seen on axial image #46, which is of doubtful significance in this age group. There is patchy tree-in-bud nodularity identified at the right lung base. No pleural effusion is seen. There is dependent atelectasis. Liver: The contrast-enhanced liver is normal in size, contour, and attenuation. There is no intrahepatic biliary ductal dilatation. The hepatic veins and portal veins are patent. Gallbladder: Unremarkable. Spleen: Normal in size and attenuation. Pancreas: Unremarkable. Adrenal glands: Unremarkable. Kidneys: The contrast enhanced kidneys are normal in size and without hydronephrosis. The kidneys enhance symmetrically. There are numerous small bilateral nonobstructing renal calculi. Abdominal vasculature: The abdominal aorta is normal in course and caliber. Bowel: There is no bowel obstruction. The appendix is well-visualized and normal. Peritoneum: There is no intraperitoneal free air or abdominal ascites. Trace hemorrhage is seen within the left paracolic gutter. Lymphadenopathy: None. Pelvic viscera: The bladder, uterus, and adnexa are normal as imaged. There are small ovarian follicles. There is mild expansion, heterogeneity, and increased density identified within the distal left iliopsoas muscle, iliacus, and quadratus muscles which extends into the left groin. There is surrounding stranding and trace hemorrhage, this is consistent with intramuscular hematoma. Skeletal structures: No lytic or blastic lesions are seen. IMPRESSION: 1. There is mild expansion, heterogeneity, and increased density identified involving the distal left iliopsoas, iliacus, and quadratus muscles.. The appearance is most consistent with a small intramuscular hemorrhage. Infection is considered less likely and clinical correlation will be required. There is mild stranding and trace hemorrhage around the involved musculature. 2. Trace blood is seen in the left paracolic gutter. 3. There is mild patchy tree-in-bud nodularity identified right lung base. Correlate clinically for evidence of a mild infectious/inflammatory pneumonitis. (1) Hematoma of left hip Encounter type: initial encounter Qualified Code(s): S70.02XA - Contusion of left hip, initial encounter
[2018-10-15] MEDS: RIVAROXABAN 15 MG TAB PO SCH ×2 (10:21→20:38)
[2018-10-15] MEDS: levoFLOXacin 750 MG TAB PO SCH (10:21)
--- NOTE | 2018-10-15 10:35 | History and Physical Report ---
DATE OF ADMISSION: 10/15/2018 CHIEF COMPLAINT: Left hip pain. HISTORY OF PRESENT ILLNESS: This is a 23-year-old male with past medical history significant for depression, bipolar disorder, transferring to transgender, was recently in the hospital for suicidal ideation and also hemoptysis, shortness of breath, found to have bilateral pneumonia and also possible aspiration pneumonia and also unprovoked bilateral pulmonary emboli, with small defects to the third vessels consistent with small peripheral pulmonary emboli and initially there was no plan for anticoagulation, but later he was discharged on Xarelto and recommended to follow with head tennis coach and he also prescribed a total of 10 days of oral Levaquin and clindamycin as one of the blood culture was positive with gram-negative bacilli, no growth after 5 days. MRSA swab was negative. Lives with his parents. Comes back because last night at 9 p.m., he noticed pain in the left hip region, about 6/10 in severity and came to the hospital and found to have a CAT scan showing possible left iliopsoas muscle hematoma versus inflammatory or infectious process. No obvious abscess noted. His white count was elevated at 14,000. Afebrile. Point of care lactic acid was unremarkable, hemodynamically stable. Currently resting comfortably and hemodynamically stable. Denies any headache, no blurred vision, no sore throat, no difficulty swallowing. Appetite is okay. No chest pain, no shortness of breath, no cough, no fever, no chills, no nausea, no abdominal pain. Normal bowel and bladder movements. No blood in the stools, no black stools, no hematuria. No swelling of the legs. No rash seen. Ambulating okay ALLERGIES: PENICILLIN AND AMOXICILLIN. PAST MEDICAL HISTORY: As mentioned above. PAST SURGICAL HISTORY: History of mastectomy with testosterone treatment. Past medical history is also significant for ADHD, anxiety, migraines, status post gender reassignment surgery, alcohol abuse, cannabis abuse, LSD abuse. FAMILY HISTORY: Significant for high blood pressure. SOCIAL HISTORY: Lives with his parents. No smoke history. Alcohol use, hard lemonade fireball whiskey as per records. REVIEW OF SYSTEMS: As per HPI. Rest of review of systems is negative. PHYSICAL EXAMINATION: GENERAL: The patient is of moderate build, not in acute distress. VITAL SIGNS: Temperature 36.6, respiratory rate 18, pulse 90, blood pressure 117/72, oxygen 96% room air. HEENT: No pallor, no icterus. Pupils equal, round, reactive to light. NECK: No neck masses, supple. CARDIOVASCULAR: S1, S2 heard, regular rate and rhythm, no murmur, no gallop. RESPIRATORY SYSTEM: Normal AP diameter. No accessory muscle use. No wheezing, no crackles. ABDOMEN: Soft, bowel sounds present. Nontender. No distention. CENTRAL NERVOUS SYSTEM: Nonfocal. EXTREMITIES: Right hip region, no obvious swelling or erythema seen. No edema seen. LABORATORY DATA: WBC 14.5, hemoglobin 15, hematocrit 43.1, platelets 319. Sodium 126, potassium 3.6, chloride 102, bicarb 28, BUN 17, creatinine 1.1, serum glucose 88. Point of care lactic acid 0.5, calcium 9.4, total bilirubin 0.7, AST is 19, ALT 37, alkaline phosphatase 88, total creatinine kinase 132. Urinalysis negative. Urine opiates positive. Rest of the urine drug screen is negative. CT of the abdomen and pelvis, unofficial report, left iliopsoas muscle, possible intramuscular hematoma versus inflammation or infection of the muscle. ASSESSMENT AND PLAN: This is a 23-year-old male who presents with left hip pain. 1. Left hip pain. The patient was recently started on Xarelto for PE. CAT scan showing possible left iliopsoas intramuscular hematoma versus infection process, no obvious abscess seen. The patient is on clindamycin and Levaquin for his pneumonia to complete 10-day course. The patient received IV vancomycin in the ER, but we will continue p.o. antibiotic for now and await official report of the CAT scan and consult surgery for opinion. Pain control. Monitor in the med/surg tele. 2. History of pulmonary embolism recently, noted on third vessels peripherally, pulmonary wanted not to treat initially, but then discharged on Xarelto, which we will continue for now. Needs to follow up outpatient for hypercoagulable workup, and for recommendation for duration of the anticoagulation. 3. History of bilateral pneumonia, diagnosed last admission, to complete a 10-day course of Levaquin and clindamycin which we will continue for now. 4. History of depression, bipolar disorder, not on any medications at this time, undergoes ECT weekly at [facility].But says he is waiting his antibiotics to be completed to go to [facility]. 5. Disposition: Admit to med/surg tele. Level 1 full code. MTDD
[2018-10-15] MEDS: ACETAMINOPHEN 325 MG TAB PO PRN ×2 (13:53→19:30)
--- NOTE | 2018-10-15 14:11 | XRay Report ---
LEFT HIP 2 VIEWS CLINICAL HISTORY: Left hip pain. FINDINGS: AP and frog-leg views of the left hip are obtained. No prior studies are available for forrest patrick at the time of dictation. The skeletal structures are well mineralized. No fracture is seen in volving the left hip or the imaged left hemipelvis. The joint space of the left hip is preserved. The overlying soft tissues are normal in appearance. IMPRESSION: No acute bony abnormality is identified. Electronically signed by: Iglesia Luis M.D. 10/15/2018 2:09 PM
[2018-10-15 17:13] LABS: Basophils # (auto) 0.01 K/uL (0-0.2); Basophils % (auto) 0.1 %; Eosinophils # (auto) 0.12 K/uL (0-0.5); Eosinophils % (auto) 1.7 %; Hematocrit (blood only) 37.3 % (42-52); Hemoglobin 12.7 g/dL (14.0-18.0); Immature Granulocytes # (auto) 0.03 K/uL (0.00-0.02); Immature Granulocytes % (auto) 0.4 %; Lymphocytes # (auto) 1.23 K/uL (1.2-3.4); Lymphocytes % (auto) 16.9 %; Mean Corpuscular Volume 88.4 fL (80-100); Mean Platelet Volume 10.3 fL (7.4-10.4); Monocytes # (auto) 0.63 K/uL (0.11-0.59); Monocytes % (auto) 8.7 %; Neutrophils # (auto) 5.24 K/uL (1.4-6.5); Neutrophils % (auto) 72.2 %; Platelet Count 237 K/uL (130-400); RDW Coefficient of Variation 12.7 % (11.5-14.5); RDW Standard Deviation 40.9 fL (36.4-46.3); Red Blood Count 4.22 M/uL (4.7-6.1); White Blood Count 7.26 K/uL (4.8-10.8)
[2018-10-15] MEDS: LACTOBACILLUS ACIDOPHILUS (FLORANEX) TAB PO SCH (21:18)
[2018-10-16 05:35] LABS: Basophils # (auto) 0.02 K/uL (0-0.2); Basophils % (auto) 0.2 %; Eosinophils # (auto) 0.16 K/uL (0-0.5); Eosinophils % (auto) 1.9 %; Hematocrit (blood only) 36.9 % (42-52); Hemoglobin 12.6 g/dL (14.0-18.0); Immature Granulocytes # (auto) 0.02 K/uL (0.00-0.02); Immature Granulocytes % (auto) 0.2 %; Lymphocytes # (auto) 2.21 K/uL (1.2-3.4); Lymphocytes % (auto) 26.7 %; Mean Corpuscular Hgb Conc 34.1 g/dL (32-36); Mean Corpuscular Volume 88.7 fL (80-100); Mean Platelet Volume 9.9 fL (7.4-10.4); Monocytes # (auto) 0.68 K/uL (0.11-0.59); Monocytes % (auto) 8.2 %; Neutrophils # (auto) 5.19 K/uL (1.4-6.5); Neutrophils % (auto) 62.8 %; Platelet Count 248 K/uL (130-400); RDW Coefficient of Variation 12.7 % (11.5-14.5); RDW Standard Deviation 40.8 fL (36.4-46.3); Red Blood Count 4.16 M/uL (4.7-6.1); White Blood Count 8.28 K/uL (4.8-10.8)
[2018-10-16 06:05] LABS: BUN Creatinine Ratio 10.3 (10-20); Calcium 8.3 mg/dl (8.5-10.1); Creatinine Clr Calc Pharmacy 116.5 ml/min; Est GFR (African American) 145.1; Est GFR (Non-African American) 125.2; Magnesium 2.1 mg/dl (1.8-2.4); Potassium 3.8 mmol/L (3.5-5.1)
[2018-10-16] MEDS: CLINDAMYCIN HCL 150 MG CAP PO SCH ×3 (10:00→20:25)
[2018-10-16] MEDS: RIVAROXABAN 15 MG TAB PO SCH ×2 (10:00→20:26)
[2018-10-16] MEDS: LACTOBACILLUS ACIDOPHILUS (FLORANEX) TAB PO SCH ×2 (10:00→20:26)
[2018-10-16] MEDS: DICLOFENAC SOD 1% GEL 100 GM TUBE EXT SCH ×2 (11:19→20:27)
[2018-10-16] MEDS: levoFLOXacin 750 MG TAB PO SCH (11:21)
--- NOTE | 2018-10-16 11:36 | Hospitalist Progress Note ---
Date of Service This is a 23-year-old male with past medical history significant for depression, bipolar disorder, transferring to transgender, was recently in the hospital for suicidal ideation and also hemoptysis, shortness of breath, found to have bilateral pneumonia and also possible aspiration pneumonia and also unprovoked bilateral pulmonary emboli, with small defects to the third vessels consistent with small peripheral pulmonary emboli and initially there was no plan for anticoagulation, but later he was discharged on Xarelto and recommended to follow with speed belt sander tender and he also prescribed a total of 10 days of oral Levaquin and clindamycin as one of the blood culture was positive with gram-negative bacilli, no growth after 5 days. MRSA swab was negative. Lives with his parents. Came back because at 9 p.m. before the day of admission, he noticed pain in the left hip region, about 6/10 in severity and came to the hospital and found to have a CAT scan showing possible left iliopsoas muscle hematoma versus inflammatory or infectious process. October 16, 2018 Assessment & Plan (1) Hip problem: He was admitted with left hip pain involving the upper inguinal area Noted to have questionable hematoma involving the hip He has significant tenderness around anterior superior iliac spine Likely has tendinitis involving that area He has a history of knee tendinitis Diclofenac cream was advised (2) Hematoma of left hip: CT scan showed an density involving the distal left iliopsoas, iliacus, and quadratus muscles Could be small intramuscular hemorrhage and/or inflammation No palpable mass noted in that area His hemoglobin remained stable as of yesterday He has been ambulating well without any difficulty Wants to go home this afternoon (3) Bilateral pulmonary embolism: Xarelto has been continued No hemoptysis and/or no increasing hematoma and no decreasing hemoglobin (4) Bilateral pneumonia: Will finish the course of antibiotic Other significant medical problems remained stable We will continue current medications Plan to send him home this afternoon Subjective 10/16 The patient was seen yesterday, seen and examined today He complains some pain at the left anterior superior high leg spinal area without any lump His pain has been improving and he has been ambulating without much difficulty He denies any chest pain, shortness of breath, palpitation, any abdominal pain nausea and/or vomiting Review of Systems Review of Systems: All systems reviewed and are unremarkable except as noted below Constitutional: + problem reported (Some pain involving adjoining area of the left anterior superior iliac spine with some numbness involving the anterior thigh) Physical Exam Physical Exam: No apparent distress at rest Constitutional: well developed and well nourished; no acute distress Eyes: PERRL, conjunctivae normal, anicteric sclerae ENMT: external ear and nose normal, oropharynx normal Neck: trachea midline, no thyromegaly Respiratory: normal respiratory effort Auscultation: lungs clear to auscultation bilaterally Cardiovascular: Rate/Rhythm: regular rate and regular rhythm Heart Sounds: no murmur Gastrointestinal (Abdomen): Inspection/Auscultation: abdomen normal to inspection and normal bowel sounds Percussion/Palpation: abdomen soft; abdomen nontender Musculoskeletal: Tender inferior area of the left anterior superior iliac spine. No hematoma and a lump noted. No pain with movement of the left hip joint Lymphatic: no cervical or axillary lymphadenopathy Results & Data Vital Signs (Past 12 Hours) Vital Signs Temp Pulse Resp BP Pulse Ox 10/16/18 07:37 36.8 C 82 18 116/71 98 10/16/18 03:52 36.8 C 64 16 98/63 L 99 10/15/18 23:47 36.8 C 79 16 100/64 97 Laboratory Results Short CBC 10/15/18 10/16/18 Range/Units 17:01 05:23 WBC 7.26 8.28 (4.8-10.8) K/uL Hgb 12.7 L 12.6 L (14.0-18.0) g/dL Hct 37.3 L 36.9 L (42-52) % Plt Count 237 248 (130-400) K/uL BMP 10/16/18 05:23 Sodium 138 Potassium 3.8 Chloride 107 Carbon Dioxide 28 BUN 9 D Creatinine 0.84 D Glucose 89 Calcium 8.3 L Medications Administered Current Inpatient Medications Acetaminophen (Tylenol) 650 mg PO Q4H PRN PRN Reason: Pain or Fever Stop: 11/14/18 08:05 Last Admin: 10/15/18 19:30 Dose: 650 mg Documented by: Clindamycin HCl (Cleocin) 600 mg PO TID [facility] Stop: 10/22/18 08:59 Last Admin: 10/16/18 10:00 Dose: 600 mg Documented by: Diclofenac Sodium (Voltaren 1% Top) 1 appln EXT BID [facility] Stop: 11/15/18 09:29 Lactobacillus Acidophilus (Floranex) 2 tab PO BID [facility] Stop: 11/14/18 20:59 Last Admin: 10/16/18 10:00 Dose: 2 tab Documented by: Levalbuterol HCl (Xopenex Hfa) 2 puffs INH Q4H PRN PRN Reason: Shortness Of Breath Or Wheezin Stop: 11/14/18 08:05 Levofloxacin (Levaquin) 750 mg PO DAILY@1100 [facility] Stop: 10/22/18 10:59 Last Admin: 10/15/18 10:21 Dose: 750 mg Documented by: Morphine Sulfate (Morphine Sulfate) 3 mg IV Q3H PRN PRN Reason: Pain Stop: 10/29/18 08:05 Ondansetron HCl (Zofran) 4 mg IV Q6H PRN PRN Reason: Nausea Stop: 11/14/18 08:05 Rivaroxaban (Xarelto) 15 mg PO BID@0900,2100 [facility] Stop: 10/30/18 23:59 Last Admin: 10/16/18 10:00 Dose: 15 mg Documented by: Rivaroxaban (Xarelto) 20 mg PO QDD [facility] Stop: 11/30/18 16:29 (1) Bilateral pneumonia Lung location: unspecified part of lung Pneumonia type: due to unspecified organism Qualified Code(s): J18.9 - Pneumonia, unspecified organism (2) Hematoma of left hip Encounter type: initial encounter Qualified Code(s): S70.02XA - Contusion of left hip, initial encounter
--- NOTE | 2018-10-16 12:40 | Surgery Progress Note ---
Date of Service October 16, 2018 Assessment & Plan (1) Hematoma of left hip: CT scan with likely hematoma of the distal left iliopsoas, iliacus, and quadratus muscles. On Xarelto for DVT Unlikely infectious given no fever and leukocytosis resolved Hemoglobin stable Had some left upper thigh numbness today Plan: Would treat conservatively , no surgical indication If febrile, increasing WBC, or pain worsens then repeat CT scan; if abscess develops then recommend CT guided drainage Advised to let providers know of increased numbness of left leg, may need further eval given new onset of numbness with Ortho? or could just be secondary to hematoma and surrounding inflammation. Dr. Loving has seen and examined patient, please see addendum for further recommendations/plan. Supervising Physician Co-Signing Physician Notes I have seen and evaluated the patient and reviewed the medical record. I agree with the documentation as provided in this note by Alethea Alfonso PA-C. Subjective still having pain in the left groin/hip region, "doctor believes I may have tendinitis" tolerating diet states he is having "numbness" down anterior left leg to just below the knee. Does not have complete numbness but has pricks and needles sensation. no back pain ambulating hallway Physical Exam Constitutional: WD/WN, vitals as above no acute distress and not ill appearing Respiratory: normal respiratory effort; no respiratory distress Musculoskeletal: Left Hip: point tenderness of the iliac muscle about 2 finger breaths below the ASIS. No palpable bulge. Skin: no rashes, warm and dry Psychiatric: A+Ox3, euthymic affect Results & Data Vital Signs (Past 12 Hours) Vital Signs Temp Pulse Pulse Resp BP Pulse Ox 10/16/18 11:26 36.8 C 62 18 93/56 L 98 10/16/18 08:00 62 10/16/18 07:37 36.8 C 82 18 116/71 98 10/16/18 03:52 36.8 C 64 16 98/63 L 99 Laboratory Results 10/16/18 10/16/18 10/15/18 Range/Units 05:23 05:23 17:01 WBC 8.28 7.26 (4.8-10.8) K/uL RBC 4.16 L 4.22 L (4.7-6.1) M/uL Hgb 12.6 L 12.7 L (14.0-18.0) g/dL Hct 36.9 L 37.3 L (42-52) % MCV 88.7 88.4 (80-100) fL MCH 30.3 30.1 (25-34) pg MCHC 34.1 34.0 (32-36) g/dL RDW Std Deviation 40.8 40.9 (36.4-46.3) fL RDW Coeff of Vee 12.7 12.7 (11.5-14.5) % Plt Count 248 237 (130-400) K/uL MPV 9.9 10.3 (7.4-10.4) fL Immature Gran % (Auto) 0.2 0.4 % Neut % (Auto) 62.8 72.2 % Lymph % (Auto) 26.7 16.9 % [place] % (Auto) 8.2 8.7 % Eos % (Auto) 1.9 1.7 % Baso % (Auto) 0.2 0.1 % Immature Gran # (Auto) 0.02 0.03 H (0.00-0.02) K/uL Neut # (Auto) 5.19 5.24 (1.4-6.5) K/uL Lymph # (Auto) 2.21 1.23 (1.2-3.4) K/uL [place] # (Auto) 0.68 H 0.63 H (0.11-0.59) K/uL Eos # (Auto) 0.16 0.12 (0-0.5) K/uL Baso # (Auto) 0.02 0.01 (0-0.2) K/uL Sodium 138 (136-145) mmol/L Potassium 3.8 (3.5-5.1) mmol/L Chloride 107 (98-107) mmol/L Carbon Dioxide 28 (21-32) mmol/L Anion Gap 3.0 (3-11) BUN 9 D (7-18) mg/dl Creatinine 0.84 D (0.6-1.4) mg/dl Est Cr Clr Drug Dosing 116.5 ml/min Est GFR ( Amer) 145.1 Est GFR (Non-Af Amer) 125.2 BUN/Creatinine Ratio 10.3 (10-20) Glucose 89 (70-99) mg/dl Calcium 8.3 L (8.5-10.1) mg/dl Magnesium 2.1 (1.8-2.4) mg/dl (1) Hematoma of left hip Encounter type: initial encounter Qualified Code(s): S70.02XA - Contusion of left hip, initial encounter
[2018-10-16] MEDS ORDERED: TRAMADOL HCL 50 MG TABLET PO PRN (19:21)
[2018-10-17 07:31] LABS: Basophils # (auto) 0.01 K/uL (0-0.2); Basophils % (auto) 0.1 %; Eosinophils # (auto) 0.18 K/uL (0-0.5); Eosinophils % (auto) 2.5 %; Hematocrit (blood only) 38.2 % (42-52); Immature Granulocytes # (auto) 0.02 K/uL (0.00-0.02); Immature Granulocytes % (auto) 0.3 %; Lymphocytes # (auto) 3.37 K/uL (1.2-3.4); Lymphocytes % (auto) 46.5 %; Mean Corpuscular Volume 89.7 fL (80-100); Mean Platelet Volume 10.2 fL (7.4-10.4); Monocytes # (auto) 0.43 K/uL (0.11-0.59); Monocytes % (auto) 5.9 %; Neutrophils # (auto) 3.23 K/uL (1.4-6.5); Neutrophils % (auto) 44.7 %; Platelet Count 272 K/uL (130-400); RDW Coefficient of Variation 12.8 % (11.5-14.5); RDW Standard Deviation 41.6 fL (36.4-46.3); Red Blood Count 4.26 M/uL (4.7-6.1); White Blood Count 7.24 K/uL (4.8-10.8)
[2018-10-17] MEDS: CLINDAMYCIN HCL 150 MG CAP PO SCH ×2 (11:19→14:21)
[2018-10-17] MEDS: LACTOBACILLUS ACIDOPHILUS (FLORANEX) TAB PO SCH (11:20)
[2018-10-17] MEDS: RIVAROXABAN 15 MG TAB PO SCH (11:21)
[2018-10-17] MEDS: DICLOFENAC SOD 1% GEL 100 GM TUBE EXT SCH (11:21)
[2018-10-17] MEDS: levoFLOXacin 750 MG TAB PO SCH (11:22)
--- NOTE | 2018-10-17 14:11 | Hospitalist Progress Note ---
Date of Service October 17, 2018 Assessment & Plan (1) Hip problem: He was admitted with left hip pain involving the upper inguinal area Noted to have questionable hematoma involving the hip He has significant tenderness around anterior superior iliac spine Likely has tendinitis involving that area He has a history of knee tendinitis Diclofenac cream was advised (2) Hematoma of left hip: CT scan showed an density involving the distal left iliopsoas, iliacus, and quadratus muscles Could be small intramuscular hemorrhage and/or inflammation No palpable mass noted in that area His hemoglobin remained stable as of yesterday He has been ambulating well without any difficulty Wants to go home this afternoon (3) Bilateral pulmonary embolism: Xarelto has been continued No hemoptysis and/or no increasing hematoma and no decreasing hemoglobin (4) Bilateral pneumonia: Will finish the course of antibiotic Other significant medical problems remained stable We will continue current medications Plan to send him home this afternoon Subjective 10/16 The patient was seen yesterday, seen and examined today He complains some pain at the left anterior superior high leg spinal area without any lump His pain has been improving and he has been ambulating without much difficulty He denies any chest pain, shortness of breath, palpitation, any abdominal pain nausea and/or vomiting 10/17 The patient was seen and examined in medical floor Pain in the left groin is much better and the numbness involving the anterior thigh is stable He has been ambulating without any difficulty His hemoglobin remained stable Review of Systems Review of Systems: All systems reviewed and are unremarkable except as noted below Constitutional: + problem reported (Some pain involving adjoining area of the left anterior superior iliac spine with some numbness involving the anterior thigh) Physical Exam Physical Exam: No apparent distress at rest Constitutional: well developed and well nourished; no acute distress Eyes: PERRL, conjunctivae normal, anicteric sclerae ENMT: external ear and nose normal, oropharynx normal Neck: trachea midline, no thyromegaly Respiratory: normal respiratory effort Auscultation: lungs clear to auscultation bilaterally Cardiovascular: Rate/Rhythm: regular rate and regular rhythm Heart Sounds: no murmur Gastrointestinal (Abdomen): Inspection/Auscultation: abdomen normal to inspection and normal bowel sounds Percussion/Palpation: abdomen soft; abdomen nontender Musculoskeletal: Extremities: strength 5/5 throughout Minimal tenderness involving the area of joining left anterior superior iliac spine with a small lump palpable below and medial to the spine. Lymphatic: no cervical or axillary lymphadenopathy Results & Data Vital Signs (Past 12 Hours) Vital Signs Temp Pulse Resp BP Pulse Ox 10/17/18 12:19 36.7 C 68 19 111/74 99 10/17/18 08:33 36.5 C 65 18 91/60 L 98 10/17/18 04:52 36.6 C 57 L 18 98/62 L 98 Laboratory Results Short CBC 10/17/18 Range/Units 06:36 WBC 7.24 (4.8-10.8) K/uL Hgb 13.0 L (14.0-18.0) g/dL Hct 38.2 L (42-52) % Plt Count 272 (130-400) K/uL Medications Administered Current Inpatient Medications Acetaminophen (Tylenol) 650 mg PO Q4H PRN PRN Reason: Pain or Fever Stop: 11/14/18 08:05 Last Admin: 10/15/18 19:30 Dose: 650 mg Documented by: Clindamycin HCl (Cleocin) 600 mg PO TID [facility] Stop: 10/22/18 08:59 Last Admin: 10/17/18 11:19 Dose: 600 mg Documented by: Diclofenac Sodium (Voltaren 1% Top) 1 appln EXT BID [facility] Stop: 11/15/18 09:29 Last Admin: 10/17/18 11:21 Dose: Not Given Documented by: Lactobacillus Acidophilus (Floranex) 2 tab PO BID [facility] Stop: 11/14/18 20:59 Last Admin: 10/17/18 11:20 Dose: 2 tab Documented by: Levalbuterol HCl (Xopenex Hfa) 2 puffs INH Q4H PRN PRN Reason: Shortness Of Breath Or Wheezin Stop: 11/14/18 08:05 Levofloxacin (Levaquin) 750 mg PO DAILY@1100 [facility] Stop: 10/22/18 10:59 Last Admin: 10/17/18 11:22 Dose: 750 mg Documented by: Morphine Sulfate (Morphine Sulfate) 3 mg IV Q3H PRN PRN Reason: Pain Stop: 10/29/18 08:05 Ondansetron HCl (Zofran) 4 mg IV Q6H PRN PRN Reason: Nausea Stop: 11/14/18 08:05 Rivaroxaban (Xarelto) 15 mg PO BID@0900,2100 [facility] Stop: 10/30/18 23:59 Last Admin: 10/17/18 11:21 Dose: 15 mg Documented by: Rivaroxaban (Xarelto) 20 mg PO QDD [facility] Stop: 11/30/18 16:29 Tramadol HCl (Ultram) 50 mg PO Q4H PRN PRN Reason: Pain Stop: 11/15/18 19:20 Last Admin: 10/16/18 19:34 Dose: 50 mg Documented by: (1) Hematoma of left hip Encounter type: initial encounter Qualified Code(s): S70.02XA - Contusion of left hip, initial encounter (2) Bilateral pneumonia Lung location: unspecified part of lung Pneumonia type: due to unspecified organism Qualified Code(s): J18.9 - Pneumonia, unspecified organism
--- NOTE | 2018-10-18 11:49 | Discharge Summary ---
Date of Service October 18, 2018 Admission HPI Per Admitting Provider DICTATED BY: Weston Kellogg MD DATE OF ADMISSION: 10/15/2018 CHIEF COMPLAINT: Left hip pain. HISTORY OF PRESENT ILLNESS: This is a 23-year-old male with past medical history significant for depression, bipolar disorder, transferring to transgender, was recently in the hospital for suicidal ideation and also hemoptysis, shortness of breath, found to have bilateral pneumonia and also possible aspiration pneumonia and also unprovoked bilateral pulmonary emboli, with small defects to the third vessels consistent with small peripheral pulmonary emboli and initially there was no plan for anticoagulation, but later he was discharged on Xarelto and recommended to follow with membership advisor and he also prescribed a total of 10 days of oral Levaquin and clindamycin as one of the blood culture was positive with gram-negative bacilli, no growth after 5 days. MRSA swab was negative. Lives with his parents. Comes back because last night at 9 p.m., he noticed pain in the left hip region, about 6/10 in severity and came to the hospital and found to have a CAT scan showing possible left iliopsoas muscle hematoma versus inflammatory or infectious process. No obvious abscess noted. His white count was elevated at 14,000. Afebrile. Point of care lactic acid was unremarkable, hemodynamically stable. Currently resting comfortably and hemodynamically stable. Denies any headache, no blurred vision, no sore throat, no difficulty swallowing. Appetite is okay. No chest pain, no shortness of breath, no cough, no fever, no chills, no nausea, no abdominal pain. Normal bowel and bladder movements. No blood in the stools, no black stools, no hematuria. No swelling of the legs. No rash seen. Ambulating okay Admission Exam Per Admitting Provider GENERAL: The patient is of moderate build, not in acute distress. VITAL SIGNS: Temperature 36.6, respiratory rate 18, pulse 90, blood pressure 117/72, oxygen 96% room air. HEENT: No pallor, no icterus. Pupils equal, round, reactive to light. NECK: No neck masses, supple. CARDIOVASCULAR: S1, S2 heard, regular rate and rhythm, no murmur, no gallop. RESPIRATORY SYSTEM: Normal AP diameter. No accessory muscle use. No wheezing, no crackles. ABDOMEN: Soft, bowel sounds present. Nontender. No distention. CENTRAL NERVOUS SYSTEM: Nonfocal. EXTREMITIES: Right hip region, no obvious swelling or erythema seen. No edema seen. Principal Diagnosis Pain and a small hematoma involving the inferior medial part of left anterior superior superior iliac spine, bilateral pulmonary embolism on Xarelto, recent pneumonia Discharge Exam Constitutional well developed and well nourished; no acute distress Eyes PERRL, conjunctivae normal, anicteric sclerae ENMT external ear and nose normal, oropharynx normal Neck trachea midline, no thyromegaly Respiratory normal respiratory effort Auscultation: lungs clear to auscultation bilaterally Cardiovascular Rate/Rhythm: regular rate and regular rhythm Heart Sounds: no murmur Gastrointestinal (Abdomen) Inspection/Auscultation: abdomen normal to inspection and normal bowel sounds Percussion/Palpation: abdomen soft; abdomen nontender Musculoskeletal Extremities: strength 5/5 throughout Lymphatic no cervical or axillary lymphadenopathy Discharge Data Allergies Allergy/AdvReac Type Severity Reaction Status Date / Time Penicillins Allergy Mild Unknown Verified 10/15/18 08:11 amoxicillin Allergy Unknown HIVES Verified 10/15/18 08:11 Consultations 10/15/18 05:35 ED Decision to Admit Stat 10/15/18 08:06 Consult General Surgery Routine Ordered Studies 10/15/18 03:14 CT abd pelvis IV con only Urgent Hospital Course (1) Hip problem: He was admitted with left hip pain involving the upper inguinal area Noted to have questionable hematoma involving the hip He has significant tenderness around anterior superior iliac spine Likely has tendinitis involving that area He has a history of knee tendinitis Diclofenac cream was advised (2) Hematoma of left hip: CT scan showed an density involving the distal left iliopsoas, iliacus, and quadratus muscles Could be small intramuscular hemorrhage and/or inflammation No palpable mass noted in that area His hemoglobin remained stable as of yesterday He has been ambulating well without any difficulty Wants to go home this afternoon (3) Bilateral pulmonary embolism: Xarelto has been continued No hemoptysis and/or no increasing hematoma and no decreasing hemoglobin (4) Bilateral pneumonia: Will finish the course of antibiotic Other significant medical problems remained stable We will continue current medications Plan to send him home this afternoon Total Time Total Time Spent Total Time Spent (In Minutes): 35 minutes Total Time Includes: Examination of the Patient, Discharge Planning, Medication Reconciliation and Communication With Other Providers Discharge Plan Discharge Items Patient Disposition: Home - Self-Care Reason For Visit: LEFT HIP PAIN Discharge Diagnosis: Pain and a small hematoma involving the inferior medial part of left anterior superior superior iliac spine, bilateral pulmonary embolism on Xarelto, recent pneumonia Condition: Good Discharge Goals: Decrease discomfort, Improve function and Increase independence Activity: Resume your previous activity Non-emergency contact: Primary Care Provider Call non-emergency contact if: you have any medication questions and your symptoms worsen Follow-up/Referrals: Harika Gray MD [Primary Care Provider] - 10/20/18 9:45 am Diet: Regular Addtl Provider Instructions: Please take precaution to avoid fall. Keep your appointment with other providers Prescriptions: New tramadol 50 mg Tablet 50 mg PO Q4H PRN (Reason: pain) 5 Days Qty: 20 RF: 0 Continued levalbuterol tartrate [Xopenex HFA] 45 mcg/actuation Hfa Aerosol Inhaler 2 puff inhalation Q4H PRN (Reason: Shortness Of Breath Or Wheezing) 7 Days Qty: 1 RF: 1 Xarelto 15 mg Tablet 15 mg PO BID@0900,2100 19 Days Qty: 38 RF: 0 Xarelto 20 mg tablet 20 mg PO DAILY 30 Days Qty: 30 RF: 1 Stand-Alone Forms: [facility] Discharge Orders: Discharge Order (Routine); Ordered 10/17/18 Ordered By: Moses Godlberg Admission Data Admit Date/Time: 10/15/18 06:07 Attending Provider: Moses Goldberg Admit Provider: Weston Kellogg Primary Care Provider: Harika Gray Other Providers: Yoni Diaz ; Tiara Sanchez ; Lang Freeman ; Miki Longoria ; Asia Cai ; Min Womack ; Isaak Fine ; Kari Marie ; Home Kiser ; Alethea Alfonso ; Keny Davis Jr ; Ida Powers ; Shayy Loving ; Weston Kellogg Service: Telemetry Medical Other Interventions: Discharge Summary Assessment (RN) Last Done: 10/17/18 15:08 DC Date/Time DO NOT enter until pt leaves facility: 10/17/18 15:54
[2018-10-18 15:02] LABS: Hydrocodone Urine NEGATIVE NG/ML (CUTOFF=50); Hydromor Urine NEGATIVE NG/ML (CUTOFF=50); Morphine Urine 1360 NG/ML (CUTOFF=50); Norhydrocodone Conf Ur NEGATIVE NG/ML (CUTOFF=50); Noroxycodone Urine NEGATIVE NG/ML (CUTOFF=50); Oxycodone Urine NEGATIVE NG/ML (CUTOFF=50)
[2018-10-31] MEDS ORDERED: RIVAROXABAN 20 MG TAB PO SCH (16:30)
== END 2018-10-17 15:54 | disposition home or self-care (01) | DRG 604 ==
LOC: ED 02:48 → 2N 06:07 → SUATTDRO 06:07 → 2N 07:52

== ENCOUNTER 2018-12-03 06:38 | Inpatient (IN) ==
[2018-12-03] MEDS ORDERED: SODIUM CHLORIDE 0.9% 1000ML 1,000 ML IV SCH (07:00)
--- NOTE | 2018-12-03 07:05 | XRay Report ---
XR chest 1V portable CLINICAL HISTORY: overdose dyspnea COMPARISON STUDY: 11/28/2018 FINDINGS: The bones soft tissues and hemidiaphragms are normal. The cardiomediastinal silhouette is n ormal. The lungs are clear. The pulmonary vasculature is normal. IMPRESSION: Negative chest. The above report was generated using voice recognition software. It may contain grammatical, syntax or spelling errors. Electronically signed by: Yoni Berkowitz M.D. 12/03/2018 7:04 AM
[2018-12-03 07:24] LABS: Hematocrit (blood only) 54.3 % (42-52); Hemoglobin 19.1 g/dL (14.0-18.0); Immature Granulocytes # (auto) 0.04 K/uL (0.00-0.02); Immature Granulocytes % (auto) 0.2 %; Lymphocytes % (auto) 6.2 %; Mean Corpuscular Hgb Conc 35.2 g/dL (32-36); Mean Corpuscular Volume 90.5 fL (80-100); Mean Platelet Volume 11.3 fL (7.4-10.4); Monocytes # (auto) 0.77 K/uL (0.11-0.59); Monocytes % (auto) 4.8 %; Neutrophils # (auto) 14.36 K/uL (1.4-6.5); Neutrophils % (auto) 88.8 %; Platelet Count 236 K/uL (130-400); RDW Coefficient of Variation 12.9 % (11.5-14.5); RDW Standard Deviation 42.4 fL (36.4-46.3); White Blood Count 16.17 K/uL (4.8-10.8)
--- NOTE | 2018-12-03 07:28 | CT Scan Report ---
CT head/brain wo con CT DOSE: 1228.53 mGy.cm HISTORY: Mental status change altered loc TECHNIQUE: Multiaxial CT images of the head were performed without the use of intravenous contrast. A dose lowering technique was utilized adhering to the principles of ALARA. Comparison: 05/27/2008 Findings: The paranasal sinuses and mastoid air cells are clear. The calvarium and skull base are int act. The ventricles and sulci are within normal limits. There is no mass, hematoma, midline shift, or acute infarct. Impression: No acute intracranial abnormality. The above report was generated using voice recognition software. It may contain grammatical, syntax or spelling errors. Electronically signed by: Yoni Berkowitz M.D. 12/03/2018 7:26 AM
--- NOTE | 2018-12-03 07:34 | Emergency Department Note ---
Entered by Debra Villafana acting as a scribe for Christiano Lucia MD History of Present Illness General Chief complaint: Overdose (Intentional) Stated complaint: mental health Time Seen by Provider: 12/03/18 06:48 Source: patient and EMS History of Present Illness Onset (ago): hour(s) (13) Location: head Pain Consistency: + other (episode) Quality: + other (overdose) Associated symptoms: + denies other symptoms (chest pain, abdominal pain, shortness of breath) and + other (ankle pain, tearfulness, confusion, suicidal ideation) The patient is a 23 year old male with a history of anxiety, suicidal ideation, alcohol abuse, and LSD abuse that is presenting to the Emergency Room with complaints of an episode of an overdose that started 13 hours ago. EMS states that the patient was [place]. EMS reports that the patient stated he took LSD and mushrooms. EMS notes that the patient's family believes the patient took Xarelto as well. The patient is an unreliable historian. He reports that he took 2-3 bottles of pills around 1600 yesterday evening but he is unable to state exactly what pills were in the bottles. He states that it was possibly a blood thinner that started with "X." The patient initially denies that the pills were Xarelto but then states that it was possibly Xarelto. He later states that the pills were over the counter medications, but he is unable to state what they were. He denies any chest pain, shortness of breath, or abdominal pain. He notes that he has some ankle pain. He denies drinking any alcohol or taking any other drugs. He denies taking LSD or mushrooms.The patient notes that he has a history of pulmonary embolism and takes the Xarelto to manage his symptoms. The patient's family states that they are unsure what happened to the patient last evening. His father states that he probably took the pills around 2300. His father reports that the patient was texting with his partner at that time and that he told his partner that he intended to commit suicide. His sister states that the patient told her he was going for a walk around 2300. His sister notes that the family then received a call from the patient's partner who informed them that the patient intended to commit suicide. His sister notes that the patient told his partner that he was in a lot of pain on the phone around 2400 last night. The patient's sister states that the patient told her he took Klonopin and Xarelto and that the patient's partner told her that the patient ate a marijuana edible. Home Medications Home Medications Medication Instructions Recorded Confirmed Type Xarelto 20 mg PO DAILY 30 Days #30 tab 10/10/18 12/03/18 Rx clindamycin phosphate 1 applic TOPICAL BID 12/03/18 12/03/18 History levothyroxine 25 mcg PO DAILY 12/03/18 12/03/18 History testosterone cypionate 200 mg IM Q10D 12/03/18 12/03/18 History tretinoin 1 applic TOPICAL DAILY 12/03/18 12/03/18 History Allergies Allergy/AdvReac Type Severity Reaction Status Date / Time Penicillins Allergy Mild Unknown Verified 12/03/18 07:39 amoxicillin Allergy Unknown HIVES Verified 12/03/18 07:39 Past Med/Surg History Medical History Bilateral pulmonary embolism Hypothyroidism Medullary sponge kidney ADHD, predominantly inattentive type Alcohol abuse Anxiety Cannabis abuse ADAMA (generalized anxiety disorder) Lysergic acid diethylamide (LSD) abuse Migraine Status post gender reassignment surgery Suicidal ideation Surgical History H/O mastectomy testosterone treatment Family History Mother Nephrolithiasis Other Family history of high blood pressure Social History Preferred Language: Syriac Communication Ability: Effective Visual Impairment: Partially Limited Hearing Ability: Normal Radio Tower Technician Required: No Beliefs That Will Affect Care: None marital status: Single Current Living Situation: Parent Current Living Situation Comment: with mother current occupational status: unemployed Other Information That Helps Us Care for You: No Feels Safe at Home: Yes Safety Concerns: Feels Safe At This Time Smoking Status: Never smoker Tobacco Type: cigarettes Do You Dip or Chew Tobacco: No Second Hand Exposure: No Tobacco Cessation Education Requested by Patient: No Hx Alcohol Use: Yes Alcohol type: beer Hx Substance Use: Yes substance use type: marijuana and other Last Used S ubstance: Unknown Last Used Substance Other:: sister Selam gave history of use of LSD, mushrooms, acid, and Xarelto Review of Systems See HPI for pertinent positives & negatives. and A total of 10 systems reviewed and were otherwise negative Physical Exam Vital Signs Vital Signs - 24 hr 12/03/18 07:00 12/03/18 07:06 12/03/18 07:08 Temperature 36.4 C L Temperature Source Oral Sepsis Recent Fever Within 48 Hours No Sepsis Action Taken by Nursing No Action Required Pulse Rate 110 H Pulse Rate [Right] Pulse Rhythm Regular Respiratory Rate 28 H Respiratory Effort / Characteristics Non-Labored Spontaneous Spontaneous Respiratory Depth Normal Respiratory Pattern Tachypnea Blood Pressure 168/120 H Blood Pressure [Right Arm] 174/127 H Blood Pressure Mean 136 Blood Pressure Mean [Right Arm] 142 Pulse Oximetry 98 100 99 Oxygen Delivery Method Room Air Room Air Room Air 12/03/18 07:12 12/03/18 07:39 12/03/18 08:13 Temperature Temperature Source Sepsis Recent Fever Within 48 Hours Sepsis Action Taken by Nursing Pulse Rate Pulse Rate [Right] 110 H 110 H Pulse Rhythm Respiratory Rate 20 20 Respiratory Effort / Characteristics Non-Labored Non-Labored Respiratory Depth Normal Normal Respiratory Pattern Blood Pressure Blood Pressure [Right Arm] 176/120 H 170/116 H Blood Pressure Mean Blood Pressure Mean [Right Arm] 138 134 Pulse Oximetry 100 100 100 Oxygen Delivery Method Room Air Room Air Room Air 12/03/18 08:28 Temperature Temperature Source Sepsis Recent Fever Within 48 Hours Sepsis Action Taken by Nursing Pulse Rate Pulse Rate [Right] 86 Pulse Rhythm Respiratory Rate 20 Respiratory Effort / Characteristics Respiratory Depth Respiratory Pattern Blood Pressure Blood Pressure [Right Arm] 140/96 Blood Pressure Mean Blood Pressure Mean [Right Arm] 110 Pulse Oximetry 100 Oxygen Delivery Method Room Air General: Disheveled appearing young male who is covered in dirt. He is awake and alert to person and place but appears confused. Answers some questions appropriately but answers most questions vaguely and inconsistently. His speech is slightly slurred and at times difficult to understand. Intermittently crying. HEENT: Normal cephalic atraumatic. Pupils are mid-size and reactive to light. Extraocular movements are intact. Oropharynx is pink with moist mucous membranes. No swelling of the mouth lips or tongue. Neck: Supple with a midline trachea. No meningeal signs or stiffness, no JVD or bruits. No Stridor. Chest: Clear to auscultation bilaterally. No wheezes or rhonchi. No increased work of breathing. Heart: regular rate and rhythm. Abdomen: Soft nontender, nondistended without rebound guarding or rigidity. Extremities: No cyanosis clubbing or edema. No calf tenderness or asymmetry Spine/Back. Non tender to palpation. No CVA tenderness Skin: Good turgor without rashes. Neurologic exam: Cranial nerves two through 12 are intact. Motor and sensation are intact and symmetrical throughout. Course 0640:The patient was evaluated in room A10. A complete history and physical examination was performed. 0700: I revisited the patient at this time. The patient's family arrived and provided some more history of the patient's present illness. 0713: I discussed the patients case with [facility], who stated that the patient will most likely require supportive care. She did not recommend giving the patient Physostigmine at this time. She recommended that the patient be given Ativan as needed. 0755: I reevaluated the patient at this time. He appears calm and stable. 0830: I revisited the patient at this time. The patient appears calm and his mental status is clearing. His heart rate is in the 90s and his blood pressure is 148/90. The patient was able to state his primary care provider. 0847: I discussed the patient's case with Stan Zamora, who will evaluate the patient for further management and care. 0910: Upon reevaluation, the patient is resting comfortably. I discussed laboratory and radiographic results with the patient. He verbalized agreement of the treatment plan. The patient will be evaluated for further management and care. 0938: Poison Control contacted me at this time to check on the patient's status. Consultations Consultation #1: I discussed the patient's case with Stan Zamora, who will evaluate the patient for further management and care. Time: 08:47 Administered Medications Sodium Chloride (Nss 1000ml) 1,000 mls @ 150 mls/hr IV .[id number] [facility] Stop: 01/02/19 10:28 Last Admin: 12/03/18 11:38 Dose: 150 mls/hr Documented by: [id number] Heparin Sodium/Dextrose (Heparin Sodium/Dextrose) 25,000 units in 500 mls @ 22 mls/hr IV .[id number] JILLIAN; Protocol Stop: 01/02/19 12:29 Last Admin: 12/03/18 13:05 Dose: 1,100 units/hr, 22 mls/hr Documented by: [id number] Cosigned by: [id number] Discontinued Medications Sodium Chloride (Nss 1000ml) 1,000 mls @ 999 mls/hr IV .Q1H1M JILLIAN Stop: 12/03/18 08:00 Last Infusion: 12/03/18 09:16 Dose: 0 mls/hr Documented by: [id number] Admin: 12/03/18 07:28 Dose: 999 mls/hr Documented by: [id number] Sodium Chloride (Nss 1000ml) 1,000 mls @ 999 mls/hr IV .Q1H1M ONE Stop: 12/03/18 09:27 Last Infusion: 12/03/18 10:46 Dose: 0 mls/hr Documented by: [id number] Admin: 12/03/18 09:16 Dose: 999 mls/hr Documented by: [id number] Medical Decision Making Differential Diagnosis Differential diagnosis includes: Overdose, suicidal ideation, trauma, electrolyte or metabolic abnormalities, toxicological process as well as others were entertained. Medical Records Attestation: I reviewed the patient's medical records. Home Medications Current Medication List: was personally reviewed by me Laboratory Data Attestation: I reviewed the patient's lab results. Result diagrams: 12/03/18 07:13 12/03/18 07:13 Lab Results 12/03/18 12/03/18 12/03/18 Range/Units 07:13 07:13 07:13 WBC 16.17 H (4.8-10.8) K/uL RBC 6.00 (4.7-6.1) M/uL Hgb 19.1 H (14.0-18.0) g/dL Hct 54.3 H (42-52) % MCV 90.5 (80-100) fL MCH 31.8 (25-34) pg MCHC 35.2 (32-36) g/dL RDW Std Deviation 42.4 (36.4-46.3) fL RDW Coeff of Vee 12.9 (11.5-14.5) % Plt Count 236 (130-400) K/uL MPV 11.3 H (7.4-10.4) fL Immature Gran % (Auto) 0.2 % Neut % (Auto) 88.8 % Lymph % (Auto) 6.2 % [place] % (Auto) 4.8 % Eos % (Auto) 0.0 % Baso % (Auto) 0.0 % Immature Gran # (Auto) 0.04 H (0.00-0.02) K/uL Neut # (Auto) 14.36 H (1.4-6.5) K/uL Lymph # (Auto) 1.00 L (1.2-3.4) K/uL [place] # (Auto) 0.77 H (0.11-0.59) K/uL Eos # (Auto) 0.00 (0-0.5) K/uL Baso # (Auto) 0.00 (0-0.2) K/uL PT 12.3 H (9.0-12.0) Seconds INR 1.2 H (0.9-1.1) APTT (21.0-31.0) Seconds PTT Ratio Sodium 139 (136-145) mmol/L Potassium 3.3 L (3.5-5.1) mmol/L Chloride 107 (98-107) mmol/L Carbon Dioxide 25 (21-32) mmol/L Anion Gap 7.0 (3-11) BUN 12 (7-18) mg/dl Creatinine 1.27 (0.6-1.4) mg/dl Est Cr Clr Drug Dosing 77.0 ml/min Est GFR ( Amer) 93.0 Est GFR (Non-Af Amer) 80.2 BUN/Creatinine Ratio 9.3 L (10-20) Glucose 80 (70-99) mg/dl Calcium 9.4 (8.5-10.1) mg/dl Magnesium 2.4 (1.8-2.4) mg/dl Total Bilirubin 0.7 (0.2-1) mg/dl AST 98 H (15-37) U/L ALT 42 (12-78) U/L Alkaline Phosphatase 92 (45-117) U/L Total Creatine Kinase 55011 H (39-308) U/L CK-MB (CK-2) 2.6 (0.5-3.6) ng/ml CK/CKMB % Calc 0.0 (0-3.0) Troponin I < 0.015 (0-0.045) ng/ml Total Protein 9.0 H (6.4-8.2) gm/dl Albumin 5.2 H (3.4-5.0) gm/dl Globulin 3.8 (2.5-4.0) gm/dl Albumin/Globulin Ratio 1.4 (0.9-2) Salicylates (2.8-20) mg/dl Acetaminophen (10-30) ug/ml Ethyl Alcohol mg/dL (0-3) mg/dl 12/03/18 12/03/18 12/03/18 Range/Units 07:13 07:13 07:13 WBC (4.8-10.8) K/uL RBC (4.7-6.1) M/uL Hgb (14.0-18.0) g/dL Hct (42-52) % MCV (80-100) fL MCH (25-34) pg MCHC (32-36) g/dL RDW Std Deviation (36.4-46.3) fL RDW Coeff of Vee (11.5-14.5) % Plt Count (130-400) K/uL MPV (7.4-10.4) fL Immature Gran % (Auto) % Neut % (Auto) % Lymph % (Auto) % [place] % (Auto) % Eos % (Auto) % Baso % (Auto) % Immature Gran # (Auto) (0.00-0.02) K/uL Neut # (Auto) (1.4-6.5) K/uL Lymph # (Auto) (1.2-3.4) K/uL [place] # (Auto) (0.11-0.59) K/uL Eos # (Auto) (0-0.5) K/uL Baso # (Auto) (0-0.2) K/uL PT (9.0-12.0) Seconds INR (0.9-1.1) APTT 32.7 H (21.0-31.0) Seconds PTT Ratio 1.2 Sodium (136-145) mmol/L Potassium (3.5-5.1) mmol/L Chloride (98-107) mmol/L Carbon Dioxide (21-32) mmol/L Anion Gap (3-11) BUN (7-18) mg/dl Creatinine (0.6-1.4) mg/dl Est Cr Clr Drug Dosing ml/min Est GFR ( Amer) Est GFR (Non-Af Amer) BUN/Creatinine Ratio (10-20) Glucose (70-99) mg/dl Calcium (8.5-10.1) mg/dl Magnesium (1.8-2.4) mg/dl Total Bilirubin (0.2-1) mg/dl AST (15-37) U/L ALT (12-78) U/L Alkaline Phosphatase (45-117) U/L Total Creatine Kinase (39-308) U/L CK-MB (CK-2) (0.5-3.6) ng/ml CK/CKMB % Calc (0-3.0) Troponin I (0-0.045) ng/ml Total Protein (6.4-8.2) gm/dl Albumin (3.4-5.0) gm/dl Globulin (2.5-4.0) gm/dl Albumin/Globulin Ratio (0.9-2) Salicylates < 1.7 L (2.8-20) mg/dl Acetaminophen < 2 L (10-30) ug/ml Ethyl Alcohol mg/dL < 3.0 (0-3) mg/dl Imaging Data Radiologist's Impression: Radiology results as stated below per my review and t he radiologist's interpretation: XR chest 1V portable CLINICAL HISTORY: overdose dyspnea COMPARISON STUDY: 11/28/2018 FINDINGS: The bones soft tissues and hemidiaphragms are normal. The cardiomediastinal silhouette is normal. The lungs are clear. The pulmonary vasculature is normal. IMPRESSION: Negative chest. The above report was generated using voice recognition software. It may contain grammatical, syntax or spelling errors. Electronically signed by: Yoni Berkowitz M.D. 12/03/2018 7:[address] head/brain wo con CT DOSE: 1228.53 mGy.cm HISTORY: Mental status change altered loc TECHNIQUE: Multiaxial CT images of the head were performed without the use of intravenous contrast. A dose lowering technique was utilized adhering to the principles of ALARA. Comparison: 05/27/2008 Findings: The paranasal sinuses and mastoid air cells are clear. The calvarium and skull base are intact. The ventricles and sulci are within normal limits. There is no mass, hematoma, midline shift, or acute infarct. Impression: No acute intracranial abnormality. The above report was generated using voice recognition software. It may contain grammatical, syntax or spelling errors. Electronically signed by: Yoni Berkowitz M.D. 12/03/2018 7:26 AM ECG Data Attestation: I personally reviewed and interpreted this ECG as follows: Indication: toxicologic Rate (beats per minute): 119 Rhythm: sinus tachycardia Findings: + other (normal interval); no ST depression, no ST elevation and no acute ischemic change Comparison ECG Date: from (10/07/2018) Change: the following changes noted (rate has decreased) Blood Pressure Blood Pressure Findings: Elevated blood pressure Blood Pressure Disposition: elevated BP felt to be situational MDM Narrative This patient comes in as described above. He was found outside in a gutter after taking an overdose at an unknown time with unknown substances last night. He is alert and oriented times person and place however his thinking is tangential and history is very unreliable he tells me different details and then is also difficult to understand. His family thinks that he took this around 11 or 12 as as when he was texting them. There were some empty Benadryl bottles found. He also texted his friend that he used a edible marijuana brownie. He is emotional but not agitated. He does have an abrasion to the right side of his tongue and based on this I am concerned he may have had a seizure. Given the fact that he is on Xarelto, I did order CAT scan of his head as well. He has no other signs of trauma or complaints. I talked his family at length. I also talked to the poison center at length. Some of this may be from diphenhydramine/Benadryl. He does however not have a large pupils or flushing of his face. He is mildly tachycardic. At this point they did not recommend physostigmine. They recommend supportive care and benzodiazepine if agitated or shaking significantly. The patient's vital signs improved markedly. He has remained stable. He is no longer tachycardic. I initially did order 1 L IV normal saline bolus. His CK came back elevated at over 10,000 so therefore him concerned about rhabdomyolysis he was given a second liter IV normal saline bolus and will need further IV hydration will need admitted. The rest of his labs from a toxicologic standpoint look okay. He has no EKG changes or significant widening of the QRS or QT interval. His mental status seems to be clearing as well. I do think he needs to be admitted/observe for treatment of his rhabdomyolysis and overdose and will ultimately need psychiatric evaluation and treatment as well. I have consulted the [facility] hospitalist team to see him as he does see Dr. Gray as his primary care physician. Impression & Plan Overdose, Rhabdomyolysis, Altered mental status, Depression Critical Care Time Critical Care Time: Yes Due to the patient's polysubstance overdose with abnormal vital signs and mental status and need for IV fluids and frequent reassessment, I have personally spent greater than 30 minutes of critical care time in the direct management of this patient. This includes bedside care, interpretation of diagnostic studies, and testing, discussion with consultants, patient, and family members, and other required patient management activities. This 30 minutes is in excess of all separately billable procedures. Discharge Plan Visit Data *Final* Discharge Date/Time: 12/03/18 10:20 Chief Complaint: Overdose (Intentional) Stated Complaint: mental health ED Provider: Christiano Lucia Discharge Problem: Overdose, Rhabdomyolysis, Altered mental status, Depression Patient Disposition: Admitted As Inpatient Discharge Instructions Interventions: ED Discharge Assessment Last Done: 12/03/18 10:20 Discharge Problem: Overdose Qualifiers: Encounter type: initial encounter Injury intent: intentional self-harm Qualified Code(s): T50.902A - Poisoning by unspecified drugs, medicaments and biological substances, intentional self-harm, initial encounter Rhabdomyolysis Qualifiers: Rhabdomyolysis type: non-traumatic Qualified Code(s): M62.82 - Rhabdomyolysis Altered mental status Qualifiers: Altered mental status type: unspecified Qualified Code(s): R41.82 - Altered mental status, unspecified Depression Qualifiers: Depression Type: unspecified Qualified Code(s): F32.9 - Major depressive disorder, single episode, unspecified The scribe's documentation has been prepared under my direction and personally reviewed by me in its entirety. I confirm that the note above accurately reflects all work, treatment, procedures, and medical decision making performed by me.
[2018-12-03 07:35] LABS: INR 1.2 (0.9-1.1); Prothrombin Time 12.3 Seconds (9.0-12.0)
[2018-12-03 07:41] LABS: Alanine Aminotransferase 42 U/L (12-78); Albumin Level 5.2 gm/dl (3.4-5.0); Aspartate Aminotransferase 98 U/L (15-37); BUN Creatinine Ratio 9.3 (10-20); Blood Urea Nitrogen 12 mg/dl (7-18); Calcium 9.4 mg/dl (8.5-10.1); Carbon Dioxide 25 mmol/L (21-32); Chloride 107 mmol/L (98-107); Est GFR (Non-African American) 80.2; Glucose 80 mg/dl (70-99); Magnesium 2.4 mg/dl (1.8-2.4); Potassium 3.3 mmol/L (3.5-5.1); Sodium 139 mmol/L (136-145)
[2018-12-03 07:49] LABS: Acetaminophen < 2 ug/ml (10-30); Salicylate < 1.7 mg/dl (2.8-20)
[2018-12-03 08:07] LABS: Partial Thromboplastin Ratio 1.2; Partial Thromboplastin Time 32.7 Seconds (21.0-31.0)
[2018-12-03 08:17] LABS: Albumin Globulin Ratio 1.4 (0.9-2); Alkaline Phosphatase 92 U/L (45-117); Bilirubin,Total 0.7 mg/dl (0.2-1); Creatine Kinase 10285 U/L (39-308); Creatine Kinase MB 2.6 ng/ml (0.5-3.6); Globulin 3.8 gm/dl (2.5-4.0); Troponin I < 0.015 ng/ml (0-0.045)
[2018-12-03] MEDS ORDERED: SODIUM CHLORIDE 0.9% 1000ML 1,000 ML IV ONE (08:27)
--- NOTE | 2018-12-03 11:28 | History & Physical Report ---
Date of Service December 03, 2018 Assessment & Plan (1) Suicidal ideations: (2) Overdose: (3) Depression: Patient has a long history of depression with multiple suicide attempts in the past and is very high risk for suicide at this time. He is actively reporting wanting to kill himself to me this morning on exam. He is not quite lucid at this time as he was found with 3 bottles of diphenhydramine on his person. He also reports taking Klonopin overnight, which he states was from a prior prescription and he does not take regularly. It is uncertain if he took more than one Xarelto yesterday. 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 Psychiatric consult in place. Would favor commitment, hoping he will wake up out of this and go voluntarily, but right now he is too emotionally distressed to make that kind of decision. He is also not medically cleared for discharge. We will continue to keep him on telemetry floor and supported through this process. He may have some urinary retention as a result of the diphenhydramine. Would bladder scan him every 6 hours and straight cath for anything over 500 cc. We are also wanting urine for urine studies that are pending. (4) Rhabdomyolysis: Secondary to overdose. Continue supportive care with IV fluids consistently, trend CK in a.m. Patient has no muscle aches he is reporting at this time. Additionally, kidney function looks good. (5) Pulmonary embolus: Acute PE found 10/06/18. No active bleeding, but it is uncertain if he overdosed on Xarelto at this point. Will hold Xarelto. CT head is negative for bleed and there is no evidence of bleeding on exam. Will start a heparin drip as this is reversible and continue to monitor on telemetry. (6) DVT prophylaxis: Heparin drip Full code Disposition-likely to inpatient psychiatric facility, however, not medically cleared at this time. DO [facility] Hospitalist History of Present Illness Chief Complaint: Suicidal ideations Primary Care Provider: Harika Gray MD 23-year-old trans-male presented to the ER after intentional's overdose of Benadryl and reported Klonopin. He was found with three 32 pill empty bottles of [id number] diphenhydramine. He was reportedly found in a ditch by the police this was complicated. The patient has no issues with speaking but is still tangential in his thoughts and history is somewhat limited about last night. He denies drinking alcohol but does appear to binge drink on the weekends. He has tried illicit drugs in the past including LSD and DXM, but nothing recently. He is a non-smoker and is not regularly taking a ntidepressants but has a large history of depression with multiple suicide attempts beginning at the age of 15. He is been hospitalized in inpatient psychiatric facilities multiple times with the last stay within the last year. He is seeing a psychiatrist regularly per his report. It is unclear at this time what the tipping point was for him, however, he reports living with his mother whom he feels treats him like a friend and is rather dismissive of his issues related to his transgender status. He feels her caodaism is the reason for her dismissiveness. He reports recently looking up online sex change operations and following group chats regarding trans-members and intercourse after their operation. He got very upset after talking about this, as if it was frightening to him. He began crying and saying to me he just wanted to kill himself and that he cannot continue on this way. He rattled off a few aspects of his life including his transgender status that is something he cannot cope with. He then began crying and begging me not to commit him to an inpatient facility. Again he is not completely lucid at this time. He was reassured that we would take it one day at a time and when he was feeling better we would readdress that issue. His father was at bedside and participated in the conversation. There appears to be an amicable relationship between the two and his father is very supportive of his transgender status. Review of systems reveals no physical ailments at this time. He does not feel nauseous but was not ready for regular food and we agreed upon clear liquids at this time, advancing diet as tolerated. Allergies Allergy/AdvReac Type Severity Reaction Status Date / Time Penicillins Allergy Mild Unknown Verified 12/03/18 07:39 amoxicillin Allergy Unknown HIVES Verified 12/03/18 07:39 Home Medications Home Medications Medication Instructions Recorded Confirmed Type Xarelto 20 mg PO DAILY 30 Days #30 tab 10/10/18 12/03/18 Rx clindamycin phosphate 1 applic TOPICAL BID 12/03/18 12/03/18 History levothyroxine 25 mcg PO DAILY 12/03/18 12/03/18 History testosterone cypionate 200 mg IM Q10D 12/03/18 12/03/18 History tretinoin 1 applic TOPICAL DAILY 12/03/18 12/03/18 History Past Med/Surg History Medical History Bilateral pulmonary embolism Hypothyroidism Medullary sponge kidney ADHD, predominantly inattentive type Alcohol abuse Anxiety Cannabis abuse ADAMA (generalized anxiety disorder) Lysergic acid diethylamide (LSD) abuse Migraine Status post gender reassignment surgery Suicidal ideation Surgical History H/O mastectomy testosterone treatment Family History Mother Nephrolithiasis Other Family history of high blood pressure Social History Preferred Language: Citizen Of [place] Communication Ability: Effective Visual Impairment: Partially Limited Hearing Ability: Normal Staking Engineer Required: No Beliefs That Will Affect Care: None marital status: Single Current Living Situation: Parent Current Living Situation Comment: with mother current occupational status: unemployed Other Information That Helps Us Care for You: No Feels Safe at Home: Yes Safety Concerns: Feels Safe At This Time Smoking Status: Never smoker Tobacco Type: cigarettes Do You Dip or Chew Tobacco: No Second Hand Exposure: No Tobacco Cessation Education Requested by Patient: No Hx Alcohol Use: Yes Alcohol type: beer Hx Substance Use: Yes substance use type: marijuana and other Last Used Substance: Unknown Last Used Substance Other:: sister Selam gave history of use of LSD, mushrooms, acid, and Xarelto Review of Systems Review of Systems: Unobtainable due to cognitive status (Patient is still under the influence and review of systems is unreliable.) Physical Exam Physical Exam: CONSTITUTIONAL: WNWD, vitals as above, generally well- appearing with intermittent episodes of emotional distress and crying. EYES: pupils are equal and round bilaterally, normal conjunctivae, no scleral icterus ENT: Lips are dry and chapped RESPIRATORY: clear to auscultation bilaterally, no crackles, rales or wheezes, normal respiratory effort CARDIOVASCULAR: regular rate and rhythm, S1 and 2 heard without murmurs, ga llops or rubs, no JVD, no peripheral edema GASTROINTESTINAL: normal bowel sounds, soft, some tenderness to palpation in lower abdomen MUSCULOSKELETAL: strength 5/5 throughout, head is normocephalic and atraumatic, able to sit up on his own in bed SKIN: warm and dry, large tattoo on back, no obvious cuts or track is[place] present on arms. NEUROLOGIC: CN 2-12 grossly intact, normal speech, no tremor, no gross focal deficits. PSYCHIATRIC: alert cooperative and oriented to person, place and time. Euthymic mood, makes good eye contact, language grossly intact, recent and remote memory grossly intact. normal cognition but will run away with concerning thoughts and jump topics frequently Results & Data Vital Signs (Past 12 Hours) Vital Signs Temp Pulse Pulse Resp BP BP Pulse Ox 12/03/18 10:20 68 20 148/106 H 98 12/03/18 08:28 86 20 140/96 100 12/03/18 08:13 110 H 20 170/116 H 100 12/03/18 07:39 110 H 20 176/120 H 100 12/03/18 07:12 100 12/03/18 07:08 99 12/03/18 07:06 36.4 C L 110 H 28 H 168/120 H 100 12/03/18 07:00 174/127 H 98 Laboratory Results Short CBC 12/03/18 Range/Units 07:13 WBC 16.17 H (4.8-10.8) K/uL Hgb 19.1 H (14.0-18.0) g/dL Hct 54.3 H (42-52) % Plt Count 236 (130-400) K/uL BMP 12/03/18 07:13 Sodium 139 Potassium 3.3 L Chloride 107 Carbon Dioxide 25 BUN 12 Creatinine 1.27 Glucose 80 Calcium 9.4 Cardiac Enzymes 12/03/18 Range/Units 07:13 Total Creatine Kinase 55638 H (39-308) U/L CK-MB (CK-2) 2.6 (0.5-3.6) ng/ml Troponin I < 0.015 (0-0.045) ng/ml Liver Function 12/03/18 Range/Units 07:13 Total Bilirubin 0.7 (0.2-1) mg/dl AST 98 H (15-37) U/L ALT 42 (12-78) U/L Alkaline Phosphatase 92 (45-117) U/L Albumin 5.2 H (3.4-5.0) gm/dl Diagnostic Findings CT head/brain wo con CT DOSE: 1228.53 mGy.cm HISTORY: Mental status change altered loc TECHNIQUE: Multiaxial CT images of the head were performed without the use of intravenous contrast. A dose lowering technique was utilized adhering to the principles of ALARA. Comparison: 05/27/2008 Findings: The paranasal sinuses and mastoid air cells are clear. The calvarium and skull base are intact. The ventricles and sulci are within normal limits. There is no mass, hematoma, midline shift, or acute infarct. Impression: No acute intracranial abnormality. XR chest 1V portable CLINICAL HISTORY: overdose dyspnea COMPARISON STUDY: 11/28/2018 FINDINGS: The bones soft tissues and hemidiaphragms are normal. The cardiomediastinal silhouette is normal. The lungs are clear. The pulmonary vasculature is normal. IMPRESSION: Negative chest. Medications Administered Current Inpatient Medications Sodium Chloride (Nss 1000ml) 1,000 mls @ 150 mls/hr IV .Q6H40M [facility] Stop: 01/02/19 10:28 Code Status & VTE Plan Code Status Full VTE Prophylaxis Plan VTE Prophylaxis will be ordered: No Reason for no VTE drug order: Contraindicated (pt on xarelto and unsure if recently overdosed on this, bleeding risk) (1) Depression Depression Type: unspecified Qualified Code(s): F32.9 - Major depressive disorder, single episode, unspecified (2) Overdose Encounter type: initial encounter Injury intent: intentional self-harm Qualified Code(s): T50.902A - Poisoning by unspecified drugs, medicaments and biological substances, intentional self-harm, initial encounter (3) Rhabdomyolysis Rhabdomyolysis type: non-traumatic Qualified Code(s): M62.82 - Rhabdomyolysis
[2018-12-03] MEDS: SODIUM CHLORIDE 0.9% 1000ML 1,000 ML IV SCH ×3 (11:38→23:34)
[2018-12-03] MEDS ORDERED: Heparin IV Standard *NO* Bolus IV ONE (11:50)
[2018-12-03 12:56] LABS: Appearance Urine Clear (Clear); Bacteria Urine Automated Negative (Negative); Bilirubin Urine Negative (Negative); Color Urine Yellow; Epithelial Cell Urine Auto >30 /lpf (0-5); Glucose Urine UA Negative (Negative); Ketones Urine Trace (Negative); Leukocyte Esterase Urine 2+ (Negative); Nitrite Urine Negative (Negative); Protein Urine 1+ (Negative); Specific Gravity Urine 1.016 (1.000-1.030); Urobilinogen Urine Negative (Negative)
[2018-12-03] MEDS: Heparin Adult STANDARD Wt-Based Dextrose 5% 25,000 units/500 mL IV SCH (13:05)
[2018-12-03 13:31] LABS: Amphetamines+Metham, Urine Neg (Neg); Barbiturates, Urine Neg (Neg); Benzodiazepine, Urine Neg (Neg); Cocaine, Urine Neg (Neg); MDMA (Ecstacy), Urine Neg (Neg); Methadone, Urine Neg (Neg); Opiate, Urine Neg (Neg); Phencyclidine, Urine Neg (Neg)
--- NOTE | 2018-12-03 14:49 | Psychiatric Consultation ---
Date of Consultation December 03, 2018 Impression / Recommendations Impression suicide attempt, with h/o various suicide attempts, in context of pt with bipolar d/o, ADDH, borderline personality d/o and on compliance with outpt psychiatrist will do more full psychiatric assessment once pt is more medically stabilized and clinically appropriate for such an assessment would advise continuing 1:1 given pt;s suicidal concerns and labile state at this time given presentation know to date would be expecting need for inpt psychiatric care once medically stabilized a petitionning statement is on the chart Psych History Chief Complaint psych consult for suicide attempt History of Present Illness 23-year-old trans-male presented to the ER after intentional's overdose of reported Benadryl and reported Klonopin. He is known to creative services writer as creative services writer has been an outpt provider for him (although creative services writer has been in process of terminating him given his noncompliance with treatment including lack of attending appointments and pt will become inactive/terminated from care with creative services writer at [facility] December 15, 2018 tied to prior termination process occurring). Pt is alert and oriented to being in hospital and to month but not day of week. He is not fully coherent and not currently able to engage in a psychiatric assessment and attempt to do lead to him being in agitated state with crying and becoming upset about possible cost tied to his having had an ambulance bring him to the ER as he figured out that an ambulance brought him to the hospital. He is with SI ongoing but denied plans to act on such thoughts while here in the hospital but does get agitated and hopeless. Has had multiple suicide attempts and tends to try to minimize the actual behavior and suicidal intention when obtaining care for these attempts in past admissions. He tends to be preoccupied about not being psychiatrically admitted. HE is well known to the psychiatric service at [facility] due to prior psych consults and psych admissions. borderline personality d/o bipolar d/o by hisotry due to a psychotic maniac episode in his past with depression chronic but degrees of severity that can vary suddenly and ADHD. Allergies Allergy/AdvReac Type Severity Reaction Status Date / Time Penicillins Allergy Mild Unknown Verified 12/03/18 07:39 amoxicillin Allergy Unknown HIVES Verified 12/03/18 07:39 Home Medications Home Medications Medication Instructions Recorded Confirmed Type Xarelto 20 mg PO DAILY 30 Days #30 tab 10/10/18 12/03/18 Rx clindamycin phosphate 1 applic TOPICAL BID 12/03/18 12/03/18 History levothyroxine 25 mcg PO DAILY 12/03/18 12/03/18 History testosterone cypionate 200 mg IM Q10D 12/03/18 12/03/18 History tretinoin 1 applic TOPICAL DAILY 12/03/18 12/03/18 History Personal History Beliefs That Will Affect Care: None Patient History Medical History Bilateral pulmonary embolism Hypothyroidism Medullary sponge kidney ADHD, predominantly inattentive type Alcohol abuse Anxiety Cannabis abuse ADAMA (generalized anxiety disorder) Lysergic acid diethylamide (LSD) abuse Migraine Status post gender reassignment surgery Suicidal ideation Surgical History H/O mastectomy testosterone treatment Family History Mother Nephrolithiasis Other Family history of high blood pressure Social History Preferred Language: Bulgarian Communication Ability: Effective Visual Impairment: Partially Limited Hearing Ability: Normal Supervisor Refractory Products Required: No Beliefs That Will Affect Care: None marital status: Single Current Living Situation: Parent Current Living Situation Comment: with mother current occupational status: unemployed Other Information That Helps Us Care for You: No Feels Safe at Home: Yes Safety Concerns: Feels Safe At This Time Smoking Status: Never smoker Tobacco Type: cigarettes Do You Dip or Chew Tobacco: No Second Hand Exposure: No Tobacco Cessation Education Requested by Patient: No Hx Alcohol Use: Yes Alcohol type: beer Hx Substance Use: Yes substance use type: marijuana and other Last Used Substance: Unknown Last Used Substance Other:: sister Selam gave history of use of LSD, mushrooms, acid, and Xarelto Physical Exam Psychiatric: Orientation: alert, oriented to person and oriented to place; + not oriented to time Eye Contact: + fair eye contact head tiled to rigth and inward some throughout interview labile tone to speech Affect: + labile affect crying, sad affect that is also blunted likely from OD impact Thought Process: + tangential thought process; + thought process not linear or logical and + thought process not clear or coherent Thought Content: + hopelessness, + worthlessness and + self deprecation Suicidal Thoughts: + reports suicidal thoughts SI present and suicide attempt Homicidal Thoughts: + reports homicidal thoughts Cognition: remote memory grossly intact and language grossly intact; + recent memory not intact and + attention not intact Estimated Intelligence: average estimated intelligence Insight: + severely impaired insight Judgement: + severely impaired judgement Vital Signs (Past 24 Hours): Last Vital Signs Temp 36.5 C 12/03/18 10:29 Pulse 65 12/03/18 10:29 Resp 18 12/03/18 10:29 BP 162/102 H 12/03/18 10:29 Pulse Ox 98 12/03/18 10:29 Results & Data Medications Administered Sodium Chloride (Nss 1000ml) 1,000 mls @ 150 mls/hr IV .Q6H40M [facility] Stop: 01/02/19 10:28 Last Admin: 12/03/18 11:38 Dose: 150 mls/hr Documented by: [id number] Heparin Sodium/Dextrose (Heparin Sodium/Dextrose) 25,000 units in 500 mls @ 22 mls/hr IV .[id number] [facility]; Protocol Stop: 01/02/19 12:29 Last Admin: 12/03/18 13:05 Dose: 1,100 units/hr, 22 mls/hr Documented by: [id number] Cosigned by: [id number]
[2018-12-03 19:55] LABS: Partial Thromboplastin Ratio 2.4
[2018-12-04] MEDS: SODIUM CHLORIDE 0.9% 1000ML 1,000 ML IV SCH (06:14)
[2018-12-04 07:40] LABS: Hematocrit (blood only) 44.1 % (42-52); Hemoglobin 14.8 g/dL (14.0-18.0); Mean Corpuscular Hgb Conc 33.6 g/dL (32-36); Mean Corpuscular Volume 91.1 fL (80-100); Mean Platelet Volume 10.9 fL (7.4-10.4); Platelet Count 175 K/uL (130-400); RDW Coefficient of Variation 13.2 % (11.5-14.5); RDW Standard Deviation 43.1 fL (36.4-46.3); Red Blood Count 4.84 M/uL (4.7-6.1); White Blood Count 6.65 K/uL (4.8-10.8)
[2018-12-04 07:49] LABS: Partial Thromboplastin Ratio 4.4
[2018-12-04 07:57] LABS: BUN Creatinine Ratio 6.7 (10-20); Calcium 8.4 mg/dl (8.5-10.1); Creatinine Clr Calc Pharmacy 105.2 ml/min; Est GFR (African American) 135.5; Est GFR (Non-African American) 116.9; Potassium 3.7 mmol/L (3.5-5.1)
[2018-12-04 14:48] LABS: Partial Thromboplastin Ratio 2.1
[2018-12-04 14:50] LABS: Partial Thromboplastin Time 57.5 Seconds (21.0-31.0)
[2018-12-04] MEDS: Heparin Adult STANDARD Wt-Based Dextrose 5% 25,000 units/500 mL IV SCH (15:02)
--- NOTE | 2018-12-04 16:18 | Hospitalist Progress Note ---
Date of Service December 04, 2018 Assessment & Plan (1) Rhabdomyolysis: Secondary to overdose and prolonged immobilization outside until found by police. CK returned at 17 this morning; IVF stopped. Patient can eat and drink to thirst. No evidence of renal failure. Patient has no muscle aches he is reporting at this time. (2) Suicidal ideations: One to one, safety trays, inpatient psych facility recommended. (3) Overdose: QTc is normal, patient is mentatin gback to baseline with normal energy level and feeling back to baseline. Elevated CK indicating ongoing rhabdo, will cont IVF. (4) Depression: Patient has a long history of depression with multiple suicide attempts in the past and is very high risk for suicide at this time. Active SI this admissi on. Recommend mandatory inpatient psych commitment if not going voluntary. (5) Pulmonary embolus: Acute PE found 10/06/18. No active bleeding, CT head is negative for bleed and there is no evidence of bleeding on exam. Heparin drip converted to Xarelto again, cont 20mg daily dose. (6) DVT prophylaxis: Xarelto Full code Disposition-likely to inpatient psychiatric facility, however, not medically cleared at this time. Expect that to happen tomorrow. Kimberlee Pittman DO [facility] Hospitalist Results & Data Vital Signs (Past 12 Hours) Vital Signs Temp Pulse Pulse Resp BP BP Pulse Ox 12/04/18 15:52 87 12/04/18 11:52 36.6 C 63 16 124/84 96 12/04/18 08:00 53 L 12/04/18 07:14 36.5 C 51 L 19 113/75 100 Laboratory Results Short CBC 12/04/18 Range/Units 07:10 WBC 6.65 (4.8-10.8) K/uL Hgb 14.8 D (14.0-18.0) g/dL Hct 44.1 (42-52) % Plt Count 175 (130-400) K/uL BMP 12/04/18 07:10 Sodium 145 Potassium 3.7 Chloride 115 H Carbon Dioxide 23 BUN 6 L D Creatinine 0.93 D Glucose 67 L Calcium 8.4 L Cardiac Enzymes 12/04/18 Range/Units 07:10 Total Creatine Kinase 15817 H (39-308) U/L Medications Administered Current Inpatient Medications Heparin Sodium/Dextrose (Heparin Sodium/Dextrose) 25,000 units in 500 mls @ 18 mls/hr IV .Q24H [facility]; Protocol Stop: 01/02/19 12:29 Last Admin: 12/04/18 15:02 Dose: 900 units/hr, 18 mls/hr Documented by: (1) Depression Depression Type: unspecified Qualified Code(s): F32.9 - Major depressive disorder, single episode, unspecified (2) Overdose Encounter type: initial encounter Injury intent: intentional self-harm Qualified Code(s): T50.902A - Poisoning by unspecified drugs, medicaments and biological substances, intentional self-harm, initial encounter (3) Rhabdomyolysis Rhabdomyolysis type: non-traumatic Qualified Code(s): M62.82 - Rhabdomyolysis
[2018-12-04] MEDS: RIVAROXABAN 20 MG TAB PO SCH (20:50)
[2018-12-05 08:34] LABS: Partial Thromboplastin Ratio 1.5; Partial Thromboplastin Time 40.4 Seconds (21.0-31.0)
[2018-12-05 09:00] LABS: BUN Creatinine Ratio 7.1 (10-20); Calcium 8.8 mg/dl (8.5-10.1); Est GFR (African American) 119.8; Est GFR (Non-African American) 103.4; Potassium 3.7 mmol/L (3.5-5.1)
[2018-12-05] MEDS: LACTATED RINGER'S 1,000 ML IV SCH ×3 (09:04→20:34)
--- NOTE | 2018-12-05 10:11 | Psychiatric Progress Note ---
Date of Service December 05, 2018 Impression / Recommendations Impression 23-year-old [id number] transgender individual with reported preference for male pronouns, documentation will reflect this preference. Pt is well-known to our service from previous consultations and inpatient psychiatric admissions. Pt does admit to taking an overdose of Unisom and #2-3 clonazepam prior to admission in an attempt to end his life. Pt unconvincingly denies SI at this time, but given his consistent pattern of suicide attempts our recommendation will remain for inpatient psychiatric treatment after medical clearance. It is reported that a petitioning statement is on the patient's chart to proceed with 302 warrant if patient is unwilling for inpatient treatment or is requesting to leave AMA prior to medical clearance. This should be pursued if the patient refuses recommendation for inpatient psychiatric treatment. He indicates that his family is looking into alternative facilities, and patient was informed our liaison would be happy to work with this information when it comes time to make referrals. He has been accepted to our unit multiple times, but requires a medically necessary private room, which we are not able to offer at this time due to current census. Will assist with referral process at time of medical clearance. Appreciate the opportunity to participate in the care of this patient. Interval History Identifying Information 23-year-old [id number] transgender individual, with known preference for male pronouns - which will be reflected in this documentation. Pt was admitted medically on 12/03/18 following an intentional overdose of Unisom and clonazepam. Pt was seen for initial psychiatric consultation on 12/03/18, but was not yet able to participate in interview. Follow-up visit was completed today to attempt to gather additional information. Chief Complaint "I'm ok, just sleep still." Review of Systems Notes Constitutional: denied Cardiovascular: denied Respiratory: denied Gastrointestinal: denied Neurological: denied Psychiatric: denies symptoms other than stated above Total of at least 10 systems reviewed, pertinent positives as above and in HPI. Subjective Subjective Patient's case was reviewed and discussed with psychiatrist and psychiatric nurse liaison. Pt is now able to participate in interview and was agreeable to speaking with this provider during a follow-up visit. When asked about events leading to his overdose attempt, the patient states "ah...um...I got this new job, I worked one shift and it just made the pain in my feet even worse. I woke up late for my next day and had my friend call to say I wasn't coming in. They still wanted me to show up, but I couldn't handle it." Pt states this realization led to thoughts of "how am I going to do this?" and he states, "I just felt like I can't do anything. I can't have a job, I failed out of school more times than I can count." Pt admits that he "Googled over the counter medic ations people had from. I saw the first article on a [employer] many dying from what I took [states Unisom] and I didn't read any further." He states he went to [employer] and bought 3 boxes. pt states he went to the "park" and climbed into a drainpipe so he would not be easily found. Pt admits to taking the 3 boxes of Unisom and about 2 or 3 clonazepam and called his partner. Pt states he "wanted my partner to be the last person I spoke to." He states he must have subconsciously provided enough information for police to know is location, but believes he lost consciousness/memory part way through the phone call. Pt doesn't recall being found. Pt denies suicidality at this time, but admits to awareness he will likely have "passive suicidality for the rest of my life." When asked what his recent thoughts have been or if he regrets the attempt, patient states, "I have only been thinking 'holy f*ck this sucks, now I'm going to have to go inpatient, and that's the worst form of torture'." Pt is not hesitant to share that he does not feel previous inpatient admissions have been helpful and furthermore states that he has often "figured out new suicide plans there because I'm so bored." Pt states he will have to be admitted involuntarily, as he is not interested in inpatient treatment. Pt does, however, state that his sister and mother have been looking into various residential facilities or alternative programs that may be helpful. Pt was informed that we would work with him and his family to develop an appropriate plan, but that it is not appropriate at this time for him to be sent home without any form of intervention. Pt states he is meeting with his therapist, Derba Khan, at the [facility] twice weekly, and is scheduled to see a psychiatrist at the [facility] on 12/15/18. Pt denies other needs or concerns at this time. Physical Exam Psychiatric Orientation: alert, oriented x 3 and cooperative (superficially) Apperance: appropriately dressed (in paper scrubs, covered by blanket) and + disheveled Eye Contact: + poor eye contact (limited direct eye contact, often staring out window) Motor Behavior: no abnormal motor movements (observed while laying in bed) Speech: normal rate/rhythm/volume of speech (irritable tone at times) Affect: + depressed affect and + irritable affect Mood: + irritable mood ("Just so f*ckin' frustrated") Thought Process: goal directed thought process and + concrete thought process Thought Content: + cognitive distortions, + hopelessness and + worthlessness Suicidal Thoughts: denies suicidal thoughts (though verbalizes intent of OD was to end life) Hallucinations: no auditory hallucinations and no visual hallucinations Cognition: attention grossly intact and language grossly intact Estimated Intelligence: consistent with education level Insight: + poor insight Judgement: + poor judgement Vital Signs (Past 24 Hours) Last Vital Signs Temp 36.5 C 12/05/18 07:12 Pulse 84 12/05/18 07:46 Resp 16 12/05/18 07:12 BP 121/60 12/05/18 07:12 Pulse Ox 99 12/05/18 07:12 Results & Data Laboratory Results Laboratory Results - last 24 hr 12/04/18 12/04/18 12/04/18 07:10 11:23 14:18 APTT 57.5 H* PTT Ratio 2.1 Sodium Potassium Chloride Carbon Dioxide Anion Gap BUN Creatinine Est Cr Clr Drug Dosing Est GFR ( Amer) Est GFR (Non-Af Amer) BUN/Creatinine Ratio Glucose POC Glucose 70 Calcium Total Creatine Kinase 36801 H 12/05/18 12/05/18 07:42 07:43 APTT 40.4 H PTT Ratio 1.5 Sodium 141 Potassium 3.7 Chloride 108 H Carbon Dioxide 27 Anion Gap 6.0 BUN 7 Creatinine 1.03 Est Cr Clr Drug Dosing 95.0 Est GFR ( Amer) 119.8 Est GFR (Non-Af Amer) 103.4 BUN/Creatinine Ratio 7.1 L Glucose 80 POC Glucose Calcium 8.8 Total Creatine Kinase 7492 H Current Inpatient Medications Current Inpatient Medications: Current Inpatient Medications Lactated Ringer's (Lr) 1,000 mls @ 200 mls/hr IV .Q5H JILLIAN Stop: 01/04/19 08:59 Last Admin: 12/05/18 09:04 Dose: 200 mls/hr Documented by: Rivaroxaban (Xarelto) 20 mg PO QDD JILLIAN Stop: 01/03/19 20:59 Last Admin: 12/04/18 20:50 Dose: 20 mg Documented by: CPT Code CPT Code 60045
[2018-12-05] MEDS: RIVAROXABAN 20 MG TAB PO SCH (17:55)
[2018-12-06] MEDS: LACTATED RINGER'S 1,000 ML IV SCH ×4 (01:27→17:13)
[2018-12-06 06:45] LABS: Partial Thromboplastin Ratio 1.5; Partial Thromboplastin Time 39.9 Seconds (21.0-31.0)
--- NOTE | 2018-12-06 10:46 | Hospitalist Progress Note ---
Date of Service December 06, 2018 Assessment & Plan (1) Suicidal ideations: (2) Overdose: (3) Depression: Patient has a long history of depression with multiple suicide attempts in the past and is very high risk for suicide at this time. -Took 3 bottles of diphenhydramine and Klonopin overnight. -QTC - normal, Tele- no events -Psych consulted--> Inpatient psych recommended--> Agreeable for admission (4) Rhabdomyolysis: Secondary to overdose. -Presented with CPK in 16k and now down to around 3k -On IV Fluids -Creatinine - normal -Encourage PO hydration -Recommend repeating CPK in 3 days - 12/09/18 (5) Pulmonary embolus: Acute PE found on 10/06/18. -Initially was unclear if patient took an extra dose of Xarelto, therefore Xarelto was held and was started on IV heparin. Restarted Xarelto -CT head- no active bleed. No signs of active bleeding (6) DVT prophylaxis: Restarted xarelto Full code Disposition- Discharge to inpatient psychiatry today Subjective Patient is doing much better. Denies any new complaints. Physical Exam Physical Exam: GENERAL- AAOX3, No acute distress LUNGS- Air entry bilaterally equal. No rales, rhonchi, crackles, wheezes heard. HEART- Regular rate and rhythm. No murmurs ABDOMEN- Soft, non tender, non distended, Bowel sounds heard. EXTREMITIES- Good peripheral pulses, no edema Results & Data Vital Signs (Past 12 Hours) Vital Signs Temp Pulse Pulse Resp BP Pulse Ox 12/06/18 09:06 47 L 12/06/18 07:53 36.5 C 60 18 124/82 98 12/06/18 03:10 36.6 C 64 15 125/84 96 12/06/18 02:38 58 L 12/05/18 23:45 36.8 C 57 L 18 162/78 H 97 (1) Depression Depression Type: unspecified Qualified Code(s): F32.9 - Major depressive disorder, single episode, unspecified (2) Overdose Encounter type: initial encounter Injury intent: intentional self-harm Qualified Code(s): T50.902A - Poisoning by unspecified drugs, medicaments and biological substances, intentional self-harm, initial encounter (3) Rhabdomyolysis Rhabdomyolysis type: non-traumatic Qualified Code(s): M62.82 - Rhabdomyolysis
--- NOTE | 2018-12-06 12:19 | Discharge Summary ---
Date of Service December 06, 2018 Admission HPI Per Admitting Provider 23-year-old trans-male presented to the ER after intentional's overdose of reported Benadryl and reported Klonopin. He is known to program writer as program writer has been an outpt provider for him (although program writer has been in process of terminating him given his noncompliance with treatment including lack of attending appointments and pt will become inactive/terminated from care with program writer at [facility] December 15, 2018 tied to prior termination process occurring). Pt is alert and oriented to being in hospital and to month but not day of week. He is not fully coherent and not currently able to engage in a psychiatric assessment and attempt to do lead to him being in agitated state with crying and becoming upset about possible cost tied to his having had an ambulance bring him to the ER as he figured out that an ambulance brought him to the hospital. He is with SI ongoing but denied plans to act on such thoughts while here in the hospital but does get agitated and hopeless. Has had multiple suicide attempts and tends to try to minimize the actual behavior and suicidal intention when obtaining care for these attempts in past admissions. He tends to be preoccupied about not being psychiatrically admitted. HE is well known to the psychiatric service at [facility] due to prior psych consults and psych admissions. borderline personality d/o bipolar d/o by hisotry due to a psychotic maniac episode in his past with depression chronic but degrees of severity that can vary suddenly and ADHD. Principal Diagnosis 1. Suicidal attempt 2. Drug overdose 3. Major depression 4. Rhabdomyolysis Secondary diagnoses on discharge 1. History of pulmonary embolism on chronic anticoagulation Discharge Exam GENERAL- AAOX3, No acute distress LUNGS- Air entry bilaterally equal. No rales, rhonchi, crackles, wheezes heard. HEART- Regular rate and rhythm. No murmurs ABDOMEN- Soft, non tender, non distended, Bowel sounds heard. EXTREMITIES- Good peripheral pulses, no edema Discharge Data Allergies Allergy/AdvReac Type Severity Reaction Status Date / Time Penicillins Allergy Mild Unknown Verified 12/03/18 07:39 amoxicillin Allergy Unknown HIVES Verified 12/03/18 07:39 Consultations 12/03/18 08:53 ED Decision to Admit Stat 12/03/18 10:29 Consult Case Management - Discharge Planning Routine Consult Psychiatry Routine Ordered Studies 12/03/18 06:49 CT head/brain wo con Stat Hospital Course (1) Suicidal ideations: (2) Overdose: (3) Depression: Patient has a long history of depression with multiple suicide attempts in the past and is very high risk for suicide at this time. -Took 3 bottles of diphenhydramine and Klonopin overnight. -QTC - normal, Tele- no events -Psych consulted--> Inpatient psych recommended--> Agreeable for admission (4) Rhabdomyolysis: Secondary to overdose. -Presented with CPK in 16k and now down to around 3k -On IV Fluids -Creatinine - normal -Encourage PO hydration -Recommend repeating CPK in 3 days - 12/09/18 (5) Pulmonary embolus: Acute PE found on 10/06/18. -Initially was unclear if patient took an extra dose of Xarelto, therefore Xarelto was held and was started on IV heparin. Restarted Xarelto -CT head- no active bleed. No signs of active bleeding (6) DVT prophylaxis: Restarted xarelto Full code Disposition- Discharge to inpatient psychiatry today Total Time Total Time Spent Total Time Spent (In Minutes): 40 minutes Discharge Plan Discharge Items Patient Disposition: Transfer Behavioral Health Fac Reason For Visit: OVERDOSE,SUICIDAL IDEATIONS Discharge Diagnosis: Suicide attempt Drug overdose Rhabdomyolysis Discharge Goals: Decrease discomfort Activity: Resume your previous activity Non-emergency contact: Primary Care Provider Call non-emergency contact if: your symptoms worsen Follow-up/Referrals: Harika Gray MD [Primary Care Provider] - Diet: Regular Addtl Provider Instructions: MEDICATION CHANGES No changes in medications Encourage PO fluids Repeat CPK on 12/09/18 ( ordered in EMR) Prescriptions: Continued Xarelto 20 mg tablet 20 mg PO DAILY 30 Days Qty: 30 RF: 1 tretinoin 0.025 % cream 1 applic topical DAILY RF: 0 levothyroxine 25 mcg tablet 25 mcg PO DAILY RF: 0 testosterone cypionate 200 mg/mL oil 200 mg IM Q10D RF: 0 clindamycin phosphate 1 % lotion 1 applic topical BID RF: 0 Stand-Alone Forms: [facility] Discharge Orders: Discharge Order (Routine); Ordered 12/06/18 Ordered By: Jovanna Ramsay Admission Data Admit Date/Time: 12/03/18 09:01 Attending Provider: Jovanna Ramsay Admit Provider: Kimberlee Pittman Primary Care Provider: Harika Gray Other Providers: Kimberlee Pittman ; Isaak Benavidez I Service: Telemetry
--- NOTE | 2018-12-06 14:56 | Hospitalist Progress Note ---
Date of Service December 05, 2018 Assessment & Plan (1) Rhabdomyolysis: Secondary to overdose and prolonged immobilization outside until found by police. CK returned elevated this morning; IVF restarted. Patient can eat and drink to thirst. No evidence of renal failure. Patient has no muscle aches he is reporting at this time. Trend CK in am. (2) Suicidal ideations: One to one, safety trays, inpatient psych facility recommended. (3) Overdose: QTc is normal, patient is mentating back to baseline with normal energy level and feeling back to baseline. Elevated CK indicating ongoing rhabdo, will cont IVF. (4) Depression: Patient has a long history of depression with multiple suicide attempts in the past and is very high risk for suicide at this time. Active SI this admission. Recommend mandatory inpatient psych commitment if not going voluntary. (5) Pulmonary embolus: Acute PE found 10/06/18. No active bleeding, CT head is negative for bleed and there is no evidence of bleeding on exam. Heparin drip converted to Xarelto again, cont 20mg daily dose. (6) DVT prophylaxis: Xarelto Full code Disposition-likely to inpatient psychiatric facility, however, not medically cleared at this time. Expect that to happen tomorrow. Kimberlee Pittman DO [facility] [address] Hospitalist Subjective Pt feeling well, denies muscles aches, no urinary issues. Review of Systems 2 Review of Systems: All systems reviewed & are unremarkable except as noted in HPI & below Physical Exam Physical Exam: CONSTITUTIONAL: WNWD, vitals as above, generally well- appearing EYES: pupils are equal and round bilaterally, normal conjunctivae, no scleral icterus ENT: MMM RESPIRATORY: clear to auscultation bilaterally, no crackles, rales or wheezes, normal respiratory effort CARDIOVASCULAR: regular rate and rhythm, S1 and 2 heard without murmurs, gallops or rubs, no JVD, no peripheral edema GASTROINTESTINAL: soft, nontender, nondistended MUSCULOSKELETAL: strength 5/5 throughout, head is normocephalic and atraumatic, able to sit up on his own in bed SKIN: warm and dry, large tattoo on back, no obvious cuts or track is[place] present on arms. NEUROLOGIC: CN 2-12 grossly intact, normal speech, no tremor, no gross focal deficits. PSYCHIATRIC: alert cooperative and oriented to person, place and time. (1) Rhabdomyolysis Rhabdomyolysis type: non-traumatic Qualified Code(s): M62.82 - Rhabdomyolysis (2) Overdose Encounter type: initial encounter Injury intent: intentional self-harm Qualified Code(s): T50.902A - Poisoning by unspecified drugs, medicaments and biological substances, intentional self-harm, initial encounter (3) Depression Depression Type: unspecified Qualified Code(s): F32.9 - Major depressive disorder, single episode, unspecified
[2018-12-06] MEDS: RIVAROXABAN 20 MG TAB PO SCH (18:29)
== END 2018-12-06 22:36 | DRG 918 ==
LOC: ED 06:38 → 2S 09:01 → SUATTDRO 09:01 → 2S 10:20 → 2W 12-06 14:38